=== PATIENT | female | born 1940 | race Caucasian/White ===

== ENCOUNTER 2016-05-29 10:30 | Outpatient (RCR) | payer MEDICARE ==
--- OUTSIDE RECORDS SUMMARY | 2016-04-11 10:12 | XMS REPORT | Continuity of Care Document ---
Author Author [facility] Organization [facility] Address Unknown Phone Unavailable Care Team Providers Care Technology Risk Intern Name Role Phone Frank Fang PCP [phone] Source Comments Some departments are not documenting in the electronic medical record. If you do not see the information that you expected, contact Release of Information in the Health Information Management department at [phone] for further assistance in locating additional records.[facility] Active Allergies and Adverse Reactions Allergen Noted Date Severity Reactions Comments Grass Pollen 07/14/2014 UNKNOWN Milk 07/14/2014 UNKNOWN Soy 07/14/2014 UNKNOWN Sulfa (Sulfonamide 07/27/2014 HIVES Antibiotics) Wheat 07/14/2014 UNKNOWN Current Medications Prescription Sig. Disp. Refills Start End Date Status Date fluticasone-salmeterol Inhale 1 Puff by mouth Active (ADVAIR DISKUS) 250-50 every 12 hours as needed. mcg inhalation disk albuterol (VENTOLIN HFA, Inhale 2 Puffs by mouth Active PROAIR HFA) 90 every 6 hours as needed. mcg/actuation inhaler METHYL-B12/L-MEFOLATE/B6 Take 1 Tab by mouth Active PHOS (METANX PO) daily. atenolol (TENORMIN) 25 mg Take 25 mg by mouth Active tablet daily. metformin-ER(+) Take 1,000 mg by mouth Active (FORTAMET) 1,000 mg twice daily. tablet escitalopram oxalate Take 10 mg by mouth Active (LEXAPRO) 10 mg tablet daily. CALCIUM PHOSPHATE Take 2 Tabs by mouth Active TRIB/VIT D3 (CITRACAL + D daily. PO) potassium Over the counter 99mg Active daily MULTIVITAMIN PO Take by mouth. Active FLAXSEED-OMEGA3,6,9-FATTY Take by mouth. Active ACID PO cholecalciferol (Vitamin Take 1,000 Units by mouth Active D3) (VITAMIN D-3) 1,000 daily. units tablet aspirin EC 81 mg tablet Take 81 mg by mouth Active daily. acetaminophen SR(+) Take 650 mg by mouth Active (TYLENOL ARTHRITIS) 650 every 6 hours as needed. mg tablet DIPHENHYDRAMINE HCL Take by mouth. Active (BENADRYL ALLERGY PO) PSEUDOEPHEDRINE HCL Take by mouth. Active (SUDAFED 24 HOUR PO) LORazepam (ATIVAN) 0.5 mg Take 1 Tab by mouth every 2 Tab -0 07/20/19 Active tablet 4 hours as needed for 15 Nausea, Vomiting or Other.... Patient to take 1 tablet 30 minutes prior to MRI. May repeat x 1, if needed. Patient instructed she will need a auto transport driver to take her to exam. cyanocobalamin(+) Take 100 mcg by mouth Active (VITAMIN B-12) 100 mcg daily. tablet Active Problems Problem Noted Date Diabetes (HCC) COPD (chronic obstructive pulmonary disease) (HCC) Coronary artery disease Adenocarcinoma of lung (HCC) Social History Tobacco Use Types Packs/Day Years Used Date Former Smoker Cigarettes 1 12 Quit: 07/08/1968 Smokeless Tobacco: Never Used Alcohol Use Drinks/Week oz/Week Comments No Last Filed Vital Signs Vital Sign Reading Time Taken Blood Pressure 137/50 07/27/2014 2:15 PM OPTICAL INSTRUMENT REPAIRER Pulse 73 07/27/2014 2:15 PM OPTICAL INSTRUMENT REPAIRER Temperature 36.8 C (98.2 F) 07/27/2014 12:11 PM OPTICAL INSTRUMENT REPAIRER Respiratory Rate - - Height 1.626 m (5' 4") 08/13/2014 1:34 PM OPTICAL INSTRUMENT REPAIRER Weight 84.369 kg (186 lb) 08/13/2014 1:34 PM OPTICAL INSTRUMENT REPAIRER Body Mass Index 31.91 08/13/2014 1:34 PM OPTICAL INSTRUMENT REPAIRER Oxygen Saturation 93% 07/27/2014 2:15 PM OPTICAL INSTRUMENT REPAIRER Plan of Care Health Maintenance Due Date Last Done Comments Physical (Comprehensive) 1947 Exam Pertussis Vaccine 1953 Tetanus Vaccine 12/05/1959 Breast Cancer Screening 1982 Colorectal Cancer 1992 Screening Shingles Vaccine 2002 Osteoporosis Screening 12/05/2007 Prevnar/Pneumovax (#1) 12/05/2007 Influenza Vaccine 03/08/2016 Results from Last 3 Months Not on file
[2016-04-11 10:28] LABS: BASOPHILS # (AUTO) 0.1 10^3/uL (0.0-0.1); BASOPHILS % (AUTO) 1 % (0-10); EOSINOPHILS # (AUTO) 0.2 10^3/uL (0.0-0.3); EOSINOPHILS % (AUTO) 3 % (0-10); LYMPHOCYTES # (AUTO) 1.3 X 10^3 (1.0-4.0); LYMPHOCYTES % (AUTO) 23 % (12-44); MEAN CORPUSCULAR HEMOGLOBIN 31 PG (25-34); MEAN CORPUSCULAR HGB CONC 32 G/DL (32-36); MEAN CORPUSCULAR VOLUME 95 FL (80-99); MEAN PLATELET VOLUME 9.5 FL (7.4-10.4); MONOCYTES # (AUTO) 0.8 X 10^3 (0.0-1.0); MONOCYTES % (AUTO) 14 % (0-12); NEUTROPHILS # (AUTO) 3.5 X 10^3 (1.8-7.8); NEUTROPHILS % (AUTO) 60 % (42-75); PLATELET COUNT 375 10^3/uL (130-400); RED BLOOD COUNT 3.77 10^6/uL (4.35-5.85); RED CELL DISTRIBUTION WIDTH 19.5 % (10.0-14.5); WHITE BLOOD COUNT 5.9 10^3/uL (4.3-11.0)
[2016-04-11 10:56] LABS: ALANINE AMINOTRANSFERASE 32 U/L (0-55); ALBUMIN 3.8 G/DL (3.2-4.5); ANION GAP 14 MMOL/L (5-14); ASPARTATE AMINO TRANSFERASE 39 U/L (5-34); BILIRUBIN,TOTAL 0.2 MG/DL (0.1-1.0); BLOOD UREA NITROGEN 11 MG/DL (7-18); BUN/CREATININE RATIO 16; CALCIUM 8.5 MG/DL (8.5-10.1); CARBON DIOXIDE 19 MMOL/L (21-32); CHLORIDE 109 MMOL/L (98-107); CREATININE SERUM 0.69 MG/DL (0.60-1.30); GFR ESTIMATED > 60; GLUCOSE 144 MG/DL (70-105); MAGNESIUM 1.6 MG/DL (1.8-2.4); POTASSIUM 3.8 MMOL/L (3.6-5.0); SODIUM 142 MMOL/L (135-145); TOTAL PROTEIN 5.8 G/DL (6.4-8.2)
[2016-05-02 11:24] LABS: BASOPHILS % (AUTO) 1 % (0-10); EOSINOPHILS # (AUTO) 0.1 10^3/uL (0.0-0.3); EOSINOPHILS % (AUTO) 3 % (0-10); LYMPHOCYTES # (AUTO) 0.7 X 10^3 (1.0-4.0); LYMPHOCYTES % (AUTO) 18 % (12-44); MEAN CORPUSCULAR HEMOGLOBIN 31 PG (25-34); MEAN CORPUSCULAR HGB CONC 32 G/DL (32-36); MEAN CORPUSCULAR VOLUME 96 FL (80-99); MEAN PLATELET VOLUME 9.8 FL (7.4-10.4); MONOCYTES # (AUTO) 0.6 X 10^3 (0.0-1.0); MONOCYTES % (AUTO) 14 % (0-12); NEUTROPHILS # (AUTO) 2.7 X 10^3 (1.8-7.8); NEUTROPHILS % (AUTO) 65 % (42-75); PLATELET COUNT 299 10^3/uL (130-400); RED CELL DISTRIBUTION WIDTH 17.3 % (10.0-14.5); WHITE BLOOD COUNT 4.1 10^3/uL (4.3-11.0)
[2016-05-02 11:48] LABS: ALANINE AMINOTRANSFERASE 31 U/L (0-55); ANION GAP 9 MMOL/L (5-14); ASPARTATE AMINO TRANSFERASE 36 U/L (5-34); BILIRUBIN,TOTAL 0.4 MG/DL (0.1-1.0); BLOOD UREA NITROGEN 11 MG/DL (7-18); BUN/CREATININE RATIO 16; CALCIUM 9.2 MG/DL (8.5-10.1); CARBON DIOXIDE 25 MMOL/L (21-32); CHLORIDE 107 MMOL/L (98-107); CREATININE SERUM 0.69 MG/DL (0.60-1.30); GFR ESTIMATED > 60; GLUCOSE 152 MG/DL (70-105); POTASSIUM 3.9 MMOL/L (3.6-5.0); SODIUM 141 MMOL/L (135-145); TOTAL PROTEIN 6.2 G/DL (6.4-8.2)
[2016-05-09 09:12] LABS: BASOPHILS % (AUTO) 1 % (0-10); EOSINOPHILS # (AUTO) 0.1 10^3/uL (0.0-0.3); EOSINOPHILS % (AUTO) 3 % (0-10); LYMPHOCYTES # (AUTO) 1.6 X 10^3 (1.0-4.0); LYMPHOCYTES % (AUTO) 45 % (12-44); MEAN CORPUSCULAR HEMOGLOBIN 31 PG (25-34); MEAN CORPUSCULAR HGB CONC 32 G/DL (32-36); MEAN CORPUSCULAR VOLUME 96 FL (80-99); MEAN PLATELET VOLUME 9.1 FL (7.4-10.4); MONOCYTES # (AUTO) 0.3 X 10^3 (0.0-1.0); MONOCYTES % (AUTO) 8 % (0-12); NEUTROPHILS # (AUTO) 1.5 X 10^3 (1.8-7.8); NEUTROPHILS % (AUTO) 44 % (42-75); PLATELET COUNT 363 10^3/uL (130-400); RED BLOOD COUNT 3.76 10^6/uL (4.35-5.85); RED CELL DISTRIBUTION WIDTH 16.4 % (10.0-14.5); WHITE BLOOD COUNT 3.5 10^3/uL (4.3-11.0)
[2016-05-09 09:38] LABS: ANION GAP 9 MMOL/L (5-14); BLOOD UREA NITROGEN 15 MG/DL (7-18); BUN/CREATININE RATIO 21; CARBON DIOXIDE 25 MMOL/L (21-32); CHLORIDE 104 MMOL/L (98-107); CREATININE SERUM 0.71 MG/DL (0.60-1.30); GFR ESTIMATED > 60; GLUCOSE 219 MG/DL (70-105); POTASSIUM 4.5 MMOL/L (3.6-5.0); SODIUM 138 MMOL/L (135-145)
[2016-05-16 10:58] LABS: BASOPHILS % (AUTO) 1 % (0-10); EOSINOPHILS # (AUTO) 0.1 10^3/uL (0.0-0.3); EOSINOPHILS % (AUTO) 1 % (0-10); LYMPHOCYTES # (AUTO) 1.5 X 10^3 (1.0-4.0); LYMPHOCYTES % (AUTO) 41 % (12-44); MEAN CORPUSCULAR HEMOGLOBIN 31 PG (25-34); MEAN CORPUSCULAR HGB CONC 32 G/DL (32-36); MEAN CORPUSCULAR VOLUME 97 FL (80-99); MEAN PLATELET VOLUME 9.4 FL (7.4-10.4); MONOCYTES # (AUTO) 0.4 X 10^3 (0.0-1.0); MONOCYTES % (AUTO) 12 % (0-12); NEUTROPHILS # (AUTO) 1.6 X 10^3 (1.8-7.8); NEUTROPHILS % (AUTO) 45 % (42-75); PLATELET COUNT 130 10^3/uL (130-400); RED BLOOD COUNT 3.83 10^6/uL (4.35-5.85); RED CELL DISTRIBUTION WIDTH 16.3 % (10.0-14.5); WHITE BLOOD COUNT 3.5 10^3/uL (4.3-11.0)
[2016-05-16 11:46] LABS: ANION GAP 9 MMOL/L (5-14); BLOOD UREA NITROGEN 13 MG/DL (7-18); BUN/CREATININE RATIO 18; CALCIUM 9.4 MG/DL (8.5-10.1); CARBON DIOXIDE 27 MMOL/L (21-32); CHLORIDE 104 MMOL/L (98-107); CREATININE SERUM 0.73 MG/DL (0.60-1.30); GFR ESTIMATED > 60; GLUCOSE 175 MG/DL (70-105); POTASSIUM 4.2 MMOL/L (3.6-5.0); SODIUM 140 MMOL/L (135-145)
[2016-05-23 14:30] LABS: BASOPHILS # (AUTO) 0.1 10^3/uL (0.0-0.1); BASOPHILS % (AUTO) 1 % (0-10); EOSINOPHILS # (AUTO) 0.2 10^3/uL (0.0-0.3); EOSINOPHILS % (AUTO) 2 % (0-10); LYMPHOCYTES # (AUTO) 1.5 X 10^3 (1.0-4.0); LYMPHOCYTES % (AUTO) 21 % (12-44); MEAN CORPUSCULAR HEMOGLOBIN 31 PG (25-34); MEAN CORPUSCULAR HGB CONC 32 G/DL (32-36); MEAN CORPUSCULAR VOLUME 98 FL (80-99); MONOCYTES % (AUTO) 14 % (0-12); NEUTROPHILS # (AUTO) 4.3 X 10^3 (1.8-7.8); NEUTROPHILS % (AUTO) 62 % (42-75); PLATELET COUNT 429 10^3/uL (130-400); RED BLOOD COUNT 3.73 10^6/uL (4.35-5.85); RED CELL DISTRIBUTION WIDTH 16.4 % (10.0-14.5)
--- NOTE | 2016-05-23 14:34 | Diagnostic Imaging Report ---
INDICATION: Lung cancer. PA and lateral views of the chest are obtained with comparison made to study of 05/18/2016. Heart size and pulmonary vascularity remain within normal limits. Approximately 2.4 cm nodule is again seen projecting over the lower right hemithorax. 1 cm nodule lateral to the hilum just below the sathya is also stable. Left anterior chest wall port remains in place. There is unchanged right convexity thoracic spinal curvature. No new mass or infiltrate is seen. IMPRESSION: Right lower lobe pulmonary nodule similar to 05/18/2016 with no significant change in nodule lateral to the right hilum. Otherwise, there is no acute abnormality or adverse change identified. Dictated by: Dictated on workstation # [id number]
[2016-05-23 15:03] LABS: ALANINE AMINOTRANSFERASE 23 U/L (0-55); ALBUMIN 3.9 G/DL (3.2-4.5); ANION GAP 10 MMOL/L (5-14); ASPARTATE AMINO TRANSFERASE 22 U/L (5-34); BILIRUBIN,TOTAL 0.2 MG/DL (0.1-1.0); BLOOD UREA NITROGEN 12 MG/DL (7-18); BUN/CREATININE RATIO 17; CALCIUM 9.4 MG/DL (8.5-10.1); CARBON DIOXIDE 26 MMOL/L (21-32); CHLORIDE 105 MMOL/L (98-107); CREATININE SERUM 0.71 MG/DL (0.60-1.30); GFR ESTIMATED > 60; GLUCOSE 133 MG/DL (70-105); POTASSIUM 4.1 MMOL/L (3.6-5.0); SODIUM 141 MMOL/L (135-145); TOTAL PROTEIN 6.1 G/DL (6.4-8.2)
[~2016-05-29] VITALS: Ht 160 cm; Wt 93.0 kg
[~2016-05-29 10:30] MED LIST: ALB0.5V INH; ALBU17AE23; ALBU8.5H2 INH; APIX5TAB PO; ASP325T; ASPI-266 PO; ASPI-892 PO; ATEN25TA PO; AZIT250T5 PO; AZIT250T81 PO; BENZ100C8 PO; CALC-657 PO; CALC-696 PO; CALC300T4 PO; CETI-176 PO; CETI10TA17 PO; CHOL100011 PO; CITRICAL; CLPD75T; CNC1KV IJ; CYAN10007 PO; DCS100C PO; DIPH25CA79 PO; DIPH25TA82 PO; DOXY100C2 PO; ESCI10TA48 PO; ESCI20TA45 PO; EUCA50OI5 TP; FERR325T24 PO; FISH OIL; FISH1CAP5 PO; FISH400C PO; FLT05NA16 NSEACH; FLUT1DIS26 INH; FLUT9.9S NS; FOLI1TAB24 PO; GABA-488 PO; GARLIC OTC; GEMCITABINE HCL (GENERIC) 1,000 MG, GEMCITABINE HCL (GENERIC) 600 MG in NS (IVPB) CANCE... IV SCH; GMFB600T; GUAI10SY4 PO; GUAI5SYR PO; HYDR-34 PO; LEVO750T9 PO; MELA1TAB15 PO; MELA1TAB16 PO; MELO-195 PO; METF-380 PO; METF1000 PO; METH500T44; MONT10TA21 PO; MTF500T; MULT1TAB63 PO; NF-TYLARTH PO; NS IV 500 ML (CANCER CENTER) IV SCH; OMEP20CA12 PO; PALONOSETRON 0.25 MG, DEXAMETHASONE 10 MG/NS 50 ML IVPB IV PRN; PHEN10TA56 PO; POLY17PO23 GT; POTA99TA15 PO; POTA99TA17 PO; POTASSIUM OTC; PRED10TA PO; PRO AIR; PROP15DR28 OU; SODI30SP2 NS; VIT D; VIT.C; WHEA1TAB PO; [UNRECOGNIZED DRUG - OTHER]; nasal saline
[2016-05-29 10:54] LABS: BASOPHILS % (AUTO) 1 % (0-10); EOSINOPHILS # (AUTO) 0.1 10^3/uL (0.0-0.3); EOSINOPHILS % (AUTO) 4 % (0-10); LYMPHOCYTES # (AUTO) 1.4 X 10^3 (1.0-4.0); LYMPHOCYTES % (AUTO) 35 % (12-44); MEAN CORPUSCULAR HEMOGLOBIN 31 PG (25-34); MEAN CORPUSCULAR HGB CONC 32 G/DL (32-36); MEAN CORPUSCULAR VOLUME 98 FL (80-99); MEAN PLATELET VOLUME 9.2 FL (7.4-10.4); MONOCYTES # (AUTO) 0.2 X 10^3 (0.0-1.0); MONOCYTES % (AUTO) 5 % (0-12); NEUTROPHILS # (AUTO) 2.1 X 10^3 (1.8-7.8); NEUTROPHILS % (AUTO) 55 % (42-75); PLATELET COUNT 414 10^3/uL (130-400); RED BLOOD COUNT 3.44 10^6/uL (4.35-5.85); RED CELL DISTRIBUTION WIDTH 15.4 % (10.0-14.5); WHITE BLOOD COUNT 3.9 10^3/uL (4.3-11.0)
[2016-05-29 11:15] LABS: ANION GAP 6 MMOL/L (5-14); BLOOD UREA NITROGEN 12 MG/DL (7-18); BUN/CREATININE RATIO 19; CALCIUM 9.1 MG/DL (8.5-10.1); CARBON DIOXIDE 27 MMOL/L (21-32); CHLORIDE 107 MMOL/L (98-107); CREATININE SERUM 0.64 MG/DL (0.60-1.30); GFR ESTIMATED > 60; GLUCOSE 128 MG/DL (70-105); POTASSIUM 4.1 MMOL/L (3.6-5.0); SODIUM 140 MMOL/L (135-145)
== END 2016-07-10 | disposition home or self-care (01) ==
LOC: ONC 10:30
PROVIDERS: ATTEND Internal Medicine Hematology & Oncology
DX: Z51.11 Encounter for antineoplastic chemotherapy (principal); C34.31 Malignant neoplasm of lower lobe, right bronchus or lung; J44.9 Chronic obstructive pulmonary disease, unspecified; I10 Essential (primary) hypertension; E78.5 Hyperlipidemia, unspecified; E11.9 Type 2 diabetes mellitus without complications; I25.10 Atherosclerotic heart disease of native coronary artery without angina pectoris; R19.5 Other fecal abnormalities; Z79.82 Long term (current) use of aspirin; Z79.899 Other long term (current) drug therapy
CPT/HCPCS: 36415; 36591; 71020; 80048; 80053; 83735; 85025; 96375; 96413; 99213

== ENCOUNTER → 2016-09-03 | Outpatient (CLI) | payer MEDICARE ==
[~2016-09-03] MED LIST changes: +BARIUM SUSPENSION 2.1% (VANILLA SILQ) 450 ML PO ONE; +CATHETER FLUSH 10 ML SYR IV PRN; -GEMCITABINE HCL (GENERIC) 1,000 MG, GEMCITABINE HCL (GENERIC) 600 MG in NS (IVPB) CANCE... IV SCH; +IOHEXOL 350 MG/ML 100 ML (OMNIPAQUE 350) VIAL IV ONE; +NS 100 ML (IVPB) BAG IV ONE; -NS IV 500 ML (CANCER CENTER) IV SCH; -PALONOSETRON 0.25 MG, DEXAMETHASONE 10 MG/NS 50 ML IVPB IV PRN
--- OUTSIDE RECORDS SUMMARY | 2016-09-03 10:55 | XMS REPORT | Continuity of Care Document ---
Author Author [facility] Organization [facility] Address Unknown Phone Unavailable Care Team Providers Care Audience Development Manager Name Role Phone Frank Fang PCP [phone] Source Comments Some departments are not documenting in the electronic medical record. If you do not see the information that you expected, contact Release of Information in the Health Information Management department at [phone] for further assistance in locating additional records.[facility] Active Allergies and Adverse Reactions Allergen [...] needed. Patient instructed she will need a stake driver to take her to exam. cyanocobalamin(+) [...] Taken Blood Pressure 137/50 07/27/2014 2:15 PM PIZZA HUT ASSISTANT Pulse 73 07/27/2014 2:15 PM PIZZA HUT ASSISTANT Temperature 36.8 C (98.2 F) 07/27/2014 12:11 PM PIZZA HUT ASSISTANT Respiratory Rate - - Height 1.626 m (5' 4") 08/13/2014 1:34 PM PIZZA HUT ASSISTANT Weight 84.369 kg (186 lb) 08/13/2014 1:34 PM PIZZA HUT ASSISTANT Body Mass Index 31.91 08/13/2014 1:34 PM PIZZA HUT ASSISTANT Oxygen Saturation 93% 07/27/2014 2:15 PM PIZZA HUT ASSISTANT Plan of Care Health Maintenance Due Date Last Done Comments Physical (Comprehensive) 1947 Exam Pertussis Vaccine 1953 Tetanus Vaccine 12/05/1959 Breast Cancer Screening 1982 Colorectal Cancer 1992 Screening Shingles Vaccine 2002 Osteoporosis Screening 12/05/2007 Prevnar/Pneumovax (#1) 12/05/2007 Influenza Vaccine 03/08/2016 Results from Last 3 Months Not on file
[2016-09-03] MEDS: CATHETER FLUSH 10 ML SYR IV PRN ×2 (11:01→11:10)
--- NOTE | 2016-09-03 11:42 | Diagnostic Imaging Report ---
PROCEDURE: CT chest and abdomen with contrast. TECHNIQUE: Multiple contiguous axial images were obtained through the chest and abdomen after the administration of intravenous contrast. INDICATION: Lung cancer, cough. COMPARISON: 04/30/2016. FINDINGS: CHEST: The brittney-fissural nodule in the right lower lobe measures 1.9 x 1.6 cm today, previously 1.8 x 1.6 cm. Brittney-fissural nodules above that level in the upper and lower lobes show a slight interval increase with the largest measuring 1.3 x 1.0 cm today, previously 0.9 x 0.7 cm. No suspicious appearing hilar or mediastinal lymph nodes. A low-density mass in the left thyroid lobe is unchanged at 1.6 cm. No destructive or suspicious osseous disease. No effusion, pneumonia, or pneumothorax. ABDOMEN: Hepatic steatosis is redemonstrated without discrete liver mass. The adrenals are stable and negative. There is no abdominal lymphadenopathy and there is no hydronephrosis. There is no ascites or mass. The osseous structures are nonacute. IMPRESSION: CHEST: The right lung nodules measure slightly larger than on the prior exam but no thoracic adenopathy or new lesion is evident. ABDOMEN: Fatty liver with no abdominal metastasis demonstrated. Dictated by: Dictated on workstation # [id number]
--- NOTE | 2016-09-03 14:47 | Diagnostic Imaging Report ---
Whole body bone scan. Technique: After the intravenous administration of 27 mCi of Technetium 99m MDP, whole body delayed phase bone scan images were obtained with lateral views of the head and neck and the chest regions. Indication: Lung cancer. Findings: There is moderately increased radiotracer activity seen in the posterior aspect of the right sacroiliac joint region. This is increased from the prior exam. There is also minimal foci of increased activity in the lower thoracic spine and lower lumbar spine, indeterminate and could be degenerative. No intense foci of suspicious pattern is seen other than the lesion around the left SI joint area. Degenerative activity in the knees and feet and less prominent in others locations are also noted. IMPRESSION: Development of moderate focus of increased activity of uptake seen in the left sacroiliac region in an asymmetric fashion concerning for neoplastic etiology. Correlation with CT scan or MRI of the pelvis is recommended. Dictated by: Dictated on workstation # [id number]
== END ==
LOC: CARD 10:51
PROVIDERS: ATTEND Internal Medicine Hematology & Oncology
DX: Z01.89 Encounter for other specified special examinations (principal); C34.31 Malignant neoplasm of lower lobe, right bronchus or lung
CPT/HCPCS: 71260; 74160; 78306

== ENCOUNTER 2016-09-26 11:10 | Outpatient (RCR) | payer MEDICARE ==
--- OUTSIDE RECORDS SUMMARY | 2016-08-15 09:43 | XMS REPORT | Continuity of Care Document ---
Author Author [facility] Organization [facility] Address Unknown Phone Unavailable Care Team Providers Care Public Health Staff Nurse Name Role Phone Frank Fang PCP [phone] Source Comments Some departments are not documenting in the electronic medical record. If you do not see the information that you expected, contact Release of Information in the Health Information Management department at [phone] for further assistance in locating additional records.[facility] Active Allergies and Adverse Reactions Allergen Noted [...] Patient instructed she will need a auto parts delivery driver to take her to exam. cyanocobalamin(+) [...] Taken Blood Pressure 137/50 07/27/2014 2:15 PM PLATE STACKER HAND Pulse 73 07/27/2014 2:15 PM PLATE STACKER HAND Temperature 36.8 C (98.2 F) 07/27/2014 12:11 PM PLATE STACKER HAND Respiratory Rate - - Height 1.626 m (5' 4") 08/13/2014 1:34 PM PLATE STACKER HAND Weight 84.369 kg (186 lb) 08/13/2014 1:34 PM PLATE STACKER HAND Body Mass Index 31.91 08/13/2014 1:34 PM PLATE STACKER HAND Oxygen Saturation 93% 07/27/2014 2:15 PM PLATE STACKER HAND Plan of Care Health Maintenance Due Date Last Done Comments Physical (Comprehensive) 1947 Exam Pertussis Vaccine 1953 Tetanus Vaccine 12/05/1959 Breast Cancer Screening 1982 Colorectal Cancer 1992 Screening Shingles Vaccine 2002 Osteoporosis Screening 12/05/2007 Prevnar/Pneumovax (#1) 12/05/2007 Influenza Vaccine 03/08/2016 Results from Last 3 Months Not on file
[2016-08-15 10:21] LABS: BASOPHILS % (AUTO) 1 % (0-10); EOSINOPHILS # (AUTO) 0.4 10^3/uL (0.0-0.3); EOSINOPHILS % (AUTO) 5 % (0-10); LYMPHOCYTES # (AUTO) 1.1 X 10^3 (1.0-4.0); LYMPHOCYTES % (AUTO) 15 % (12-44); MEAN CORPUSCULAR HEMOGLOBIN 30 PG (25-34); MEAN CORPUSCULAR HGB CONC 32 G/DL (32-36); MEAN CORPUSCULAR VOLUME 96 FL (80-99); MEAN PLATELET VOLUME 9.5 FL (7.4-10.4); MONOCYTES # (AUTO) 0.9 X 10^3 (0.0-1.0); MONOCYTES % (AUTO) 12 % (0-12); NEUTROPHILS # (AUTO) 4.8 X 10^3 (1.8-7.8); NEUTROPHILS % (AUTO) 67 % (42-75); PLATELET COUNT 383 10^3/uL (130-400); RED CELL DISTRIBUTION WIDTH 16.9 % (10.0-14.5); WHITE BLOOD COUNT 7.1 10^3/uL (4.3-11.0)
[2016-08-15 10:49] LABS: ALANINE AMINOTRANSFERASE 22 U/L (0-55); ALBUMIN 3.9 G/DL (3.2-4.5); ANION GAP 11 MMOL/L (5-14); ASPARTATE AMINO TRANSFERASE 23 U/L (5-34); BILIRUBIN,TOTAL 0.3 MG/DL (0.1-1.0); BLOOD UREA NITROGEN 14 MG/DL (7-18); BUN/CREATININE RATIO 20; CALCIUM 8.9 MG/DL (8.5-10.1); CARBON DIOXIDE 25 MMOL/L (21-32); CHLORIDE 107 MMOL/L (98-107); GFR ESTIMATED > 60; GLUCOSE 125 MG/DL (70-105); MAGNESIUM 1.8 MG/DL (1.8-2.4); POTASSIUM 4.1 MMOL/L (3.6-5.0); SODIUM 143 MMOL/L (135-145); TOTAL PROTEIN 6.1 G/DL (6.4-8.2)
--- NOTE | 2016-08-15 14:08 | Diagnostic Imaging Report ---
PA and lateral views of the chest. INDICATION: Lung cancer. COMPARISON: 05/23/2016. FINDINGS: There is a stable 2.2 cm nodule in the right lung base. The lungs demonstrate no focal infiltrate. No significant effusion or pneumothorax. The heart size is normal. Infusion port is again seen without change. Scoliosis with right convexity in the lower thoracic spine level seen. IMPRESSION: Stable 2.2 cm right lung base nodule. No acute process. Dictated by: Dictated on workstation # [id number]
[2016-08-22 10:10] LABS: BASOPHILS % (AUTO) 1 % (0-10); EOSINOPHILS # (AUTO) 0.2 10^3/uL (0.0-0.3); EOSINOPHILS % (AUTO) 7 % (0-10); LYMPHOCYTES # (AUTO) 1.1 X 10^3 (1.0-4.0); LYMPHOCYTES % (AUTO) 33 % (12-44); MEAN CORPUSCULAR HEMOGLOBIN 30 PG (25-34); MEAN CORPUSCULAR HGB CONC 32 G/DL (32-36); MEAN CORPUSCULAR VOLUME 96 FL (80-99); MONOCYTES # (AUTO) 0.5 X 10^3 (0.0-1.0); MONOCYTES % (AUTO) 15 % (0-12); NEUTROPHILS # (AUTO) 1.4 X 10^3 (1.8-7.8); NEUTROPHILS % (AUTO) 44 % (42-75); PLATELET COUNT 332 10^3/uL (130-400); RED BLOOD COUNT 3.72 10^6/uL (4.35-5.85); WHITE BLOOD COUNT 3.3 10^3/uL (4.3-11.0)
[2016-08-22 10:27] LABS: ANION GAP 8 MMOL/L (5-14); BLOOD UREA NITROGEN 12 MG/DL (7-18); BUN/CREATININE RATIO 18; CALCIUM 8.7 MG/DL (8.5-10.1); CARBON DIOXIDE 25 MMOL/L (21-32); CHLORIDE 107 MMOL/L (98-107); CREATININE SERUM 0.65 MG/DL (0.60-1.30); GFR ESTIMATED > 60; GLUCOSE 194 MG/DL (70-105); POTASSIUM 4.3 MMOL/L (3.6-5.0); SODIUM 140 MMOL/L (135-145)
[2016-08-29 11:26] LABS: BASOPHILS % (AUTO) 1 % (0-10); EOSINOPHILS # (AUTO) 0.3 10^3/uL (0.0-0.3); EOSINOPHILS % (AUTO) 7 % (0-10); LYMPHOCYTES # (AUTO) 1.3 X 10^3 (1.0-4.0); LYMPHOCYTES % (AUTO) 33 % (12-44); MEAN CORPUSCULAR HEMOGLOBIN 30 PG (25-34); MEAN CORPUSCULAR HGB CONC 32 G/DL (32-36); MEAN CORPUSCULAR VOLUME 95 FL (80-99); MEAN PLATELET VOLUME 9.2 FL (7.4-10.4); MONOCYTES # (AUTO) 0.5 X 10^3 (0.0-1.0); MONOCYTES % (AUTO) 13 % (0-12); NEUTROPHILS # (AUTO) 1.8 X 10^3 (1.8-7.8); NEUTROPHILS % (AUTO) 47 % (42-75); PLATELET COUNT 113 10^3/uL (130-400); RED BLOOD COUNT 4.08 10^6/uL (4.35-5.85); RED CELL DISTRIBUTION WIDTH 16.4 % (10.0-14.5); WHITE BLOOD COUNT 3.9 10^3/uL (4.3-11.0)
[2016-08-29 12:36] LABS: ANION GAP 11 MMOL/L (5-14); BLOOD UREA NITROGEN 10 MG/DL (7-18); BUN/CREATININE RATIO 15; CALCIUM 9.2 MG/DL (8.5-10.1); CARBON DIOXIDE 26 MMOL/L (21-32); CHLORIDE 105 MMOL/L (98-107); CREATININE SERUM 0.68 MG/DL (0.60-1.30); GFR ESTIMATED > 60; GLUCOSE 157 MG/DL (70-105); POTASSIUM 4.5 MMOL/L (3.6-5.0); SODIUM 142 MMOL/L (135-145)
[2016-09-05 09:31] LABS: BASOPHILS % (AUTO) 1 % (0-10); EOSINOPHILS # (AUTO) 0.5 10^3/uL (0.0-0.3); EOSINOPHILS % (AUTO) 6 % (0-10); LYMPHOCYTES # (AUTO) 1.2 X 10^3 (1.0-4.0); LYMPHOCYTES % (AUTO) 14 % (12-44); MEAN CORPUSCULAR HEMOGLOBIN 30 PG (25-34); MEAN CORPUSCULAR HGB CONC 32 G/DL (32-36); MEAN CORPUSCULAR VOLUME 96 FL (80-99); MEAN PLATELET VOLUME 9.7 FL (7.4-10.4); MONOCYTES % (AUTO) 12 % (0-12); NEUTROPHILS # (AUTO) 5.6 X 10^3 (1.8-7.8); NEUTROPHILS % (AUTO) 68 % (42-75); PLATELET COUNT 411 10^3/uL (130-400); RED BLOOD COUNT 3.87 10^6/uL (4.35-5.85); RED CELL DISTRIBUTION WIDTH 16.6 % (10.0-14.5); WHITE BLOOD COUNT 8.3 10^3/uL (4.3-11.0)
[2016-09-05 09:50] LABS: ALANINE AMINOTRANSFERASE 14 U/L (0-55); ALBUMIN 3.7 G/DL (3.2-4.5); ANION GAP 12 MMOL/L (5-14); ASPARTATE AMINO TRANSFERASE 15 U/L (5-34); BILIRUBIN,TOTAL 0.3 MG/DL (0.1-1.0); BLOOD UREA NITROGEN 12 MG/DL (7-18); BUN/CREATININE RATIO 17; CALCIUM 8.7 MG/DL (8.5-10.1); CARBON DIOXIDE 23 MMOL/L (21-32); CHLORIDE 107 MMOL/L (98-107); GFR ESTIMATED > 60; GLUCOSE 206 MG/DL (70-105); POTASSIUM 4.1 MMOL/L (3.6-5.0); SODIUM 142 MMOL/L (135-145); TOTAL PROTEIN 5.9 G/DL (6.4-8.2)
[~2016-09-26] VITALS: Ht 160 cm; Wt 94.3 kg
[~2016-09-26 11:10] MED LIST changes: -BARIUM SUSPENSION 2.1% (VANILLA SILQ) 450 ML PO ONE; -CATHETER FLUSH 10 ML SYR IV PRN; +GEMCITABINE HCL (GENERIC) 1,000 MG, GEMCITABINE HCL (GENERIC) 600 MG in NS (IVPB) CANCE... IV SCH; -IOHEXOL 350 MG/ML 100 ML (OMNIPAQUE 350) VIAL IV ONE; -NS 100 ML (IVPB) BAG IV ONE; +NS IV 500 ML (CANCER CENTER) IV SCH; +PALONOSETRON 0.25 MG, DEXAMETHASONE 10 MG/NS 50 ML IVPB IV PRN
== END 2016-11-13 | disposition home or self-care (01) ==
LOC: ONC 11:10
PROVIDERS: ATTEND Internal Medicine Hematology & Oncology
DX: Z51.0 Encounter for antineoplastic radiation therapy (principal); Z51.11 Encounter for antineoplastic chemotherapy; C34.31 Malignant neoplasm of lower lobe, right bronchus or lung; J44.9 Chronic obstructive pulmonary disease, unspecified; I10 Essential (primary) hypertension; E78.5 Hyperlipidemia, unspecified; E11.9 Type 2 diabetes mellitus without complications; I25.10 Atherosclerotic heart disease of native coronary artery without angina pectoris; R19.5 Other fecal abnormalities; Z79.82 Long term (current) use of aspirin; Z79.899 Other long term (current) drug therapy
CPT/HCPCS: 36415; 36591; 71020; 77290; 77295; 77332; 77334; 77336; 77402; 77417; 77470; 80048; 80053; 83735; 85025; 96375; 96413; 99213; 99214

== ENCOUNTER → 2017-08-06 | Outpatient (CLI) | payer MEDICARE ==
[~2017-08-06] MED LIST changes: +AZIT250T12 PO; -AZIT250T5 PO; -GEMCITABINE HCL (GENERIC) 1,000 MG, GEMCITABINE HCL (GENERIC) 600 MG in NS (IVPB) CANCE... IV SCH; +GEMF600T3 PO; +LORA0.5T PO; +MELA5CAP PO; -NS IV 500 ML (CANCER CENTER) IV SCH; +OMEP20TA7 PO; +OXYC-465 PO; -PALONOSETRON 0.25 MG, DEXAMETHASONE 10 MG/NS 50 ML IVPB IV PRN; +PHEN10TA4 PO; -PHEN10TA56 PO; +SERT100T8 PO; +SITA100T12 PO; +TRAZ-28 PO; +VNL37.5T PO
== END ==
LOC: PREOP 15:11
PROVIDERS: ATTEND Surgery
DX: Z01.818 Encounter for other preprocedural examination (principal); C34.90 Malignant neoplasm of unspecified part of unspecified bronchus or lung

== ENCOUNTER → 2017-08-06 | Outpatient (CLI) | payer MEDICARE ==
--- NOTE | 2017-08-06 12:42 | Diagnostic Imaging Report ---
INDICATION: Shortness of breath. History of lung cancer. Comparison made with prior examination from 08/15/16. FINDINGS: There is an extensive right basilar consolidation and large right pleural effusion. Heart size is stable. Left lung is clear. There is no pneumothorax. [id number] catheter overlies left hemithorax. IMPRESSION: Extensive right basilar consolidation and moderately large right pleural effusion. Dictated by: Dictated on workstation # [id number]
== END ==
LOC: RAD 12:05
PROVIDERS: ATTEND Nurse Practitioner Family
DX: J90 Pleural effusion, not elsewhere classified (principal); J18.1 Lobar pneumonia, unspecified organism; Z85.118 Personal history of other malignant neoplasm of bronchus and lung
CPT/HCPCS: 71046

== ENCOUNTER 2017-08-07 06:28 | Day surgery (SDC) | payer MEDICARE ==
[~2017-08-07] VITALS: Ht 157.5 cm; Wt 92.2 kg
[~2017-08-07 06:28] MED LIST changes: -GEMF600T3 PO; -LORA0.5T PO; -MELA5CAP PO; -OMEP20TA7 PO; -OXYC-465 PO; -SERT100T8 PO; -SITA100T12 PO; -TRAZ-28 PO; -VNL37.5T PO
--- OUTSIDE RECORDS SUMMARY | 2017-08-07 06:30 | XMS REPORT | Clinical Summary ---
Author Author [facility] Organization [facility] Address Unknown Phone Unavailable Care Team Providers Care Sheet Rock Finisher Name Role Phone Jerry Fang MD PCP Mg Mcguire MD Unavailable Edin Lacey MD Unavailable Source Comments Some departments are not documenting in the electronic medical record. If you do not see the information that you expected, contact Release of Information in the Health Information Management department at [phone] for further assistance in locating additional records.[facility] Allergies Active Allergy Reactions Severity Noted Date Comments Grass Pollen UNKNOWN 07/14/2014 Milk UNKNOWN 07/14/2014 Soy UNKNOWN 07/14/2014 Sulfa (Sulfonamide HIVES 07/27/2014 Antibiotics) Wheat UNKNOWN 07/14/2014 Current Medications Prescription Sig. Disp. Refills Start [...] needed. Patient instructed she will need a otr flatbed company truck driver to take her to exam. cyanocobalamin(+) [...] Used Alcohol Use Drinks/Week oz/Week Comments No Sex Assigned at Date Recorded Not on file Last Filed Vital Signs Vital Sign Reading Time Taken Blood Pressure 137/50 07/27/2014 2:15 PM PAINTER AND BODY WORK Pulse 73 07/27/2014 2:15 PM PAINTER AND BODY WORK Temperature 36.8 C (98.2 F) 07/27/2014 12:11 PM PAINTER AND BODY WORK Respiratory Rate - - Oxygen Saturation 93% 07/27/2014 2:15 PM PAINTER AND BODY WORK Inhaled Oxygen - - Concentration Weight 84.4 kg (186 lb) 08/13/2014 1:34 PM PAINTER AND BODY WORK Height 162.6 cm (5' 4") 08/13/2014 1:34 PM PAINTER AND BODY WORK Body Mass Index 31.93 08/13/2014 1:34 PM PAINTER AND BODY WORK Plan of Treatment Health Maintenance Due Date Last Done Comments PHYSICAL (COMPREHENSIVE) 1947 EXAM PERTUSSIS VACCINE 1953 TETANUS VACCINE 12/05/1959 BREAST CANCER SCREENING 1982 COLORECTAL CANCER 1992 SCREENING SHINGLES VACCINE 2002 OSTEOPOROSIS SCREENING 12/05/2007 PREVNAR/PNEUMOVAX (#1) 12/05/2007 INFLUENZA VACCINE 02/05/2017 Results Not on filefrom Last 3 Months
--- OUTSIDE RECORDS SUMMARY | 2017-08-07 06:39 | XMS REPORT | Continuity of Care Document ---
Author Author [facility] Organization [facility] Address Unknown Phone Unavailable Allergies Active Description Code Type Severity Reaction Onset Reported/Identified Relationship to Patient Clinical Status Yes cefaclor [id number] Drug Allergy Unknown N/A 07/14/2008 Yes Sulfa (Sulfonamide Antibiotics) [id number] Drug Allergy Unknown N/A 2008 Yes clobetasol [id number] Drug Allergy Mild RASH ITHCING 06/17/2009 Yes FLIDACORT FLIDACORT Mild RASH,ITCHING 06/17/2009 Yes egg [id number] Drug Allergy Unknown N/A 05/28/2014 Yes Caroline And Derivatives [id number] Drug Allergy Unknown N/A 05/29/2014 Yes milk [id number] Drug Allergy Unknown N/A 05/29/2014 Yes soy [id number] Drug Allergy Unknown N/A 05/29/2014 Yes wheat [id number] Drug Allergy Unknown N/A 05/29/2014 Yes latex [id number] Drug Allergy Unknown N/A 09/29/2014 Medications There is no data. Problems Date Dx Coded Attending Type Code Diagnosis Diagnosed By 06/06/1010 NANCY KEARNEY Ot 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 LOWER LOBE, RIGHT 06/06/1010 NANCY KEARNEY Ot E11.9 TYPE 2 DIABETES MELLITUS WITHOUT COMPLIC 06/06/1010 NANCY EKARNEY Ot E78.5 HYPERLIPIDEMIA, UNSPECIFIED 06/06/1010 NANCY KEARNEY Ot I10 ESSENTIAL (PRIMARY) HYPERTENSION 06/06/1010 NANCY KEARNEY Ot I25.10 ATHSCL HEART DISEASE OF [place] CORONARY 06/06/1010 NANCY KEARNEY Ot J44.9 CHRONIC OBSTRUCTIVE PULMONARY DISEASE, U 06/06/1010 NANCY KEARNEY Ot R19.5 OTHER FECAL ABNORMALITIES 06/06/1010 NANCY KEARNEY Ot Z51.11 ENCOUNTER FOR ANTINEOPLASTIC CHEMOTHERAP 06/06/1010 NANCY KEARNEY Ot Z79.82 DIRECTOR FUNERAL (CURRENT) USE OF ASPIRIN 06/06/1010 NANCY KEARNEY Ot Z79.899 OTHER SKILLED NURSING (CURRENT) DRUG THERAPY 05/15/2011 Ot V54.11 AFTERCARE HEALING TRAUMATIC FX UPPER ARM 05/15/2011 Ot V57.1 PHYSICAL THERAPY NEC 05/15/2011 Ot V58.43 AFTERCARE POST SURGERY INJURY/TRAUMA 11/11/2011 Ot 787.91 DIARRHEA 05/28/2014 Ot 397.0 05/28/2014 Ot 401.9 05/28/2014 Ot 414.00 05/28/2014 Ot 416.8 05/28/2014 Ot 424.0 05/28/2014 Ot 429.3 05/28/2014 Ot V76.12 05/28/2014 Ot 285.9 05/28/2014 Ot 618.4 05/28/2014 Ot 625.6 05/28/2014 Ot V72.63 05/28/2014 Ot V74.8 05/28/2014 Ot 414.00 05/28/2014 Ot 786.50 05/28/2014 Ot 414.01 05/28/2014 Ot 719.06 05/28/2014 Ot 719.46 05/28/2014 Ot V76.12 05/28/2014 Ot 611.72 05/28/2014 Ot 401.9 05/28/2014 Ot 414.00 05/28/2014 Ot 397.0 05/28/2014 Ot 401.9 05/28/2014 Ot 414.00 05/28/2014 Ot 424.0 05/28/2014 Ot V76.12 05/28/2014 KASSANDRA COSTA MD Ot V76.12 06/01/2014 KASSANDRA COSTA MD Ot 250.00 DIAB DARCI WO COMPL, TYPE II OR UNSPEC TY 06/01/2014 KASSANDRA COSTA MD Ot 272.4 HYPERLIPIDEMIA NEC/NOS 06/01/2014 KASSANDRA COSTA MD Ot 305.1 TOBACCO USE DISORDER 06/01/2014 KASSANDRA COSTA MD Ot 379.46 TONIC PUPILLARY REACTION 06/01/2014 KASSANDRA COSTA MD Ot 389.9 HEARING LOSS NOS 06/01/2014 KASSANDRA COSTA MD Ot 401.9 HYPERTENSION NOS 06/01/2014 KASSANDRA COSTA MD Ot 414.01 CORONARY ATHEROSCLEROSIS OF [place] CORON 06/01/2014 KASSANDRA COSTA MD Ot 447.2 RUPTURE OF ARTERY 06/01/2014 KASSANDRA COSTA MD Ot 493.92 ASTHMA, UNSPECIFIED, W (ACUTE) EXACERBAT 06/01/2014 KASSANDRA COSTA MD Ot 729.92 NONTRAUMATIC HEMATOMA OF SOFT TISSUE 06/01/2014 KASSANDRA COSTA MD Ot 793.11 SOLITARY PULMONARY NODULE 06/01/2014 KASSANDRA COSTA MD Ot V45.82 PERCUTANEOUS TRANSLUM CORON ANGIOPLASTY 06/02/2014 ZAYNAB FRENCH, KRISS Mayes Ot 998.32 DISRUPTION OF EXTERNAL OPERATION (SURGIC 06/07/2014 KASSANDRA COSTA MD Ot 786.6 CHEST SWELLING/MASS/LUMP 06/21/2014 KASSANDRA COSTA MD Ot 250.00 06/21/2014 KASSANDRA COSTA MD Ot 272.4 06/21/2014 KASSANDRA COSTA MD Ot 305.1 06/21/2014 KASSANDRA COSTA MD Ot 379.46 06/21/2014 KASSANDRA COSTA MD Ot 389.9 06/21/2014 KASSANDRA COSTA MD Ot 401.9 06/21/2014 KASSANDRA COSTA MD Ot 414.01 06/21/2014 KASSANDRA COSTA MD Ot 447.2 06/21/2014 KASSANDRA COSTA MD Ot 493.92 06/21/2014 KASSANDRA COSTA MD Ot 729.92 06/21/2014 KASSANDRA COSTA MD Ot 793.11 06/21/2014 KASSANDRA COSTA MD Ot V45.82 06/23/2014 Ot 397.0 06/23/2014 Ot 401.9 06/23/2014 Ot 414.00 06/23/2014 Ot 416.8 06/23/2014 Ot 424.0 06/23/2014 Ot 429.3 06/23/2014 Ot V76.12 06/23/2014 Ot 285.9 06/23/2014 Ot 618.4 06/23/2014 Ot 625.6 06/23/2014 Ot V72.63 06/23/2014 Ot V74.8 06/23/2014 Ot 414.00 06/23/2014 Ot 786.50 06/23/2014 Ot 414.01 06/23/2014 Ot 719.06 06/23/2014 Ot 719.46 06/23/2014 Ot V76.12 06/23/2014 Ot 611.72 06/23/2014 Ot 401.9 06/23/2014 Ot 414.00 06/23/2014 Ot 397.0 06/23/2014 Ot 401.9 06/23/2014 Ot 414.00 06/23/2014 Ot 424.0 06/23/2014 Ot V76.12 06/23/2014 KASSANDRA COSTA MD Ot V76.12 06/23/2014 KASSANDRA COSTA MD Ot 562.10 06/23/2014 KASSANDRA COSTA MD Ot 729.92 06/23/2014 KASSANDRA COSTA MD Ot 786.6 06/23/2014 KASSANDRA COSTA MD Ot 162.9 06/23/2014 NANCY KEARNEY Ot 162.9 06/23/2014 KASSANDRA COSTA MD Ot 998.12 06/24/2014 KASSANDRA COSTA MD Ot 562.10 06/24/2014 KASSANDRA COSTA MD Ot 729.92 06/24/2014 KASSANDRA COSTA MD Ot 786.6 07/07/2014 KASSANDRA COSTA MD Ot 162.9 07/12/2014 KASSANDRA COSTA MD Ot 998.12 07/14/2014 LEWIS POST DO Ot 162.9 07/14/2014 LEWIS POST DO Ot 493.20 07/14/2014 LEWIS POST DO Ot 786.09 07/16/2014 Ot 611.72 07/16/2014 Ot 401.9 07/16/2014 Ot 414.00 07/16/2014 Ot 397.0 07/16/2014 Ot 401.9 07/16/2014 Ot 414.00 07/16/2014 Ot 424.0 07/16/2014 Ot V76.12 07/16/2014 KASSANDRA COSTA MD Ot V76.12 07/16/2014 KASSANDRA COSTA MD Ot 562.10 07/16/2014 KASSANDRA COSTA MD Ot 729.92 07/16/2014 KASSANDRA COSTA MD Ot 786.6 07/16/2014 KASSANDRA COSTA MD Ot 162.9 07/16/2014 NANCY KEARNEY Ot 162.9 07/16/2014 LEWIS POST DO Ot 162.9 07/16/2014 LEWIS POST DO Ot 493.20 07/16/2014 LEWIS POST DO Ot 786.09 07/16/2014 KASSANDRA COSTA MD Ot 998.12 08/05/2014 CHRISTEL BERTOCASSY N Ot 162.9 08/16/2014 CONNIE FRENCH, JOSHUA Velarde Ot 162.9 08/20/2014 NANCY KEARNEY N Ot 162.9 08/26/2014 NIKO EUCEDA, JAMILA K Ot 250.00 08/26/2014 NIKO PA, JAMILA K Ot 272.4 08/26/2014 NIKO EUCEDA, JAMILA K Ot 401.9 08/26/2014 NIKO EUCEDA, JAMILA K Ot 414.00 08/26/2014 HANNAH FRENCH, DAMION Alvarenga Ot 250.00 08/26/2014 HANNAH FRENCH, DAMION Alvarenga Ot 272.4 08/26/2014 HANNAH FRENCH, DAMION Alvarenga Ot 401.9 08/26/2014 HANNAH FRENCH, DAMION Alvarenga Ot 414.00 08/30/2014 NANCY KEARNEY N Ot 162.9 09/19/2014 NANCY KEARNEY Ot 162.9 MAL DULCE MARIA BRONCH/LUNG NOS 09/29/2014 NANCY KEARNEY N Ot 162.9 09/29/2014 SULAIMAN FRENCH, ISACC Corona Ot 162.9 MAL DULCE MARIA BRONCH/LUNG NOS 09/29/2014 SULAIMAN FRENCH, ISACC S Ot 250.00 DIAB DARCI WO COMPL, TYPE II OR UNSPEC TY 09/29/2014 SULAIMAN FRENCH, ISACC S Ot V74.8 SCREEN-BACTERIAL DIS NEC 10/07/2014 JOSETTE ALEXIS TIRE ADJUSTER Ot 162.5 10/07/2014 JOSETTE ALEXIS TIRE ADJUSTER Ot 196.1 10/07/2014 JOSETTE ALEXIS TIRE ADJUSTER Ot 250.00 10/07/2014 JOSETTE ALEXIS TIRE ADJUSTER Ot 272.4 10/07/2014 JOSETTE ALEXIS TIRE ADJUSTER Ot 401.9 10/07/2014 JOSETTE ALEXIS TIRE ADJUSTER Ot 414.00 10/07/2014 JOSETTE ALEXIS TIRE ADJUSTER Ot 493.20 10/07/2014 JOSETTE ALEXIS TIRE ADJUSTER Ot V58.66 10/07/2014 JOSETTE ALEXIS TIRE ADJUSTER Ot V58.69 10/14/2014 NANCY KEARNEY N Ot 162.9 10/15/2014 CHRISTEL, BOBAN N Ot 162.9 10/20/2014 CHRISTEL, BOBAN N Ot 162.9 10/20/2014 CHRISTEL, BOBAN N Ot V58.81 11/09/2014 CHRISTEL, BOBAN N Ot 162.9 11/09/2014 CHRISTEL, BOBAN N Ot 562.10 11/09/2014 CHRISTEL, BOBAN N Ot 573.8 11/30/2014 CHRISTEL, BOBAN N Ot 162.9 11/30/2014 CHRISTEL, BOBAN N Ot V58.81 2014 CHRISTEL, BOBAN N Ot 162.9 2014 CHRISTEL, BOBAN N Ot V58.81 12/14/2014 CHRISTEL, BOBAN N Ot 162.9 12/14/2014 CHRISTEL, BOBAN N Ot 562.10 12/14/2014 CHRISTEL, BOBAN N Ot 573.8 12/16/2014 JOSETTE ALEXIS TIRE ADJUSTER Ot 162.9 12/31/2014 CHRISTEL, BOBAN N Ot 162.9 12/31/2014 CHRISTEL, BOBAN N Ot V58.81 01/03/2015 JOSETTE ALEXIS TIRE ADJUSTER Ot 162.9 01/10/2015 CONNIE FRENCH, JOSHUA K Ot 162.9 01/12/2015 CHRISTEL, BOBAN N Ot 162.9 MAL DULCE MARIA BRONCH/LUNG NOS 01/12/2015 CHRISTEL, BOBAN N Ot V58.11 ENCOUNTER FOR ANTINEOPLASTIC CHEMOTHERAP 01/12/2015 CHRISTEL, BOBAN N Ot V58.81 FIT/ADJ VASCULAR CATHETER 01/12/2015 JULISSA FRENCH, KASSANDRA Marie Ot 162.9 01/25/2015 CHRISTEL, BOBAN N Ot 162.9 01/25/2015 CHRISTEL, BOBAN N Ot V58.81 01/25/2015 CHRISTEL, BOBAN N Ot 162.9 01/25/2015 CHRISTEL, BOBAN N Ot V58.81 01/26/2015 CHRISTEL, BOBAN N Ot 162.9 01/26/2015 CHRISTEL, BOBAN N Ot V58.81 02/01/2015 CHRISTEL, BOBAN N Ot 162.5 02/01/2015 CHRISTEL, BOBAN N Ot 196.1 02/01/2015 CHRISTEL, BOBAN N Ot 250.00 02/01/2015 CHRISTEL, BOBAN N Ot 272.4 02/01/2015 NANCY KEARNEY N Ot 401.9 02/01/2015 CHRISTEL, NANCY N Ot 414.00 02/01/2015 NANCY KEARNEY N Ot 493.20 02/01/2015 NANCY KEARNEY N Ot V58.11 02/01/2015 NANCY KEARNEY N Ot V58.66 02/01/2015 NANCY KEARNEY N Ot V58.69 02/02/2015 ALEXISJOSETTE S TIRE ADJUSTER Ot 162.5 02/02/2015 ALEXISJOSETTE S TIRE ADJUSTER Ot 196.1 02/02/2015 ALEXISCHINAAH S TIRE ADJUSTER Ot 250.00 02/02/2015 VANESA CHINAAH S TIRE ADJUSTER Ot 272.4 02/02/2015 ALEXIS CHINAAH S TIRE ADJUSTER Ot 356.9 02/02/2015 ALEXIS CHINAAH S TIRE ADJUSTER Ot 401.9 02/02/2015 ALEXIS, CHINAAH S TIRE ADJUSTER Ot 414.00 02/02/2015 VANESA CHINAAH S TIRE ADJUSTER Ot 493.20 02/02/2015 ALEXIS JOSETTE S TIRE ADJUSTER Ot 528.9 02/02/2015 ALEXIS JOSETTE S TIRE ADJUSTER Ot V58.66 02/02/2015 ALEXIS CHINAAH S TIRE ADJUSTER Ot V58.69 02/02/2015 ALEXIS CHINAAH S TIRE ADJUSTER Ot 162.5 02/02/2015 ALEXIS CHINAAH S TIRE ADJUSTER Ot 196.1 02/02/2015 ALEXIS CHINAAH S TIRE ADJUSTER Ot 250.00 02/02/2015 ALEXIS CHINAAH S TIRE ADJUSTER Ot 272.4 02/02/2015 ALEXIS CHINAAH S TIRE ADJUSTER Ot 356.9 02/02/2015 ALEXIS CHINAAH S TIRE ADJUSTER Ot 401.9 02/02/2015 ALEXIS, HILAH S TIRE ADJUSTER Ot 414.00 02/02/2015 ALEXIS, HILAH S TIRE ADJUSTER Ot 493.20 02/02/2015 ALEXIS HILAH S TIRE ADJUSTER Ot 528.9 02/02/2015 ALEXIS CHINAAH S TIRE ADJUSTER Ot V58.66 02/02/2015 ALEXIS CHINAAH S TIRE ADJUSTER Ot V58.69 02/03/2015 NANCY KEARNEY N Ot 162.5 02/03/2015 CHRISTEL, BOBAN N Ot 196.1 02/03/2015 CHRISTEL, BOBAN N Ot 250.00 02/03/2015 CHRISTEL, BOBAN N Ot 272.4 02/03/2015 CHRISTEL, BOBAN N Ot 401.9 02/03/2015 CHRISTEL, BOBAN N Ot 414.00 02/03/2015 CHRISTEL, BOBAN N Ot 493.20 02/03/2015 CHRISTEL, BOBAN N Ot V58.11 02/03/2015 CHRISTEL, BOBAN N Ot V58.66 02/03/2015 CHRISTEL, BOBAN N Ot V58.69 02/03/2015 CHRISTEL, BOBAN N Ot 162.5 02/03/2015 CHRISTEL, BOBAN N Ot 196.1 02/03/2015 CHRISTEL, BOBAN N Ot 250.00 02/03/2015 CHRISTEL, BOBAN N Ot 272.4 02/03/2015 CHRISTEL, BOBAN N Ot 401.9 02/03/2015 CHRISTEL, BOBAN N Ot 414.00 02/03/2015 CHRISTEL, BOBAN N Ot 493.20 02/03/2015 CHRISTEL, BOBAN N Ot V58.11 02/03/2015 CHRISTEL, BOBAN N Ot V58.66 02/03/2015 CHRISTEL, BOBAN N Ot V58.69 02/17/2015 JOSETTE ALEXIS S TIRE ADJUSTER Ot 162.5 02/17/2015 JOSETTE ALEXIS S TIRE ADJUSTER Ot 196.1 02/17/2015 JOSETTE ALEXIS S TIRE ADJUSTER Ot 250.00 02/17/2015 JOSETTE ALEXIS S TIRE ADJUSTER Ot 272.4 02/17/2015 JOSETTE ALEXIS S TIRE ADJUSTER Ot 356.9 02/17/2015 JOSETTE ALEXIS S TIRE ADJUSTER Ot 401.9 02/17/2015 ALEXIS, HILAH S TIRE ADJUSTER Ot 414.00 02/17/2015 CHINA ALEXISAH S TIRE ADJUSTER Ot 493.20 02/17/2015 JOSETTE ALEXIS S TIRE ADJUSTER Ot 528.9 02/17/2015 JOSETTE ALEXIS S TIRE ADJUSTER Ot V58.66 02/17/2015 JOSETTE ALEXIS S TIRE ADJUSTER Ot V58.69 03/04/2015 JOSETTE ALEXIS S TIRE ADJUSTER Ot 162.5 03/04/2015 JOSETTE ALEXIS S TIRE ADJUSTER Ot 196.1 03/04/2015 ALEXISJOSETTE Corona S TIRE ADJUSTER Ot 250.00 03/04/2015 JOSETTE ALEXIS S TIRE ADJUSTER Ot 272.4 03/04/2015 JOSETTE ALEXIS S TIRE ADJUSTER Ot 356.9 03/04/2015 ALEXISJOSETTE Corona S TIRE ADJUSTER Ot 401.9 03/04/2015 ALEXISJOSETTE Corona S TIRE ADJUSTER Ot 414.00 03/04/2015 ALEXISJOSETTE Corona S TIRE ADJUSTER Ot 493.20 03/04/2015 ALEXISJOSETTE Corona S TIRE ADJUSTER Ot 528.9 03/04/2015 ALEXISJOSETTE Corona S TIRE ADJUSTER Ot V58.66 03/04/2015 JOSETTE ALEXIS S TIRE ADJUSTER Ot V58.69 03/08/2015 JOSETTE ALEXIS S TIRE ADJUSTER Ot 162.9 03/24/2015 ALEXISJOSETTE Corona S TIRE ADJUSTER Ot 162.5 03/24/2015 JOSETTE ALEXIS S TIRE ADJUSTER Ot 196.1 03/24/2015 JOSETTE ALEXIS S TIRE ADJUSTER Ot 250.00 03/24/2015 JOSETTE ALEXIS S TIRE ADJUSTER Ot 272.4 03/24/2015 JOSETTE ALEXIS S TIRE ADJUSTER Ot 401.9 03/24/2015 JOSETTE ALEXIS S TIRE ADJUSTER Ot 414.00 03/24/2015 JOSETTE ALEXIS S TIRE ADJUSTER Ot 493.20 03/24/2015 JOSETTE ALEXIS S TIRE ADJUSTER Ot 782.1 03/24/2015 JOSETTE ALEXIS S TIRE ADJUSTER Ot V58.66 03/24/2015 ALEXISJOSETTE Corona S TIRE ADJUSTER Ot V58.69 03/29/2015 CHRISTEL, BOBAN N Ot 162.5 03/29/2015 CHRISTEL, BOBAN N Ot 196.1 03/29/2015 CHRISTEL, BOBAN N Ot 250.00 03/29/2015 CHRISTEL, BOBAN N Ot 272.4 03/29/2015 CHRISTEL, BOBAN N Ot 401.9 03/29/2015 CHRISTEL, BOBAN N Ot 414.00 03/29/2015 CHRISTEL, BOBAN N Ot 493.20 03/29/2015 CHRISTEL, BOBAN N Ot V58.11 03/29/2015 CHRISTEL, BOBAN N Ot V58.66 03/29/2015 CHRISTEL, BOBAN N Ot V58.69 03/31/2015 JOSETTE ALEXIS TIRE ADJUSTER Ot 162.9 04/06/2015 CHRISTEL, BOBAN N Ot 162.5 MAL DULCE MARIA LOWER LOBE LUNG 04/06/2015 CHRISTEL, BOBAN N Ot 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 04/06/2015 CHRISTEL, BOBAN N Ot 250.00 DIAB DARCI WO COMPL, TYPE II OR UNSPEC TY 04/06/2015 CHRISTEL, BOBAN N Ot 272.4 HYPERLIPIDEMIA NEC/NOS 04/06/2015 CHRISTEL, BOBAN N Ot 401.9 HYPERTENSION NOS 04/06/2015 CHRISTEL, BOBAN N Ot 414.00 CORON ATHEROSCLER NOS TYPE VESSEL, NATIV 04/06/2015 CHRISTEL, BOBAN N Ot 493.20 CHRONIC OBSTRUCTIVE ASTHMA, NOS 04/06/2015 CHRISTEL, BOBAN N Ot V58.11 ENCOUNTER FOR ANTINEOPLASTIC CHEMOTHERAP 04/06/2015 CHRISTEL, BOBAN N Ot V58.66 LONG-TERM (CURRENT) USE OF ASPIRIN 04/06/2015 CHRISTEL, BOBAN N Ot V58.69 OTH MED,LT,CURRENT USE 04/11/2015 CHRISTEL, BOBAN N Ot 162.5 04/11/2015 CHRISTEL, BOBAN N Ot 196.1 04/11/2015 CHRISTEL, BOBAN N Ot 250.00 04/11/2015 CHRISTEL, BOBAN N Ot 272.4 04/11/2015 CHRISTEL, BOBAN N Ot 401.9 04/11/2015 CHRISTEL, BOBAN N Ot 414.00 04/11/2015 CHRISTEL, BOBAN N Ot 493.20 04/11/2015 CHRISTEL, BOBAN N Ot V58.11 04/11/2015 CHRISTEL, BOBAN N Ot V58.66 04/11/2015 CHRISTEL, BOBAN N Ot V58.69 04/11/2015 CHRISTEL, BOBAN N Ot 162.5 04/11/2015 CHRISTEL, BOBAN N Ot 196.1 04/11/2015 CHRISTEL, BOBAN N Ot 250.00 04/11/2015 CHRISTEL, BOBAN N Ot 272.4 04/11/2015 CHRISTEL, BOBAN N Ot 401.9 04/11/2015 CHRISTEL, BOBAN N Ot 414.00 04/11/2015 CHRISTEL, BOBAN N Ot 493.20 04/11/2015 NANCY KEARNEY N Ot V58.11 04/11/2015 CHRISTEL, BOBAN N Ot V58.66 04/11/2015 CHRISTELNANCY LINARES N Ot V58.69 04/13/2015 ALEXISJOSETTE Corona S TIRE ADJUSTER Ot 162.5 04/13/2015 ALEXISJOSETTE Corona S TIRE ADJUSTER Ot 196.1 04/13/2015 ALEXISJOSETTE S TIRE ADJUSTER Ot 250.00 04/13/2015 ALEXISCHINAAH S TIRE ADJUSTER Ot 272.1 04/13/2015 ALEXIS, HILAH S TIRE ADJUSTER Ot 272.4 04/13/2015 ALEXIS, CHINAAH S TIRE ADJUSTER Ot 278.00 04/13/2015 ALEXISCHINAAH S TIRE ADJUSTER Ot 401.9 04/13/2015 ALEXISJOSETTE S TIRE ADJUSTER Ot 414.00 04/13/2015 ALEXISJOSETTE S TIRE ADJUSTER Ot 493.20 04/13/2015 ALEXISJOSETTE S TIRE ADJUSTER Ot 793.19 04/13/2015 ALEXISJOSETTE S TIRE ADJUSTER Ot V58.69 04/13/2015 ALEXISJOSETTE S TIRE ADJUSTER Ot V85.35 04/14/2015 ALEXISJOSETTE S TIRE ADJUSTER Ot 162.5 04/14/2015 ALEXISJOSETTE S TIRE ADJUSTER Ot 196.1 04/14/2015 ALEXISJOSETTE S TIRE ADJUSTER Ot 250.00 04/14/2015 ALEXISJOSETTE S TIRE ADJUSTER Ot 272.4 04/14/2015 ALEXISJOSETTE S TIRE ADJUSTER Ot 401.9 04/14/2015 ALEXISJOSETTE S TIRE ADJUSTER Ot 414.00 04/14/2015 ALEXISJOSETTE S TIRE ADJUSTER Ot 493.20 04/14/2015 ALEXISJOSETTE S TIRE ADJUSTER Ot 782.1 04/14/2015 ALEXISJOSETTE S TIRE ADJUSTER Ot V58.66 04/14/2015 ALEXIS, CHINAAH S TIRE ADJUSTER Ot V58.69 04/18/2015 NANCY KEARNEY N Ot 162.5 04/18/2015 CHRISTELNANCY LINARES N Ot 196.1 04/18/2015 CHRISTELBERTO LINARESAN N Ot 250.00 04/18/2015 CHRISTELBERTO LINARESAN N Ot 272.4 04/18/2015 CHRISTEL, BOBAN N Ot 401.9 04/18/2015 NANCY KEARNEY N Ot 414.00 04/18/2015 NANCY KEARNEY N Ot 493.20 04/18/2015 NANCY KEARNEY N Ot V58.11 04/18/2015 NANCY KEARNEY N Ot V58.66 04/18/2015 NANCY KEARNEY N Ot V58.69 05/03/2015 ALEXISJOSETTE S TIRE ADJUSTER Ot C34.90 05/03/2015 ALEXISJOSETTE S TIRE ADJUSTER Ot R51 05/04/2015 ALEXISJOSETTE S TIRE ADJUSTER Ot 162.5 05/04/2015 ALEXIS CHINAAH S TIRE ADJUSTER Ot 196.1 05/04/2015 VANESA CHINAAH S TIRE ADJUSTER Ot 250.00 05/04/2015 ALEXISJOSETTE S TIRE ADJUSTER Ot 272.1 05/04/2015 ALEXIS JOSETTE S TIRE ADJUSTER Ot 272.4 05/04/2015 VANESA JOSETTE S TIRE ADJUSTER Ot 278.00 05/04/2015 ALEXIS JOSETTE S TIRE ADJUSTER Ot 401.9 05/04/2015 ALEXISJOSETTE Corona S TIRE ADJUSTER Ot 414.00 05/04/2015 ALEXISJOSETTE Corona S TIRE ADJUSTER Ot 493.20 05/04/2015 ALEXIS JOSETTE S TIRE ADJUSTER Ot 793.19 05/04/2015 ALEXISJOSETTE Corona S TIRE ADJUSTER Ot V58.69 05/04/2015 ALEXISJOSETTE Corona S TIRE ADJUSTER Ot V85.35 05/11/2015 ALEXIS JOSETTE S TIRE ADJUSTER Ot C34.31 05/11/2015 VANESA JOSETTE S TIRE ADJUSTER Ot R05 05/11/2015 ALEXIS JOSETTE S TIRE ADJUSTER Ot R06.00 05/20/2015 VANESA JOSETTE S TIRE ADJUSTER Ot C34.90 05/20/2015 VANESA JOSETTE S TIRE ADJUSTER Ot R51 06/14/2015 LEWIS POST DO Ot 162.9 06/14/2015 LEWIS POST DO Ot 493.20 06/14/2015 LEWIS POST DO Ot 786.09 06/22/2015 VANESA JOSETTE S TIRE ADJUSTER Ot C34.90 06/25/2015 NANCY KEARNEY N Ot 162.5 06/25/2015 NANCY KEARNEY N Ot 196.1 06/25/2015 CHRISTELBERTOAN N Ot 250.00 06/25/2015 CHRISTELBERTO LINARESAN N Ot 272.4 06/25/2015 CHRISTEL, BOBAN N Ot 401.9 06/25/2015 CHRISTELBERTO LINARESAN N Ot 414.00 06/25/2015 CHRISTELBERTO LINARESAN N Ot 493.20 06/25/2015 CHRISTELBERTOAN N Ot V58.11 06/25/2015 CHRISTEL BOBAN N Ot V58.66 06/25/2015 CHRISTELBERTOAN N Ot V58.69 06/27/2015 CHRISTEL, BOBAN N Ot C34.31 06/27/2015 CHRISTEL, BERTOAN N Ot E11.9 06/27/2015 CHRISTEL, BOBCASSY N Ot E78.5 06/27/2015 CHRISTEL, NANCY N Ot I10 06/27/2015 CHRISTELNANCY LINARES N Ot I25.10 06/27/2015 CHRISTEL, NANCY N Ot J44.9 06/27/2015 CHRISTEL, NANCY N Ot Z51.11 06/27/2015 CHRISTEL, BERTOCASSY N Ot Z79.82 06/27/2015 CHRISTELBERTO LINARESAN N Ot Z79.899 07/07/2015 JOSETTE ALEXISP Ot C34.90 07/11/2015 CHRISTEL NANCY N Ot 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 LOWER LOBE, RIGHT 07/11/2015 CHRISTEL NANCY N Ot E11.9 TYPE 2 DIABETES MELLITUS WITHOUT COMPLIC 07/11/2015 CHRISTEL NANCY N Ot E78.5 HYPERLIPIDEMIA, UNSPECIFIED 07/11/2015 CHRISTELNANCY N Ot I10 ESSENTIAL (PRIMARY) HYPERTENSION 07/11/2015 CHRISTELBERTOCASSY N Ot I25.10 ATHSCL HEART DISEASE OF [place] CORONARY 07/11/2015 NANCY KEARNEY N Ot J44.9 CHRONIC OBSTRUCTIVE PULMONARY DISEASE, U 07/11/2015 CHRISTELNANCY N Ot Z51.11 ENCOUNTER FOR ANTINEOPLASTIC CHEMOTHERAP 07/11/2015 NANCY KEARNEY N Ot Z79.82 DIRECTOR FUNERAL (CURRENT) USE OF ASPIRIN 07/11/2015 NANCY KEARNEY N Ot Z79.899 OTHER DIRECTOR FUNERAL (CURRENT) DRUG THERAPY 07/19/2015 JOSETTE ALEXIS TIRE ADJUSTER Ot C34.31 07/19/2015 ALEXISJOSETTE Corona TIRE ADJUSTER Ot E11.9 07/19/2015 ALEXISJOSETTE Corona TIRE ADJUSTER Ot E78.5 07/19/2015 JOSETTE ALEXIS TIRE ADJUSTER Ot I10 07/19/2015 JOSETTE ALEXIS TIRE ADJUSTER Ot I25.10 07/19/2015 ALEXISJOSETTE [place] TIRE ADJUSTER Ot J44.9 07/19/2015 ALEXISJOSETTE [place] TIRE ADJUSTER Ot Z79.82 07/19/2015 ALEXISJOSETTE [place] TIRE ADJUSTER Ot Z79.899 07/20/2015 ALEXISJOSETTE [place] TIRE ADJUSTER Ot J44.9 07/20/2015 ALEXISJOSETTE [place] TIRE ADJUSTER Ot R05 07/20/2015 ALEXISJOSETTE [place] TIRE ADJUSTER Ot J44.9 07/20/2015 ALEXISJOSETTE [place] TIRE ADJUSTER Ot R05 07/29/2015 REYES MD, TRINA T Ot C34.31 07/29/2015 REYES MD, TRINA T Ot E04.1 08/04/2015 ALEXISJOSETTE [place] TIRE ADJUSTER Ot C34.31 08/04/2015 ALEXISJOSETTE [place] TIRE ADJUSTER Ot E11.9 08/04/2015 ALEXISJOSETTE [place] TIRE ADJUSTER Ot E78.5 08/04/2015 ALEXISJOSETTE [place] TIRE ADJUSTER Ot I10 08/04/2015 ALEXISJOSETTE [place] TIRE ADJUSTER Ot I25.10 08/04/2015 ALEXISJOSETTE [place] TIRE ADJUSTER Ot J44.9 08/04/2015 ALEXISJOSETTE [place] TIRE ADJUSTER Ot Z79.82 08/04/2015 ALEXISJOSETTE [place] TIRE ADJUSTER Ot Z79.899 08/09/2015 NANCY KEARNEY N Ot 162.5 08/09/2015 NANCY KEARNEY N Ot 196.1 08/09/2015 NANCY KEARNEY N Ot V58.69 08/11/2015 ALEXISJOSETTE [place] TIRE ADJUSTER Ot C34.31 08/11/2015 VANESA JOSETTE [place] TIRE ADJUSTER Ot E11.9 08/11/2015 VANESA JOSETTE [place] TIRE ADJUSTER Ot E78.5 08/11/2015 ALEXISJOSETTE [place] S TIRE ADJUSTER Ot I10 08/11/2015 JOSETTE ALEXIS TIRE ADJUSTER Ot I25.10 08/11/2015 JOSETTE ALEXIS TIRE ADJUSTER Ot J44.9 08/11/2015 JOSETTE ALEXIS S TIRE ADJUSTER Ot Z79.82 08/11/2015 JOSETTE ALEXIS S TIRE ADJUSTER Ot Z79.899 08/11/2015 JOSETTE ALEXIS S TIRE ADJUSTER Ot J44.9 08/11/2015 JOSETTE ALEXIS S TIRE ADJUSTER Ot R05 08/30/2015 JOSETTE ALEXIS S TIRE ADJUSTER Ot C34.31 08/30/2015 JOSETTE ALEXIS S TIRE ADJUSTER Ot E11.9 08/30/2015 JOSETTE ALEXIS S TIRE ADJUSTER Ot E78.5 08/30/2015 JOSETTE ALEXIS S TIRE ADJUSTER Ot I10 08/30/2015 JOSETTE ALEXIS S TIRE ADJUSTER Ot I25.10 08/30/2015 JOSETTE ALEXIS S TIRE ADJUSTER Ot J44.9 08/30/2015 ALEXISJOSETTE [place] S TIRE ADJUSTER Ot Z79.82 08/30/2015 ALEXISJOSETTE [place] S TIRE ADJUSTER Ot Z79.899 09/01/2015 JOSETTE ALEXIS TIRE ADJUSTER Ot J44.9 09/01/2015 JOSETTE ALEXIS TIRE ADJUSTER Ot R05 09/01/2015 CHRISTEL, BOBAN N Ot C34.31 09/01/2015 CHRISTEL, BOBAN N Ot E11.9 09/01/2015 CHRISTEL, BOBAN N Ot E78.5 09/01/2015 CHRISTEL, BOBAN N Ot I10 09/01/2015 CHRISTEL, BOBAN N Ot I25.10 09/01/2015 CHRISTEL, BOBAN N Ot J44.9 09/01/2015 CHRISTEL, BOBAN N Ot Z51.11 09/01/2015 CHRISTEL, BOBAN N Ot Z79.82 09/01/2015 CHRISTEL, BOBAN N Ot Z79.899 09/23/2015 ALEXISJOSETTE [place] S TIRE ADJUSTER Ot C34.31 09/23/2015 REYES MD, TRINA Mayes Ot C34.31 09/23/2015 REYES MD, TRINA T Ot E04.1 09/27/2015 VANESA JOSETTE S TIRE ADJUSTER Ot C34.31 09/27/2015 JOSETTE ALEXIS TIRE ADJUSTER Ot E11.9 09/27/2015 JOSETTE ALEXIS TIRE ADJUSTER Ot E78.5 09/27/2015 JOSETTE ALEXIS TIRE ADJUSTER Ot I10 09/27/2015 JOSETTE ALEXIS TIRE ADJUSTER Ot I25.10 09/27/2015 JOSETTE ALEXIS TIRE ADJUSTER Ot J44.9 09/27/2015 JOSETTE ALEXIS TIRE ADJUSTER Ot Z79.82 09/27/2015 JOSETTE ALEXIS TIRE ADJUSTER Ot Z79.899 09/28/2015 CHRISTEL, BOBAN N Ot C34.31 09/28/2015 CHRISTEL, BOBAN N Ot E11.9 09/28/2015 CHRISTEL, BOBAN N Ot E78.5 09/28/2015 CHRISTEL, BOBAN N Ot I10 09/28/2015 CHRISTEL, BOBAN N Ot I25.10 09/28/2015 CHRISTEL, BOBAN N Ot J44.9 09/28/2015 CHRISTEL, BOBAN N Ot Z51.11 09/28/2015 CHRISTEL, BOBAN N Ot Z79.82 09/28/2015 CHRISTEL, BOBAN N Ot Z79.899 09/29/2015 CHRISTEL, BOBAN N Ot C34.31 09/29/2015 CHRISTEL, BOBAN N Ot E11.9 09/29/2015 CHRISTEL, BOBAN N Ot E78.5 09/29/2015 CHRISTEL, BOBAN N Ot I10 09/29/2015 CHRISTEL, BOBAN N Ot I25.10 09/29/2015 CHRISTEL, BOBAN N Ot J44.9 09/29/2015 CHRISTEL, BOBAN N Ot Z51.11 09/29/2015 CHRISTEL, BOBAN N Ot Z79.82 09/29/2015 CHRISTEL, BOBAN N Ot Z79.899 10/06/2015 JULISSA FRENCH, KASSANDRA Marie Ot 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 LOWER LOBE, RIGHT 10/06/2015 JULISSA FRENCH, KASSANDRA Marie Ot E11.9 TYPE 2 DIABETES MELLITUS WITHOUT COMPLIC 10/06/2015 KASSANDRA COSTA MD Ot E78.5 HYPERLIPIDEMIA, UNSPECIFIED 10/06/2015 KASSANDRA COSTA MD Ot E86.0 DEHYDRATION 10/06/2015 KASSANDRA COSTA MD Ot F32.9 MAJOR DEPRESSIVE DISORDER, SINGLE EPISOD 10/06/2015 KASSANDRA COSTA MD Ot I10 ESSENTIAL (PRIMARY) HYPERTENSION 10/06/2015 KASSANDRA COSTA MD Ot I25.10 ATHSCL HEART DISEASE OF [place] CORONARY 10/06/2015 KASSANDRA COSTA MD Ot J11.1 FLU DUE TO UNIDENTIFIED INFLUENZA VIRUS 10/06/2015 KASSANDRA COSTA MD Ot J44.9 CHRONIC OBSTRUCTIVE PULMONARY DISEASE, U 10/06/2015 KASSANDRA COSTA MD Ot N39.0 URINARY TRACT INFECTION, SITE NOT SPECIF 10/11/2015 JOSETTE ALEXIS TIRE ADJUSTER Ot C34.31 10/11/2015 JOSETTE ALEXIS TIRE ADJUSTER Ot E11.9 10/11/2015 JOSETTE ALEXIS TIRE ADJUSTER Ot E78.5 10/11/2015 JOSETTE ALEXIS TIRE ADJUSTER Ot I10 10/11/2015 JOSETTE ALEXIS S TIRE ADJUSTER Ot I25.10 10/11/2015 JOSETTE ALEXIS S TIRE ADJUSTER Ot J44.9 10/11/2015 JOSETTE ALEXIS TIRE ADJUSTER Ot Z79.82 10/11/2015 JOSETTE ALEXIS S TIRE ADJUSTER Ot Z79.899 10/12/2015 JOSETTE ALEXIS TIRE ADJUSTER Ot C34.31 10/16/2015 NANCY KEARNEY Ot 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 LOWER LOBE, RIGHT 10/16/2015 NANCY KEARNEY Ot E11.9 TYPE 2 DIABETES MELLITUS WITHOUT COMPLIC 10/16/2015 NANCY KEARNEY Ot E78.5 HYPERLIPIDEMIA, UNSPECIFIED 10/16/2015 NANCY KEARNEY Ot I10 ESSENTIAL (PRIMARY) HYPERTENSION 10/16/2015 NANCY KEARNEY Ot I25.10 ATHSCL HEART DISEASE OF [place] CORONARY 10/16/2015 NANCY KEARNEY Ot J44.9 CHRONIC OBSTRUCTIVE PULMONARY DISEASE, U 10/16/2015 NANCY KEARNEY Ot Z51.11 ENCOUNTER FOR ANTINEOPLASTIC CHEMOTHERAP 10/16/2015 NANCY KEARNEY Ot Z79.82 DIRECTOR FUNERAL (CURRENT) USE OF ASPIRIN 10/16/2015 NANCY KEARNEY N Ot Z79.899 OTHER DIRECTOR FUNERAL (CURRENT) DRUG THERAPY 10/18/2015 JOSETTE ALEXIS TIRE ADJUSTER Ot C34.31 10/18/2015 JOSETTE ALEXIS TIRE ADJUSTER Ot E11.9 10/18/2015 JOSETTE ALEXIS TIRE ADJUSTER Ot E78.5 10/18/2015 JOSETTE ALEXIS TIRE ADJUSTER Ot I10 10/18/2015 JOSETTE ALEXIS TIRE ADJUSTER Ot I25.10 10/18/2015 JOSETTE ALEXIS TIRE ADJUSTER Ot J44.9 10/18/2015 ALEXISJOSETTE Corona TIRE ADJUSTER Ot Z79.82 10/18/2015 ALEXISJOSETTE Corona TIRE ADJUSTER Ot Z79.899 10/19/2015 CHRISTELNANCY N Ot C34.31 10/19/2015 CHRISTELNANCY N Ot E11.9 10/19/2015 CHRISTELNANCY N Ot E78.5 10/19/2015 CHRISTELNANCY N Ot I10 10/19/2015 CHRISTELNANCY N Ot I25.10 10/19/2015 CHRISTELNANCY N Ot J44.9 10/19/2015 CHRISTELNANCY LINARES N Ot Z51.11 10/19/2015 CHRISTELNANCY N Ot Z79.82 10/19/2015 CHRISTELBERTOAN N Ot Z79.899 10/24/2015 ALEXISJOSETTE Corona TIRE ADJUSTER Ot 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 LOWER LOBE, RIGHT 10/27/2015 JULISSA FRENCH, KASSANDRA Marie Ot E11.9 TYPE 2 DIABETES MELLITUS WITHOUT COMPLIC 10/27/2015 KASSANDRA COSTA MD Ot E11.9 TYPE 2 DIABETES MELLITUS WITHOUT COMPLIC 11/01/2015 KASSANDRA COSTA MD Ot E11.9 TYPE 2 DIABETES MELLITUS WITHOUT COMPLIC 11/02/2015 NANCY KEARNEY N Ot 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 LOWER LOBE, RIGHT 11/02/2015 CHRISTELNANCY N Ot E11.9 TYPE 2 DIABETES MELLITUS WITHOUT COMPLIC 11/02/2015 NANCY KEARNEY N Ot E78.5 HYPERLIPIDEMIA, UNSPECIFIED 11/02/2015 NANCY EKARNEY N Ot I10 ESSENTIAL (PRIMARY) HYPERTENSION 11/02/2015 NANCY KEARNEY N Ot I25.10 ATHSCL HEART DISEASE OF [place] CORONARY 11/02/2015 NANCY KEARNEY N Ot J44.9 CHRONIC OBSTRUCTIVE PULMONARY DISEASE, U 11/02/2015 NANCY KEARNEY N Ot Z51.11 ENCOUNTER FOR ANTINEOPLASTIC CHEMOTHERAP 11/02/2015 NANCY KEARNEY N Ot Z79.82 SKILLED NURSING (CURRENT) USE OF ASPIRIN 11/02/2015 CHRISTELNANCY LINARES N Ot Z79.899 OTHER DIRECTOR FUNERAL (CURRENT) DRUG THERAPY 11/09/2015 ALEXISJOSETTE Corona TIRE ADJUSTER Ot 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 LOWER LOBE, RIGHT 11/09/2015 ALEXISJOSETTE Corona S TIRE ADJUSTER Ot E11.9 TYPE 2 DIABETES MELLITUS WITHOUT COMPLIC 11/09/2015 JOSETTE ALEXIS TIRE ADJUSTER Ot E78.5 HYPERLIPIDEMIA, UNSPECIFIED 11/09/2015 ALEXISJOSETTE Corona S TIRE ADJUSTER Ot I10 ESSENTIAL (PRIMARY) HYPERTENSION 11/09/2015 ALEXISJOSETTE Corona S TIRE ADJUSTER Ot I25.10 ATHSCL HEART DISEASE OF [place] CORONARY 11/09/2015 ALEXISJOSETTE Corona TIRE ADJUSTER Ot J44.9 CHRONIC OBSTRUCTIVE PULMONARY DISEASE, U 11/09/2015 ALEXISJOSETTE Corona TIRE ADJUSTER Ot Z79.82 SKILLED NURSING (CURRENT) USE OF ASPIRIN 11/09/2015 ALEXISJOSETTE Corona TIRE ADJUSTER Ot Z79.899 OTHER SKILLED NURSING (CURRENT) DRUG THERAPY 11/15/2015 KASSANDRA COSTA MD Ot E11.9 TYPE 2 DIABETES MELLITUS WITHOUT COMPLIC 11/16/2015 CHRISTEL BERTOCASSY N Ot 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 LOWER LOBE, RIGHT 11/16/2015 CHRISTELNANCY N Ot E11.9 TYPE 2 DIABETES MELLITUS WITHOUT COMPLIC 11/16/2015 CHRISTEL NANCY N Ot E78.5 HYPERLIPIDEMIA, UNSPECIFIED 11/16/2015 CHRISTELBERTOCASSY N Ot I10 ESSENTIAL (PRIMARY) HYPERTENSION 11/16/2015 CHRISTELNANCY N Ot I25.10 ATHSCL HEART DISEASE OF [place] CORONARY 11/16/2015 CHRISTELNANCY N Ot J44.9 CHRONIC OBSTRUCTIVE PULMONARY DISEASE, U 11/16/2015 CHRISTELBERTOCASSY N Ot Z51.11 ENCOUNTER FOR ANTINEOPLASTIC CHEMOTHERAP 11/16/2015 NANCY KEARNEY N Ot Z79.82 DIRECTOR FUNERAL (CURRENT) USE OF ASPIRIN 11/16/2015 CHRISTELNANCY N Ot Z79.899 OTHER SKILLED NURSING (CURRENT) DRUG THERAPY 12/01/2015 JOSETTE ALEXIS S TIRE ADJUSTER Ot 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 LOWER LOBE, RIGHT 12/01/2015 ALEXIS, HILAH S TIRE ADJUSTER Ot E11.9 TYPE 2 DIABETES MELLITUS WITHOUT COMPLIC 12/01/2015 [place] ALEXISBRENDAN Corona TIRE ADJUSTER Ot E78.5 HYPERLIPIDEMIA, UNSPECIFIED 12/01/2015 [place] ALEXISBRENDAN Cj TIRE ADJUSTER Ot I10 ESSENTIAL (PRIMARY) HYPERTENSION 12/01/2015 VANESA JOSETTE Corona TIRE ADJUSTER Ot I25.10 ATHSCL HEART DISEASE OF [place] CORONARY 12/01/2015 JOSETTE ALEXIS TIRE ADJUSTER Ot J44.9 CHRONIC OBSTRUCTIVE PULMONARY DISEASE, U 12/01/2015 JOSETTE ALEXIS TIRE ADJUSTER Ot Z79.82 DIRECTOR FUNERAL (CURRENT) USE OF ASPIRIN 12/01/2015 JOSETTE ALEXIS TIRE ADJUSTER Ot Z79.899 OTHER SKILLED NURSING (CURRENT) DRUG THERAPY 12/13/2015 JOSETTE ALEXIS TIRE ADJUSTER Ot C34.90 MALIGNANT NEOPLASM OF UNSP PART OF [facility] [place] 12/13/2015 JOSETTE ALEXIS TIRE ADJUSTER Ot R53.83 OTHER FATIGUE 12/26/2015 JOSETTE ALEXIS TIRE ADJUSTER Ot 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 LOWER LOBE, RIGHT 12/26/2015 JOSETTE ALEXISP Ot E11.9 TYPE 2 DIABETES MELLITUS WITHOUT COMPLIC 12/26/2015 JOSETTE ALEXIS TIRE ADJUSTER Ot E78.5 HYPERLIPIDEMIA, UNSPECIFIED 12/26/2015 JOSETTE ALEXIS TIRE ADJUSTER Ot I10 ESSENTIAL (PRIMARY) HYPERTENSION 12/26/2015 JOSETTE ALEXIS TIRE ADJUSTER Ot I25.10 ATHSCL HEART DISEASE OF [place] CORONARY 12/26/2015 JOSETTE ALEXIS TIRE ADJUSTER Ot J44.9 CHRONIC OBSTRUCTIVE PULMONARY DISEASE, U 12/26/2015 JOSETTE ALEXIS TIRE ADJUSTER Ot Z79.82 DIRECTOR FUNERAL (CURRENT) USE OF ASPIRIN 12/26/2015 JOSETTE ALEXIS TIRE ADJUSTER Ot Z79.899 OTHER SKILLED NURSING (CURRENT) DRUG THERAPY 12/28/2015 JOSETTE ALEXIS TIRE ADJUSTER Ot C34.90 MALIGNANT NEOPLASM OF [place]SP PART OF [place] 12/28/2015 JOSETTE ALEXIS TIRE ADJUSTER Ot R53.83 OTHER FATIGUE 01/05/2016 JOSETTE ALEXIS TIRE ADJUSTER Ot 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 LOWER LOBE, RIGHT 01/05/2016 JOSETTE ALEXIS TIRE ADJUSTER Ot E11.9 TYPE 2 DIABETES MELLITUS WITHOUT COMPLIC 01/05/2016 ALEXIS, HILAH S TIRE ADJUSTER Ot E78.5 HYPERLIPIDEMIA, UNSPECIFIED 01/05/2016 JOSETTE ALEXIS TIRE ADJUSTER Ot I10 ESSENTIAL (PRIMARY) HYPERTENSION 01/05/2016 JOSETTE ALEXIS TIRE ADJUSTER Ot I25.10 ATHSCL HEART DISEASE OF [place] CORONARY 01/05/2016 JOSETTE ALEXIS TIRE ADJUSTER Ot J44.9 CHRONIC OBSTRUCTIVE PULMONARY DISEASE, U 01/05/2016 JOSETTE ALEXIS TIRE ADJUSTER Ot Z79.82 SKILLED NURSING (CURRENT) USE OF ASPIRIN 01/05/2016 JOSETTE ALEXIS TIRE ADJUSTER Ot Z79.899 OTHER SKILLED NURSING (CURRENT) DRUG THERAPY 01/11/2016 JOSETTE ALEXIS TIRE ADJUSTER Ot 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 LOWER LOBE, RIGHT 01/17/2016 CHRISTELNANCY N Ot 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 LOWER LOBE, RIGHT 01/17/2016 CHRISTELNANCY N Ot E11.9 TYPE 2 DIABETES MELLITUS WITHOUT COMPLIC 01/17/2016 NANCY KEARNEY N Ot E78.5 HYPERLIPIDEMIA, UNSPECIFIED 01/17/2016 NANCY KEARNEY N Ot I10 ESSENTIAL (PRIMARY) HYPERTENSION 01/17/2016 NANCY KEARNEY N Ot I25.10 ATHSCL HEART DISEASE OF [place] CORONARY 01/17/2016 NANCY KEARNEY N Ot J44.9 CHRONIC OBSTRUCTIVE PULMONARY DISEASE, U 01/17/2016 CHRISTELNANCY N Ot Z51.11 ENCOUNTER FOR ANTINEOPLASTIC CHEMOTHERAP 01/17/2016 NANCY KEARNEY N Ot Z79.82 SKILLED NURSING (CURRENT) USE OF ASPIRIN 01/17/2016 NANCY KEARNEY N Ot Z79.899 OTHER DIRECTOR FUNERAL (CURRENT) DRUG THERAPY 01/17/2016 JOSETTE ALEXIS TIRE ADJUSTER Ot R42 DIZZINESS AND GIDDINESS 01/17/2016 JOSETTE ALEXIS TIRE ADJUSTER Ot R42 DIZZINESS AND GIDDINESS 01/17/2016 JOSETTE ALEXIS TIRE ADJUSTER Ot R42 DIZZINESS AND GIDDINESS 01/17/2016 JOSETTE ALEXIS TIRE ADJUSTER Ot R42 DIZZINESS AND GIDDINESS 01/17/2016 JOSETTE ALEXIS TIRE ADJUSTER Ot R42 DIZZINESS AND GIDDINESS 01/17/2016 JOSETTE ALEXIS TIRE ADJUSTER Ot R42 DIZZINESS AND GIDDINESS 01/17/2016 JOSETTE ALEXIS TIRE ADJUSTER Ot R42 DIZZINESS AND GIDDINESS 01/18/2016 JOSETTE ALEXIS TIRE ADJUSTER Ot 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 LOWER LOBE, RIGHT 01/18/2016 JOSETTE ALEXIS TIRE ADJUSTER Ot R26.81 UNSTEADINESS ON FEET 01/18/2016 JOSETTE ALEXIS TIRE ADJUSTER Ot R42 DIZZINESS AND GIDDINESS 01/19/2016 JOSETTE ALEXIS TIRE ADJUSTER Ot 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 LOWER LOBE, RIGHT 01/19/2016 JOSETTE ALEXIS TIRE ADJUSTER Ot E11.9 TYPE 2 DIABETES MELLITUS WITHOUT COMPLIC 01/19/2016 JOSETTE ALEXIS TIRE ADJUSTER Ot E78.5 HYPERLIPIDEMIA, UNSPECIFIED 01/19/2016 ALEXISJOSETTE Corona TIRE ADJUSTER Ot I10 ESSENTIAL (PRIMARY) HYPERTENSION 01/19/2016 ALEXISJOSETTE Corona TIRE ADJUSTER Ot I25.10 ATHSCL HEART DISEASE OF [place] CORONARY 01/19/2016 ALEXIS JOSETTE Corona TIRE ADJUSTER Ot J44.9 CHRONIC OBSTRUCTIVE PULMONARY DISEASE, U 01/19/2016 ALEXISJOSETTE Corona TIRE ADJUSTER Ot Z79.82 SKILLED NURSING (CURRENT) USE OF ASPIRIN 01/19/2016 ALEXISJOSETTE Corona TIRE ADJUSTER Ot Z79.899 OTHER DIRECTOR FUNERAL (CURRENT) DRUG THERAPY 01/19/2016 NANCY KEARNEY Leonel Ot 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 LOWER LOBE, RIGHT 01/19/2016 NANCY KEARNEY N Ot E11.9 TYPE 2 DIABETES MELLITUS WITHOUT COMPLIC 01/19/2016 CHRISTELNANCY N Ot E78.5 HYPERLIPIDEMIA, UNSPECIFIED 01/19/2016 CHRISTELNANCY N Ot I10 ESSENTIAL (PRIMARY) HYPERTENSION 01/19/2016 CHRISTELNANCY N Ot I25.10 ATHSCL HEART DISEASE OF [place] CORONARY 01/19/2016 NANCY KEARNEY N Ot J44.9 CHRONIC OBSTRUCTIVE PULMONARY DISEASE, U 01/19/2016 NANCY KEARNEY Ot Z51.11 ENCOUNTER FOR ANTINEOPLASTIC CHEMOTHERAP 01/19/2016 NANCY KEARNEY N Ot Z79.82 DIRECTOR FUNERAL (CURRENT) USE OF ASPIRIN 01/19/2016 NANCY KEARNEY N Ot Z79.899 OTHER DIRECTOR FUNERAL (CURRENT) DRUG THERAPY 01/20/2016 ALEXISJOSETTE Corona TIRE ADJUSTER Ot 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 LOWER LOBE, RIGHT 02/03/2016 JOSETTE ALEXIS Cj TIRE ADJUSTER Ot C34.90 MALIGNANT NEOPLASM OF [place] PART OF [place] 02/03/2016 [place] ALEXISBRENDAN Cj TIRE ADJUSTER Ot R53.83 OTHER FATIGUE 02/09/2016 ALEXIS, JOSETTE Corona TIRE ADJUSTER Ot 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 LOWER LOBE, RIGHT 02/09/2016 ALEXISJOSETTE TIRE ADJUSTER Ot E11.9 TYPE 2 DIABETES MELLITUS WITHOUT COMPLIC 02/09/2016 JOSETTE ALEXIS TIRE ADJUSTER Ot E78.5 HYPERLIPIDEMIA, UNSPECIFIED 02/09/2016 [place] ALEXISBRENDAN Corona TIRE ADJUSTER Ot I10 ESSENTIAL (PRIMARY) HYPERTENSION 02/09/2016 JOSETTE ALEXIS TIRE ADJUSTER Ot I25.10 ATHSCL HEART DISEASE OF [place] CORONARY 02/09/2016 JOSETTE ALEXIS TIRE ADJUSTER Ot J44.9 CHRONIC OBSTRUCTIVE PULMONARY DISEASE, U 02/09/2016 JOSETTE ALEXIS TIRE ADJUSTER Ot Z79.82 SKILLED NURSING (CURRENT) USE OF ASPIRIN 02/09/2016 JOSETTE ALEXIS TIRE ADJUSTER Ot Z79.899 OTHER DIRECTOR FUNERAL (CURRENT) DRUG THERAPY 02/17/2016 CHRISTELNANCY N Ot 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 LOWER LOBE, RIGHT 02/17/2016 NANCY KEARNEY Ot E11.9 TYPE 2 DIABETES MELLITUS WITHOUT COMPLIC 02/17/2016 NANCY KEARNEY N Ot E78.5 HYPERLIPIDEMIA, UNSPECIFIED 02/17/2016 CHRISTELNANCY LINARES N Ot I10 ESSENTIAL (PRIMARY) HYPERTENSION 02/17/2016 NANCY KEARNEY Ot I25.10 ATHSCL HEART DISEASE OF [place] CORONARY 02/17/2016 NANCY KEARNEY N Ot J44.9 CHRONIC OBSTRUCTIVE PULMONARY DISEASE, U 02/17/2016 NANCY KEARNEY N Ot Z51.11 ENCOUNTER FOR ANTINEOPLASTIC CHEMOTHERAP 02/17/2016 NANCY KEARNEY N Ot Z79.82 DIRECTOR FUNERAL (CURRENT) USE OF ASPIRIN 02/17/2016 NANCY KEARNEY N Ot Z79.899 OTHER SKILLED NURSING (CURRENT) DRUG THERAPY 02/24/2016 JOSETTE ALEXIS TIRE ADJUSTER Ot 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 LOWER LOBE, RIGHT 02/24/2016 JOSETTE ALEXIS TIRE ADJUSTER Ot R26.81 UNSTEADINESS ON FEET 02/24/2016 JOSETTE ALEXIS Ot R42 DIZZINESS AND GIDDINESS 02/28/2016 KASSANDRA COSTA MD Ot Z12.31 ENCNTR SCREEN MAMMOGRAM FOR MALIGNANT NE 02/29/2016 KASSANDRA COSTA MD Ot Z12.31 ENCNTR SCREEN MAMMOGRAM FOR MALIGNANT NE 02/29/2016 CHRISTEL, NANCY Castaneda Ot 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 LOWER LOBE, RIGHT 02/29/2016 CHRISTEL NANCY Castaneda Ot E11.9 TYPE 2 DIABETES MELLITUS WITHOUT COMPLIC 02/29/2016 CHRISTEL NANCY N Ot E78.5 HYPERLIPIDEMIA, UNSPECIFIED 02/29/2016 CHRISTEL NANCY N Ot I10 ESSENTIAL (PRIMARY) HYPERTENSION 02/29/2016 CHRISTEL NANCY N Ot I25.10 ATHSCL HEART DISEASE OF [place] CORONARY 02/29/2016 NANCY KEARNEY N Ot J44.9 CHRONIC OBSTRUCTIVE PULMONARY DISEASE, U 02/29/2016 CHRISTEL NANCY N Ot R19.5 OTHER FECAL ABNORMALITIES 02/29/2016 CHRISTELNANCY Ot Z51.11 ENCOUNTER FOR ANTINEOPLASTIC CHEMOTHERAP 02/29/2016 CHRISTEL NANCY Castaneda Ot Z79.82 DIRECTOR FUNERAL (CURRENT) USE OF ASPIRIN 02/29/2016 CHRISTELNANCY Ot Z79.899 OTHER DIRECTOR FUNERAL (CURRENT) DRUG THERAPY 03/02/2016 KASSANDRA COSTA MD Ot E11.9 TYPE 2 DIABETES MELLITUS WITHOUT COMPLIC 03/02/2016 KASSANDRA COSTA MD Ot E78.4 OTHER HYPERLIPIDEMIA 03/02/2016 KASSANDRA COSTA MD Ot I10 ESSENTIAL (PRIMARY) HYPERTENSION 03/02/2016 KASSANDRA COSTA MD Ot I25.10 ATHSCL HEART DISEASE OF [place] CORONARY 03/02/2016 JOSETTE ALEXISP Ot 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 LOWER LOBE, RIGHT 03/02/2016 JOSETTE ALEXISP Ot E11.9 TYPE 2 DIABETES MELLITUS WITHOUT COMPLIC 03/02/2016 JOSETTE ALEXISP Ot E78.5 HYPERLIPIDEMIA, UNSPECIFIED 03/02/2016 JOSETTE ALEXIS TIRE ADJUSTER Ot I10 ESSENTIAL (PRIMARY) HYPERTENSION 03/02/2016 JOSETTE ALEXIS TIRE ADJUSTER Ot I25.10 ATHSCL HEART DISEASE OF [place] CORONARY 03/02/2016 JOSETTE ALEXIS TIRE ADJUSTER Ot J44.9 CHRONIC OBSTRUCTIVE PULMONARY DISEASE, U 03/02/2016 ALEXISJOSETTE Corona Cj TIRE ADJUSTER Ot Z79.82 DIRECTOR FUNERAL (CURRENT) USE OF ASPIRIN 03/02/2016 JOSETTE ALEXIS TIRE ADJUSTER Ot Z79.899 OTHER DIRECTOR FUNERAL (CURRENT) DRUG THERAPY 03/05/2016 KASSANDRA COSTA MD Ot Z12.31 ENCNTR SCREEN MAMMOGRAM FOR MALIGNANT NE 03/05/2016 KASSANDRA COSTA MD, Ot E11.9 TYPE 2 DIABETES MELLITUS WITHOUT COMPLIC 03/05/2016 KASSANDRA COSTA MD Ot E78.4 OTHER HYPERLIPIDEMIA 03/05/2016 KASSANDRA COSTA MD, Ot I10 ESSENTIAL (PRIMARY) HYPERTENSION 03/05/2016 KASSANDRA COSTA MD, Ot I25.10 ATHSCL HEART DISEASE OF [place] CORONARY 03/06/2016 KASSANDRA COSTA MD, Ot E11.9 TYPE 2 DIABETES MELLITUS WITHOUT COMPLIC 03/06/2016 KASSANDRA COSTA MD, Ot E78.4 OTHER HYPERLIPIDEMIA 03/06/2016 KASSANDRA COSTA MD, Ot I10 ESSENTIAL (PRIMARY) HYPERTENSION 03/06/2016 KASSANDRA COSTA MD Ot I25.10 ATHSCL HEART DISEASE OF [place] CORONARY 03/06/2016 JOSETTE ALEXIS TIRE ADJUSTER Ot 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 LOWER LOBE, RIGHT 03/06/2016 JOSETTE ALEXIS TIRE ADJUSTER Ot R26.81 UNSTEADINESS ON FEET 03/06/2016 JOSETTE ALEXIS TIRE ADJUSTER Ot R42 DIZZINESS AND GIDDINESS 03/06/2016 KASSANDRA COSTA MD Ot E11.9 TYPE 2 DIABETES MELLITUS WITHOUT COMPLIC 03/06/2016 KASSANDRA COSTA MD Ot E78.4 OTHER HYPERLIPIDEMIA 03/06/2016 KASSANDRA COSTA MD, Ot I10 ESSENTIAL (PRIMARY) HYPERTENSION 03/06/2016 KASSANDRA COSTA MD Ot I25.10 ATHSCL HEART DISEASE OF [place] CORONARY 03/06/2016 KASSANDRA COSTA MD, Ot E11.9 TYPE 2 DIABETES MELLITUS WITHOUT COMPLIC 03/06/2016 KASSANDRA COSTA MD Ot E78.4 OTHER HYPERLIPIDEMIA 03/06/2016 KASSANDRA COSTA MD Ot I10 ESSENTIAL (PRIMARY) HYPERTENSION 03/06/2016 KASSANDRA COSTA MD Ot I25.10 ATHSCL HEART DISEASE OF [place] CORONARY 03/06/2016 KASSANDRA COSTA MD Ot E11.9 TYPE 2 DIABETES MELLITUS WITHOUT COMPLIC 03/06/2016 JULISSA MD, KASSANDRA D Ot E78.4 OTHER HYPERLIPIDEMIA 03/06/2016 KASSANDRA COSTA MD Ot I10 ESSENTIAL (PRIMARY) HYPERTENSION 03/06/2016 KASSANDRA COSTA MD Ot I25.10 ATHSCL HEART DISEASE OF [place] CORONARY 03/06/2016 KASSANDRA COSTA MD Ot E11.9 TYPE 2 DIABETES MELLITUS WITHOUT COMPLIC 03/06/2016 KASSANDRA COSTA MD Ot E78.4 OTHER HYPERLIPIDEMIA 03/06/2016 KASSANDRA COSTA MD Ot I10 ESSENTIAL (PRIMARY) HYPERTENSION 03/06/2016 KASSANDRA COSTA MD Ot I25.10 ATHSCL HEART DISEASE OF [place] CORONARY 03/07/2016 Ot 611.72 LUMP OR MASS IN BREAST 03/07/2016 Ot 401.9 HYPERTENSION NOS 03/07/2016 Ot 414.00 CORON ATHEROSCLER NOS TYPE VESSEL, NATIV 03/07/2016 Ot 397.0 TRICUSPID VALVE DISEASE 03/07/2016 Ot 401.9 HYPERTENSION NOS 03/07/2016 Ot 414.00 CORON ATHEROSCLER NOS TYPE VESSEL, NATIV 03/07/2016 Ot 424.0 MITRAL VALVE DISORDER 03/07/2016 Ot V76.12 OTH SCREEN MAMMO-MALIGN NEOPLASM OF [place] 03/07/2016 KASSANDRA COSTA MD Ot V76.12 OTH SCREEN MAMMO-MALIGN NEOPLASM OF [place] 03/07/2016 KASSANDRA COSTA MD Ot 562.10 DIVERTICULOSIS COLON (W/O MENT OF HEMORR 03/07/2016 KASSANDRA COSTA MD Ot 729.92 NONTRAUMATIC HEMATOMA OF SOFT TISSUE 03/07/2016 KASSANDRA COSTA MD Ot 786.6 CHEST SWELLING/MASS/LUMP 03/07/2016 KASSANDRA COSTA MD Ot 162.9 MAL DULCE MARIA BRONCH/LUNG NOS 03/07/2016 LEWIS POST DO Ot 162.9 MAL DULCE MAIRA BRONCH/LUNG NOS 03/07/2016 LEWIS POST DO Ot 493.20 CHRONIC OBSTRUCTIVE ASTHMA, NOS 03/07/2016 LEWIS POST DO Ot 786.09 RESPIRATORY ABNORM NEC 03/07/2016 KASSANDRA COSTA MD Ot 998.12 HEMATOMA COMPLIC A PROC 03/07/2016 OTHER, UNLISTED Ot 162.8 MAL DULCE MARIA BRONCH/LUNG NEC 03/07/2016 JAMILA DE LA CRUZ Ot 250.00 DIAB DARCI WO COMPL, TYPE II OR UNSPEC TY 03/07/2016 JAMILA DE LA CRUZ Ot 272.4 HYPERLIPIDEMIA NEC/NOS 03/07/2016 JAMILA DE LA CRUZ Ot 401.9 HYPERTENSION NOS 03/07/2016 JAMILA DE LA CRUZ Ot 414.00 CORON ATHEROSCLER NOS TYPE VESSEL, NATIV 03/07/2016 HANNAH FRENCH, DAMION Alvarenga Ot 250.00 DIAB DARCI WO COMPL, TYPE II OR UNSPEC TY 03/07/2016 DAMION YOUNG MD Ot 272.4 HYPERLIPIDEMIA NEC/NOS 03/07/2016 DAMION YOUNG MD Ot 401.9 HYPERTENSION NOS 03/07/2016 HANNAH FRENCH, DAMION Alvarenga Ot 414.00 CORON ATHEROSCLER NOS TYPE VESSEL, NATIV 03/07/2016 CONNIE FRENCH, JOSHUA Velarde Ot 162.9 MAL DULCE MARIA BRONCH/LUNG NOS 03/07/2016 JOSETTE ALEXIS TIRE ADJUSTER Ot 162.5 MAL DULCE MARIA LOWER LOBE LUNG 03/07/2016 JOSETTE ALEXIS TIRE ADJUSTER Ot 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 03/07/2016 JOSETTE ALEXIS TIRE ADJUSTER Ot 250.00 DIAB DARCI WO COMPL, TYPE II OR UNSPEC TY 03/07/2016 JOSETTE ALEXIS TIRE ADJUSTER Ot 272.4 HYPERLIPIDEMIA NEC/NOS 03/07/2016 JOSETTE ALEXISP Ot 401.9 HYPERTENSION NOS 03/07/2016 JOSETTE ALEXIS TIRE ADJUSTER Ot 414.00 CORON ATHEROSCLER NOS TYPE VESSEL, NATIV 03/07/2016 JOSETTE ALEXIS TIRE ADJUSTER Ot 493.20 CHRONIC OBSTRUCTIVE ASTHMA, NOS 03/07/2016 JOSETTE ALEXIS TIRE ADJUSTER Ot V58.66 LONG-TERM (CURRENT) USE OF ASPIRIN 03/07/2016 JOSETTE ALEXIS TIRE ADJUSTER Ot V58.69 OTH MED,LT,CURRENT USE 03/07/2016 ISACC HILARIO MD Ot 162.9 MAL DULCE MARIA BRONCH/LUNG NOS 03/07/2016 ISACC HILARIO MD Ot V72.84 EXAM PRE-OPERATIVE NOS 03/07/2016 NANCY KEARNEY Ot 162.9 MAL DULCE MARIA BRONCH/LUNG NOS 03/07/2016 NANCY KEARNEY Ot 562.10 DIVERTICULOSIS COLON (W/O MENT OF HEMORR 03/07/2016 NANCY KEARNEY Ot 573.8 LIVER DISORDERS NEC 03/07/2016 JOSETTE ALEXIS TIRE ADJUSTER Ot 162.9 MAL DULCE MARIA BRONCH/LUNG NOS 03/07/2016 JOSETTE ALEXIS TIRE ADJUSTER Ot 162.5 MAL DULCE MARIA LOWER LOBE LUNG 03/07/2016 JOSETTE ALEXIS TIRE ADJUSTER Ot 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 03/07/2016 JOSETTE ALEXIS TIRE ADJUSTER Ot 250.00 DIAB DARCI WO COMPL, TYPE II OR UNSPEC TY 03/07/2016 JOSETTE ALEXIS TIRE ADJUSTER Ot 272.4 HYPERLIPIDEMIA NEC/NOS 03/07/2016 JOSETTE ALEXIS TIRE ADJUSTER Ot 356.9 IDIO PERIPH NEURPTHY NOS 03/07/2016 JOSETTE ALEXIS TIRE ADJUSTER Ot 401.9 HYPERTENSION NOS 03/07/2016 JOSETTE ALEXIS TIRE ADJUSTER Ot 414.00 CORON ATHEROSCLER NOS TYPE VESSEL, NATIV 03/07/2016 JOSETTE ALEXIS TIRE ADJUSTER Ot 493.20 CHRONIC OBSTRUCTIVE ASTHMA, NOS 03/07/2016 JOSETTE ALEXIS TIRE ADJUSTER Ot 528.9 ORAL SOFT TISSUE DIS NEC 03/07/2016 JOSETTE ALEXIS TIRE ADJUSTER Ot V58.66 LONG-TERM (CURRENT) USE OF ASPIRIN 03/07/2016 JOSETTE ALEXIS TIRE ADJUSTER Ot V58.69 OTH MED,LT,CURRENT USE 03/07/2016 JOSETTE ALEXIS TIRE ADJUSTER Ot 162.9 MAL DULCE MARIA BRONCH/LUNG NOS 03/07/2016 JOSETTE ALEXIS TIRE ADJUSTER Ot 162.5 MAL DULCE MARIA LOWER LOBE LUNG 03/07/2016 JOSETTE ALEXIS TIRE ADJUSTER Ot 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 03/07/2016 JOSETTE ALEXIS TIRE ADJUSTER Ot 250.00 DIAB DARCI WO COMPL, TYPE II OR UNSPEC TY 03/07/2016 JOSETTE ALEXIS TIRE ADJUSTER Ot 272.4 HYPERLIPIDEMIA NEC/NOS 03/07/2016 JOSETTE ALEXIS TIRE ADJUSTER Ot 401.9 HYPERTENSION NOS 03/07/2016 JOSETTE ALEXIS TIRE ADJUSTER Ot 414.00 CORON ATHEROSCLER NOS TYPE VESSEL, NATIV 03/07/2016 JOSETTE ALEXIS TIRE ADJUSTER Ot 493.20 CHRONIC OBSTRUCTIVE ASTHMA, NOS 03/07/2016 JOSETTE ALEXIS TIRE ADJUSTER Ot 782.1 NONSPECIF SKIN ERUPT NEC 03/07/2016 JOSETTE ALEXIS TIRE ADJUSTER Ot V58.66 LONG-TERM (CURRENT) USE OF ASPIRIN 03/07/2016 JOSETTE ALEXIS TIRE ADJUSTER Ot V58.69 OTH MED,LT,CURRENT USE 03/07/2016 JOSETTE ALEXIS TIRE ADJUSTER Ot 162.5 MAL DULCE MARIA LOWER LOBE LUNG 03/07/2016 JOSETTE ALEXIS TIRE ADJUSTER Ot 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 03/07/2016 JOSETTE ALEXIS TIRE ADJUSTER Ot 250.00 DIAB DARCI WO COMPL, TYPE II OR UNSPEC TY 03/07/2016 JOSETTE ALEXIS S TIRE ADJUSTER Ot 272.1 PURE HYPERGLYCERIDEMIA 03/07/2016 JOSETTE ALEXIS TIRE ADJUSTER Ot 272.4 HYPERLIPIDEMIA NEC/NOS 03/07/2016 JOSETTE ALEXIS TIRE ADJUSTER Ot 278.00 OBESITY, NOS 03/07/2016 JOSETTE ALEXIS TIRE ADJUSTER Ot 401.9 HYPERTENSION NOS 03/07/2016 JOSETTE ALEXIS TIRE ADJUSTER Ot 414.00 CORON ATHEROSCLER NOS TYPE VESSEL, NATIV 03/07/2016 JOSETTE ALEXIS TIRE ADJUSTER Ot 493.20 CHRONIC OBSTRUCTIVE ASTHMA, NOS 03/07/2016 JOSETTE ALEXIS TIRE ADJUSTER Ot 793.19 OTHER NONSPECIFIC ABNORMAL FINDING OF [place] 03/07/2016 JOSETTE ALEXIS TIRE ADJUSTER Ot V58.69 OTH MED,LT,CURRENT USE 03/07/2016 JOSETTE ALEXIS TIRE ADJUSTER Ot V85.35 BODY MASS INDEX 35.0-35.9, ADULT 03/07/2016 JOSETTE ALEXIS TIRE ADJUSTER Ot C34.90 MALIGNANT NEOPLASM OF UNSP PART OF UNSP 03/07/2016 JOSETTE ALEXIS TIRE ADJUSTER Ot R51 HEADACHE 03/07/2016 JOSETTE ALEXIS TIRE ADJUSTER Ot C34.90 MALIGNANT NEOPLASM OF UNSP PART OF UNSP 03/07/2016 JOSETTE AELXIS TIRE ADJUSTER Ot 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 LOWER LOBE, RIGHT 03/07/2016 JOSETTE ALEXIS TIRE ADJUSTER Ot R05 COUGH 03/07/2016 JOSETTE ALEXIS TIRE ADJUSTER Ot R06.00 DYSPNEA, UNSPECIFIED 03/07/2016 JOSETTE ALEXIS TIRE ADJUSTER Ot 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 LOWER LOBE, RIGHT 03/07/2016 JOSETTE ALEXIS TIRE ADJUSTER Ot E11.9 TYPE 2 DIABETES MELLITUS WITHOUT COMPLIC 03/07/2016 JOSETTE ALEXIS TIRE ADJUSTER Ot E78.5 HYPERLIPIDEMIA, UNSPECIFIED 03/07/2016 JOSETTE ALEXIS TIRE ADJUSTER Ot I10 ESSENTIAL (PRIMARY) HYPERTENSION 03/07/2016 JOSETTE ALEXIS TIRE ADJUSTER Ot I25.10 ATHSCL HEART DISEASE OF [place] CORONARY 03/07/2016 JOSETTE ALEXIS TIRE ADJUSTER Ot J44.9 CHRONIC OBSTRUCTIVE PULMONARY DISEASE, U 03/07/2016 JOSETTE ALEXISP Ot Z79.82 DIRECTOR FUNERAL (CURRENT) USE OF ASPIRIN 03/07/2016 JOSETTE ALEXISP Ot Z79.899 OTHER DIRECTOR FUNERAL (CURRENT) DRUG THERAPY 03/07/2016 REYES MD, TRINA T Ot 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 LOWER LOBE, RIGHT 03/07/2016 REYES MD, TRINA T Ot E04.1 NONTOXIC SINGLE THYROID NODULE 03/07/2016 JOSETTE ALEXISP Ot 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 LOWER LOBE, RIGHT 03/07/2016 JOSETTE ALEXISP Ot E11.9 TYPE 2 DIABETES MELLITUS WITHOUT COMPLIC 03/07/2016 JOSETTE ALEXISP Ot E78.5 HYPERLIPIDEMIA, UNSPECIFIED 03/07/2016 JOSETTE ALEXISP Ot I10 ESSENTIAL (PRIMARY) HYPERTENSION 03/07/2016 JOSETTE ALEXISP Ot I25.10 ATHSCL HEART DISEASE OF [place] CORONARY 03/07/2016 JOSETTE ALEXISP Ot J44.9 CHRONIC OBSTRUCTIVE PULMONARY DISEASE, U 03/07/2016 JOSETTE ALEXISP Ot Z79.82 DIRECTOR FUNERAL (CURRENT) USE OF ASPIRIN 03/07/2016 JOSETTE ALEXIS TIRE ADJUSTER Ot Z79.899 OTHER DIRECTOR FUNERAL (CURRENT) DRUG THERAPY 03/07/2016 NANCY KEARNEY Ot 162.5 MAL DULCE MARIA LOWER LOBE LUNG 03/07/2016 NANCY KEARNEY Ot 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 03/07/2016 NANCY KEARNEY Ot V58.69 OTH MED,LT,CURRENT USE 03/07/2016 JOSETTE ALEXISP Ot J44.9 CHRONIC OBSTRUCTIVE PULMONARY DISEASE, U 03/07/2016 JOSETTE ALEXISP Ot R05 COUGH 03/07/2016 JOSETTE ALEXIS TIRE ADJUSTER Ot 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 LOWER LOBE, RIGHT 03/07/2016 JOSETTE ALEXISP Ot E11.9 TYPE 2 DIABETES MELLITUS WITHOUT COMPLIC 03/07/2016 JOSETTE ALEXIS Cj TIRE ADJUSTER Ot E78.5 HYPERLIPIDEMIA, UNSPECIFIED 03/07/2016 JOSETTE ALEXIS S TIRE ADJUSTER Ot I10 ESSENTIAL (PRIMARY) HYPERTENSION 03/07/2016 JOSETTE ALEXIS TIRE ADJUSTER Ot I25.10 ATHSCL HEART DISEASE OF [place] CORONARY 03/07/2016 JOSETTE ALEXIS TIRE ADJUSTER Ot J44.9 CHRONIC OBSTRUCTIVE PULMONARY DISEASE, U 03/07/2016 JOSETTE ALEXIS TIRE ADJUSTER Ot Z79.82 SKILLED NURSING (CURRENT) USE OF ASPIRIN 03/07/2016 JOSETTE ALEXIS TIRE ADJUSTER Ot Z79.899 OTHER SKILLED NURSING (CURRENT) DRUG THERAPY 03/07/2016 JOSETTE ALEXIS TIRE ADJUSTER Ot 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 LOWER LOBE, RIGHT 03/07/2016 JOSETTE ALEXIS TIRE ADJUSTER Ot 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 LOWER LOBE, RIGHT 03/07/2016 JOSETTE ALEXISP Ot E11.9 TYPE 2 DIABETES MELLITUS WITHOUT COMPLIC 03/07/2016 JOSETTE ALEXISP Ot E78.5 HYPERLIPIDEMIA, UNSPECIFIED 03/07/2016 JOSETTE ALEXIS TIRE ADJUSTER Ot I10 ESSENTIAL (PRIMARY) HYPERTENSION 03/07/2016 JOSETTE ALEXIS TIRE ADJUSTER Ot I25.10 ATHSCL HEART DISEASE OF [place] CORONARY 03/07/2016 JOSETTE ALEXIS TIRE ADJUSTER Ot J44.9 CHRONIC OBSTRUCTIVE PULMONARY DISEASE, U 03/07/2016 JOSETTE ALEXIS S TIRE ADJUSTER Ot Z79.82 DIRECTOR FUNERAL (CURRENT) USE OF ASPIRIN 03/07/2016 JOSETTE ALEXIS TIRE ADJUSTER Ot Z79.899 OTHER DIRECTOR FUNERAL (CURRENT) DRUG THERAPY 03/07/2016 JULISSA FRENCH, KASSANDRA Marie Ot E11.9 TYPE 2 DIABETES MELLITUS WITHOUT COMPLIC 03/07/2016 JOSETTE ALEXIS TIRE ADJUSTER Ot C34.90 MALIGNANT NEOPLASM OF UNSP PART OF UNSP 03/07/2016 JOSETTE ALEXIS TIRE ADJUSTER Ot R53.83 OTHER FATIGUE 03/07/2016 ALEXIS, HILAH S TIRE ADJUSTER Ot 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 LOWER LOBE, RIGHT 03/07/2016 ALEXISJOSETTE S TIRE ADJUSTER Ot E11.9 TYPE 2 DIABETES MELLITUS WITHOUT COMPLIC 03/07/2016 JOSETTE ALEXIS S TIRE ADJUSTER Ot E78.5 HYPERLIPIDEMIA, UNSPECIFIED 03/07/2016 ALEXIS JOSETTE S TIRE ADJUSTER Ot I10 ESSENTIAL (PRIMARY) HYPERTENSION 03/07/2016 JOSETTE ALEXIS S TIRE ADJUSTER Ot I25.10 ATHSCL HEART DISEASE OF [place] CORONARY 03/07/2016 JOSETTE ALEXIS S TIRE ADJUSTER Ot J44.9 CHRONIC OBSTRUCTIVE PULMONARY DISEASE, U 03/07/2016 JOSETTE ALEXIS S TIRE ADJUSTER Ot Z79.82 DIRECTOR FUNERAL (CURRENT) USE OF ASPIRIN 03/07/2016 JOSETTE ALEXIS S TIRE ADJUSTER Ot Z79.899 OTHER SKILLED NURSING (CURRENT) DRUG THERAPY 03/07/2016 JOSETTE ALEXIS S TIRE ADJUSTER Ot 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 LOWER LOBE, RIGHT 03/07/2016 JOSETTE ALEXIS S TIRE ADJUSTER Ot 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 LOWER LOBE, RIGHT 03/07/2016 JOSETTE ALEXIS S TIRE ADJUSTER Ot E11.9 TYPE 2 DIABETES MELLITUS WITHOUT COMPLIC 03/07/2016 JOSETTE ALEXIS S TIRE ADJUSTER Ot E78.5 HYPERLIPIDEMIA, UNSPECIFIED 03/07/2016 JOSETTE ALEXIS S TIRE ADJUSTER Ot I10 ESSENTIAL (PRIMARY) HYPERTENSION 03/07/2016 CH[place] ALEXISBRENDAN S TIRE ADJUSTER Ot I25.10 ATHSCL HEART DISEASE OF [place] CORONARY 03/07/2016 JOSETTE ALEXIS S TIRE ADJUSTER Ot J44.9 CHRONIC OBSTRUCTIVE PULMONARY DISEASE, U 03/07/2016 JOSETTE ALEXIS S TIRE ADJUSTER Ot Z79.82 SKILLED NURSING (CURRENT) USE OF ASPIRIN 03/07/2016 JOSETTE ALEXIS S TIRE ADJUSTER Ot Z79.899 OTHER SKILLED NURSING (CURRENT) DRUG THERAPY 03/07/2016 JOSETTE ALEXIS S TIRE ADJUSTER Ot 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 LOWER LOBE, RIGHT 03/07/2016 JOSETTE ALEXIS S TIRE ADJUSTER Ot R26.81 UNSTEADINESS ON FEET 03/07/2016 JOSETTE ALEXIS S TIRE ADJUSTER Ot R42 DIZZINESS AND GIDDINESS 03/07/2016 NANCY KEARNEY Ot 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 LOWER LOBE, RIGHT 03/07/2016 NANCY KEARNEY Leonel Ot E11.9 TYPE 2 DIABETES MELLITUS WITHOUT COMPLIC 03/07/2016 NANCY KEARNEY Leonel Ot E78.5 HYPERLIPIDEMIA, UNSPECIFIED 03/07/2016 NANCY KEARNEY N Ot I10 ESSENTIAL (PRIMARY) HYPERTENSION 03/07/2016 NANCY KEARNEY N Ot I25.10 ATHSCL HEART DISEASE OF [place] CORONARY 03/07/2016 NANCY KEARNEY Leonel Ot J44.9 CHRONIC OBSTRUCTIVE PULMONARY DISEASE, U 03/07/2016 NANCY KEARNEY N Ot R19.5 OTHER FECAL ABNORMALITIES 03/07/2016 NANCY KEARNEY Leonel Ot Z51.11 ENCOUNTER FOR ANTINEOPLASTIC CHEMOTHERAP 03/07/2016 NANCY KEARNEY N Ot Z79.82 DIRECTOR FUNERAL (CURRENT) USE OF ASPIRIN 03/07/2016 NANCY KEARNEY N Ot Z79.899 OTHER DIRECTOR FUNERAL (CURRENT) DRUG THERAPY 03/07/2016 JOSETTE ALEXIS TIRE ADJUSTER Ot 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 LOWER LOBE, RIGHT 03/07/2016 JOSETTE ALEXIS TIRE ADJUSTER Ot E11.9 TYPE 2 DIABETES MELLITUS WITHOUT COMPLIC 03/07/2016 JOSETTE ALEXIS TIRE ADJUSTER Ot E78.5 HYPERLIPIDEMIA, UNSPECIFIED 03/07/2016 JOSETTE ALEXIS TIRE ADJUSTER Ot I10 ESSENTIAL (PRIMARY) HYPERTENSION 03/07/2016 JOSETTE ALEXIS TIRE ADJUSTER Ot I25.10 ATHSCL HEART DISEASE OF [place] CORONARY 03/07/2016 JOSETTE ALEXIS TIRE ADJUSTER Ot J44.9 CHRONIC OBSTRUCTIVE PULMONARY DISEASE, U 03/07/2016 JOSETTE ALEXIS TIRE ADJUSTER Ot Z79.82 DIRECTOR FUNERAL (CURRENT) USE OF ASPIRIN 03/07/2016 JOSETTE ALEXIS TIRE ADJUSTER Ot Z79.899 OTHER DIRECTOR FUNERAL (CURRENT) DRUG THERAPY 03/07/2016 KASSANDRA COSTA MD Ot Z12.31 ENCNTR SCREEN MAMMOGRAM FOR MALIGNANT NE 03/07/2016 KASSANDRA COSTA MD Ot E11.9 TYPE 2 DIABETES MELLITUS WITHOUT COMPLIC 03/07/2016 KASSANDRA COSTA MD Ot E78.4 OTHER HYPERLIPIDEMIA 03/07/2016 KASSANDRA COSTA MD Ot I10 ESSENTIAL (PRIMARY) HYPERTENSION 03/07/2016 KASSANDRA COSTA MD Ot I25.10 ATHSCL HEART DISEASE OF [place] CORONARY 03/07/2016 CHRISTEL, BOBAN N Ot 162.9 MAL DULCE MARIA BRONCH/LUNG NOS 03/07/2016 BERTO KEARNEYCASSY N Ot 562.10 DIVERTICULOSIS COLON (W/O MENT OF HEMORR 03/07/2016 CHRISTELNANCY Ot 573.8 LIVER DISORDERS NEC 03/07/2016 JOSETTE ALEXIS S TIRE ADJUSTER Ot 162.9 MAL DULCE MARIA BRONCH/LUNG NOS 03/07/2016 ALEXISJOSETTE Corona S TIRE ADJUSTER Ot 162.5 MAL DULCE MARIA LOWER LOBE LUNG 03/07/2016 JOSETTE ALEXIS S TIRE ADJUSTER Ot 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 03/07/2016 JOSETTE ALEXIS S TIRE ADJUSTER Ot 250.00 DIAB DARCI WO COMPL, TYPE II OR UNSPEC TY 03/07/2016 ALEXIS, HILAH S TIRE ADJUSTER Ot 272.4 HYPERLIPIDEMIA NEC/NOS 03/07/2016 JOSETTE ALEXIS S TIRE ADJUSTER Ot 356.9 IDIO PERIPH NEURPTHY NOS 03/07/2016 JOSETTE ALEXIS S TIRE ADJUSTER Ot 401.9 HYPERTENSION NOS 03/07/2016 JOSETTE ALEXIS S TIRE ADJUSTER Ot 414.00 CORON ATHEROSCLER NOS TYPE VESSEL, NATIV 03/07/2016 JOSETTE ALEXIS S TIRE ADJUSTER Ot 493.20 CHRONIC OBSTRUCTIVE ASTHMA, NOS 03/07/2016 JOSETTE ALEXIS S TIRE ADJUSTER Ot 528.9 ORAL SOFT TISSUE DIS NEC 03/07/2016 JOSETTE ALEXIS S TIRE ADJUSTER Ot V58.66 LONG-TERM (CURRENT) USE OF ASPIRIN 03/07/2016 JOSETTE ALEXIS S TIRE ADJUSTER Ot V58.69 OTH MED,LT,CURRENT USE 03/07/2016 JOSETTE ALEXIS S TIRE ADJUSTER Ot 162.9 MAL DULCE MARIA BRONCH/LUNG NOS 03/07/2016 JOSETTE ALEXIS S TIRE ADJUSTER Ot 162.5 MAL DULCE MARIA LOWER LOBE LUNG 03/07/2016 JOSETTE ALEXIS S TIRE ADJUSTER Ot 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 03/07/2016 JOSETTE ALEXIS S TIRE ADJUSTER Ot 250.00 DIAB DARCI WO COMPL, TYPE II OR UNSPEC TY 03/07/2016 CHINA ALEXISAH S TIRE ADJUSTER Ot 272.4 HYPERLIPIDEMIA NEC/NOS 03/07/2016 ALEXIS, HILAH S TIRE ADJUSTER Ot 401.9 HYPERTENSION NOS 03/07/2016 JOSETTE ALEXIS S TIRE ADJUSTER Ot 414.00 CORON ATHEROSCLER NOS TYPE VESSEL, NATIV 03/07/2016 JOSETTE ALEXIS TIRE ADJUSTER Ot 493.20 CHRONIC OBSTRUCTIVE ASTHMA, NOS 03/07/2016 JOSETTE ALEXIS TIRE ADJUSTER Ot 782.1 NONSPECIF SKIN ERUPT NEC 03/07/2016 JOSETTE ALEXIS TIRE ADJUSTER Ot V58.66 LONG-TERM (CURRENT) USE OF ASPIRIN 03/07/2016 JOSETTE ALEXIS TIRE ADJUSTER Ot V58.69 OTH MED,LT,CURRENT USE 03/07/2016 JOSETTE ALEXIS TIRE ADJUSTER Ot 162.5 MAL DULCE MARIA LOWER LOBE LUNG 03/07/2016 JOSETTE ALEXIS TIRE ADJUSTER Ot 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 03/07/2016 JOSETTE ALEXIS TIRE ADJUSTER Ot 250.00 DIAB DARCI WO COMPL, TYPE II OR UNSPEC TY 03/07/2016 JOSETTE ALEXIS TIRE ADJUSTER Ot 272.1 PURE HYPERGLYCERIDEMIA 03/07/2016 JOSETTE ALEXIS TIRE ADJUSTER Ot 272.4 HYPERLIPIDEMIA NEC/NOS 03/07/2016 JOSETTE ALEXIS TIRE ADJUSTER Ot 278.00 OBESITY, NOS 03/07/2016 JOSETTE ALEXIS TIRE ADJUSTER Ot 401.9 HYPERTENSION NOS 03/07/2016 JOSETTE ALEXIS TIRE ADJUSTER Ot 414.00 CORON ATHEROSCLER NOS TYPE VESSEL, NATIV 03/07/2016 JOSETTE ALEXIS TIRE ADJUSTER Ot 493.20 CHRONIC OBSTRUCTIVE ASTHMA, NOS 03/07/2016 JOSETTE ALEXIS TIRE ADJUSTER Ot 793.19 OTHER NONSPECIFIC ABNORMAL FINDING OF [place] 03/07/2016 JOSETTE ALEXISP Ot V58.69 OTH MED,LT,CURRENT USE 03/07/2016 JOSETTE ALEXIS TIRE ADJUSTER Ot V85.35 BODY MASS INDEX 35.0-35.9, ADULT 03/07/2016 JOSETTE ALEXIS TIRE ADJUSTER Ot C34.90 MALIGNANT NEOPLASM OF [place] PART OF UNSP 03/07/2016 JOSETTE ALEXIS TIRE ADJUSTER Ot R51 HEADACHE 03/07/2016 JOSETTE ALEXIS TIRE ADJUSTER Ot C34.90 MALIGNANT NEOPLASM OF [place] PART OF [place] 03/07/2016 JOSETTE ALEXIS TIRE ADJUSTER Ot 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 LOWER LOBE, RIGHT 03/07/2016 JOSETTE ALEXIS TIRE ADJUSTER Ot R05 COUGH 03/07/2016 JOSETTE ALEXIS TIRE ADJUSTER Ot R06.00 DYSPNEA, UNSPECIFIED 03/07/2016 JOSETTE ALEXIS TIRE ADJUSTER Ot 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 LOWER LOBE, RIGHT 03/07/2016 JOSETTE ALEXIS TIRE ADJUSTER Ot E11.9 TYPE 2 DIABETES MELLITUS WITHOUT COMPLIC 03/07/2016 ALEXISJOSETTE Corona TIRE ADJUSTER Ot E78.5 HYPERLIPIDEMIA, UNSPECIFIED 03/07/2016 [place] ALEXISBRENDAN Corona TIRE ADJUSTER Ot I10 ESSENTIAL (PRIMARY) HYPERTENSION 03/07/2016 VANESA JOSETTE Corona TIRE ADJUSTER Ot I25.10 ATHSCL HEART DISEASE OF [place] CORONARY 03/07/2016 VANESA JOSETTE Corona TIRE ADJUSTER Ot J44.9 CHRONIC OBSTRUCTIVE PULMONARY DISEASE, U 03/07/2016 VANESA JOSETTE Corona TIRE ADJUSTER Ot Z79.82 DIRECTOR FUNERAL (CURRENT) USE OF ASPIRIN 03/07/2016 VANESA JOSETTE Corona TIRE ADJUSTER Ot Z79.899 OTHER DIRECTOR FUNERAL (CURRENT) DRUG THERAPY 03/07/2016 REYES MD, TRINA T Ot 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 LOWER LOBE, RIGHT 03/07/2016 REYES MD, TRINA T Ot E04.1 NONTOXIC SINGLE THYROID NODULE 03/07/2016 ALEXISJOSETTE Corona TIRE ADJUSTER Ot 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 LOWER LOBE, RIGHT 03/07/2016 ALEXIS JOSETTE Corona TIRE ADJUSTER Ot E11.9 TYPE 2 DIABETES MELLITUS WITHOUT COMPLIC 03/07/2016 VANESA JOSETTE Corona TIRE ADJUSTER Ot E78.5 HYPERLIPIDEMIA, UNSPECIFIED 03/07/2016 [place] ALEXISBRENDAN Corona TIRE ADJUSTER Ot I10 ESSENTIAL (PRIMARY) HYPERTENSION 03/07/2016 VANESA JOSETTE Corona TIRE ADJUSTER Ot I25.10 ATHSCL HEART DISEASE OF [place] CORONARY 03/07/2016 VANESA JOSETTE Corona TIRE ADJUSTER Ot J44.9 CHRONIC OBSTRUCTIVE PULMONARY DISEASE, U 03/07/2016 VANESA JOSETTE oCrona TIRE ADJUSTER Ot Z79.82 DIRECTOR FUNERAL (CURRENT) USE OF ASPIRIN 03/07/2016 VANESA JOSETTE Corona TIRE ADJUSTER Ot Z79.899 OTHER SKILLED NURSING (CURRENT) DRUG THERAPY 03/07/2016 NANCY KEARNEY Ot 162.5 MAL DULCE MARIA LOWER LOBE LUNG 03/07/2016 NANCY KEARNEY Ot 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 03/07/2016 NANCY KEARNEY Ot V58.69 OT MED,LT,CURRENT USE 03/07/2016 JOSETTE ALEXIS TIRE ADJUSTER Ot J44.9 CHRONIC OBSTRUCTIVE PULMONARY DISEASE, U 03/07/2016 JOSETTE ALEXIS TIRE ADJUSTER Ot R05 COUGH 03/07/2016 JOSETTE ALEXIS TIRE ADJUSTER Ot 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 LOWER LOBE, RIGHT 03/07/2016 JOSETTE ALEXIS TIRE ADJUSTER Ot E11.9 TYPE 2 DIABETES MELLITUS WITHOUT COMPLIC 03/07/2016 JOSETTE ALEXIS TIRE ADJUSTER Ot E78.5 HYPERLIPIDEMIA, UNSPECIFIED 03/07/2016 JOSETTE ALEXIS TIRE ADJUSTER Ot I10 ESSENTIAL (PRIMARY) HYPERTENSION 03/07/2016 JOSETTE ALEXIS TIRE ADJUSTER Ot I25.10 ATHSCL HEART DISEASE OF [place] CORONARY 03/07/2016 JOSETTE ALEXIS TIRE ADJUSTER Ot J44.9 CHRONIC OBSTRUCTIVE PULMONARY DISEASE, U 03/07/2016 JOSETTE ALEXIS TIRE ADJUSTER Ot Z79.82 SKILLED NURSING (CURRENT) USE OF ASPIRIN 03/07/2016 JOSETTE ALEXIS TIRE ADJUSTER Ot Z79.899 OTHER SKILLED NURSING (CURRENT) DRUG THERAPY 03/07/2016 JOSETTE ALEXIS TIRE ADJUSTER Ot 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 LOWER LOBE, RIGHT 03/07/2016 JOSETTE ALEXIS TIRE ADJUSTER Ot 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 LOWER LOBE, RIGHT 03/07/2016 JOSETTE ALEXISP Ot E11.9 TYPE 2 DIABETES MELLITUS WITHOUT COMPLIC 03/07/2016 JOSETTE ALEXISP Ot E78.5 HYPERLIPIDEMIA, UNSPECIFIED 03/07/2016 JOSETTE ALEXIS TIRE ADJUSTER Ot I10 ESSENTIAL (PRIMARY) HYPERTENSION 03/07/2016 JOSETTE ALEXIS TIRE ADJUSTER Ot I25.10 ATHSCL HEART DISEASE OF [place] CORONARY 03/07/2016 JOSETTE ALEXIS TIRE ADJUSTER Ot J44.9 CHRONIC OBSTRUCTIVE PULMONARY DISEASE, U 03/07/2016 JOSETTE ALEXIS TIRE ADJUSTER Ot Z79.82 DIRECTOR FUNERAL (CURRENT) USE OF ASPIRIN 03/07/2016 JOSETTE ALEXIS TIRE ADJUSTER Ot Z79.899 OTHER DIRECTOR FUNERAL (CURRENT) DRUG THERAPY 03/07/2016 JULISSA FRENCH, KASSANDRA Marie Ot E11.9 TYPE 2 DIABETES MELLITUS WITHOUT COMPLIC 03/07/2016 JOSETTE ALEXIS Cj TIRE ADJUSTER Ot C34.90 MALIGNANT NEOPLASM OF [place] PART OF UNSP 03/07/2016 [place] ALEXISBRENDAN Corona TIRE ADJUSTER Ot R53.83 OTHER FATIGUE 03/07/2016 JOSETTE ALEXIS Cj TIRE ADJUSTER Ot 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 LOWER LOBE, RIGHT 03/07/2016 JOSETTE ALEXIS Cj TIRE ADJUSTER Ot E11.9 TYPE 2 DIABETES MELLITUS WITHOUT COMPLIC 03/07/2016 JOSETTE ALEXIS TIRE ADJUSTER Ot E78.5 HYPERLIPIDEMIA, UNSPECIFIED 03/07/2016 CH[place] ALEXISBRENDAN S TIRE ADJUSTER Ot I10 ESSENTIAL (PRIMARY) HYPERTENSION 03/07/2016 JOSETTE ALEXIS TIRE ADJUSTER Ot I25.10 ATHSCL HEART DISEASE OF [place] CORONARY 03/07/2016 JOSETTE ALEXIS TIRE ADJUSTER Ot J44.9 CHRONIC OBSTRUCTIVE PULMONARY DISEASE, U 03/07/2016 JOSETTE ALEXIS TIRE ADJUSTER Ot Z79.82 SKILLED NURSING (CURRENT) USE OF ASPIRIN 03/07/2016 JOSETTE ALEXIS TIRE ADJUSTER Ot Z79.899 OTHER SKILLED NURSING (CURRENT) DRUG THERAPY 03/07/2016 JOSETTE ALEXIS Cj TIRE ADJUSTER Ot 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 LOWER LOBE, RIGHT 03/07/2016 JOSETTE ALEXIS Cj TIRE ADJUSTER Ot 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 LOWER LOBE, RIGHT 03/07/2016 JOSETTE ALEXIS TIRE ADJUSTER Ot E11.9 TYPE 2 DIABETES MELLITUS WITHOUT COMPLIC 03/07/2016 JOSETTE ALEXIS TIRE ADJUSTER Ot E78.5 HYPERLIPIDEMIA, UNSPECIFIED 03/07/2016 JOSETTE ALEXIS TIRE ADJUSTER Ot I10 ESSENTIAL (PRIMARY) HYPERTENSION 03/07/2016 JOSETTE ALEXIS TIRE ADJUSTER Ot I25.10 ATHSCL HEART DISEASE OF [place] CORONARY 03/07/2016 JOSETTE ALEXIS TIRE ADJUSTER Ot J44.9 CHRONIC OBSTRUCTIVE PULMONARY DISEASE, U 03/07/2016 JOSETTE ALEXIS S TIRE ADJUSTER Ot Z79.82 DIRECTOR FUNERAL (CURRENT) USE OF ASPIRIN 03/07/2016 JOSETTE ALEXIS S TIRE ADJUSTER Ot Z79.899 OTHER SKILLED NURSING (CURRENT) DRUG THERAPY 03/07/2016 JOSETTE ALEXIS S TIRE ADJUSTER Ot 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 LOWER LOBE, RIGHT 03/07/2016 JOSETTE ALEXIS TIRE ADJUSTER Ot R26.81 UNSTEADINESS ON FEET 03/07/2016 [place] ALEXISBRENDAN Cj TIRE ADJUSTER Ot R42 DIZZINESS AND GIDDINESS 03/07/2016 NANCY KEARNEY N Ot 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 LOWER LOBE, RIGHT 03/07/2016 NANCY KEARNEY N Ot E11.9 TYPE 2 DIABETES MELLITUS WITHOUT COMPLIC 03/07/2016 NANCY KEARNEY N Ot E78.5 HYPERLIPIDEMIA, UNSPECIFIED 03/07/2016 NANCY KEARNEY N Ot I10 ESSENTIAL (PRIMARY) HYPERTENSION 03/07/2016 NANCY KEARNEY N Ot I25.10 ATHSCL HEART DISEASE OF [place] CORONARY 03/07/2016 NANCY KEARNEY N Ot J44.9 CHRONIC OBSTRUCTIVE PULMONARY DISEASE, U 03/07/2016 NANCY KEARNEY N Ot R19.5 OTHER FECAL ABNORMALITIES 03/07/2016 NANCY KEARNEY N Ot Z51.11 ENCOUNTER FOR ANTINEOPLASTIC CHEMOTHERAP 03/07/2016 NANCY KEARNEY N Ot Z79.82 DIRECTOR FUNERAL (CURRENT) USE OF ASPIRIN 03/07/2016 NANCY KEARNEY N Ot Z79.899 OTHER DIRECTOR FUNERAL (CURRENT) DRUG THERAPY 03/07/2016 JOSETTE ALEXIS TIRE ADJUSTER Ot 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 LOWER LOBE, RIGHT 03/07/2016 JOSETTE ALEXIS TIRE ADJUSTER Ot E11.9 TYPE 2 DIABETES MELLITUS WITHOUT COMPLIC 03/07/2016 JOSETTE ALEXIS TIRE ADJUSTER Ot E78.5 HYPERLIPIDEMIA, UNSPECIFIED 03/07/2016 JOSETTE ALEXIS TIRE ADJUSTER Ot I10 ESSENTIAL (PRIMARY) HYPERTENSION 03/07/2016 JOSETTE ALEXIS TIRE ADJUSTER Ot I25.10 ATHSCL HEART DISEASE OF [place] CORONARY 03/07/2016 JOSETTE ALEXIS TIRE ADJUSTER Ot J44.9 CHRONIC OBSTRUCTIVE PULMONARY DISEASE, U 03/07/2016 JOSETTE ALEXIS TIRE ADJUSTER Ot Z79.82 DIRECTOR FUNERAL (CURRENT) USE OF ASPIRIN 03/07/2016 JOSETTE ALEXIS S TIRE ADJUSTER Ot Z79.899 OTHER SKILLED NURSING (CURRENT) DRUG THERAPY 03/07/2016 KASSANDRA COSTA MD Ot Z12.31 ENCNTR SCREEN MAMMOGRAM FOR MALIGNANT NE 03/07/2016 KASSANDRA COSTA MD Ot E11.9 TYPE 2 DIABETES MELLITUS WITHOUT COMPLIC 03/07/2016 KASSANDRA COSTA MD Ot E78.4 OTHER HYPERLIPIDEMIA 03/07/2016 KASSANDRA COSTA MD Ot I10 ESSENTIAL (PRIMARY) HYPERTENSION 03/07/2016 KASSANDRA COSTA MD Ot I25.10 ATHSCL HEART DISEASE OF [place] CORONARY 03/08/2016 NANCY KEARNEY N Ot 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 LOWER LOBE, RIGHT 03/08/2016 NANCY KEARNEY N Ot E11.9 TYPE 2 DIABETES MELLITUS WITHOUT COMPLIC 03/08/2016 NANCY KEARNEY N Ot E78.5 HYPERLIPIDEMIA, UNSPECIFIED 03/08/2016 NANCY KEARNEY N Ot I10 ESSENTIAL (PRIMARY) HYPERTENSION 03/08/2016 NANCY KEARNEY N Ot I25.10 ATHSCL HEART DISEASE OF [place] CORONARY 03/08/2016 NANCY KEARNEY N Ot J44.9 CHRONIC OBSTRUCTIVE PULMONARY DISEASE, U 03/08/2016 NANCY KEARNEY N Ot R19.5 OTHER FECAL ABNORMALITIES 03/08/2016 NANCY KEARNEY N Ot Z51.11 ENCOUNTER FOR ANTINEOPLASTIC CHEMOTHERAP 03/08/2016 NANCY KEARNEY N Ot Z79.82 DIRECTOR FUNERAL (CURRENT) USE OF ASPIRIN 03/08/2016 NANCY KEARNEY N Ot Z79.899 OTHER DIRECTOR FUNERAL (CURRENT) DRUG THERAPY 03/19/2016 JOSETTE ALEXIS TIRE ADJUSTER Ot 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 LOWER LOBE, RIGHT 03/19/2016 JOSETTE ALEXIS TIRE ADJUSTER Ot E11.9 TYPE 2 DIABETES MELLITUS WITHOUT COMPLIC 03/19/2016 JOSETTE ALEXIS TIRE ADJUSTER Ot E78.5 HYPERLIPIDEMIA, UNSPECIFIED 03/19/2016 JOSETTE ALEXIS TIRE ADJUSTER Ot I10 ESSENTIAL (PRIMARY) HYPERTENSION 03/19/2016 JOSETTE ALEXIS TIRE ADJUSTER Ot I25.10 ATHSCL HEART DISEASE OF [place] CORONARY 03/19/2016 JOSETTE ALEXIS TIRE ADJUSTER Ot J44.9 CHRONIC OBSTRUCTIVE PULMONARY DISEASE, U 03/19/2016 JOSETTE ALEXIS S TIRE ADJUSTER Ot Z79.82 SKILLED NURSING (CURRENT) USE OF ASPIRIN 03/19/2016 JOSETTE ALEXIS S TIRE ADJUSTER Ot Z79.899 OTHER DIRECTOR FUNERAL (CURRENT) DRUG THERAPY 03/21/2016 KASSANDRA COSTA MD Ot E11.9 TYPE 2 DIABETES MELLITUS WITHOUT COMPLIC 03/21/2016 KASSANDRA COSTA MD Ot E78.4 OTHER HYPERLIPIDEMIA 03/21/2016 KASSANDRA COSTA MD Ot I10 ESSENTIAL (PRIMARY) HYPERTENSION 03/21/2016 KASSANDRA COSTA MD, Ot I25.10 ATHSCL HEART DISEASE OF [place] CORONARY 03/22/2016 ALEXISJOSETTE Corona S TIRE ADJUSTER Ot M79.604 PAIN IN RIGHT LEG 03/22/2016 ALEXISJOSETTE S TIRE ADJUSTER Ot R60.0 LOCALIZED EDEMA 03/22/2016 ALEXISJOSETTE S TIRE ADJUSTER Ot M79.604 PAIN IN RIGHT LEG 03/22/2016 ALEXIS, CHINAAH S TIRE ADJUSTER Ot R60.0 LOCALIZED EDEMA 03/22/2016 ALEXIS, CHINAAH S TIRE ADJUSTER Ot M79.604 PAIN IN RIGHT LEG 03/22/2016 ALEXIS, CHINAAH S TIRE ADJUSTER Ot R60.0 LOCALIZED EDEMA 03/22/2016 ALEXIS, CHINAAH S TIRE ADJUSTER Ot M79.604 PAIN IN RIGHT LEG 03/22/2016 ALEXISJOSETTE S TIRE ADJUSTER Ot R60.0 LOCALIZED EDEMA 03/22/2016 ALEXISJOSETTE S TIRE ADJUSTER Ot M79.604 PAIN IN RIGHT LEG 03/22/2016 ALEXISJOSETTE S TIRE ADJUSTER Ot R60.0 LOCALIZED EDEMA 03/23/2016 KASSANDRA COSTA MD Ot Z12.31 ENCNTR SCREEN MAMMOGRAM FOR MALIGNANT NE 03/29/2016 KASSANDRA COSTA MD Ot C34.90 MALIGNANT NEOPLASM OF UNSP PART OF UNSP 03/29/2016 KASSANDRA COSTA MD Ot E11.9 TYPE 2 DIABETES MELLITUS WITHOUT COMPLIC 03/29/2016 KASSANDRA COSTA MD, Ot E78.4 OTHER HYPERLIPIDEMIA 03/29/2016 KASSANDRA COSTA MD Ot I10 ESSENTIAL (PRIMARY) HYPERTENSION 03/29/2016 KASSANDRA COSTA MD Ot I25.10 ATHSCL HEART DISEASE OF [place] CORONARY 04/04/2016 KASSANDRA COSTA MD, Ot C34.90 MALIGNANT NEOPLASM OF UNSP PART OF UNSP 04/04/2016 KASSANDRA COSTA MD Ot E11.9 TYPE 2 DIABETES MELLITUS WITHOUT COMPLIC 04/04/2016 KASSANDRA COSTA MD Ot E78.4 OTHER HYPERLIPIDEMIA 04/04/2016 KASSANDRA COSTA MD Ot I10 ESSENTIAL (PRIMARY) HYPERTENSION 04/04/2016 KASSANDRA COSTA MD Ot I25.10 ATHSCL HEART DISEASE OF [place] CORONARY 04/04/2016 KASSANDRA COSTA MD, Ot C34.90 MALIGNANT NEOPLASM OF UNSP PART OF [facility] [place] 04/04/2016 KASSANDRA COSTA MD Ot E11.9 TYPE 2 DIABETES MELLITUS WITHOUT COMPLIC 04/04/2016 KASSANDRA COSTA MD, Ot E78.4 OTHER HYPERLIPIDEMIA 04/04/2016 KASSANDRA COSTA MD Ot I10 ESSENTIAL (PRIMARY) HYPERTENSION 04/04/2016 KASSANDRA COSTA MD Ot I25.10 ATHSCL HEART DISEASE OF [place] CORONARY 04/04/2016 KASSANDRA COSTA MD, Ot C34.90 MALIGNANT NEOPLASM OF UNSP PART OF UNSP 04/04/2016 KASSANDRA COSTA MD, Ot E11.9 TYPE 2 DIABETES MELLITUS WITHOUT COMPLIC 04/04/2016 KASSANDRA COSTA MD, Ot E78.4 OTHER HYPERLIPIDEMIA 04/04/2016 KASSANDRA COSTA MD, Ot I10 ESSENTIAL (PRIMARY) HYPERTENSION 04/04/2016 KASSANDRA COSTA MD, Ot I25.10 ATHSCL HEART DISEASE OF [place] CORONARY 04/04/2016 KASSANDRA COSTA MD, Ot C34.90 MALIGNANT NEOPLASM OF UNSP PART OF [facility] [place] 04/04/2016 KASSANDRA COSTA MD, Ot E11.9 TYPE 2 DIABETES MELLITUS WITHOUT COMPLIC 04/04/2016 KASSANDRA COSTA MD, Ot E78.4 OTHER HYPERLIPIDEMIA 04/04/2016 KASSANDRA COSTA MD Ot I10 ESSENTIAL (PRIMARY) HYPERTENSION 04/04/2016 KASSANDRA COSTA MD Ot I25.10 ATHSCL HEART DISEASE OF [place] CORONARY 04/04/2016 KASSANDRA COSTA MD, Ot C34.90 MALIGNANT NEOPLASM OF UNSP PART OF [facility] [place] 04/04/2016 KASSANDRA COSTA MD, Ot E11.9 TYPE 2 DIABETES MELLITUS WITHOUT COMPLIC 04/04/2016 KASSANDRA COSTA MD, Ot E78.4 OTHER HYPERLIPIDEMIA 04/04/2016 KASSANDRA COSTA MD Ot I10 ESSENTIAL (PRIMARY) HYPERTENSION 04/04/2016 KASSANDRA COSTA MD Ot I25.10 ATHSCL HEART DISEASE OF [place] CORONARY 04/04/2016 KASSANDRA COSTA MD, Ot C34.90 MALIGNANT NEOPLASM OF [place] PART OF [place] 04/04/2016 KASSANDRA COSTA MD, Ot E11.9 TYPE 2 DIABETES MELLITUS WITHOUT COMPLIC 04/04/2016 KASSANDRA COSTA MD Ot E78.4 OTHER HYPERLIPIDEMIA 04/04/2016 KASSANDRA COSTA MD Ot I10 ESSENTIAL (PRIMARY) HYPERTENSION 04/04/2016 KASSANDRA COSTA MD Ot I25.10 ATHSCL HEART DISEASE OF [place] CORONARY 04/09/2016 CHRISTELNANCY LINARES N Ot 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 LOWER LOBE, RIGHT 04/09/2016 CHRISTELBERTO LINARESAN N Ot E11.9 TYPE 2 DIABETES MELLITUS WITHOUT COMPLIC 04/09/2016 CHRISTELBERTOAN N Ot E78.5 HYPERLIPIDEMIA, UNSPECIFIED 04/09/2016 CHRISTEL BOBAN N Ot I10 ESSENTIAL (PRIMARY) HYPERTENSION 04/09/2016 CHRISTEL BOBAN N Ot I25.10 ATHSCL HEART DISEASE OF [place] CORONARY 04/09/2016 CHRISTEL BOBAN N Ot J44.9 CHRONIC OBSTRUCTIVE PULMONARY DISEASE, U 04/09/2016 CHRISTEL BOBAN N Ot R19.5 OTHER FECAL ABNORMALITIES 04/09/2016 CHRISTEL BOBAN N Ot Z51.11 ENCOUNTER FOR ANTINEOPLASTIC CHEMOTHERAP 04/09/2016 CHRISTELBERTO LINARESAN N Ot Z79.82 SKILLED NURSING (CURRENT) USE OF ASPIRIN 04/09/2016 CHRISTEL, BOBAN N Ot Z79.899 OTHER SKILLED NURSING (CURRENT) DRUG THERAPY 04/11/2016 CHRISTEL BOBCASSY N Ot 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 LOWER LOBE, RIGHT 04/11/2016 CHRISTEL BOBAN N Ot E11.9 TYPE 2 DIABETES MELLITUS WITHOUT COMPLIC 04/11/2016 CHRISTEL BOBAN N Ot E78.5 HYPERLIPIDEMIA, UNSPECIFIED 04/11/2016 CHRISTEL BOBAN N Ot I10 ESSENTIAL (PRIMARY) HYPERTENSION 04/11/2016 CHRISTEL BOBAN N Ot I25.10 ATHSCL HEART DISEASE OF [place] CORONARY 04/11/2016 CHRISTEL BOBCASSY N Ot J44.9 CHRONIC OBSTRUCTIVE PULMONARY DISEASE, U 04/11/2016 CHRISTEL BOBAN N Ot R19.5 OTHER FECAL ABNORMALITIES 04/11/2016 CHRISTEL BOBAN N Ot Z51.11 ENCOUNTER FOR ANTINEOPLASTIC CHEMOTHERAP 04/11/2016 CHRISTEL BOBAN N Ot Z79.82 SKILLED NURSING (CURRENT) USE OF ASPIRIN 04/11/2016 CHRISTEL BOBAN N Ot Z79.899 OTHER SKILLED NURSING (CURRENT) DRUG THERAPY 04/13/2016 JOSETTE ALEXIS TIRE ADJUSTER Ot M79.604 PAIN IN RIGHT LEG 04/13/2016 JOSETTE ALEXIS TIRE ADJUSTER Ot R60.0 LOCALIZED EDEMA 04/18/2016 JULISSA KASSANDRA FRENCH Ot C34.90 MALIGNANT NEOPLASM OF [place] PART OF [facility] 04/18/2016 KASSANDRA COSTA MD Ot E11.9 TYPE 2 DIABETES MELLITUS WITHOUT COMPLIC 04/18/2016 KASSANDRA COSTA MD Ot E78.4 OTHER HYPERLIPIDEMIA 04/18/2016 KASSANDRA COSTA MD Ot I10 ESSENTIAL (PRIMARY) HYPERTENSION 04/18/2016 KASSANDRA COSTA MD Ot I25.10 ATHSCL HEART DISEASE OF [place] CORONARY 04/23/2016 JOSETTE ALEXIS TIRE ADJUSTER Ot M79.604 PAIN IN RIGHT LEG 04/23/2016 JOSETTE ALEXIS TIRE ADJUSTER Ot R60.0 LOCALIZED EDEMA 04/29/2016 KRISS WORTHY MD Ot C34.90 MALIGNANT NEOPLASM OF [place] PART OF [facility] 04/29/2016 KRISS WORTHY MD Ot I82.442 ACUTE EMBOLISM AND THROMBOSIS OF LEFT TI 04/29/2016 KRISS WORTHY MD Ot M17.12 UNILATERAL PRIMARY OSTEOARTHRITIS, LEFT 04/29/2016 KRISS WORTHY MD Ot M25.562 PAIN IN LEFT KNEE 04/29/2016 KRISS WORTHY MD Ot M71.22 SYNOVIAL CYST OF POPLITEAL SPACE [ENCINAS] 04/29/2016 KRISS WORTHY MD Ot Z79.82 SKILLED NURSING (CURRENT) USE OF ASPIRIN 04/29/2016 KRISS WORTHY MD Ot Z79.899 OTHER DIRECTOR FUNERAL (CURRENT) DRUG THERAPY 04/29/2016 KRISS WORTHY MD Ot Z87.891 PERSONAL HISTORY OF NICOTINE DEPENDENCE 04/30/2016 Ot 611.72 LUMP OR MASS IN BREAST 04/30/2016 Ot 401.9 HYPERTENSION NOS 04/30/2016 Ot 414.00 CORON ATHEROSCLER NOS TYPE VESSEL, NATIV 04/30/2016 Ot 397.0 TRICUSPID VALVE DISEASE 04/30/2016 Ot 401.9 HYPERTENSION NOS 04/30/2016 Ot 414.00 CORON ATHEROSCLER NOS TYPE VESSEL, NATIV 04/30/2016 Ot 424.0 MITRAL VALVE DISORDER 04/30/2016 Ot V76.12 OTH SCREEN MAMMO-MALIGN NEOPLASM OF [place] 04/30/2016 KASSANDRA COSTA MD Ot V76.12 OTH SCREEN MAMMO-MALIGN NEOPLASM OF [place] 04/30/2016 JULISSA FRENCH, KASSANDRA Marie Ot 562.10 DIVERTICULOSIS COLON (W/O MENT OF HEMORR 04/30/2016 JULISSA FRENCH, KASSANDRA Maire Ot 729.92 NONTRAUMATIC HEMATOMA OF SOFT TISSUE 04/30/2016 JULISSA FRENCH, KASSANDRA Marie Ot 786.6 CHEST SWELLING/MASS/LUMP 04/30/2016 KASSANDRA COSAT MD Ot 162.9 MAL DULCE MARIA BRONCH/LUNG NOS 04/30/2016 LEWIS POST DO Ot 162.9 MAL DULCE MARIA BRONCH/LUNG NOS 04/30/2016 LEWIS POST DO Ot 493.20 CHRONIC OBSTRUCTIVE ASTHMA, NOS 04/30/2016 LEWIS POST DO Ot 786.09 RESPIRATORY ABNORM NEC 04/30/2016 JULISSA FRENCH, KASSANDRA Marie Ot 998.12 HEMATOMA COMPLIC A PROC 04/30/2016 OTHER, UNLISTED Ot 162.8 MAL DULCE MARIA BRONCH/LUNG NEC 04/30/2016 JAMILA DE LA CRUZ Ot 250.00 DIAB DARCI WO COMPL, TYPE II OR UNSPEC TY 04/30/2016 JAMILA DE LA CRUZ Ot 272.4 HYPERLIPIDEMIA NEC/NOS 04/30/2016 JAMILA DE LA CRUZ Ot 401.9 HYPERTENSION NOS 04/30/2016 JAMILA DE LA CRUZ Ot 414.00 CORON ATHEROSCLER NOS TYPE VESSEL, NATIV 04/30/2016 HANNAH FRENCH, DAMION Alvarenga Ot 250.00 DIAB DARCI WO COMPL, TYPE II OR UNSPEC TY 04/30/2016 DAMION YOUNG MD Ot 272.4 HYPERLIPIDEMIA NEC/NOS 04/30/2016 DAMION YOUNG MD Ot 401.9 HYPERTENSION NOS 04/30/2016 DAMION YOUNG MD Ot 414.00 CORON ATHEROSCLER NOS TYPE VESSEL, NATIV 04/30/2016 CONNIE FRENCH, JOSHUA K Ot 162.9 MAL DULCE MARIA BRONCH/LUNG NOS 04/30/2016 JOSETTE ALEXIS TIRE ADJUSTER Ot 162.5 MAL DULCE MARIA LOWER LOBE LUNG 04/30/2016 JOSETTE ALEXIS TIRE ADJUSTER Ot 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 04/30/2016 JOSETTE ALEXIS TIRE ADJUSTER Ot 250.00 DIAB DARCI WO COMPL, TYPE II OR UNSPEC TY 04/30/2016 JOSETTE ALEXIS TIRE ADJUSTER Ot 272.4 HYPERLIPIDEMIA NEC/NOS 04/30/2016 JOSETTE ALEXIS TIRE ADJUSTER Ot 401.9 HYPERTENSION NOS 04/30/2016 JOSETTE ALEXIS TIRE ADJUSTER Ot 414.00 CORON ATHEROSCLER NOS TYPE VESSEL, NATIV 04/30/2016 JOSETTE ALEXIS TIRE ADJUSTER Ot 493.20 CHRONIC OBSTRUCTIVE ASTHMA, NOS 04/30/2016 JOSETTE ALEXIS TIRE ADJUSTER Ot V58.66 LONG-TERM (CURRENT) USE OF ASPIRIN 04/30/2016 JOSETTE ALEXIS TIRE ADJUSTER Ot V58.69 OTH MED,LT,CURRENT USE 04/30/2016 SULAIMAN FRENCH, ISACC S Ot 162.9 MAL DULCE MARIA BRONCH/LUNG NOS 04/30/2016 ISACC HILARIO MD S Ot V72.84 EXAM PRE-OPERATIVE NOS 04/30/2016 NANCY KEARNEY Ot 162.9 MAL DULCE MARIA BRONCH/LUNG NOS 04/30/2016 NANCY KEARNEY Ot 562.10 DIVERTICULOSIS COLON (W/O MENT OF HEMORR 04/30/2016 NANCY KEARNEY Ot 573.8 LIVER DISORDERS NEC 04/30/2016 JOSETTE ALEXIS TIRE ADJUSTER Ot 162.9 MAL DULCE MARIA BRONCH/LUNG NOS 04/30/2016 JOSETTE ALEXIS TIRE ADJUSTER Ot 162.5 MAL DULCE MARIA LOWER LOBE LUNG 04/30/2016 JOSETTE ALEXIS TIRE ADJUSTER Ot 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 04/30/2016 JOSETTE ALEXIS TIRE ADJUSTER Ot 250.00 DIAB DARCI WO COMPL, TYPE II OR UNSPEC TY 04/30/2016 JOSETTE ALEXIS TIRE ADJUSTER Ot 272.4 HYPERLIPIDEMIA NEC/NOS 04/30/2016 JOSETTE ALEXIS TIRE ADJUSTER Ot 356.9 IDIO PERIPH NEURPTHY NOS 04/30/2016 JOSETTE ALEXIS TIRE ADJUSTER Ot 401.9 HYPERTENSION NOS 04/30/2016 JOSETTE ALEXIS TIRE ADJUSTER Ot 414.00 CORON ATHEROSCLER NOS TYPE VESSEL, NATIV 04/30/2016 JOSETTE ALEXIS TIRE ADJUSTER Ot 493.20 CHRONIC OBSTRUCTIVE ASTHMA, NOS 04/30/2016 JOSETTE ALEXIS TIRE ADJUSTER Ot 528.9 ORAL SOFT TISSUE DIS NEC 04/30/2016 JOSETTE ALEXIS TIRE ADJUSTER Ot V58.66 LONG-TERM (CURRENT) USE OF ASPIRIN 04/30/2016 JOSETTE ALEXIS TIRE ADJUSTER Ot V58.69 OTH MED,LT,CURRENT USE 04/30/2016 JOSETTE ALEXIS S TIRE ADJUSTER Ot 162.9 MAL DULCE MARIA BRONCH/LUNG NOS 04/30/2016 JOSETTE ALEXIS S TIRE ADJUSTER Ot 162.5 MAL DULCE MARIA LOWER LOBE LUNG 04/30/2016 JOSETTE ALEXIS S TIRE ADJUSTER Ot 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 04/30/2016 JOSETTE ALEXIS S TIRE ADJUSTER Ot 250.00 DIAB DARCI WO COMPL, TYPE II OR UNSPEC TY 04/30/2016 JOSETTE ALEXIS S TIRE ADJUSTER Ot 272.4 HYPERLIPIDEMIA NEC/NOS 04/30/2016 JOSETTE ALEXIS S TIRE ADJUSTER Ot 401.9 HYPERTENSION NOS 04/30/2016 JOSETTE ALEXIS S TIRE ADJUSTER Ot 414.00 CORON ATHEROSCLER NOS TYPE VESSEL, NATIV 04/30/2016 JOSETTE ALEXIS S TIRE ADJUSTER Ot 493.20 CHRONIC OBSTRUCTIVE ASTHMA, NOS 04/30/2016 JOSETTE ALEXIS TIRE ADJUSTER Ot 782.1 NONSPECIF SKIN ERUPT NEC 04/30/2016 JOSETTE ALEXIS S TIRE ADJUSTER Ot V58.66 LONG-TERM (CURRENT) USE OF ASPIRIN 04/30/2016 CHINA ALEXISAH S TIRE ADJUSTER Ot V58.69 OTH MED,LT,CURRENT USE 04/30/2016 JOSETTE ALEXIS TIRE ADJUSTER Ot 162.5 MAL DULCE MARIA LOWER LOBE LUNG 04/30/2016 JOSETTE ALEXIS S TIRE ADJUSTER Ot 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 04/30/2016 JOSETTE ALEXIS S TIRE ADJUSTER Ot 250.00 DIAB DARCI WO COMPL, TYPE II OR UNSPEC TY 04/30/2016 JOSETTE ALEXIS S TIRE ADJUSTER Ot 272.1 PURE HYPERGLYCERIDEMIA 04/30/2016 JOSETTE ALEXIS S TIRE ADJUSTER Ot 272.4 HYPERLIPIDEMIA NEC/NOS 04/30/2016 JOSETTE ALEXIS S TIRE ADJUSTER Ot 278.00 OBESITY, NOS 04/30/2016 JOSETTE ALEXIS S TIRE ADJUSTER Ot 401.9 HYPERTENSION NOS 04/30/2016 JOSETTE ALEXIS S TIRE ADJUSTER Ot 414.00 CORON ATHEROSCLER NOS TYPE VESSEL, NATIV 04/30/2016 JOSETTE ALEXIS S TIRE ADJUSTER Ot 493.20 CHRONIC OBSTRUCTIVE ASTHMA, NOS 04/30/2016 JOSETTE ALEXIS S TIRE ADJUSTER Ot 793.19 OTHER NONSPECIFIC ABNORMAL FINDING OF [place] 04/30/2016 JOSETTE ALEXIS S TIRE ADJUSTER Ot V58.69 OTH MED,LT,CURRENT USE 04/30/2016 ALEXISJOSETTE Corona TIRE ADJUSTER Ot V85.35 BODY MASS INDEX 35.0-35.9, ADULT 04/30/2016 ALEXISJOSETTE Corona TIRE ADJUSTER Ot C34.90 MALIGNANT NEOPLASM OF UNSP PART OF UNSP 04/30/2016 VANESA JOSETTE Corona TIRE ADJUSTER Ot R51 HEADACHE 04/30/2016 VANESA JOSETTE Corona TIRE ADJUSTER Ot C34.90 MALIGNANT NEOPLASM OF [place] PART OF [place]SP 04/30/2016 ALEXISJOSETTE Corona TIRE ADJUSTER Ot 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 LOWER LOBE, RIGHT 04/30/2016 VANESA JOSETTE Corona TIRE ADJUSTER Ot R05 COUGH 04/30/2016 VANESA JOSETTE Corona TIRE ADJUSTER Ot R06.00 DYSPNEA, UNSPECIFIED 04/30/2016 VANESA JOSETTE Corona TIRE ADJUSTER Ot 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 LOWER LOBE, RIGHT 04/30/2016 [place] ALEXISBRENDAN Corona TIRE ADJUSTER Ot E11.9 TYPE 2 DIABETES MELLITUS WITHOUT COMPLIC 04/30/2016 VANESA JOSETTE Corona TIRE ADJUSTER Ot E78.5 HYPERLIPIDEMIA, UNSPECIFIED 04/30/2016 VANESA JOSETTE Corona TIRE ADJUSTER Ot I10 ESSENTIAL (PRIMARY) HYPERTENSION 04/30/2016 VANESA JOSETTE Corona TIRE ADJUSTER Ot I25.10 ATHSCL HEART DISEASE OF [place] CORONARY 04/30/2016 VANESA JOSETTE Corona TIRE ADJUSTER Ot J44.9 CHRONIC OBSTRUCTIVE PULMONARY DISEASE, U 04/30/2016 VANESA JOSETTE Corona TIRE ADJUSTER Ot Z79.82 DIRECTOR FUNERAL (CURRENT) USE OF ASPIRIN 04/30/2016 [place] ALEXISBRENDAN Corona TIRE ADJUSTER Ot Z79.899 OTHER SKILLED NURSING (CURRENT) DRUG THERAPY 04/30/2016 REYES MD, TRINA T Ot 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 LOWER LOBE, RIGHT 04/30/2016 REYES MD, TRINA T Ot E04.1 NONTOXIC SINGLE THYROID NODULE 04/30/2016 [place] ALEXISBRENDAN Corona TIRE ADJUSTER Ot 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 LOWER LOBE, RIGHT 04/30/2016 [place] ALEXISBRENDAN Corona TIRE ADJUSTER Ot E11.9 TYPE 2 DIABETES MELLITUS WITHOUT COMPLIC 04/30/2016 [place] ALEXISBRENDAN Corona TIRE ADJUSTER Ot E78.5 HYPERLIPIDEMIA, UNSPECIFIED 04/30/2016 JOSETTE ALEXIS TIRE ADJUSTER Ot I10 ESSENTIAL (PRIMARY) HYPERTENSION 04/30/2016 JOSETTE ALEXIS TIRE ADJUSTER Ot I25.10 ATHSCL HEART DISEASE OF [place] CORONARY 04/30/2016 JOSETTE ALEXIS TIRE ADJUSTER Ot J44.9 CHRONIC OBSTRUCTIVE PULMONARY DISEASE, U 04/30/2016 JOSETTE ALEXIS TIRE ADJUSTER Ot Z79.82 DIRECTOR FUNERAL (CURRENT) USE OF ASPIRIN 04/30/2016 JOSETTE ALEXIS TIRE ADJUSTER Ot Z79.899 OTHER DIRECTOR FUNERAL (CURRENT) DRUG THERAPY 04/30/2016 NANCY KEARNEY N Ot 162.5 MAL DULCE MARIA LOWER LOBE LUNG 04/30/2016 CHRISTELNANCY LINARES N Ot 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 04/30/2016 NANCY KEARNEY N Ot V58.69 OT MED,LT,CURRENT USE 04/30/2016 JOSETTE ALEXIS TIRE ADJUSTER Ot J44.9 CHRONIC OBSTRUCTIVE PULMONARY DISEASE, U 04/30/2016 JOSETTE ALEXISP Ot R05 COUGH 04/30/2016 JOSETTE ALEXIS TIRE ADJUSTER Ot 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 LOWER LOBE, RIGHT 04/30/2016 JOSETTE ALEXISP Ot E11.9 TYPE 2 DIABETES MELLITUS WITHOUT COMPLIC 04/30/2016 JOSETTE ALEXISP Ot E78.5 HYPERLIPIDEMIA, UNSPECIFIED 04/30/2016 JOSETTE ALEXIS TIRE ADJUSTER Ot I10 ESSENTIAL (PRIMARY) HYPERTENSION 04/30/2016 JOSETTE ALEXISP Ot I25.10 ATHSCL HEART DISEASE OF [place] CORONARY 04/30/2016 JOSETTE ALEXISP Ot J44.9 CHRONIC OBSTRUCTIVE PULMONARY DISEASE, U 04/30/2016 JOSETTE ALEXIS TIRE ADJUSTER Ot Z79.82 SKILLED NURSING (CURRENT) USE OF ASPIRIN 04/30/2016 JOSETTE ALEXISP Ot Z79.899 OTHER DIRECTOR FUNERAL (CURRENT) DRUG THERAPY 04/30/2016 JOSETTE ALEXISP Ot 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 LOWER LOBE, RIGHT 04/30/2016 JOSETTE ALEIXS TIRE ADJUSTER Ot 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 LOWER LOBE, RIGHT 04/30/2016 JOSETTE ALEXIS TIRE ADJUSTER Ot E11.9 TYPE 2 DIABETES MELLITUS WITHOUT COMPLIC 04/30/2016 JOSETTE ALEXIS TIRE ADJUSTER Ot E78.5 HYPERLIPIDEMIA, UNSPECIFIED 04/30/2016 JOSETTE ALEXIS TIRE ADJUSTER Ot I10 ESSENTIAL (PRIMARY) HYPERTENSION 04/30/2016 JOSETTE ALEXIS TIRE ADJUSTER Ot I25.10 ATHSCL HEART DISEASE OF [place] CORONARY 04/30/2016 JOSETTE ALEXIS TIRE ADJUSTER Ot J44.9 CHRONIC OBSTRUCTIVE PULMONARY DISEASE, U 04/30/2016 JOSETTE ALEXIS TIRE ADJUSTER Ot Z79.82 DIRECTOR FUNERAL (CURRENT) USE OF ASPIRIN 04/30/2016 JOSETTE ALEXIS TIRE ADJUSTER Ot Z79.899 OTHER SKILLED NURSING (CURRENT) DRUG THERAPY 04/30/2016 KASSANDRA COSTA MD Ot E11.9 TYPE 2 DIABETES MELLITUS WITHOUT COMPLIC 04/30/2016 JOSETTE ALEXISP Ot C34.90 MALIGNANT NEOPLASM OF UNSP PART OF UNSP 04/30/2016 JOSETTE ALEXIS TIRE ADJUSTER Ot R53.83 OTHER FATIGUE 04/30/2016 JOSETTE ALEXIS TIRE ADJUSTER Ot 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 LOWER LOBE, RIGHT 04/30/2016 JOSETTE ALEXIS TIRE ADJUSTER Ot E11.9 TYPE 2 DIABETES MELLITUS WITHOUT COMPLIC 04/30/2016 JOSETTE ALEXISP Ot E78.5 HYPERLIPIDEMIA, UNSPECIFIED 04/30/2016 JOSETTE ALEXIS TIRE ADJUSTER Ot I10 ESSENTIAL (PRIMARY) HYPERTENSION 04/30/2016 JOSETTE ALEXIS TIRE ADJUSTER Ot I25.10 ATHSCL HEART DISEASE OF [place] CORONARY 04/30/2016 JOSETTE ALEXIS TIRE ADJUSTER Ot J44.9 CHRONIC OBSTRUCTIVE PULMONARY DISEASE, U 04/30/2016 JOSETTE ALEXIS TIRE ADJUSTER Ot Z79.82 DIRECTOR FUNERAL (CURRENT) USE OF ASPIRIN 04/30/2016 JOSETTE ALEXIS TIRE ADJUSTER Ot Z79.899 OTHER SKILLED NURSING (CURRENT) DRUG THERAPY 04/30/2016 JOSETTE ALEXIS TIRE ADJUSTER Ot 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 LOWER LOBE, RIGHT 04/30/2016 JOSETTE ALEXIS TIRE ADJUSTER Ot 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 LOWER LOBE, RIGHT 04/30/2016 JOSETTE ALEXIS TIRE ADJUSTER Ot E11.9 TYPE 2 DIABETES MELLITUS WITHOUT COMPLIC 04/30/2016 JOSETTE ALEXIS TIRE ADJUSTER Ot E78.5 HYPERLIPIDEMIA, UNSPECIFIED 04/30/2016 JOSETTE ALEXIS Cj TIRE ADJUSTER Ot I10 ESSENTIAL (PRIMARY) HYPERTENSION 04/30/2016 [place] ALEXISBRENDAN Corona TIRE ADJUSTER Ot I25.10 ATHSCL HEART DISEASE OF [place] CORONARY 04/30/2016 JOSETTE ALEXIS Cj TIRE ADJUSTER Ot J44.9 CHRONIC OBSTRUCTIVE PULMONARY DISEASE, U 04/30/2016 JOSETTE ALEXIS Cj TIRE ADJUSTER Ot Z79.82 SKILLED NURSING (CURRENT) USE OF ASPIRIN 04/30/2016 JOSETTE ALEXIS Cj TIRE ADJUSTER Ot Z79.899 OTHER SKILLED NURSING (CURRENT) DRUG THERAPY 04/30/2016 [place] ALEXISBRENDAN Corona TIRE ADJUSTER Ot 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 LOWER LOBE, RIGHT 04/30/2016 JOSETTE ALEXISP Ot R26.81 UNSTEADINESS ON FEET 04/30/2016 JOSETTE ALEXIS TIRE ADJUSTER Ot R42 DIZZINESS AND GIDDINESS 04/30/2016 [place] ALEXISBRENDAN Corona TIRE ADJUSTER Ot 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 LOWER LOBE, RIGHT 04/30/2016 JOSETTE ALEXISP Ot E11.9 TYPE 2 DIABETES MELLITUS WITHOUT COMPLIC 04/30/2016 JOSETTE ALEXISP Ot E78.5 HYPERLIPIDEMIA, UNSPECIFIED 04/30/2016 JOSETTE ALEXISP Ot I10 ESSENTIAL (PRIMARY) HYPERTENSION 04/30/2016 JOSETTE ALEXISP Ot I25.10 ATHSCL HEART DISEASE OF [place] CORONARY 04/30/2016 JOSETTE ALEXIS TIRE ADJUSTER Ot J44.9 CHRONIC OBSTRUCTIVE PULMONARY DISEASE, U 04/30/2016 JOSETTE ALEXIS TIRE ADJUSTER Ot Z79.82 DIRECTOR FUNERAL (CURRENT) USE OF ASPIRIN 04/30/2016 JOSETTE ALEXIS Cj TIRE ADJUSTER Ot Z79.899 OTHER SKILLED NURSING (CURRENT) DRUG THERAPY 04/30/2016 KASSANDRA COSTA MD Ot Z12.31 ENCNTR SCREEN MAMMOGRAM FOR MALIGNANT NE 04/30/2016 KASSANDRA COSTA MD Ot E11.9 TYPE 2 DIABETES MELLITUS WITHOUT COMPLIC 04/30/2016 KASSANDRA COSTA MD Ot E78.4 OTHER HYPERLIPIDEMIA 04/30/2016 KASSANDRA COSTA MD Ot I10 ESSENTIAL (PRIMARY) HYPERTENSION 04/30/2016 KASSANDRA COSTA MD Ot I25.10 ATHSCL HEART DISEASE OF [place] CORONARY 04/30/2016 JOSETTE ALEXIS TIRE ADJUSTER Ot M79.604 PAIN IN RIGHT LEG 04/30/2016 [place] ALEXISBRENDAN Corona TIRE ADJUSTER Ot R60.0 LOCALIZED EDEMA 04/30/2016 KASSANDRA COSTA MD Ot C34.90 MALIGNANT NEOPLASM OF UNSP PART OF [facility] 04/30/2016 KASSANDRA COSTA MD Ot E11.9 TYPE 2 DIABETES MELLITUS WITHOUT COMPLIC 04/30/2016 KASSANDRA COSTA MD Ot E78.4 OTHER HYPERLIPIDEMIA 04/30/2016 KASSANDRA COSTA MD Ot I10 ESSENTIAL (PRIMARY) HYPERTENSION 04/30/2016 KASSANDRA COSTA MD Ot I25.10 ATHSCL HEART DISEASE OF [place] CORONARY 04/30/2016 CHRISTEL, NANCY N Ot 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 LOWER LOBE, RIGHT 04/30/2016 CHRISTEL, NANCY N Ot E11.9 TYPE 2 DIABETES MELLITUS WITHOUT COMPLIC 04/30/2016 CHRISTEL, NANCY N Ot E78.5 HYPERLIPIDEMIA, UNSPECIFIED 04/30/2016 CHRISTELNANCY N Ot I10 ESSENTIAL (PRIMARY) HYPERTENSION 04/30/2016 CHRISTELNANCY N Ot I25.10 ATHSCL HEART DISEASE OF [place] CORONARY 04/30/2016 CHRISTEL NANCY N Ot J44.9 CHRONIC OBSTRUCTIVE PULMONARY DISEASE, U 04/30/2016 CHRISTEL NANCY N Ot R19.5 OTHER FECAL ABNORMALITIES 04/30/2016 CHRISTEL NANCY N Ot Z51.11 ENCOUNTER FOR ANTINEOPLASTIC CHEMOTHERAP 04/30/2016 NANCY KEARNEY N Ot Z79.82 DIRECTOR FUNERAL (CURRENT) USE OF ASPIRIN 04/30/2016 NANCY KEARNEY N Ot Z79.899 OTHER SKILLED NURSING (CURRENT) DRUG THERAPY 05/01/2016 CHRISTEL NANCY N Ot 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 LOWER LOBE, RIGHT 05/01/2016 CHRISTEL, NANCY N Ot Z01.89 ENCOUNTER FOR OTHER SPECIFIED SPECIAL EX 05/01/2016 CHRISTEL NANCY N Ot 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 LOWER LOBE, RIGHT 05/01/2016 CHRISTELNANCY N Ot Z01.89 ENCOUNTER FOR OTHER SPECIFIED SPECIAL EX 05/02/2016 ZAYNAB FRENCH, KRISS Mayes Ot C34.90 MALIGNANT NEOPLASM OF UNSP PART OF [facility] 05/02/2016 ZAYNAB FRENCH, KRISS Mayes Ot I82.442 ACUTE EMBOLISM AND THROMBOSIS OF LEFT TI 05/02/2016 KRISS WORTHY MD, Ot M17.12 UNILATERAL PRIMARY OSTEOARTHRITIS, LEFT 05/02/2016 KRISS WORTHY MD, Ot M25.562 PAIN IN LEFT KNEE 05/02/2016 KRISS WORTHY MD, Ot M71.22 SYNOVIAL CYST OF POPLITEAL SPACE [ENCINAS] 05/02/2016 KRISS WORTHY MD Ot Z79.82 SKILLED NURSING (CURRENT) USE OF ASPIRIN 05/02/2016 KRISS WORTHY MD Ot Z79.899 OTHER SKILLED NURSING (CURRENT) DRUG THERAPY 05/02/2016 KRISS WORTHY MD, Ot Z87.891 PERSONAL HISTORY OF NICOTINE DEPENDENCE 05/02/2016 NANCY KEARNEY Ot 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 LOWER LOBE, RIGHT 05/02/2016 NANCY KEARNEY Ot E11.9 TYPE 2 DIABETES MELLITUS WITHOUT COMPLIC 05/02/2016 NANCY KEARNEY Ot E78.5 HYPERLIPIDEMIA, UNSPECIFIED 05/02/2016 NANCY KEARNEY Ot I10 ESSENTIAL (PRIMARY) HYPERTENSION 05/02/2016 NANCY KEARNEY Ot I25.10 ATHSCL HEART DISEASE OF [place] CORONARY 05/02/2016 NANCY KEARNEY Ot J44.9 CHRONIC OBSTRUCTIVE PULMONARY DISEASE, U 05/02/2016 NANCY KEARNEY Ot R19.5 OTHER FECAL ABNORMALITIES 05/02/2016 NANCY KEARNEY Ot Z51.11 ENCOUNTER FOR ANTINEOPLASTIC CHEMOTHERAP 05/02/2016 NANCY KEARNEY Ot Z79.82 DIRECTOR FUNERAL (CURRENT) USE OF ASPIRIN 05/02/2016 NANCY KEARNEY Ot Z79.899 OTHER SKILLED NURSING (CURRENT) DRUG THERAPY 05/03/2016 DAMION YOUNG MD Ot E78.2 MIXED HYPERLIPIDEMIA 05/03/2016 DAMION YOUNG MD Ot I10 ESSENTIAL (PRIMARY) HYPERTENSION 05/03/2016 DAMION YOUNG MD Ot I25.10 ATHSCL HEART DISEASE OF [place] CORONARY 05/03/2016 DAMION YOUNG MD Ot J44.9 CHRONIC OBSTRUCTIVE PULMONARY DISEASE, U 05/03/2016 DAMION YOUNG MD Ot R07.89 OTHER CHEST PAIN 05/05/2016 KRISS WORTHY MD Ot C34.90 MALIGNANT NEOPLASM OF UNSP PART OF UNSP 05/05/2016 KRISS WORTHY MD Ot I82.442 ACUTE EMBOLISM AND THROMBOSIS OF LEFT TI 05/05/2016 KRISS WORTHY MD, Ot M17.12 UNILATERAL PRIMARY OSTEOARTHRITIS, LEFT 05/05/2016 KRISS WORTHY MD, Ot M25.562 PAIN IN LEFT KNEE 05/05/2016 KRISS WORTHY MD Ot M71.22 SYNOVIAL CYST OF POPLITEAL SPACE [ENCINAS] 05/05/2016 KRISS WORTHY MD, Ot Z79.82 DIRECTOR FUNERAL (CURRENT) USE OF ASPIRIN 05/05/2016 KRISS WORTHY MD Ot Z79.899 OTHER DIRECTOR FUNERAL (CURRENT) DRUG THERAPY 05/05/2016 KRISS WORTHY MD, Ot Z87.891 PERSONAL HISTORY OF NICOTINE DEPENDENCE 05/07/2016 DAMION YOUNG MD Ot E78.2 MIXED HYPERLIPIDEMIA 05/07/2016 DAMION YOUNG MD Ot I10 ESSENTIAL (PRIMARY) HYPERTENSION 05/07/2016 DAMION YOUNG MD Ot I25.10 ATHSCL HEART DISEASE OF [place] CORONARY 05/07/2016 DAMION YOUNG MD Ot J44.9 CHRONIC OBSTRUCTIVE PULMONARY DISEASE, U 05/07/2016 DAMION YOUNG MD Ot R07.89 OTHER CHEST PAIN 05/07/2016 DAMION YOUNG MD Ot E78.2 MIXED HYPERLIPIDEMIA 05/07/2016 DAMION YOUNG MD Ot I10 ESSENTIAL (PRIMARY) HYPERTENSION 05/07/2016 DAMION YOUNG MD Ot I25.10 ATHSCL HEART DISEASE OF [place] CORONARY 05/07/2016 DAMION YOUNG MD Ot J44.9 CHRONIC OBSTRUCTIVE PULMONARY DISEASE, U 05/07/2016 DAMION YOUNG MD Ot R07.89 OTHER CHEST PAIN 05/08/2016 DAMION YOUNG MD Ot E78.2 MIXED HYPERLIPIDEMIA 05/08/2016 DAMION YOUNG MD Ot I10 ESSENTIAL (PRIMARY) HYPERTENSION 05/08/2016 DAMION YOUNG MD Ot I25.10 ATHSCL HEART DISEASE OF [place] CORONARY 05/08/2016 DAMION YOUNG MD Ot J44.9 CHRONIC OBSTRUCTIVE PULMONARY DISEASE, U 05/08/2016 DAMION YOUNG MD Ot R07.89 OTHER CHEST PAIN 05/08/2016 DAMION YOUNG MD Ot E78.2 MIXED HYPERLIPIDEMIA 05/08/2016 DAMION YOUNG MD Ot I10 ESSENTIAL (PRIMARY) HYPERTENSION 05/08/2016 DAMION YOUNG MD Ot I25.10 ATHSCL HEART DISEASE OF [place] CORONARY 05/08/2016 DAMION YOUNG MD Ot J44.9 CHRONIC OBSTRUCTIVE PULMONARY DISEASE, U 05/08/2016 DAMION YOUNG MD Ot R07.89 OTHER CHEST PAIN 05/08/2016 DAMION YOUNG MD Ot E78.2 MIXED HYPERLIPIDEMIA 05/08/2016 DAMION YOUNG MD Ot I10 ESSENTIAL (PRIMARY) HYPERTENSION 05/08/2016 DAMION YOUNG MD Ot I25.10 ATHSCL HEART DISEASE OF [place] CORONARY 05/08/2016 DAMION YOUNG MD Ot J44.9 CHRONIC OBSTRUCTIVE PULMONARY DISEASE, U 05/08/2016 DAMION YOUNG MD Ot R07.89 OTHER CHEST PAIN 05/14/2016 NANCY KEARNEY Ot 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 LOWER LOBE, RIGHT 05/14/2016 NANCY KEARNEY Ot E11.9 TYPE 2 DIABETES MELLITUS WITHOUT COMPLIC 05/14/2016 NANCY KEARNEY Ot E78.5 HYPERLIPIDEMIA, UNSPECIFIED 05/14/2016 NANCY KEARNEY Ot I10 ESSENTIAL (PRIMARY) HYPERTENSION 05/14/2016 NANCY KEARNEY Ot I25.10 ATHSCL HEART DISEASE OF [place] CORONARY 05/14/2016 NANCY KEARNEY Ot J44.9 CHRONIC OBSTRUCTIVE PULMONARY DISEASE, U 05/14/2016 NANCY KEARNEY Ot R19.5 OTHER FECAL ABNORMALITIES 05/14/2016 NANCY KEARNEY Ot Z51.11 ENCOUNTER FOR ANTINEOPLASTIC CHEMOTHERAP 05/14/2016 NANCY KEARNEY Ot Z79.82 SKILLED NURSING (CURRENT) USE OF ASPIRIN 05/14/2016 NANCY KEARNEY Ot Z79.899 OTHER DIRECTOR FUNERAL (CURRENT) DRUG THERAPY 05/18/2016 ZAYNAB FRENCH, KRISS Mayes Ot C34.90 MALIGNANT NEOPLASM OF UNSP PART OF [place] 05/18/2016 KRISS WORTHY MD Ot J01.90 ACUTE SINUSITIS, UNSPECIFIED 05/18/2016 KRISS WORTHY MD Ot M79.1 MYALGIA 05/18/2016 KRISS WORTHY MD Ot R50.9 FEVER, UNSPECIFIED 05/18/2016 KRISS WORTHY MD Ot Z79.84 SKILLED NURSING (CURRENT) USE OF ORAL HYPOGLYC 05/18/2016 RKISS WORTHY MD Ot Z79.899 OTHER SKILLED NURSING (CURRENT) DRUG THERAPY 05/18/2016 KRISS WORTHY MD Ot Z95.5 PRESENCE OF CORONARY ANGIOPLASTY IMPLANT 05/18/2016 KRISS WORTHY MD Ot C34.90 MALIGNANT NEOPLASM OF [facility] PART OF [facility] 05/18/2016 KRISS WORTHY MD Ot J01.90 ACUTE SINUSITIS, UNSPECIFIED 05/18/2016 KRISS WORTHY MD Ot M79.1 MYALGIA 05/18/2016 KRISS WORTHY MD Ot R50.9 FEVER, UNSPECIFIED 05/18/2016 KRISS WORTHY MD Ot Z79.84 SKILLED NURSING (CURRENT) USE OF ORAL HYPOGLYC 05/18/2016 KRISS WORTHY MD Ot Z79.899 OTHER SKILLED NURSING (CURRENT) DRUG THERAPY 05/18/2016 KRISS WORTHY MD Ot Z95.5 PRESENCE OF CORONARY ANGIOPLASTY IMPLANT 05/22/2016 NANCY KEARNEY Ot 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 LOWER LOBE, RIGHT 05/22/2016 NANCY KEARNEY Ot Z01.89 ENCOUNTER FOR OTHER SPECIFIED SPECIAL EX 05/22/2016 DAMION YOUNG MD Ot E78.2 MIXED HYPERLIPIDEMIA 05/22/2016 DAMION YOUNG MD Ot I10 ESSENTIAL (PRIMARY) HYPERTENSION 05/22/2016 DAMION YOUNG MD Ot I25.10 ATHSCL HEART DISEASE OF [place] CORONARY 05/22/2016 DAMION YOUNG MD Ot J44.9 CHRONIC OBSTRUCTIVE PULMONARY DISEASE, U 05/22/2016 DAMION YOUNG MD Ot R07.89 OTHER CHEST PAIN 05/30/2016 Ot 611.72 LUMP OR MASS IN BREAST 05/30/2016 Ot 401.9 HYPERTENSION NOS 05/30/2016 Ot 414.00 CORON ATHEROSCLER NOS TYPE VESSEL, NATIV 05/30/2016 Ot 397.0 TRICUSPID VALVE DISEASE 05/30/2016 Ot 401.9 HYPERTENSION NOS 05/30/2016 Ot 414.00 CORON ATHEROSCLER NOS TYPE VESSEL, NATIV 05/30/2016 Ot 424.0 MITRAL VALVE DISORDER 05/30/2016 Ot V76.12 OTH SCREEN MAMMO-MALIGN NEOPLASM OF [place] 05/30/2016 KASSANDRA COSTA MD Ot V76.12 OTH SCREEN MAMMO-MALIGN NEOPLASM OF [place] 05/30/2016 JULISSA FRENCH, KASSANDRA Marie Ot 562.10 DIVERTICULOSIS COLON (W/O MENT OF HEMORR 05/30/2016 KASSANDRA COSTA MD Ot 729.92 NONTRAUMATIC HEMATOMA OF SOFT TISSUE 05/30/2016 KASSANDRA COSTA MD Ot 786.6 CHEST SWELLING/MASS/LUMP 05/30/2016 KASSANDRA COSTA MD Ot 162.9 MAL DULCE MARIA BRONCH/LUNG NOS 05/30/2016 LEWIS POST DO Ot 162.9 MAL DULCE MARIA BRONCH/LUNG NOS 05/30/2016 LEWIS POST DO Ot 493.20 CHRONIC OBSTRUCTIVE ASTHMA, NOS 05/30/2016 LEWIS POST DO Ot 786.09 RESPIRATORY ABNORM NEC 05/30/2016 KASSANDRA COSTA MD Ot 998.12 HEMATOMA COMPLIC A PROC 05/30/2016 OTHER, UNLISTED Ot 162.8 MAL DULCE MARIA BRONCH/LUNG NEC 05/30/2016 JAMILA DE LA CRUZ Ot 250.00 DIAB DARCI WO COMPL, TYPE II OR UNSPEC TY 05/30/2016 JAMILA DE LA CRUZ Ot 272.4 HYPERLIPIDEMIA NEC/NOS 05/30/2016 JAMILA DE LA CRUZ Ot 401.9 HYPERTENSION NOS 05/30/2016 JAMILA DE LA CRUZ Ot 414.00 CORON ATHEROSCLER NOS TYPE VESSEL, NATIV 05/30/2016 DAMION YOUNG MD Ot 250.00 DIAB DARCI WO COMPL, TYPE II OR UNSPEC TY 05/30/2016 DAMION YOUNG MD Ot 272.4 HYPERLIPIDEMIA NEC/NOS 05/30/2016 DAMION YOUNG MD Ot 401.9 HYPERTENSION NOS 05/30/2016 LESTER YOUNG MDHAR J Ot 414.00 CORON ATHEROSCLER NOS TYPE VESSEL, NATIV 05/30/2016 CONNIE FRENCH, JOSHUA K Ot 162.9 MAL DULCE MARIA BRONCH/LUNG NOS 05/30/2016 JOSETTE ALEXIS S TIRE ADJUSTER Ot 162.5 MAL DULCE MARIA LOWER LOBE LUNG 05/30/2016 JOSETTE ALEXIS S TIRE ADJUSTER Ot 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 05/30/2016 ALEXISJOSETTE Corona S TIRE ADJUSTER Ot 250.00 DIAB DARCI WO COMPL, TYPE II OR UNSPEC TY 05/30/2016 ALEXIS, HILAH S TIRE ADJUSTER Ot 272.4 HYPERLIPIDEMIA NEC/NOS 05/30/2016 VANESA HILAH S TIRE ADJUSTER Ot 401.9 HYPERTENSION NOS 05/30/2016 JOSETTE ALEXIS S TIRE ADJUSTER Ot 414.00 CORON ATHEROSCLER NOS TYPE VESSEL, NATIV 05/30/2016 JOSETTE ALEXIS S TIRE ADJUSTER Ot 493.20 CHRONIC OBSTRUCTIVE ASTHMA, NOS 05/30/2016 JOSETTE ALEXIS S TIRE ADJUSTER Ot V58.66 LONG-TERM (CURRENT) USE OF ASPIRIN 05/30/2016 JOSETTE ALEXIS S TIRE ADJUSTER Ot V58.69 OT MED,LT,CURRENT USE 05/30/2016 SULAIMAN FRENCH, ISACC Corona Ot 162.9 MAL DULCE MARIA BRONCH/LUNG NOS 05/30/2016 SULAIMAN FRENCH, ISACC S Ot V72.84 EXAM PRE-OPERATIVE NOS 05/30/2016 NANCY KEARNEY Ot 162.9 MAL DULCE MARIA BRONCH/LUNG NOS 05/30/2016 NANCY KEARNEY Ot 562.10 DIVERTICULOSIS COLON (W/O MENT OF HEMORR 05/30/2016 NANCY KEARNEY Ot 573.8 LIVER DISORDERS NEC 05/30/2016 JOSETTE ALEXIS S TIRE ADJUSTER Ot 162.9 MAL DULCE MARIA BRONCH/LUNG NOS 05/30/2016 JOSETTE ALEXIS S TIRE ADJUSTER Ot 162.5 MAL DULCE MARIA LOWER LOBE LUNG 05/30/2016 JOSETTE ALEXIS S TIRE ADJUSTER Ot 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 05/30/2016 JOSETTE ALEXIS S TIRE ADJUSTER Ot 250.00 DIAB DARCI WO COMPL, TYPE II OR UNSPEC TY 05/30/2016 JOSETTE ALEXIS S TIRE ADJUSTER Ot 272.4 HYPERLIPIDEMIA NEC/NOS 05/30/2016 CHINA ALEXISAH S TIRE ADJUSTER Ot 356.9 IDIO PERIPH NEURPTHY NOS 05/30/2016 JOSETTE ALEXIS TIRE ADJUSTER Ot 401.9 HYPERTENSION NOS 05/30/2016 JOSETTE ALEXIS TIRE ADJUSTER Ot 414.00 CORON ATHEROSCLER NOS TYPE VESSEL, NATIV 05/30/2016 JOSETTE ALEXIS S TIRE ADJUSTER Ot 493.20 CHRONIC OBSTRUCTIVE ASTHMA, NOS 05/30/2016 JOSETTE ALEXIS TIRE ADJUSTER Ot 528.9 ORAL SOFT TISSUE DIS NEC 05/30/2016 JOSETTE ALEXIS S TIRE ADJUSTER Ot V58.66 LONG-TERM (CURRENT) USE OF ASPIRIN 05/30/2016 JOSETTE ALEXIS S TIRE ADJUSTER Ot V58.69 OTH MED,LT,CURRENT USE 05/30/2016 JOSETTE ALEXIS TIRE ADJUSTER Ot 162.9 MAL DULCE MARIA BRONCH/LUNG NOS 05/30/2016 JOSETTE ALEXIS S TIRE ADJUSTER Ot 162.5 MAL DULCE MARIA LOWER LOBE LUNG 05/30/2016 JOSETTE ALEXIS S TIRE ADJUSTER Ot 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 05/30/2016 JOSETTE ALEXIS S TIRE ADJUSTER Ot 250.00 DIAB DARCI WO COMPL, TYPE II OR UNSPEC TY 05/30/2016 JOSETTE ALEXIS TIRE ADJUSTER Ot 272.4 HYPERLIPIDEMIA NEC/NOS 05/30/2016 JOSETTE ALEXIS TIRE ADJUSTER Ot 401.9 HYPERTENSION NOS 05/30/2016 JOSETTE ALEXIS TIRE ADJUSTER Ot 414.00 CORON ATHEROSCLER NOS TYPE VESSEL, NATIV 05/30/2016 JOSETTE ALEXIS TIRE ADJUSTER Ot 493.20 CHRONIC OBSTRUCTIVE ASTHMA, NOS 05/30/2016 JOSETTE ALEXIS TIRE ADJUSTER Ot 782.1 NONSPECIF SKIN ERUPT NEC 05/30/2016 JOSETTE ALEXIS S TIRE ADJUSTER Ot V58.66 LONG-TERM (CURRENT) USE OF ASPIRIN 05/30/2016 JOSETTE ALEXIS S TIRE ADJUSTER Ot V58.69 OTH MED,LT,CURRENT USE 05/30/2016 JOSETTE ALEXIS S TIRE ADJUSTER Ot 162.5 MAL DULCE MARIA LOWER LOBE LUNG 05/30/2016 JOSETTE ALEXIS S TIRE ADJUSTER Ot 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 05/30/2016 JOSETTE ALEXIS S TIRE ADJUSTER Ot 250.00 DIAB DARCI WO COMPL, TYPE II OR UNSPEC TY 05/30/2016 JOSETTE ALEXIS S TIRE ADJUSTER Ot 272.1 PURE HYPERGLYCERIDEMIA 05/30/2016 JOSETTE ALEXIS TIRE ADJUSTER Ot 272.4 HYPERLIPIDEMIA NEC/NOS 05/30/2016 JOSETTE ALEXIS TIRE ADJUSTER Ot 278.00 OBESITY, NOS 05/30/2016 JOSETTE ALEXIS TIRE ADJUSTER Ot 401.9 HYPERTENSION NOS 05/30/2016 JOSETTE ALEXIS TIRE ADJUSTER Ot 414.00 CORON ATHEROSCLER NOS TYPE VESSEL, NATIV 05/30/2016 JOSETTE ALEXISP Ot 493.20 CHRONIC OBSTRUCTIVE ASTHMA, NOS 05/30/2016 JOSETTE ALEXIS TIRE ADJUSTER Ot 793.19 OTHER NONSPECIFIC ABNORMAL FINDING OF [place] 05/30/2016 JOSETTE ALEXISP Ot V58.69 OTH MED,LT,CURRENT USE 05/30/2016 JOSETET ALEXISP Ot V85.35 BODY MASS INDEX 35.0-35.9, ADULT 05/30/2016 JOSETTE ALEXIS TIRE ADJUSTER Ot C34.90 MALIGNANT NEOPLASM OF UNSP PART OF [facility] [place] 05/30/2016 JOSETTE ALEXIS TIRE ADJUSTER Ot R51 HEADACHE 05/30/2016 JOSETTE ALEXIS TIRE ADJUSTER Ot C34.90 MALIGNANT NEOPLASM OF UNSP PART OF UNSP 05/30/2016 JOSETTE ALEXIS TIRE ADJUSTER Ot 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 LOWER LOBE, RIGHT 05/30/2016 JOSETTE ALEXISP Ot R05 COUGH 05/30/2016 JOSETTE ALEXISP Ot R06.00 DYSPNEA, UNSPECIFIED 05/30/2016 JOSETTE ALEXIS TIRE ADJUSTER Ot 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 LOWER LOBE, RIGHT 05/30/2016 JOSETTE ALEXISP Ot E11.9 TYPE 2 DIABETES MELLITUS WITHOUT COMPLIC 05/30/2016 JOSETTE ALEXIS TIRE ADJUSTER Ot E78.5 HYPERLIPIDEMIA, UNSPECIFIED 05/30/2016 JOSETTE ALEXISP Ot I10 ESSENTIAL (PRIMARY) HYPERTENSION 05/30/2016 JOSETTE ALEXISP Ot I25.10 ATHSCL HEART DISEASE OF [place] CORONARY 05/30/2016 JOSETTE ALEXISP Ot J44.9 CHRONIC OBSTRUCTIVE PULMONARY DISEASE, U 05/30/2016 JOSETTE ALEXIS TIRE ADJUSTER Ot Z79.82 SKILLED NURSING (CURRENT) USE OF ASPIRIN 05/30/2016 JOSETTE ALEXISP Ot Z79.899 OTHER DIRECTOR FUNERAL (CURRENT) DRUG THERAPY 05/30/2016 TRINA REYES MD Ot 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 LOWER LOBE, RIGHT 05/30/2016 REYES MD, TRINA Mayes Ot E04.1 NONTOXIC SINGLE THYROID NODULE 05/30/2016 JOSETTE ALEXISP Ot 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 LOWER LOBE, RIGHT 05/30/2016 JSOETTE ALEXISP Ot E11.9 TYPE 2 DIABETES MELLITUS WITHOUT COMPLIC 05/30/2016 JOSETTE ALEXISP Ot E78.5 HYPERLIPIDEMIA, UNSPECIFIED 05/30/2016 JOSETTE ALEXISP Ot I10 ESSENTIAL (PRIMARY) HYPERTENSION 05/30/2016 JOSETTE ALEXISP Ot I25.10 ATHSCL HEART DISEASE OF [place] CORONARY 05/30/2016 JOSETTE ALEXISP Ot J44.9 CHRONIC OBSTRUCTIVE PULMONARY DISEASE, U 05/30/2016 JOSETTE ALEXISP Ot Z79.82 SKILLED NURSING (CURRENT) USE OF ASPIRIN 05/30/2016 JOSETTE ALEXIS TIRE ADJUSTER Ot Z79.899 OTHER SKILLED NURSING (CURRENT) DRUG THERAPY 05/30/2016 NANCY KEARNEY Ot 162.5 MAL DULCE MARIA LOWER LOBE LUNG 05/30/2016 NANCY KEARNEY Ot 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 05/30/2016 NANCY KEARNEY Ot V58.69 OTH MED,LT,CURRENT USE 05/30/2016 JOSETTE ALEXISP Ot J44.9 CHRONIC OBSTRUCTIVE PULMONARY DISEASE, U 05/30/2016 JOSETTE ALEXISP Ot R05 COUGH 05/30/2016 JOSETTE ALEXISP Ot 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 LOWER LOBE, RIGHT 05/30/2016 JOSETTE ALEXISP Ot E11.9 TYPE 2 DIABETES MELLITUS WITHOUT COMPLIC 05/30/2016 JOSETTE ALEXISP Ot E78.5 HYPERLIPIDEMIA, UNSPECIFIED 05/30/2016 JOSETTE ALEXIS TIRE ADJUSTER Ot I10 ESSENTIAL (PRIMARY) HYPERTENSION 05/30/2016 JOSETTE ALEXISP Ot I25.10 ATHSCL HEART DISEASE OF [place] CORONARY 05/30/2016 ALEXIS, HILAH S TIRE ADJUSTER Ot J44.9 CHRONIC OBSTRUCTIVE PULMONARY DISEASE, U 05/30/2016 JOSETTE ALEXIS TIRE ADJUSTER Ot Z79.82 DIRECTOR FUNERAL (CURRENT) USE OF ASPIRIN 05/30/2016 JOSETTE ALEXIS TIRE ADJUSTER Ot Z79.899 OTHER SKILLED NURSING (CURRENT) DRUG THERAPY 05/30/2016 JOSETTE ALEXIS TIRE ADJUSTER Ot 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 LOWER LOBE, RIGHT 05/30/2016 JOSETTE ALEXIS TIRE ADJUSTER Ot 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 LOWER LOBE, RIGHT 05/30/2016 JOSETTE ALEXIS S TIRE ADJUSTER Ot E11.9 TYPE 2 DIABETES MELLITUS WITHOUT COMPLIC 05/30/2016 JOSETTE ALEXIS S TIRE ADJUSTER Ot E78.5 HYPERLIPIDEMIA, UNSPECIFIED 05/30/2016 JOSETTE ALEXIS S TIRE ADJUSTER Ot I10 ESSENTIAL (PRIMARY) HYPERTENSION 05/30/2016 JOSETTE ALEXIS TIRE ADJUSTER Ot I25.10 ATHSCL HEART DISEASE OF [place] CORONARY 05/30/2016 JOSETTE ALEXIS TIRE ADJUSTER Ot J44.9 CHRONIC OBSTRUCTIVE PULMONARY DISEASE, U 05/30/2016 JOSETTE ALEXIS TIRE ADJUSTER Ot Z79.82 DIRECTOR FUNERAL (CURRENT) USE OF ASPIRIN 05/30/2016 JOSETTE ALEXIS TIRE ADJUSTER Ot Z79.899 OTHER SKILLED NURSING (CURRENT) DRUG THERAPY 05/30/2016 JULISSA FRENCH, KASSANDRA Marie Ot E11.9 TYPE 2 DIABETES MELLITUS WITHOUT COMPLIC 05/30/2016 JOSETTE ALEXIS TIRE ADJUSTER Ot C34.90 MALIGNANT NEOPLASM OF UNSP PART OF UNSP 05/30/2016 JOSETTE ALEXIS TIRE ADJUSTER Ot R53.83 OTHER FATIGUE 05/30/2016 JOSETTE ALEXIS TIRE ADJUSTER Ot 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 LOWER LOBE, RIGHT 05/30/2016 JOSETTE ALEXIS TIRE ADJUSTER Ot E11.9 TYPE 2 DIABETES MELLITUS WITHOUT COMPLIC 05/30/2016 JOSETTE ALEXIS TIRE ADJUSTER Ot E78.5 HYPERLIPIDEMIA, UNSPECIFIED 05/30/2016 JOSETTE ALEXIS TIRE ADJUSTER Ot I10 ESSENTIAL (PRIMARY) HYPERTENSION 05/30/2016 JOSETTE ALEXIS TIRE ADJUSTER Ot I25.10 ATHSCL HEART DISEASE OF [place] CORONARY 05/30/2016 JOSETTE ALEXIS TIRE ADJUSTER Ot J44.9 CHRONIC OBSTRUCTIVE PULMONARY DISEASE, U 05/30/2016 JOSETTE ALEXIS TIRE ADJUSTER Ot Z79.82 DIRECTOR FUNERAL (CURRENT) USE OF ASPIRIN 05/30/2016 JOSETTE ALEXIS TIRE ADJUSTER Ot Z79.899 OTHER SKILLED NURSING (CURRENT) DRUG THERAPY 05/30/2016 JOSETTE ALEXIS TIRE ADJUSTER Ot 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 LOWER LOBE, RIGHT 05/30/2016 JOSETTE ALEXIS TIRE ADJUSTER Ot 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 LOWER LOBE, RIGHT 05/30/2016 JOSETTE ALEXIS TIRE ADJUSTER Ot E11.9 TYPE 2 DIABETES MELLITUS WITHOUT COMPLIC 05/30/2016 JOSETTE ALEXIS TIRE ADJUSTER Ot E78.5 HYPERLIPIDEMIA, UNSPECIFIED 05/30/2016 JOSETTE ALEXIS TIRE ADJUSTER Ot I10 ESSENTIAL (PRIMARY) HYPERTENSION 05/30/2016 JOSETTE ALEXIS TIRE ADJUSTER Ot I25.10 ATHSCL HEART DISEASE OF [place] CORONARY 05/30/2016 JOSETTE ALEXIS TIRE ADJUSTER Ot J44.9 CHRONIC OBSTRUCTIVE PULMONARY DISEASE, U 05/30/2016 JOSETTE ALEXIS TIRE ADJUSTER Ot Z79.82 DIRECTOR FUNERAL (CURRENT) USE OF ASPIRIN 05/30/2016 JOSETTE ALEXIS TIRE ADJUSTER Ot Z79.899 OTHER DIRECTOR FUNERAL (CURRENT) DRUG THERAPY 05/30/2016 JOSETTE ALEXIS TIRE ADJUSTER Ot 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 LOWER LOBE, RIGHT 05/30/2016 JOSETTE ALEXIS TIRE ADJUSTER Ot R26.81 UNSTEADINESS ON FEET 05/30/2016 JOSETTE ALEXIS TIRE ADJUSTER Ot R42 DIZZINESS AND GIDDINESS 05/30/2016 JOSETTE ALEXIS TIRE ADJUSTER Ot 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 LOWER LOBE, RIGHT 05/30/2016 JOSETTE ALEXIS TIRE ADJUSTER Ot E11.9 TYPE 2 DIABETES MELLITUS WITHOUT COMPLIC 05/30/2016 JOSETTE ALEXIS TIRE ADJUSTER Ot E78.5 HYPERLIPIDEMIA, UNSPECIFIED 05/30/2016 JOSETTE ALEXIS S TIRE ADJUSTER Ot I10 ESSENTIAL (PRIMARY) HYPERTENSION 05/30/2016 JOSETTE ALEXIS TIRE ADJUSTER Ot I25.10 ATHSCL HEART DISEASE OF [place] CORONARY 05/30/2016 JOSETTE ALEXIS TIRE ADJUSTER Ot J44.9 CHRONIC OBSTRUCTIVE PULMONARY DISEASE, U 05/30/2016 JOSETTE ALEXIS TIRE ADJUSTER Ot Z79.82 SKILLED NURSING (CURRENT) USE OF ASPIRIN 05/30/2016 JOSETTE ALEXIS TIRE ADJUSTER Ot Z79.899 OTHER SKILLED NURSING (CURRENT) DRUG THERAPY 05/30/2016 KASSANDRA COSTA MD, Ot Z12.31 ENCNTR SCREEN MAMMOGRAM FOR MALIGNANT NE 05/30/2016 KASSANDRA COSTA MD, Ot E11.9 TYPE 2 DIABETES MELLITUS WITHOUT COMPLIC 05/30/2016 KASSANDRA COSTA MD, Ot E78.4 OTHER HYPERLIPIDEMIA 05/30/2016 KASSANDRA COSTA MD Ot I10 ESSENTIAL (PRIMARY) HYPERTENSION 05/30/2016 KASSANDRA COSTA MD, Ot I25.10 ATHSCL HEART DISEASE OF [place] CORONARY 05/30/2016 JOSETTE ALEXIS TIRE ADJUSTER Ot M79.604 PAIN IN RIGHT LEG 05/30/2016 JOSETTE ALEXIS TIRE ADJUSTER Ot R60.0 LOCALIZED EDEMA 05/30/2016 KASSANDRA COSTA MD, Ot C34.90 MALIGNANT NEOPLASM OF UNSP PART OF [place] 05/30/2016 KASSANDRA COSTA MD, Ot E11.9 TYPE 2 DIABETES MELLITUS WITHOUT COMPLIC 05/30/2016 KASSANDRA COSTA MD, Ot E78.4 OTHER HYPERLIPIDEMIA 05/30/2016 KASSANDRA COSTA MD, Ot I10 ESSENTIAL (PRIMARY) HYPERTENSION 05/30/2016 KASSANDRA COSTA MD, Ot I25.10 ATHSCL HEART DISEASE OF [place] CORONARY 05/30/2016 NANCY KEARNEY Ot 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 LOWER LOBE, RIGHT 05/30/2016 NANCY KEARNEY Ot E11.9 TYPE 2 DIABETES MELLITUS WITHOUT COMPLIC 05/30/2016 NANCY KEARNEY Ot E78.5 HYPERLIPIDEMIA, UNSPECIFIED 05/30/2016 NANCY KEARNEY Ot I10 ESSENTIAL (PRIMARY) HYPERTENSION 05/30/2016 NANCY KEARNEY Ot I25.10 ATHSCL HEART DISEASE OF [place] CORONARY 05/30/2016 NANCY KEARNEY Ot J44.9 CHRONIC OBSTRUCTIVE PULMONARY DISEASE, U 05/30/2016 NANCY KEARNEY Ot R19.5 OTHER FECAL ABNORMALITIES 05/30/2016 NANCY KEARNEY Ot Z51.11 ENCOUNTER FOR ANTINEOPLASTIC CHEMOTHERAP 05/30/2016 NANCY KEARNEY Ot Z79.82 SKILLED NURSING (CURRENT) USE OF ASPIRIN 05/30/2016 NANCY KEARNEY Ot Z79.899 OTHER SKILLED NURSING (CURRENT) DRUG THERAPY 05/30/2016 NANCY KEARNEY Leonel Ot 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 LOWER LOBE, RIGHT 05/30/2016 CHRISTELNANCY LINARES Leonel Ot Z01.89 ENCOUNTER FOR OTHER SPECIFIED SPECIAL EX 05/30/2016 DAMION YOUNG MD Ot E78.2 MIXED HYPERLIPIDEMIA 05/30/2016 DAMION YOUNG MD Ot I10 ESSENTIAL (PRIMARY) HYPERTENSION 05/30/2016 DAMION YOUNG MD Ot I25.10 ATHSCL HEART DISEASE OF [place] CORONARY 05/30/2016 DAMION YOUNG MD Ot J44.9 CHRONIC OBSTRUCTIVE PULMONARY DISEASE, U 05/30/2016 DAMION YOUNG MD Ot R07.89 OTHER CHEST PAIN 06/01/2016 JOSETTE ALEXIS Ot M71.22 SYNOVIAL CYST OF POPLITEAL SPACE [ENCINAS] 06/01/2016 JOSETTE ALEXIS Ot M79.662 PAIN IN LEFT LOWER LEG 06/01/2016 JOSETTE ALEXIS Ot R26.81 UNSTEADINESS ON FEET 06/05/2016 NANCY KEARNEY Leonel Ot 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 LOWER LOBE, RIGHT 06/05/2016 NANCY KEARNEY Leonel Ot E11.9 TYPE 2 DIABETES MELLITUS WITHOUT COMPLIC 06/05/2016 NANCY KEARNEY Leonel Ot E78.5 HYPERLIPIDEMIA, UNSPECIFIED 06/05/2016 NANCY KEARNEY Leonel Ot I10 ESSENTIAL (PRIMARY) HYPERTENSION 06/05/2016 NANCY KEARNEY Leonel Ot I25.10 ATHSCL HEART DISEASE OF [place] CORONARY 06/05/2016 CHRISTEL BERTOCASSY Leonel Ot J44.9 CHRONIC OBSTRUCTIVE PULMONARY DISEASE, U 06/05/2016 CHRISTEL BERTOCASSY Leonel Ot R19.5 OTHER FECAL ABNORMALITIES 06/05/2016 NANCY KEARNEY Leonel Ot Z51.11 ENCOUNTER FOR ANTINEOPLASTIC CHEMOTHERAP 06/05/2016 CHRISTEL, NANCY Castaneda Ot Z79.82 SKILLED NURSING (CURRENT) USE OF ASPIRIN 06/05/2016 CHRISTEL, NANCY Castanead Ot Z79.899 OTHER SKILLED NURSING (CURRENT) DRUG THERAPY 06/20/2016 JOSETTE ALEXISP Ot M71.22 SYNOVIAL CYST OF POPLITEAL SPACE [ENCINAS] 06/20/2016 JOSETTE ALEXISP Ot M79.662 PAIN IN LEFT LOWER LEG 06/20/2016 JOSETTE ALEXIS TIRE ADJUSTER Ot R26.81 UNSTEADINESS ON FEET 06/28/2016 ALEXISJOSETTE Corona TIRE ADJUSTER Ot M71.22 SYNOVIAL CYST OF POPLITEAL SPACE [ENCINAS] 06/28/2016 JOSETTE ALEXIS TIRE ADJUSTER Ot M79.662 PAIN IN LEFT LOWER LEG 06/28/2016 ALEXISJOSETTE Corona TIRE ADJUSTER Ot R26.81 UNSTEADINESS ON FEET 07/10/2016 NANCY KEARNEY N Ot 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 LOWER LOBE, RIGHT 07/10/2016 CHRISTEL BERTOCASSY N Ot E11.9 TYPE 2 DIABETES MELLITUS WITHOUT COMPLIC 07/10/2016 CHRISTEL, NANCY N Ot E78.5 HYPERLIPIDEMIA, UNSPECIFIED 07/10/2016 CHRISTEL NANCY N Ot I10 ESSENTIAL (PRIMARY) HYPERTENSION 07/10/2016 CHRISTEL NANCY N Ot I25.10 ATHSCL HEART DISEASE OF [place] CORONARY 07/10/2016 CHRISTELNANCY N Ot J44.9 CHRONIC OBSTRUCTIVE PULMONARY DISEASE, U 07/10/2016 CHRISTEL NANCY N Ot R19.5 OTHER FECAL ABNORMALITIES 07/10/2016 CHRISTEL NANCY N Ot Z51.11 ENCOUNTER FOR ANTINEOPLASTIC CHEMOTHERAP 07/10/2016 CHRISTEL NANCY N Ot Z79.82 SKILLED NURSING (CURRENT) USE OF ASPIRIN 07/10/2016 CHRISTEL NANCY N Ot Z79.899 OTHER DIRECTOR FUNERAL (CURRENT) DRUG THERAPY 07/16/2016 CHRISTEL NANCY N Ot 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 LOWER LOBE, RIGHT 07/16/2016 CHRISTEL NANCY N Ot E11.9 TYPE 2 DIABETES MELLITUS WITHOUT COMPLIC 07/16/2016 CHRISTEL NANCY N Ot E78.5 HYPERLIPIDEMIA, UNSPECIFIED 07/16/2016 CHRISTEL BOBAN N Ot I10 ESSENTIAL (PRIMARY) HYPERTENSION 07/16/2016 CHRISTELNANCY N Ot I25.10 ATHSCL HEART DISEASE OF [place] CORONARY 07/16/2016 CHRISTEL NANCY N Ot J44.9 CHRONIC OBSTRUCTIVE PULMONARY DISEASE, U 07/16/2016 CHRISTEL NANCY N Ot R19.5 OTHER FECAL ABNORMALITIES 07/16/2016 CHRISTELNANCY N Ot Z51.11 ENCOUNTER FOR ANTINEOPLASTIC CHEMOTHERAP 07/16/2016 CHRISTEL, BOBAN N Ot Z79.82 DIRECTOR FUNERAL (CURRENT) USE OF ASPIRIN 07/16/2016 CHRISTEL, BOBAN N Ot Z79.899 OTHER SKILLED NURSING (CURRENT) DRUG THERAPY 08/15/2016 CHRISTEL BOBAN N Ot 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 LOWER LOBE, RIGHT 08/15/2016 CHRISTEL BOBAN N Ot E11.9 TYPE 2 DIABETES MELLITUS WITHOUT COMPLIC 08/15/2016 CHRISTEL BOBAN N Ot E78.5 HYPERLIPIDEMIA, UNSPECIFIED 08/15/2016 CHRISTEL, BOBAN N Ot I10 ESSENTIAL (PRIMARY) HYPERTENSION 08/15/2016 CHRISTEL, BOBAN N Ot I25.10 ATHSCL HEART DISEASE OF [place] CORONARY 08/15/2016 CHRISTEL BOBAN N Ot J44.9 CHRONIC OBSTRUCTIVE PULMONARY DISEASE, U 08/15/2016 CHRISTEL, BOBAN N Ot R19.5 OTHER FECAL ABNORMALITIES 08/15/2016 CHRISTEL, BOBAN N Ot Z51.11 ENCOUNTER FOR ANTINEOPLASTIC CHEMOTHERAP 08/15/2016 CHRISTEL BOBAN N Ot Z79.82 SKILLED NURSING (CURRENT) USE OF ASPIRIN 08/15/2016 CHRISTEL, BOBAN N Ot Z79.899 OTHER SKILLED NURSING (CURRENT) DRUG THERAPY 08/15/2016 CHRISTEL BOBAN N Ot 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 LOWER LOBE, RIGHT 08/15/2016 CHRISTEL BOBAN N Ot E11.9 TYPE 2 DIABETES MELLITUS WITHOUT COMPLIC 08/15/2016 CHRISTEL BOBAN N Ot E78.5 HYPERLIPIDEMIA, UNSPECIFIED 08/15/2016 CHRISTEL, BOBAN N Ot I10 ESSENTIAL (PRIMARY) HYPERTENSION 08/15/2016 CHRISTEL BOBAN N Ot I25.10 ATHSCL HEART DISEASE OF [place] CORONARY 08/15/2016 CHRISTEL BOBAN N Ot J44.9 CHRONIC OBSTRUCTIVE PULMONARY DISEASE, U 08/15/2016 CHRISTEL, BOBAN N Ot R19.5 OTHER FECAL ABNORMALITIES 08/15/2016 CHRISTEL, BOBAN N Ot Z51.11 ENCOUNTER FOR ANTINEOPLASTIC CHEMOTHERAP 08/15/2016 CHRISTEL BOBAN N Ot Z79.82 DIRECTOR FUNERAL (CURRENT) USE OF ASPIRIN 08/15/2016 CHRISTEL, BOBAN N Ot Z79.899 OTHER SKILLED NURSING (CURRENT) DRUG THERAPY 09/04/2016 CHRISTEL BOBAN N Ot 162.9 MAL DULCE MARIA BRONCH/LUNG NOS 09/04/2016 NANCY KEARNEY N Ot 562.10 DIVERTICULOSIS COLON (W/O MENT OF HEMORR 09/04/2016 NANCY KEARNEY N Ot 573.8 LIVER DISORDERS NEC 09/04/2016 JOSETTE ALEXIS S TIRE ADJUSTER Ot 162.9 MAL DULCE MARIA BRONCH/LUNG NOS 09/04/2016 JOSETTE ALEXIS S TIRE ADJUSTER Ot 162.5 MAL DULCE MARIA LOWER LOBE LUNG 09/04/2016 JOSETTE ALEXIS S TIRE ADJUSTER Ot 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 09/04/2016 JOSETTE ALEXIS S TIRE ADJUSTER Ot 250.00 DIAB DARCI WO COMPL, TYPE II OR UNSPEC TY 09/04/2016 JOSETTE ALEXIS S TIRE ADJUSTER Ot 272.4 HYPERLIPIDEMIA NEC/NOS 09/04/2016 JOSETTE ALEXIS S TIRE ADJUSTER Ot 356.9 IDIO PERIPH NEURPTHY NOS 09/04/2016 JOSETTE ALEXIS S TIRE ADJUSTER Ot 401.9 HYPERTENSION NOS 09/04/2016 JOSETTE ALEXIS S TIRE ADJUSTER Ot 414.00 CORON ATHEROSCLER NOS TYPE VESSEL, NATIV 09/04/2016 JOSETTE ALEXIS S TIRE ADJUSTER Ot 493.20 CHRONIC OBSTRUCTIVE ASTHMA, NOS 09/04/2016 JOSETTE ALEXIS S TIRE ADJUSTER Ot 528.9 ORAL SOFT TISSUE DIS NEC 09/04/2016 JOSETTE ALEXIS TIRE ADJUSTER Ot V58.66 LONG-TERM (CURRENT) USE OF ASPIRIN 09/04/2016 JOSETTE ALEXIS TIRE ADJUSTER Ot V58.69 OTH MED,LT,CURRENT USE 09/04/2016 JOSETTE ALEXIS S TIRE ADJUSTER Ot 162.9 MAL DULCE MARIA BRONCH/LUNG NOS 09/04/2016 JOSETTE ALEXIS S TIRE ADJUSTER Ot 162.5 MAL DULCE MARIA LOWER LOBE LUNG 09/04/2016 JOSETTE ALEXIS S TIRE ADJUSTER Ot 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 09/04/2016 JOSETTE ALEXIS S TIRE ADJUSTER Ot 250.00 DIAB DARCI WO COMPL, TYPE II OR UNSPEC TY 09/04/2016 JOSETTE ALEXIS S TIRE ADJUSTER Ot 272.4 HYPERLIPIDEMIA NEC/NOS 09/04/2016 JOSETTE ALEXIS S TIRE ADJUSTER Ot 401.9 HYPERTENSION NOS 09/04/2016 JOSETTE ALEXIS S TIRE ADJUSTER Ot 414.00 CORON ATHEROSCLER NOS TYPE VESSEL, NATIV 09/04/2016 JOSETTE ALEXIS TIRE ADJUSTER Ot 493.20 CHRONIC OBSTRUCTIVE ASTHMA, NOS 09/04/2016 JOSETTE ALEXIS TIRE ADJUSTER Ot 782.1 NONSPECIF SKIN ERUPT NEC 09/04/2016 JOSETTE ALEXIS TIRE ADJUSTER Ot V58.66 LONG-TERM (CURRENT) USE OF ASPIRIN 09/04/2016 JOSETTE ALEXIS TIRE ADJUSTER Ot V58.69 OTH MED,LT,CURRENT USE 09/04/2016 JOSETTE ALEXIS TIRE ADJUSTER Ot 162.5 MAL DULCE MARIA LOWER LOBE LUNG 09/04/2016 JOSETTE ALEXIS TIRE ADJUSTER Ot 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 09/04/2016 JOSETTE ALEXIS TIRE ADJUSTER Ot 250.00 DIAB DARCI WO COMPL, TYPE II OR UNSPEC TY 09/04/2016 JOSETTE ALEXIS TIRE ADJUSTER Ot 272.1 PURE HYPERGLYCERIDEMIA 09/04/2016 JOSETTE ALEXIS TIRE ADJUSTER Ot 272.4 HYPERLIPIDEMIA NEC/NOS 09/04/2016 JOSETTE ALEXIS TIRE ADJUSTER Ot 278.00 OBESITY, NOS 09/04/2016 JOSETTE ALEXIS TIRE ADJUSTER Ot 401.9 HYPERTENSION NOS 09/04/2016 JOSETTE ALEXIS TIRE ADJUSTER Ot 414.00 CORON ATHEROSCLER NOS TYPE VESSEL, NATIV 09/04/2016 JOSETTE ALEXIS TIRE ADJUSTER Ot 493.20 CHRONIC OBSTRUCTIVE ASTHMA, NOS 09/04/2016 JOSETTE ALEXIS TIRE ADJUSTER Ot 793.19 OTHER NONSPECIFIC ABNORMAL FINDING OF [place] 09/04/2016 JOSETTE ALEXIS TIRE ADJUSTER Ot V58.69 OTH MED,LT,CURRENT USE 09/04/2016 JOSETTE ALEXIS TIRE ADJUSTER Ot V85.35 BODY MASS INDEX 35.0-35.9, ADULT 09/04/2016 JOSETTE ALEXIS TIRE ADJUSTER Ot C34.90 MALIGNANT NEOPLASM OF UNSP PART OF UNSP 09/04/2016 JOSETTE ALEXISP Ot R51 HEADACHE 09/04/2016 JOSETTE ALEXIS TIRE ADJUSTER Ot C34.90 MALIGNANT NEOPLASM OF UNSP PART OF [place] 09/04/2016 JOSETTE ALEXIS TIRE ADJUSTER Ot 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 LOWER LOBE, RIGHT 09/04/2016 JOSETTE ALEXIS TIRE ADJUSTER Ot R05 COUGH 09/04/2016 JOSETTE ALEXIS TIRE ADJUSTER Ot R06.00 DYSPNEA, UNSPECIFIED 09/04/2016 JOSETTE ALEXIS TIRE ADJUSTER Ot 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 LOWER LOBE, RIGHT 09/04/2016 JOSETTE ALEXIS TIRE ADJUSTER Ot E11.9 TYPE 2 DIABETES MELLITUS WITHOUT COMPLIC 09/04/2016 JOSETTE ALEXIS TIRE ADJUSTER Ot E78.5 HYPERLIPIDEMIA, UNSPECIFIED 09/04/2016 ALEXIS JOSETTE Corona TIRE ADJUSTER Ot I10 ESSENTIAL (PRIMARY) HYPERTENSION 09/04/2016 ALEXIS JOSETTE Corona TIRE ADJUSTER Ot I25.10 ATHSCL HEART DISEASE OF [place] CORONARY 09/04/2016 VANESA JOSETTE Corona TIRE ADJUSTER Ot J44.9 CHRONIC OBSTRUCTIVE PULMONARY DISEASE, U 09/04/2016 VANESA JOSETTE Corona TIRE ADJUSTER Ot Z79.82 SKILLED NURSING (CURRENT) USE OF ASPIRIN 09/04/2016 VANESA JOSETTE Corona TIRE ADJUSTER Ot Z79.899 OTHER DIRECTOR FUNERAL (CURRENT) DRUG THERAPY 09/04/2016 REYES MD, TRINA T Ot 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 LOWER LOBE, RIGHT 09/04/2016 REYES MD, TRINA T Ot E04.1 NONTOXIC SINGLE THYROID NODULE 09/04/2016 JOSETTE ALEXIS TIRE ADJUSTER Ot 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 LOWER LOBE, RIGHT 09/04/2016 JOSETTE ALEXIS TIRE ADJUSTER Ot E11.9 TYPE 2 DIABETES MELLITUS WITHOUT COMPLIC 09/04/2016 ALEXIS JOSETTE Corona TIRE ADJUSTER Ot E78.5 HYPERLIPIDEMIA, UNSPECIFIED 09/04/2016 VANESA JOSETTE Corona TIRE ADJUSTER Ot I10 ESSENTIAL (PRIMARY) HYPERTENSION 09/04/2016 CHINA ALEXISBRENDAN Corona TIRE ADJUSTER Ot I25.10 ATHSCL HEART DISEASE OF [place] CORONARY 09/04/2016 VANESA JOSETTE Corona TIRE ADJUSTER Ot J44.9 CHRONIC OBSTRUCTIVE PULMONARY DISEASE, U 09/04/2016 VANESA JOSETTE Corona TIRE ADJUSTER Ot Z79.82 DIRECTOR FUNERAL (CURRENT) USE OF ASPIRIN 09/04/2016 VANESA JOSETTE Corona TIRE ADJUSTER Ot Z79.899 OTHER SKILLED NURSING (CURRENT) DRUG THERAPY 09/04/2016 NANCY KEARNEY Ot 162.5 MAL DULCE MARIA LOWER LOBE LUNG 09/04/2016 NANCY KEARNEY Ot 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 09/04/2016 NANCY KEARNEY Ot V58.69 OT MED,LT,CURRENT USE 09/04/2016 JOSETTE ALEXIS TIRE ADJUSTER Ot J44.9 CHRONIC OBSTRUCTIVE PULMONARY DISEASE, U 09/04/2016 JOSETTE ALEXIS TIRE ADJUSTER Ot R05 COUGH 09/04/2016 JOSETTE ALEXIS TIRE ADJUSTER Ot 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 LOWER LOBE, RIGHT 09/04/2016 JOSETTE ALEXIS TIRE ADJUSTER Ot E11.9 TYPE 2 DIABETES MELLITUS WITHOUT COMPLIC 09/04/2016 JOSETTE ALEXIS TIRE ADJUSTER Ot E78.5 HYPERLIPIDEMIA, UNSPECIFIED 09/04/2016 JOSETTE ALEXIS TIRE ADJUSTER Ot I10 ESSENTIAL (PRIMARY) HYPERTENSION 09/04/2016 JOSETTE ALEXIS TIRE ADJUSTER Ot I25.10 ATHSCL HEART DISEASE OF [place] CORONARY 09/04/2016 JOSETTE ALEXIS TIRE ADJUSTER Ot J44.9 CHRONIC OBSTRUCTIVE PULMONARY DISEASE, U 09/04/2016 JOSETTE ALEXIS TIRE ADJUSTER Ot Z79.82 SKILLED NURSING (CURRENT) USE OF ASPIRIN 09/04/2016 JOSETTE ALEXIS TIRE ADJUSTER Ot Z79.899 OTHER DIRECTOR FUNERAL (CURRENT) DRUG THERAPY 09/04/2016 JOSETTE ALEXIS TIRE ADJUSTER Ot 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 LOWER LOBE, RIGHT 09/04/2016 JOSETTE AELXIS TIRE ADJUSTER Ot 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 LOWER LOBE, RIGHT 09/04/2016 JOSETTE ALEXISP Ot E11.9 TYPE 2 DIABETES MELLITUS WITHOUT COMPLIC 09/04/2016 JOSETTE ALEXISP Ot E78.5 HYPERLIPIDEMIA, UNSPECIFIED 09/04/2016 JOSETTE ALEXIS TIRE ADJUSTER Ot I10 ESSENTIAL (PRIMARY) HYPERTENSION 09/04/2016 JOSETTE ALEXIS TIRE ADJUSTER Ot I25.10 ATHSCL HEART DISEASE OF [place] CORONARY 09/04/2016 JOSETTE ALEXIS TIRE ADJUSTER Ot J44.9 CHRONIC OBSTRUCTIVE PULMONARY DISEASE, U 09/04/2016 JOSETTE ALEXIS TIRE ADJUSTER Ot Z79.82 SKILLED NURSING (CURRENT) USE OF ASPIRIN 09/04/2016 JOSETTE ALEXIS TIRE ADJUSTER Ot Z79.899 OTHER DIRECTOR FUNERAL (CURRENT) DRUG THERAPY 09/04/2016 JULISSA FRENCH, KASSANDRA Marie Ot E11.9 TYPE 2 DIABETES MELLITUS WITHOUT COMPLIC 09/04/2016 ALEXIS, HILAH S TIRE ADJUSTER Ot C34.90 MALIGNANT NEOPLASM OF UNSP PART OF UNSP 09/04/2016 [place] ALEXISBRENDAN Cj TIRE ADJUSTER Ot R53.83 OTHER FATIGUE 09/04/2016 JOSETTE ALEXIS Cj TIRE ADJUSTER Ot 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 LOWER LOBE, RIGHT 09/04/2016 JOSETTE ALEXIS TIRE ADJUSTER Ot E11.9 TYPE 2 DIABETES MELLITUS WITHOUT COMPLIC 09/04/2016 JOSETTE ALEXIS TIRE ADJUSTER Ot E78.5 HYPERLIPIDEMIA, UNSPECIFIED 09/04/2016 JOSETTE ALEXIS TIRE ADJUSTER Ot I10 ESSENTIAL (PRIMARY) HYPERTENSION 09/04/2016 JOSETTE ALEXIS TIRE ADJUSTER Ot I25.10 ATHSCL HEART DISEASE OF [place] CORONARY 09/04/2016 JOSETTE ALEXIS TIRE ADJUSTER Ot J44.9 CHRONIC OBSTRUCTIVE PULMONARY DISEASE, U 09/04/2016 JOSETTE ALEXIS TIRE ADJUSTER Ot Z79.82 SKILLED NURSING (CURRENT) USE OF ASPIRIN 09/04/2016 JOSETTE ALEXIS TIRE ADJUSTER Ot Z79.899 OTHER DIRECTOR FUNERAL (CURRENT) DRUG THERAPY 09/04/2016 JOSETTE ALEXIS TIRE ADJUSTER Ot 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 LOWER LOBE, RIGHT 09/04/2016 JOSETTE ALEXIS TIRE ADJUSTER Ot 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 LOWER LOBE, RIGHT 09/04/2016 JOSETTE ALEXISP Ot E11.9 TYPE 2 DIABETES MELLITUS WITHOUT COMPLIC 09/04/2016 JOSETTE ALEXIS TIRE ADJUSTER Ot E78.5 HYPERLIPIDEMIA, UNSPECIFIED 09/04/2016 JOSETTE ALEXIS TIRE ADJUSTER Ot I10 ESSENTIAL (PRIMARY) HYPERTENSION 09/04/2016 JOSETTE ALEXIS TIRE ADJUSTER Ot I25.10 ATHSCL HEART DISEASE OF [place] CORONARY 09/04/2016 JOSETTE ALEXIS TIRE ADJUSTER Ot J44.9 CHRONIC OBSTRUCTIVE PULMONARY DISEASE, U 09/04/2016 JOSETTE ALEXIS TIRE ADJUSTER Ot Z79.82 SKILLED NURSING (CURRENT) USE OF ASPIRIN 09/04/2016 JOSETTE ALEXIS TIRE ADJUSTER Ot Z79.899 OTHER SKILLED NURSING (CURRENT) DRUG THERAPY 09/04/2016 JOSETTE ALEXIS TIRE ADJUSTER Ot 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 LOWER LOBE, RIGHT 09/04/2016 JOSETTE ALEXIS TIRE ADJUSTER Ot R26.81 UNSTEADINESS ON FEET 09/04/2016 VANESA JOSETTE Corona TIRE ADJUSTER Ot R42 DIZZINESS AND GIDDINESS 09/04/2016 VANESAJOSETTE TIRE ADJUSTER Ot 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 LOWER LOBE, RIGHT 09/04/2016 JOSETTE ALEXIS TIRE ADJUSTER Ot E11.9 TYPE 2 DIABETES MELLITUS WITHOUT COMPLIC 09/04/2016 ALEXISJOSETTE [place]ona TIRE ADJUSTER Ot E78.5 HYPERLIPIDEMIA, UNSPECIFIED 09/04/2016 [place] ALEXISBRENDAN [place] TIRE ADJUSTER Ot I10 ESSENTIAL (PRIMARY) HYPERTENSION 09/04/2016 ALEXISJOSETTE TIRE ADJUSTER Ot I25.10 ATHSCL HEART DISEASE OF [place] CORONARY 09/04/2016 [place] ALEXISBRENDAN [place] TIRE ADJUSTER Ot J44.9 CHRONIC OBSTRUCTIVE PULMONARY DISEASE, U 09/04/2016 [place] ALEXISBRENDAN [place] TIRE ADJUSTER Ot Z79.82 SKILLED NURSING (CURRENT) USE OF ASPIRIN 09/04/2016 [place] ALEXISBRENDAN [place] TIRE ADJUSTER Ot Z79.899 OTHER DIRECTOR FUNERAL (CURRENT) DRUG THERAPY 09/04/2016 KASSANDRA COSTA MD, Ot Z12.31 ENCNTR SCREEN MAMMOGRAM FOR MALIGNANT NE 09/04/2016 KASSANDRA COSTA MD, Ot E11.9 TYPE 2 DIABETES MELLITUS WITHOUT COMPLIC 09/04/2016 KASSANDRA COSTA MD, Ot E78.4 OTHER HYPERLIPIDEMIA 09/04/2016 KASSANDRA COSTA MD, Ot I10 ESSENTIAL (PRIMARY) HYPERTENSION 09/04/2016 KASSANDRA COSTA MD Ot I25.10 ATHSCL HEART DISEASE OF [place] CORONARY 09/04/2016 [place] ALEXISBRENDAN [place] TIRE ADJUSTER Ot M79.604 PAIN IN RIGHT LEG 09/04/2016 JOSETTE ALEXIS TIRE ADJUSTER Ot R60.0 LOCALIZED EDEMA 09/04/2016 KASSANDRA COSTA MD Ot C34.90 MALIGNANT NEOPLASM OF [place] PART OF UNSP 09/04/2016 KASSANDRA COSTA MD Ot E11.9 TYPE 2 DIABETES MELLITUS WITHOUT COMPLIC 09/04/2016 KASSANDRA COSTA MD, Ot E78.4 OTHER HYPERLIPIDEMIA 09/04/2016 KASSANDRA COSTA MD Ot I10 ESSENTIAL (PRIMARY) HYPERTENSION 09/04/2016 KASSANDRA COSTA MD Ot I25.10 ATHSCL HEART DISEASE OF [place] CORONARY 09/04/2016 NANCY KEARNEY Ot 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 LOWER LOBE, RIGHT 09/04/2016 NANCY KEARNEY Ot Z01.89 ENCOUNTER FOR OTHER SPECIFIED SPECIAL EX 09/04/2016 DAMION YOUNG MD Ot E78.2 MIXED HYPERLIPIDEMIA 09/04/2016 DAMION YOUNG MD Ot I10 ESSENTIAL (PRIMARY) HYPERTENSION 09/04/2016 DAMION YOUNG MD Ot I25.10 ATHSCL HEART DISEASE OF [place] CORONARY 09/04/2016 DAMION YOUNG MD Ot J44.9 CHRONIC OBSTRUCTIVE PULMONARY DISEASE, U 09/04/2016 DAMION YOUNG MD Ot R07.89 OTHER CHEST PAIN 09/04/2016 JOSETTE ALEXISP Ot M71.22 SYNOVIAL CYST OF POPLITEAL SPACE [ENCINAS] 09/04/2016 JOSETTE ALEXIS TIRE ADJUSTER Ot M79.662 PAIN IN LEFT LOWER LEG 09/04/2016 JOSETTE ALEXIS TIRE ADJUSTER Ot R26.81 UNSTEADINESS ON FEET 09/04/2016 NANCY KEARNEY Ot 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 LOWER LOBE, RIGHT 09/04/2016 NANCY KEARNEY Ot E11.9 TYPE 2 DIABETES MELLITUS WITHOUT COMPLIC 09/04/2016 NANCY KEARNEY Ot E78.5 HYPERLIPIDEMIA, UNSPECIFIED 09/04/2016 NANCY KEARNEY Ot I10 ESSENTIAL (PRIMARY) HYPERTENSION 09/04/2016 NANCY KEARNEY Ot I25.10 ATHSCL HEART DISEASE OF [place] CORONARY 09/04/2016 NANCY KEARNEY Ot J44.9 CHRONIC OBSTRUCTIVE PULMONARY DISEASE, U 09/04/2016 NANCY KEARNEY Ot R19.5 OTHER FECAL ABNORMALITIES 09/04/2016 NANCY KEARNEY Ot Z51.11 ENCOUNTER FOR ANTINEOPLASTIC CHEMOTHERAP 09/04/2016 NANCY KEARNEY Ot Z79.82 DIRECTOR FUNERAL (CURRENT) USE OF ASPIRIN 09/04/2016 NANCY KEARNEY Ot Z79.899 OTHER DIRECTOR FUNERAL (CURRENT) DRUG THERAPY 09/04/2016 NANCY KEARNEY Ot 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 LOWER LOBE, RIGHT 09/04/2016 NANCY KEARNEY Ot Z01.89 ENCOUNTER FOR OTHER SPECIFIED SPECIAL EX 09/10/2016 NNACY KEARNEY Ot 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 LOWER LOBE, RIGHT 09/10/2016 CHRISTEL, BOBAN N Ot E11.9 TYPE 2 DIABETES MELLITUS WITHOUT COMPLIC 09/10/2016 NANCY KEARNEY N Ot E78.5 HYPERLIPIDEMIA, UNSPECIFIED 09/10/2016 NANCY KEARNEY N Ot I10 ESSENTIAL (PRIMARY) HYPERTENSION 09/10/2016 NANCY KEARNEY N Ot I25.10 ATHSCL HEART DISEASE OF [place] CORONARY 09/10/2016 NANCY KEARNEY N Ot J44.9 CHRONIC OBSTRUCTIVE PULMONARY DISEASE, U 09/10/2016 NANCY KEARNEY N Ot R19.5 OTHER FECAL ABNORMALITIES 09/10/2016 NANCY KEARNEY N Ot Z51.11 ENCOUNTER FOR ANTINEOPLASTIC CHEMOTHERAP 09/10/2016 NANCY KEARNEY N Ot Z79.82 DIRECTOR FUNERAL (CURRENT) USE OF ASPIRIN 09/10/2016 CHRISTEL NANCY N Ot Z79.899 OTHER DIRECTOR FUNERAL (CURRENT) DRUG THERAPY 09/25/2016 NANCY KEARNEY N Ot 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 LOWER LOBE, RIGHT 09/25/2016 CHRISTEL BERTOCASSY N Ot Z01.89 ENCOUNTER FOR OTHER SPECIFIED SPECIAL EX 10/03/2016 NANCY KEARNEY N Ot 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 LOWER LOBE, RIGHT 10/03/2016 NANCY KEARNEY N Ot E11.9 TYPE 2 DIABETES MELLITUS WITHOUT COMPLIC 10/03/2016 NANCY KEARNEY N Ot E78.5 HYPERLIPIDEMIA, UNSPECIFIED 10/03/2016 NANCY KEARNEY N Ot I10 ESSENTIAL (PRIMARY) HYPERTENSION 10/03/2016 NANCY KEARNEY N Ot I25.10 ATHSCL HEART DISEASE OF [place] CORONARY 10/03/2016 NANCY KEARNEY N Ot J44.9 CHRONIC OBSTRUCTIVE PULMONARY DISEASE, U 10/03/2016 NANCY KEARNEY N Ot R19.5 OTHER FECAL ABNORMALITIES 10/03/2016 NANCY KEARNEY N Ot Z51.11 ENCOUNTER FOR ANTINEOPLASTIC CHEMOTHERAP 10/03/2016 CHRISTEL BERTOCASSY N Ot Z79.82 DIRECTOR FUNERAL (CURRENT) USE OF ASPIRIN 10/03/2016 CHRISTEL NANCY N Ot Z79.899 OTHER SKILLED NURSING (CURRENT) DRUG THERAPY 10/04/2016 NANCY KEARNEY N Ot 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 LOWER LOBE, RIGHT 10/04/2016 CHRISTEL BERTOCASSY N Ot Z01.89 ENCOUNTER FOR OTHER SPECIFIED SPECIAL EX 11/13/2016 NANCY KEARNEY N Ot 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 LOWER LOBE, RIGHT 11/13/2016 NANCY KEARNEY N Ot E11.9 TYPE 2 DIABETES MELLITUS WITHOUT COMPLIC 11/13/2016 NANCY KEARNEY N Ot E78.5 HYPERLIPIDEMIA, UNSPECIFIED 11/13/2016 NANCY KEARNEY N Ot I10 ESSENTIAL (PRIMARY) HYPERTENSION 11/13/2016 NANCY KEARNEY N Ot I25.10 ATHSCL HEART DISEASE OF [place] CORONARY 11/13/2016 CHRISTEL BERTOCASSY N Ot J44.9 CHRONIC OBSTRUCTIVE PULMONARY DISEASE, U 11/13/2016 NANCY KEARNEY N Ot R19.5 OTHER FECAL ABNORMALITIES 11/13/2016 NANCY KEARNEY N Ot Z51.0 ENCOUNTER FOR ANTINEOPLASTIC RADIATION T 11/13/2016 CHRISTEL NANCY N Ot Z51.11 ENCOUNTER FOR ANTINEOPLASTIC CHEMOTHERAP 11/13/2016 CHRISTELNANCY N Ot Z79.82 DIRECTOR FUNERAL (CURRENT) USE OF ASPIRIN 11/13/2016 CHRISTELNANCY N Ot Z79.899 OTHER SKILLED NURSING (CURRENT) DRUG THERAPY 11/14/2016 NANCY KEARNEY N Ot 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 LOWER LOBE, RIGHT 11/14/2016 NANCY KEARNEY N Ot E11.9 TYPE 2 DIABETES MELLITUS WITHOUT COMPLIC 11/14/2016 NANCY KEARNEY N Ot E78.5 HYPERLIPIDEMIA, UNSPECIFIED 11/14/2016 NANCY KEARNEY N Ot I10 ESSENTIAL (PRIMARY) HYPERTENSION 11/14/2016 NANCY KEARNEY N Ot I25.10 ATHSCL HEART DISEASE OF [place] CORONARY 11/14/2016 CHRISTEL NANCY N Ot J44.9 CHRONIC OBSTRUCTIVE PULMONARY DISEASE, U 11/14/2016 NANCY KEARNEY N Ot R19.5 OTHER FECAL ABNORMALITIES 11/14/2016 CHRISTELNANCY N Ot Z51.0 ENCOUNTER FOR ANTINEOPLASTIC RADIATION T 11/14/2016 NANCY KEARNEY N Ot Z51.11 ENCOUNTER FOR ANTINEOPLASTIC CHEMOTHERAP 11/14/2016 NANCY KEARNEY N Ot Z79.82 SKILLED NURSING (CURRENT) USE OF ASPIRIN 11/14/2016 CHRISTELNANCY LINARES N Ot Z79.899 OTHER SKILLED NURSING (CURRENT) DRUG THERAPY 12/11/2016 JOSETTE ALEXIS TIRE ADJUSTER Ot 162.9 MAL DULCE MARIA BRONCH/LUNG NOS Procedures Code Description Performed By Performed On 59.79 URIN INCONTIN REPAIR NEC 06/22/2009 65.61 OTH REMOVE BOTH OVARIES/ TUBES 06/22/2009 68.51 ASSIST VAG HYSTER(LAVH) 06/22/2009 70.50 CYSTOCEL/RECTOCEL REPAIR 06/22/2009 70.92 CUL-DE-SAC OPERATION [facility] 06/22/2009 39.79 OTHER ENDOVASCULAR PROCEDURES ON OTHER V 05/28/2014 88.42 CONTRAST AORTOGRAM 05/28/2014 88.47 CONTR ABD ARTERIOGRM [facility] 05/28/2014 Results Test Result Range Hemoglobin A1c - 02/29/16 10:00 Hemoglobin A1c 6.4 % 4.5-6.2 Comprehensive metabolic panel - 02/29/16 10:00 Serum or plasma sodium measurement (moles/volume) 141 mmol/L 135-145 Serum or plasma potassium measurement (moles/volume) 3.8 mmol/L 3.6-5.0 Serum or plasma chloride measurement (moles/volume) 105 mmol/L 98-107 Carbon dioxide 24 mmol/L 21-32 Serum or plasma anion gap determination (moles/volume) 12 mmol/L 5-14 Serum or plasma urea nitrogen measurement (mass/volume) 11 mg/dL 7-18 Serum or plasma creatinine measurement (mass/volume) 0.67 mg/dL 0.60-1.30 Serum or plasma urea nitrogen/creatinine mass ratio 16 NRG Serum or plasma creatinine measurement with calculation of estimated glomerular filtration rate > NRG Serum or plasma glucose measurement (mass/volume) 164 mg/dL 70-105 Serum or plasma calcium measurement (mass/volume) 8.9 mg/dL 8.5-10.1 Serum or plasma total bilirubin measurement (mass/volume) 0.2 mg/dL 0.1-1.0 Serum or plasma alkaline phosphatase measurement (enzymatic activity/volume) 61 U/L 40-136 Serum or plasma aspartate aminotransferase measurement (enzymatic activity/ volume) 20 U/L 5-34 Serum or plasma alanine aminotransferase measurement (enzymatic activity/volume ) 33 U/L 0-55 Serum or plasma protein measurement (mass/volume) 6.1 g/dL 6.4-8.2 Serum or plasma albumin measurement (mass/volume) 3.9 g/dL 3.2-4.5 THYROID STIMULATING HORMONE - 02/29/16 10:00 THYROID STIMULATING HORMONE 0.82 u[iU]/mL 0.35-4.94 Complete blood count (CBC) with automated white blood cell (WBC) differential - 02/29/16 10:05 Blood leukocytes automated count (number/volume) 4.9 10*3/uL 4.3-11.0 Blood erythrocytes automated count (number/volume) 4.02 10*6/uL 4.35-5.85 Venous blood hemoglobin measurement (mass/volume) 11.9 g/dL 11.5-16.0 Blood hematocrit (volume fraction) 37 % 35-52 Automated erythrocyte mean corpuscular volume 91 [foz_us] 80-99 Automated erythrocyte mean corpuscular hemoglobin (mass per erythrocyte) 30 pg 25-34 Automated erythrocyte mean corpuscular hemoglobin concentration measurement ( mass/volume) 33 g/dL 32-36 Automated erythrocyte distribution width ratio 17.3 % 10.0-14.5 Automated blood platelet count (count/volume) 197 10*3/uL 130-400 Automated blood platelet mean volume measurement 10.0 [foz_us] 7.4-10.4 Automated blood neutrophils/100 leukocytes 53 % 42-75 Automated blood lymphocytes/100 leukocytes 31 % 12-44 Blood monocytes/100 leukocytes 10 % 0-12 Automated blood eosinophils/100 leukocytes 5 % 0-10 Automated blood basophils/100 leukocytes 1 % 0-10 Blood neutrophils automated count (number/volume) 2.6 10*3 1.8-7.8 Blood lymphocytes automated count (number/volume) 1.5 10*3 1.0-4.0 Blood monocytes automated count (number/volume) 0.5 10*3 0.0-1.0 Automated eosinophil count 0.2 10*3/uL 0.0-0.3 Automated blood basophil count (count/volume) 0.0 10*3/uL 0.0-0.1 Comprehensive metabolic panel - 02/29/16 10:05 Serum or plasma sodium measurement (moles/volume) 141 mmol/L 135-145 Serum or plasma potassium measurement (moles/volume) 3.8 mmol/L 3.6-5.0 Serum or plasma chloride measurement (moles/volume) 105 mmol/L 98-107 Carbon dioxide 24 mmol/L 21-32 Serum or plasma anion gap determination (moles/volume) 12 mmol/L 5-14 Serum or plasma urea nitrogen measurement (mass/volume) 11 mg/dL 7-18 Serum or plasma creatinine measurement (mass/volume) 0.67 mg/dL 0.60-1.30 Serum or plasma urea nitrogen/creatinine mass ratio 16 NRG Serum or plasma creatinine measurement with calculation of estimated glomerular filtration rate > NRG Serum or plasma glucose measurement (mass/volume) 164 mg/dL 70-105 Serum or plasma calcium measurement (mass/volume) 8.9 mg/dL 8.5-10.1 Serum or plasma total bilirubin measurement (mass/volume) 0.2 mg/dL 0.1-1.0 Serum or plasma alkaline phosphatase measurement (enzymatic activity/volume) 61 U/L 40-136 Serum or plasma aspartate aminotransferase measurement (enzymatic activity/ volume) 20 U/L 5-34 Serum or plasma alanine aminotransferase measurement (enzymatic activity/volume ) 33 U/L 0-55 Serum or plasma protein measurement (mass/volume) 6.1 g/dL 6.4-8.2 Serum or plasma albumin measurement (mass/volume) 3.9 g/dL 3.2-4.5 Magnesium - 02/29/16 10:05 Magnesium 1.7 mg/dL 1.8-2.4 Automated blood complete blood count (hemogram) panel - 02/29/16 10:05 Blood leukocytes automated count (number/volume) 4.9 10*3/uL 4.3-11.0 Blood erythrocytes automated count (number/volume) 4.02 10*6/uL 4.35-5.85 Venous blood hemoglobin measurement (mass/volume) 11.9 g/dL 11.5-16.0 Blood hematocrit (volume fraction) 37 % 35-52 Automated erythrocyte mean corpuscular volume 91 [foz_us] 80-99 Automated erythrocyte mean corpuscular hemoglobin (mass per erythrocyte) 30 pg 25-34 Automated erythrocyte mean corpuscular hemoglobin concentration measurement ( mass/volume) 33 g/dL 32-36 Automated erythrocyte distribution width ratio 17.3 % 10.0-14.5 Automated blood platelet count (count/volume) 197 10*3/uL 130-400 Automated blood platelet mean volume measurement 10.0 [foz_us] 7.4-10.4 Hemoglobin A1c - 02/29/16 10:05 Hemoglobin A1c 6.4 % 4.5-6.2 Comprehensive metabolic panel - 02/29/16 10:05 Serum or plasma sodium measurement (moles/volume) 141 mmol/L 135-145 Serum or plasma potassium measurement (moles/volume) 3.8 mmol/L 3.6-5.0 Serum or plasma chloride measurement (moles/volume) 105 mmol/L 98-107 Carbon dioxide 24 mmol/L 21-32 Serum or plasma anion gap determination (moles/volume) 12 mmol/L 5-14 Serum or plasma urea nitrogen measurement (mass/volume) 11 mg/dL 7-18 Serum or plasma creatinine measurement (mass/volume) 0.67 mg/dL 0.60-1.30 Serum or plasma urea nitrogen/creatinine mass ratio 16 NRG Serum or plasma creatinine measurement with calculation of estimated glomerular filtration rate > NRG Serum or plasma glucose measurement (mass/volume) 164 mg/dL 70-105 Serum or plasma calcium measurement (mass/volume) 8.9 mg/dL 8.5-10.1 Serum or plasma total bilirubin measurement (mass/volume) 0.2 mg/dL 0.1-1.0 Serum or plasma alkaline phosphatase measurement (enzymatic activity/volume) 61 U/L 40-136 Serum or plasma aspartate aminotransferase measurement (enzymatic activity/ volume) 20 U/L 5-34 Serum or plasma alanine aminotransferase measurement (enzymatic activity/volume ) 33 U/L 0-55 Serum or plasma protein measurement (mass/volume) 6.1 g/dL 6.4-8.2 Serum or plasma albumin measurement (mass/volume) 3.9 g/dL 3.2-4.5 THYROID STIMULATING HORMONE - 02/29/16 10:05 THYROID STIMULATING HORMONE 0.82 u[iU]/mL 0.35-4.94 Lipid 1996 panel - 03/28/16 11:30 Serum or plasma triglyceride measurement (mass/volume) 151 mg/dL <150 Serum or plasma cholesterol measurement (mass/volume) 167 mg/dL < 200 Serum or plasma cholesterol in HDL measurement (mass/volume) 57 mg/ dL 40-60 Cholesterol in LDL [mass/volume] in serum or plasma by direct assay 89 mg/dL 1-129 Serum or plasma cholesterol in VLDL measurement (mass/volume) 30 mg/ dL 5-40 Complete blood count (CBC) with automated white blood cell (WBC) differential - 05/17/16 23:48 Blood leukocytes automated count (number/volume) 6.1 10*3/uL 4.3-11.0 Blood erythrocytes automated count (number/volume) 3.79 10*6/uL 4.35-5.85 Venous blood hemoglobin measurement (mass/volume) 11.9 g/dL 11.5-16.0 Blood hematocrit (volume fraction) 37 % 35-52 Automated erythrocyte mean corpuscular volume 97 [foz_us] 80-99 Automated erythrocyte mean corpuscular hemoglobin (mass per erythrocyte) 31 pg 25-34 Automated erythrocyte mean corpuscular hemoglobin concentration measurement ( mass/volume) 32 g/dL 32-36 Automated erythrocyte distribution width ratio 16.5 % 10.0-14.5 Automated blood platelet count (count/volume) 152 10*3/uL 130-400 Automated blood platelet mean volume measurement 9.7 [foz_us] 7.4-10.4 Automated blood neutrophils/100 leukocytes 54 % 42-75 Automated blood lymphocytes/100 leukocytes 31 % 12-44 Blood monocytes/100 leukocytes 12 % 0-12 Automated blood eosinophils/100 leukocytes 3 % 0-10 Automated blood basophils/100 leukocytes 0 % 0-10 Blood neutrophils automated count (number/volume) 3.3 10*3 1.8-7.8 Blood lymphocytes automated count (number/volume) 1.9 10*3 1.0-4.0 Blood monocytes automated count (number/volume) 0.8 10*3 0.0-1.0 Automated eosinophil count 0.2 10*3/uL 0.0-0.3 Automated blood basophil count (count/volume) 0.0 10*3/uL 0.0-0.1 Comprehensive metabolic panel - 05/17/16 23:48 Serum or plasma sodium measurement (moles/volume) 140 mmol/L 135-145 Serum or plasma potassium measurement (moles/volume) 4.1 mmol/L 3.6-5.0 Serum or plasma chloride measurement (moles/volume) 103 mmol/L 98-107 Carbon dioxide 25 mmol/L 21-32 Serum or plasma anion gap determination (moles/volume) 12 mmol/L 5-14 Serum or plasma urea nitrogen measurement (mass/volume) 18 mg/dL 7-18 Serum or plasma creatinine measurement (mass/volume) 0.75 mg/dL 0.60-1.30 Serum or plasma urea nitrogen/creatinine mass ratio 24 NRG Serum or plasma creatinine measurement with calculation of estimated glomerular filtration rate > NRG Serum or plasma glucose measurement (mass/volume) 236 mg/dL 70-105 Serum or plasma calcium measurement (mass/volume) 9.3 mg/dL 8.5-10.1 Serum or plasma total bilirubin measurement (mass/volume) 0.2 mg/dL 0.1-1.0 Serum or plasma alkaline phosphatase measurement (enzymatic activity/volume) 61 U/L 40-136 Serum or plasma aspartate aminotransferase measurement (enzymatic activity/ volume) 37 U/L 5-34 Serum or plasma alanine aminotransferase measurement (enzymatic activity/volume ) 37 U/L 0-55 Serum or plasma protein measurement (mass/volume) 6.3 g/dL 6.4-8.2 Serum or plasma albumin measurement (mass/volume) 4.0 g/dL 3.2-4.5 Serum or plasma creatine kinase measurement (enzymatic activity/volume) - 05/17 23:48 Serum or plasma creatine kinase measurement (enzymatic activity/volume) 26 U/L 29-168 Influenza virus A and B antigen detection - 05/17/16 23:54 FLU RESULT NEGATIVE FOR INFLUENZA A AND B ANTIGENS BY IA NRG Complete urinalysis with reflex to culture - 05/18/16 00:28 Urine color determination YELLOW NRG Urine clarity determination CLEAR NRG Urine pH measurement by test strip 5 5-9 Specific gravity of urine by test strip 1.030 1.016- 1.022 Urine protein assay by test strip, semi-quantitative NEGATIVE NEGATIVE Urine glucose detection by automated test strip NEGATIVE NEGATIVE Erythrocytes detection in urine sediment by light microscopy NEGATIVE NEGATIVE Urine ketones detection by automated test strip NEGATIVE NEGATIVE Urine nitrite detection by test strip NEGATIVE NEGATIVE Urine total bilirubin detection by test strip NEGATIVE NEGATIVE Urine urobilinogen measurement by automated test strip (mass/volume) NORMAL NORMAL Urine leukocyte esterase detection by dipstick 1+ NEGATIVE Automated urine sediment erythrocyte count by microscopy (number/high power field) NONE NRG Automated urine sediment leukocyte count by microscopy (number/high power field ) [HPF] NRG Bacteria detection in urine sediment by light microscopy NEGATIVE NRG Squamous epithelial cells detection in urine sediment by light microscopy 0-2 NRG Crystals detection in urine sediment by light microscopy PRESENT NRG Casts detection in urine sediment by light microscopy NONE NRG Mucus detection in urine sediment by light microscopy SMALL NRG Complete urinalysis with reflex to culture NO NRG Calcium oxalate crystals detection in urine sediment by light microscopy MODERATE NRG Encounters ACCT No. Visit Date/Time Discharge Status Pt. Type Provider Facility Loc./Unit Complaint [id number] 11/14/2016 00:14:00 11/14/2016 23:59:59 CLS Preadmit NANCY KEARNEY [facility] ONC [id number] 09/26/2016 11:10:00 11/13/2016 00:01:00 DIS Outpatient NANCY KEARNEY [facility] ONC [id number] 09/03/2016 10:51:00 09/03/2016 23:59:59 CLS Outpatient NANCY KEARNEY [facility] CARD LUNG CANCER,RESTAGE NEOPLASM [id number] 05/29/2016 10:30:00 07/10/2016 00:01:00 DIS Outpatient NANCY KEARNEY [facility] ONC [id number] 05/30/2016 13:55:00 05/30/2016 23:59:59 CLS Outpatient JOSETTE ALEXIS [facility] RAD PAIN,UNSTEADY GAIT [id number] 05/17/2016 23:19:00 05/18/2016 01:13:00 DIS Emergency KRISS WORTHY MD [facility] ER FEVER, STAGE 4 LUNG CANCER [id number] 05/02/2016 11:01:00 05/02/2016 23:59:59 CLS Outpatient HANNAH FRENCH, DAMION Alvarenga [facility] LAB [id number] 04/30/2016 10:38:00 04/30/2016 23:59:59 CLS Outpatient NANCY KEARNEY [facility] CARD LUNG CA [id number] 04/29/2016 00:35:00 04/29/2016 03:58:00 DIS Emergency KRISS WORTHY MD [facility] ER KNEE PAIN [id number] 03/28/2016 11:09:00 04/09/2016 10:11:00 DIS Outpatient NANCY KEARNEY [facility] ONC [id number] 03/28/2016 12:07:00 03/28/2016 23:59:59 CLS Outpatient KASSANDRA COSTA MD [facility] LAB [id number] 03/21/2016 15:31:00 03/21/2016 23:59:59 CLS Outpatient JOSETTE ALEXIS TIRE ADJUSTER [facility] RAD CHAO LEG EDEMA, CHAO LOWER EXTREMITY PAIN [id number] 02/29/2016 10:43:00 02/29/2016 23:59:59 CLS Outpatient KASSANDRA COSTA MD [facility] LAB [id number] 02/28/2016 11:07:00 02/28/2016 23:59:59 CLS Outpatient KASSANDRA COSTA MD [facility] RAD SCREENING [id number] 02/08/2016 14:25:00 02/08/2016 23:59:59 CLS Outpatient JOSETTE ALEXIS S TIRE ADJUSTER [facility] ONC [id number] 01/17/2016 12:03:00 01/17/2016 23:59:59 CLS Outpatient JOSETTE ALEXIS S TIRE ADJUSTER [facility] RAD DIZZINESS,UNSTEADY GAIT,LUNG CANCER [id number] 01/17/2016 09:44:00 01/17/2016 23:59:59 CLS Outpatient ALEXIS, HILAH S TIRE ADJUSTER [facility] ONC [id number] 01/17/2016 09:45:00 01/17/2016 00:01:00 DIS Outpatient NANCY KEARNEY Leonel [facility] ONC [id number] 12/20/2015 11:03:00 12/20/2015 23:59:59 CLS Outpatient ALEXIS HILAH S TIRE ADJUSTER [facility] CARD LUNG CANCER [id number] 11/30/2015 14:01:00 11/30/2015 23:59:59 CLS Outpatient ALEXIS, HILAH S TIRE ADJUSTER [facility] ONC [id number] 11/16/2015 12:53:00 11/16/2015 23:59:59 CLS Outpatient JOSETTE ALEXIS S TIRE ADJUSTER [facility] ONC [id number] 10/26/2015 10:38:00 10/26/2015 23:59:59 CLS Outpatient KASSANDRA COSTA MD [facility] LAB [id number] 10/12/2015 08:50:00 10/16/2015 00:01:00 DIS Outpatient NANCY KEARNEY [facility] ONC [id number] 09/27/2015 13:59:00 09/27/2015 23:59:59 CLS Outpatient ALEXIS, HILAH S TIRE ADJUSTER [facility] ONC [id number] 09/22/2015 11:47:00 09/22/2015 23:59:59 CLS Outpatient ALEXIS, HILAH S TIRE ADJUSTER [facility] CARD LUNG CANCER [id number] 09/05/2015 15:08:00 09/05/2015 23:59:59 CLS Outpatient ALEXIS, HILAH S TIRE ADJUSTER [facility] ONC [id number] 07/18/2015 15:42:00 07/18/2015 23:59:59 CLS Outpatient ALEXIS, HILAH S TIRE ADJUSTER [facility] RAD [id number] 07/18/2015 14:13:00 07/18/2015 23:59:59 CLS Outpatient ALEXIS HILAH S TIRE ADJUSTER [facility] ONC [id number] 07/14/2015 07:55:00 07/14/2015 23:59:59 CLS Outpatient REYES MD, TRINA Mayes [facility] RAD NSCLC, NONTOXIC SINGLE NODULE [id number] 07/11/2015 14:22:00 07/11/2015 00:01:00 DIS Outpatient NANCY KEARNEY [facility] ONC [id number] 06/27/2015 10:42:00 06/27/2015 23:59:59 CLS Outpatient ALEXIS, HILAH S TIRE ADJUSTER [facility] ONC [id number] 05/09/2015 14:19:00 05/09/2015 23:59:59 CLS Outpatient ALEXIS, HILAH S TIRE ADJUSTER [facility] RAD [id number] 05/09/2015 13:02:00 05/09/2015 23:59:59 CLS Outpatient ALEXIS HILAH S TIRE ADJUSTER [facility] ONC [id number] 04/12/2015 10:35:00 04/12/2015 23:59:59 CLS Outpatient ALEXIS, HILBRENDAN S TIRE ADJUSTER [facility] CARD LUNG CA [id number] 03/29/2015 13:14:00 04/06/2015 00:01:00 DIS Outpatient NANCY KEARNEY Leonel [facility] ONC [id number] 03/22/2015 09:50:00 03/22/2015 23:59:59 CLS Outpatient ALEXISCHINAAH S TIRE ADJUSTER [facility] ONC [id number] 03/03/2015 13:33:00 03/03/2015 23:59:59 CLS Outpatient ALEXIS, HILAH S TIRE ADJUSTER [facility] ONC [id number] 02/15/2015 08:19:00 02/15/2015 23:59:59 CLS Outpatient ALEXIS, HILAH S TIRE ADJUSTER [facility] RAD LUNG CANCER [id number] 01/25/2015 12:58:00 01/25/2015 23:59:59 CLS Outpatient ALEXISCHINAAH S TIRE ADJUSTER [facility] ONC [id number] 01/17/2015 15:00:00 01/17/2015 23:59:59 CLS Outpatient NANCY KEARNEY Leonel [facility] ONC [id number] 01/10/2015 10:01:00 01/12/2015 00:01:00 DIS Outpatient CHRISTELNANCY Leonel [facility] ONC [id number] 11/24/2014 13:00:00 11/24/2014 23:59:59 CLS Outpatient CHINA ALEXISAH S TIRE ADJUSTER [facility] ONC [id number] 10/12/2014 10:48:00 10/12/2014 23:59:59 CLS Outpatient CHRISTEL, BERTOCASSY Castaneda [facility] CARD LUNG CANCER [id number] 09/29/2014 06:06:00 09/29/2014 10:40:00 DIS Outpatient ISACC HILARIO MD [facility] LUNG CANCER [id number] 09/27/2014 07:36:00 09/27/2014 23:59:59 CLS Outpatient ISACC HILARIO MD [facility] PREOP LUNG CANCER [id number] 08/27/2014 11:21:00 08/27/2014 23:59:59 CLS Outpatient ALEXISCHINABRENDAN Cj JERRICA [facility] ONC [id number] 08/16/2014 09:55:00 08/16/2014 23:59:59 CLS Outpatient NANCY KEARNEY [facility] ONC [id number] 07/22/2014 16:13:00 07/22/2014 23:59:59 CLS Outpatient CONNIE FRENCH, JOSHUA Velarde Via [facility] RAD LUNG CANCER [id number] 07/19/2014 07:30:00 07/19/2014 23:59:59 CLS Outpatient OTHER, UNLISTED Via [facility] RAD LUNG CANCER [id number] 07/19/2014 07:27:00 07/19/2014 23:59:59 CLS Outpatient HANNAH FRENCH, DAMION Alvarenga [facility] CARD CAD HLE HTN DIABETES [id number] 07/16/2014 11:03:00 07/16/2014 23:59:59 CLS Outpatient JAMILA DE LA CRUZ Via [facility] CARD CAD HLE HTN DIABETES [id number] 06/23/2014 16:01:00 06/23/2014 23:59:59 CLS Outpatient LEWIS POST DO [facility] RT COPD ASTHMA [id number] 06/17/2014 14:04:00 06/17/2014 23:59:59 CLS Outpatient KASSANDRA COSTA MD Via [facility] RAD LEFT GROIN PAIN, POST PROCEDURE [id number] 06/15/2014 07:29:00 06/15/2014 23:59:59 CLS Outpatient KASSANDRA COSTA MD [facility] RAD LUNG CANCER [id number] 06/07/2014 08:20:00 06/07/2014 17:15:00 DIS Outpatient KASSANDRA COSTA MD [facility] RAD PULMONARY LESIONS [id number] 06/02/2014 01:32:00 06/02/2014 02:30:00 DIS Emergency ZAYNAB FRENCH, KRISS Mayes [facility] ER POST OP PAIN [id number] 05/28/2014 13:17:00 06/01/2014 14:05:00 DIS Inpatient KASSANDRA COSTA MD [facility] CSD GASTRIC BLEED [id number] 05/28/2014 08:59:00 05/28/2014 23:59:59 CLS Outpatient KASSANDRA COSTA MD [facility] RAD ABN CT ABD [id number] 11/16/2013 08:50:00 11/16/2013 23:59:59 CLS Outpatient KASSANDRA COSTA MD [facility] RAD SCREENING [id number] 10/05/2015 16:55:00 ACT Inpatient KASSANDRA COSTA MD [facility] 4TH INFLUENZA A, N/V/D, SOA, H/O LUNG CA, UTI, VOLUME [id number] 06/23/2014 16:01:00 Document Registration [id number] 06/23/2014 16:01:00 Document Registration [id number] 08/13/2012 10:13:00 Document Registration [id number] 01/15/2012 12:09:00 Document Registration [id number] 10/23/2011 09:03:00 Document Registration [id number] 08/14/2011 13:36:00 Document Registration [id number] 07/30/2011 08:35:00 Document Registration [id number] 05/15/2011 09:03:00 Document Registration [id number] 06/16/2010 07:41:00 Document Registration [id number] 01/19/2010 14:06:00 Document Registration [id number] 11/30/2009 08:41:00 Document Registration [id number] 11/23/2009 09:46:00 Document Registration [id number] 06/17/2009 13:36:00 Document Registration [id number] 04/28/2009 10:30:00 Document Registration [id number] 04/06/2009 08:05:00 Document Registration
[2017-08-07 06:50] VITALS: BP 135/62
[2017-08-07] MEDS ORDERED: fentaNYL INJECTION 100 MCG/2 ML AMP ONE (07:12)
[2017-08-07] MEDS ORDERED: MIDAZOLAM 2 MG/2 ML (VERSED) VIAL ONE (07:12)
[2017-08-07] MEDS ORDERED: ROCURONIUM 50 MG/5 ML (ZEMURON) VIAL IV ONE (07:13)
[2017-08-07] MEDS ORDERED: ONDANSETRON 4 MG/2 ML (SDV) Z0FRAN ONE (07:13)
[2017-08-07] MEDS ORDERED: LIDOCAINE PF 2% 5 ML (XYLOCAINE) VIAL ONE (07:13)
[2017-08-07] MEDS ORDERED: proPOfol 200 MG/20 ML (DIPRIVAN) VIAL IV ONE (07:13)
[2017-08-07] MEDS ORDERED: LACTATED RINGERS 1,000 ML IV PRN (07:33)
[2017-08-07] MEDS ORDERED: ceFAZolin 2 GM/50 ML NS 50 ML ONE (08:09)
--- NOTE | 2017-08-07 08:23 | Progress Note-Pre Operative ---
Pre-Operative Progress Note H&P Reviewed The H&P was reviewed, patient examined and no changes noted. Date Seen by Provider: Aug 07, 2017 Time Seen by Provider: 08:22 Date H&P Reviewed: Aug 07, 2017 Time H&P Reviewed: 08:22 Pre-Operative Diagnosis: right pleural effusion, lung cancer CAROLE MCKINNON DO Aug 07, 2017 08:23
[2017-08-07] MEDS ORDERED: GEMF600T3 PO (08:30)
[2017-08-07] MEDS ORDERED: ceFAZolin 2 GM/NS 50 ML IV ONE (08:30)
[2017-08-07] MEDS ORDERED: OMEP20TA7 PO (08:40)
[2017-08-07] MEDS ORDERED: VNL37.5T PO (08:40)
[2017-08-07] MEDS ORDERED: LORA0.5T PO (08:40)
[2017-08-07] MEDS ORDERED: MELA5CAP PO (08:40)
[2017-08-07] MEDS ORDERED: TRAZ-28 PO (08:40)
[2017-08-07] MEDS ORDERED: SERT100T8 PO (08:40)
[2017-08-07] MEDS ORDERED: OXYC-465 PO (08:40)
[2017-08-07] MEDS ORDERED: SITA100T12 PO (08:40)
[2017-08-07] MEDS ORDERED: ESMOLOL 100 MG/10 ML (BREVIBLOC) VIAL ONE (08:46)
--- NOTE | 2017-08-07 09:02 | Progress Note-Post Operative ---
Post-Operative Progess Note Surgeon (s)/Director Diabetes (s) Surgeon CAROLE MCKINNON DO Director Diabetes: na Pre-Operative Diagnosis right pleural effusion, lung cancer Post-Operative Diagnosis same Procedure & Operative Findings Date of Procedure 08/07/17 Procedure Performed/Findings right chest pleur-x catheter placement u/s guided Anesthesia Type mac c local Estimated Blood Loss Estimated blood loss (mL): min Specimens/Packing Specimens Removed pleural fluid CAROLE MCKINNON DO Aug 07, 2017 09:02
--- NOTE | 2017-08-07 09:06 | Discharge Inst-Simple/Standard ---
Discharge Inst-Standard Patient Instructions/Follow Up Plan of Care/Instructions/FU: 2 weeks Sharon Activity as Tolerated: No Discharge Diet: Regular Diet Other Inst to Patient Follow up Appt: Make appointment for 2 week. Instructions: No lifting greater than 10 pounds. No strenuous activity. May shower in 24 hours, no tub bath or soaking. Use incentive spirometer at home as directed. No Smoking Skin/Wound Care: May remove bandages and replace. Symptoms to Report: Appetite Changes, Extremity Discoloration, Numbness/Tingling, Swelling Increased , Bleeding Excessive, Eyesight Changes, Pain Increased, Urine Color Change, Constipation(Persistent), Fever over 101 degree F, Pain/Pressure in chest, Urinating Difficulty, Cough Up/Vomit Blood, Heart Beat Irreg/Pounding, Pain/ Pressure in jaw, Vaginal Bleeding Increase, Cramps in feet or legs, Lightheadedness, Pain/Pressure in shoulder, Diarrhea(Persistent), Memory Changes Suddenly, Questions/Concerns, Weight gain consecutive days, Dizziness/ Fainting, Nausea/Vomiting, Shortness of Breath, Weight gain over 2 pounds If questions or concerns contact your physician Or seek help at emergency department. CAROLE MCKINNON DO Aug 07, 2017 09:06
[2017-08-07] MEDS ORDERED: ONDANSETRON 4 MG/2 ML (SDV) Z0FRAN IVP PRN (09:15)
[2017-08-07] MEDS ORDERED: morphine INJ 10 MG/ML 1ML (SYR OR VIAL) IVP PRN (09:15)
[2017-08-07] MEDS ORDERED: MEPERIDINE (DEMEROL) INJ 50 MG/ML IVP PRN (09:15)
--- NOTE | 2017-08-07 09:28 | Diagnostic Imaging Report ---
INDICATION: Status post right PleurX catheter placement. TIME OF EXAMINATION: 09:12 a.m. COMPARISON: Correlation is made with prior study one day earlier. FINDINGS: Right sided PleurX catheter has tip overlying the apex. There is some infiltrate or atelectasis in the right mid and lower lung field. There has been reduction in right-sided pleural effusion. Left lung is clear. There is a left chest wall port in place. No pneumothorax is seen. IMPRESSION: PleurX catheter placement on the right, as described. There is no pneumothorax. There is infiltrate or atelectasis in the right mid and lower lung car[place]quillo. Dictated by: Dictated on workstation # [id number]
--- NOTE | 2017-08-07 09:29 | Diagnostic Imaging Report ---
INDICATION: Right pleural effusion. A marker was provided on the right chest for Dr. Hererra prior to Pleurx catheter placement. A moderate sized right pleural effusion is noted. IMPRESSION: Moderate right effusion. Dictated by: Dictated on workstation # [id number]
[2017-08-07 09:55] VITALS: BP 126/44
[2017-08-07 10:25] VITALS: BP 132/69
[2017-08-07 10:55] VITALS: BP 129/58
[2017-08-07 12:15] VITALS: BP 129/58
--- NOTE | 2017-08-07 19:45 | OPERATIVE REPORT ---
DATE OF SERVICE: 08/07/2017 PREOPERATIVE DIAGNOSES: 1. Right pleural effusion with metastatic colon cancer. 2. Shortness of breath. POSTOPERATIVE DIAGNOSES: 1. Right pleural effusion with metastatic colon cancer. 2. Shortness of breath. PROCEDURE: Right PleurX catheter placement. SURGEON: Carole Herrera DO ANESTHESIA: MAC with local. ESTIMATED BLOOD LOSS: Minimal. COMPLICATIONS: None. INDICATIONS: The patient is a 76-year-old female who was previously on hospice for metastatic lung cancer. She is not on hospice any further. She develops significant shortness of breath and a moderate to large pleural effusion. Dr. Ferreira PleurX catheter to be placed in the right chest for he feels she is going to have need for multiple drainages. The patient was explained the risks and benefits and alternatives of procedure and she wishes to proceed along with her family. Consent was on chart. DESCRIPTION OF PROCEDURE: The patient was taken to the operating suite. She was prepped and draped in sterile fashion. Ultrasound was used to find good location for insertion point. Right mid axillary line, a local anesthetic was infiltrated into the area and also for a tract for tunneling purposes. An 11 blade scalpel was used to make a small stab incision. An Angiocath needle was inserted through the chest wall into the chest until pleural fluid was removed. The catheter was advanced over the wire was inserted into the chest. The wire was then secured. Another stab incision was made inferiorly to the first one and the PleurX catheter was then tunneled from the inferior to the superior incision. Over the wire, a dilator was then advanced and removed. The dilator sheath was then advanced over the wire and the wire was removed along with the dilator. The PleurX catheter was then inserted through the sheath and the sheath was then removed. The subcutaneous tissues of this incision were then closed using 4-0 PolySyn. The 3-0 silk suture was then used to secure the inferior incision and also tied to the catheter. The right chest was then drained. A total of 1850 mL of strawberry blonde fluid was removed. The area was then washed and dried, and sterile bandage was applied. The patient tolerated procedure well without any complications. She was taken to the recovery room in stable condition. Job ID: [id number] DocumentID: [id number] Dictated Date: 08/07/2017 09:10:31 Process Specialist Date: 08/07/2017 19:44:56 Dictated By: CAROLE HERRERA DO
== END 2017-08-07 12:50 | disposition home or self-care (01) ==
LOC: SDC 06:28
PROVIDERS: ATTEND Surgery
DX: J90 Pleural effusion, not elsewhere classified (principal); C34.90 Malignant neoplasm of unspecified part of unspecified bronchus or lung; C79.51 Secondary malignant neoplasm of bone; Z86.718 Personal history of other venous thrombosis and embolism; J44.9 Chronic obstructive pulmonary disease, unspecified; I25.10 Atherosclerotic heart disease of native coronary artery without angina pectoris; I10 Essential (primary) hypertension; E78.2 Mixed hyperlipidemia; E11.9 Type 2 diabetes mellitus without complications; Z11.2 Encounter for screening for other bacterial diseases; Z79.899 Other long term (current) drug therapy; Z88.1 Allergy status to other antibiotic agents
CPT/HCPCS: 71045; 76604; 82962; 87081; 94664

== ENCOUNTER → 2017-08-09 | Outpatient (CLI) | payer MEDICARE ==
[~2017-08-09] VITALS: Ht 157.5 cm; Wt 92.2 kg
[~2017-08-09] MED LIST changes: +GEMF600T3 PO; +LORA0.5T PO; +MELA5CAP PO; +OMEP20TA7 PO; +OXYC-465 PO; +SERT100T8 PO; +SITA100T12 PO; +TRAZ-28 PO; +VNL37.5T PO
--- OUTSIDE RECORDS SUMMARY | 2017-08-09 10:42 | XMS REPORT | Clinical Summary ---
Author Author [facility] Organization [facility] Address Unknown Phone Unavailable Care Team Providers Care Statistical Modeler Name Role Phone Jerry Fang MD PCP Mg Mcguire MD Unavailable Edin Lacey MD Unavailable Source Comments Some departments are not documenting in the electronic medical record. If you do not see the information that you expected, contact Release of Information in the Health Information Management department at [phone] for further assistance in locating additional records.[facility] Allergies Active Allergy Reactions Severity Noted Date [...] needed. Patient instructed she will need a charter and tour bus driver to take her to exam. cyanocobalamin(+) [...] Taken Blood Pressure 137/50 07/27/2014 2:15 PM [facility] Pulse 73 07/27/2014 2:15 PM [facility] Temperature 36.8 C (98.2 F) 07/27/2014 12:11 PM [facility] Respiratory Rate - - Oxygen Saturation 93% 07/27/2014 2:15 PM [facility] Inhaled Oxygen - - Concentration Weight 84.4 kg (186 lb) 08/13/2014 1:34 PM [facility] Height 162.6 cm (5' 4") 08/13/2014 1:34 PM [facility] Body Mass Index 31.93 08/13/2014 1:34 PM [facility] Plan of Treatment Health Maintenance Due Date Last Done Comments PHYSICAL (COMPREHENSIVE) 1947 EXAM PERTUSSIS VACCINE 1953 TETANUS VACCINE 12/05/1959 BREAST CANCER SCREENING 1982 COLORECTAL CANCER 1992 SCREENING SHINGLES VACCINE 2002 OSTEOPOROSIS SCREENING 12/05/2007 PREVNAR/PNEUMOVAX (#1) 12/05/2007 INFLUENZA VACCINE 02/05/2017 Results Not on filefrom Last 3 Months
[2017-08-09 10:49] VITALS: BP 155/67
--- OUTSIDE RECORDS SUMMARY | 2017-08-09 10:50 | XMS REPORT | Continuity of Care Document ---
Author Author [facility] Organization [facility] Address Unknown Phone Unavailable Allergies Active Description Code Type Severity Reaction Onset Reported/Identified Relationship to Patient Clinical Status Yes cefaclor [id number] Drug Allergy Unknown N/A 07/14/2008 Yes Sulfa (Sulfonamide Antibiotics) [id number] Drug Allergy Unknown N/A 2008 Yes clobetasol [id number] Drug Allergy Mild RASH ITHCING 06/17/2009 Yes FLIDACORT FLIDACORT Mild RASH,ITCHING 06/17/2009 Yes egg [id number] Drug Allergy Unknown N/A 05/28/2014 Yes Geary And Derivatives [id number] Drug Allergy Unknown N/A 05/29/2014 Yes milk [id number] Drug Allergy Unknown N/A 05/29/2014 Yes soy [id number] Drug Allergy Unknown N/A 05/29/2014 Yes wheat [id number] Drug Allergy Unknown N/A 05/29/2014 Yes latex [id number] Drug Allergy Unknown N/A 09/29/2014 Medications There is no data. Problems Date Dx Coded Attending Type Code Diagnosis Diagnosed By 06/06/1010 NANCY KEARNEY Ot 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 LOWER LOBE, RIGHT 06/06/1010 NANCY KEARNEY Ot E11.9 TYPE 2 DIABETES MELLITUS WITHOUT COMPLIC 06/06/1010 NANCY KEARNEY Ot E78.5 HYPERLIPIDEMIA, UNSPECIFIED 06/06/1010 NANCY KEARNEY Ot I10 ESSENTIAL (PRIMARY) HYPERTENSION 06/06/1010 NANCY KEARNEY Ot I25.10 ATHSCL HEART DISEASE OF [place] CORONARY 06/06/1010 NANCY KEARNEY Ot J44.9 CHRONIC OBSTRUCTIVE PULMONARY DISEASE, U 06/06/1010 NANCY KEARNEY Ot R19.5 OTHER FECAL ABNORMALITIES 06/06/1010 NANCY KEARNEY Ot Z51.11 ENCOUNTER FOR ANTINEOPLASTIC CHEMOTHERAP 06/06/1010 NANCY KEARNEY Ot Z79.82 ART COORDINATOR (CURRENT) USE OF ASPIRIN 06/06/1010 NANCY KEARNEY Ot Z79.899 OTHER CUSTODIAL (CURRENT) DRUG THERAPY 05/15/2011 Ot V54.11 AFTERCARE [...] COSTA MD Ot 414.01 CORONARY ATHEROSCLEROSIS OF [place] CORON 06/01/2014 KASSANDRA COSTA MD Ot 447.2 [...] V74.8 SCREEN-BACTERIAL DIS NEC 10/07/2014 JOSETTE ALEXIS SELF PAY COLLECTOR Ot 162.5 10/07/2014 JOSETTE ALEXIS SELF PAY COLLECTOR Ot 196.1 10/07/2014 JOSETTE ALEXIS SELF PAY COLLECTOR Ot 250.00 10/07/2014 JOSETTE ALEXIS SELF PAY COLLECTOR Ot 272.4 10/07/2014 JOSETTE ALEXIS SELF PAY COLLECTOR Ot 401.9 10/07/2014 JOSETTE ALEXIS SELF PAY COLLECTOR Ot 414.00 10/07/2014 JOSETTE ALEXIS SELF PAY COLLECTOR Ot 493.20 10/07/2014 JOSETTE ALEXIS SELF PAY COLLECTOR Ot V58.66 10/07/2014 JOSETTE ALEXIS SELF PAY COLLECTOR Ot V58.69 10/14/2014 NANCY KEARNEY N Ot [...] BOBAN N Ot 573.8 12/16/2014 JOSETTE ALEXIS SELF PAY COLLECTOR Ot 162.9 12/31/2014 CHRISTEL, BOBAN N Ot 162.9 12/31/2014 CHRISTEL, BOBAN N Ot V58.81 01/03/2015 JOSETTE ALEXIS SELF PAY COLLECTOR Ot 162.9 01/10/2015 CONNIE FRENCH, JOSHUA K [...] KEARNEY N Ot V58.69 02/02/2015 ALEXISJOSETTE S SELF PAY COLLECTOR Ot 162.5 02/02/2015 ALEXISJOSETTE S SELF PAY COLLECTOR Ot 196.1 02/02/2015 ALEXISCHINAAH S SELF PAY COLLECTOR Ot 250.00 02/02/2015 VANESA CHINAAH S SELF PAY COLLECTOR Ot 272.4 02/02/2015 ALEXIS CHINAAH S SELF PAY COLLECTOR Ot 356.9 02/02/2015 ALEXIS CHINAAH S SELF PAY COLLECTOR Ot 401.9 02/02/2015 ALEXIS, CHINAAH S SELF PAY COLLECTOR Ot 414.00 02/02/2015 VANESA CHINAAH S SELF PAY COLLECTOR Ot 493.20 02/02/2015 ALEXIS JOSETTE S SELF PAY COLLECTOR Ot 528.9 02/02/2015 ALEXIS JOSETTE S SELF PAY COLLECTOR Ot V58.66 02/02/2015 ALEXIS CHINAAH S SELF PAY COLLECTOR Ot V58.69 02/02/2015 ALEXIS CHINAAH S SELF PAY COLLECTOR Ot 162.5 02/02/2015 ALEXIS CHINAAH S SELF PAY COLLECTOR Ot 196.1 02/02/2015 ALEXIS CHINAAH S SELF PAY COLLECTOR Ot 250.00 02/02/2015 ALEXIS CHINAAH S SELF PAY COLLECTOR Ot 272.4 02/02/2015 ALEXIS CHINAAH S SELF PAY COLLECTOR Ot 356.9 02/02/2015 ALEXIS CHINAAH S SELF PAY COLLECTOR Ot 401.9 02/02/2015 ALEXIS, HILAH S SELF PAY COLLECTOR Ot 414.00 02/02/2015 ALEXIS, HILAH S SELF PAY COLLECTOR Ot 493.20 02/02/2015 ALEXIS HILAH S SELF PAY COLLECTOR Ot 528.9 02/02/2015 ALEXIS CHINAAH S SELF PAY COLLECTOR Ot V58.66 02/02/2015 ALEXIS CHINAAH S SELF PAY COLLECTOR Ot V58.69 02/03/2015 NANCY KEARNEY N Ot [...] N Ot V58.69 02/17/2015 JOSETTE ALEXIS S SELF PAY COLLECTOR Ot 162.5 02/17/2015 JOSETTE ALEXIS S SELF PAY COLLECTOR Ot 196.1 02/17/2015 JOSETTE ALEXIS S SELF PAY COLLECTOR Ot 250.00 02/17/2015 JOSETTE ALEXIS S SELF PAY COLLECTOR Ot 272.4 02/17/2015 JOSETTE ALEXIS S SELF PAY COLLECTOR Ot 356.9 02/17/2015 JOSETTE ALEXIS S SELF PAY COLLECTOR Ot 401.9 02/17/2015 ALEXIS, HILAH S SELF PAY COLLECTOR Ot 414.00 02/17/2015 CHINA ALEXISAH S SELF PAY COLLECTOR Ot 493.20 02/17/2015 JOSETTE ALEXIS S SELF PAY COLLECTOR Ot 528.9 02/17/2015 JOSETTE ALEXIS S SELF PAY COLLECTOR Ot V58.66 02/17/2015 JOSETTE ALEXIS S SELF PAY COLLECTOR Ot V58.69 03/04/2015 JOSETTE ALEXIS S SELF PAY COLLECTOR Ot 162.5 03/04/2015 JOSETTE ALEXIS S SELF PAY COLLECTOR Ot 196.1 03/04/2015 ALEXISJOSETTE Corona S SELF PAY COLLECTOR Ot 250.00 03/04/2015 JOSETTE ALEXIS S SELF PAY COLLECTOR Ot 272.4 03/04/2015 JOSETTE ALEXIS S SELF PAY COLLECTOR Ot 356.9 03/04/2015 ALEXISJOSETTE Corona S SELF PAY COLLECTOR Ot 401.9 03/04/2015 ALEXISJOSETTE Corona S SELF PAY COLLECTOR Ot 414.00 03/04/2015 ALEXISJOSETTE Corona S SELF PAY COLLECTOR Ot 493.20 03/04/2015 ALEXISJOSETTE Corona S SELF PAY COLLECTOR Ot 528.9 03/04/2015 ALEXISJOSETTE Corona S SELF PAY COLLECTOR Ot V58.66 03/04/2015 JOSETTE ALEXIS S SELF PAY COLLECTOR Ot V58.69 03/08/2015 JOSETTE ALEXIS S SELF PAY COLLECTOR Ot 162.9 03/24/2015 ALEXISJOSETTE Corona S SELF PAY COLLECTOR Ot 162.5 03/24/2015 JOSETTE ALEXIS S SELF PAY COLLECTOR Ot 196.1 03/24/2015 JOSETTE ALEXIS S SELF PAY COLLECTOR Ot 250.00 03/24/2015 JOSETTE ALEXIS S SELF PAY COLLECTOR Ot 272.4 03/24/2015 JOSETTE ALEXIS S SELF PAY COLLECTOR Ot 401.9 03/24/2015 JOSETTE ALEXIS S SELF PAY COLLECTOR Ot 414.00 03/24/2015 JOSETTE ALEXIS S SELF PAY COLLECTOR Ot 493.20 03/24/2015 JOSETTE ALEXIS S SELF PAY COLLECTOR Ot 782.1 03/24/2015 JOSETTE ALEXIS S SELF PAY COLLECTOR Ot V58.66 03/24/2015 ALEXISJOSETTE Corona S SELF PAY COLLECTOR Ot V58.69 03/29/2015 CHRISTEL, BOBAN N Ot [...] BOBAN N Ot V58.69 03/31/2015 JOSETTE ALEXIS SELF PAY COLLECTOR Ot 162.9 04/06/2015 CHRISTEL, BOBAN N Ot [...] N Ot V58.69 04/13/2015 ALEXISJOSETTE Corona S SELF PAY COLLECTOR Ot 162.5 04/13/2015 ALEXISJOSETTE Corona S SELF PAY COLLECTOR Ot 196.1 04/13/2015 ALEXISJOSETTE S SELF PAY COLLECTOR Ot 250.00 04/13/2015 ALEXISCHINAAH S SELF PAY COLLECTOR Ot 272.1 04/13/2015 ALEXIS, HILAH S SELF PAY COLLECTOR Ot 272.4 04/13/2015 ALEXIS, CHINAAH S SELF PAY COLLECTOR Ot 278.00 04/13/2015 ALEXISCHINAAH S SELF PAY COLLECTOR Ot 401.9 04/13/2015 ALEXISJOSETTE S SELF PAY COLLECTOR Ot 414.00 04/13/2015 ALEXISJOSETTE S SELF PAY COLLECTOR Ot 493.20 04/13/2015 ALEXISJOSETTE S SELF PAY COLLECTOR Ot 793.19 04/13/2015 ALEXISJOSETTE S SELF PAY COLLECTOR Ot V58.69 04/13/2015 ALEXISJOSETTE S SELF PAY COLLECTOR Ot V85.35 04/14/2015 ALEXISJOSETTE S SELF PAY COLLECTOR Ot 162.5 04/14/2015 ALEXISJOSETTE S SELF PAY COLLECTOR Ot 196.1 04/14/2015 ALEXISJOSETTE S SELF PAY COLLECTOR Ot 250.00 04/14/2015 ALEXISJOSETTE S SELF PAY COLLECTOR Ot 272.4 04/14/2015 ALEXISJOSETTE S SELF PAY COLLECTOR Ot 401.9 04/14/2015 ALEXISJOSETTE S SELF PAY COLLECTOR Ot 414.00 04/14/2015 ALEXISJOSETTE S SELF PAY COLLECTOR Ot 493.20 04/14/2015 ALEXISJOSETTE S SELF PAY COLLECTOR Ot 782.1 04/14/2015 ALEXISJOSETTE S SELF PAY COLLECTOR Ot V58.66 04/14/2015 ALEXIS, CHINAAH S SELF PAY COLLECTOR Ot V58.69 04/18/2015 NANCY KEARNEY N Ot [...] KEARNEY N Ot V58.69 05/03/2015 ALEXISJOSETTE S SELF PAY COLLECTOR Ot C34.90 05/03/2015 ALEXISJOSETTE S SELF PAY COLLECTOR Ot R51 05/04/2015 ALEXISJOESTTE S SELF PAY COLLECTOR Ot 162.5 05/04/2015 ALEXIS CHINAAH S SELF PAY COLLECTOR Ot 196.1 05/04/2015 VANESA CHINAAH S SELF PAY COLLECTOR Ot 250.00 05/04/2015 ALEXISJOSETTE S SELF PAY COLLECTOR Ot 272.1 05/04/2015 ALEXIS JOSETTE S SELF PAY COLLECTOR Ot 272.4 05/04/2015 VANESA JOSETTE S SELF PAY COLLECTOR Ot 278.00 05/04/2015 ALEXIS JOSETTE S SELF PAY COLLECTOR Ot 401.9 05/04/2015 ALEXISJOSETTE Corona S SELF PAY COLLECTOR Ot 414.00 05/04/2015 ALEXISJOSETTE Corona S SELF PAY COLLECTOR Ot 493.20 05/04/2015 ALEXIS JOSETTE S SELF PAY COLLECTOR Ot 793.19 05/04/2015 ALEXISJOSETTE Corona S SELF PAY COLLECTOR Ot V58.69 05/04/2015 ALEXISJOSETTE Corona S SELF PAY COLLECTOR Ot V85.35 05/11/2015 ALXEIS JOSETTE S SELF PAY COLLECTOR Ot C34.31 05/11/2015 VANESA JOSETTE S SELF PAY COLLECTOR Ot R05 05/11/2015 ALEXIS JOSETTE S SELF PAY COLLECTOR Ot R06.00 05/20/2015 VANESA JOSETTE S SELF PAY COLLECTOR Ot C34.90 05/20/2015 VANESA JOSETTE S SELF PAY COLLECTOR Ot R51 06/14/2015 LEWIS [place] DO Ot 162.9 06/14/2015 LEWIS [place] DO Ot 493.20 06/14/2015 [place] DO Ot 786.09 06/22/2015 VANESA JOSETTE S SELF PAY COLLECTOR Ot C34.90 06/25/2015 NANCY KEARNEY N Ot [...] N Ot I25.10 ATHSCL HEART DISEASE OF [place] CORONARY 07/11/2015 NANCY KEARNEY N Ot J44.9 CHRONIC OBSTRUCTIVE PULMONARY DISEASE, U 07/11/2015 CHRISTELNANCY N Ot Z51.11 ENCOUNTER FOR ANTINEOPLASTIC CHEMOTHERAP 07/11/2015 NANCY KEARNEY N Ot Z79.82 ART COORDINATOR (CURRENT) USE OF ASPIRIN 07/11/2015 NANCY KEARNEY N Ot Z79.899 OTHER ART COORDINATOR (CURRENT) DRUG THERAPY 07/19/2015 JOSETTE ALEXIS SELF PAY COLLECTOR Ot C34.31 07/19/2015 ALEXISJOSETTE Corona SELF PAY COLLECTOR Ot E11.9 07/19/2015 ALEXISJOSETTE Corona SELF PAY COLLECTOR Ot E78.5 07/19/2015 JOSETTE ALEXIS SELF PAY COLLECTOR Ot I10 07/19/2015 JOSETTE ALEXIS SELF PAY COLLECTOR Ot I25.10 07/19/2015 ALEXISJOSETTE Corona SELF PAY COLLECTOR Ot J44.9 07/19/2015 ALEXISJOSETTE Corona SELF PAY COLLECTOR Ot Z79.82 07/19/2015 ALEXISJOSETTE Corona SELF PAY COLLECTOR Ot Z79.899 07/20/2015 ALEXISJOSETTE Corona SELF PAY COLLECTOR Ot J44.9 07/20/2015 ALEXISJOSETTE Corona SELF PAY COLLECTOR Ot R05 07/20/2015 ALEXISJOSETTE Corona SELF PAY COLLECTOR Ot J44.9 07/20/2015 ALEXISJOSETTE Corona SELF PAY COLLECTOR Ot R05 07/29/2015 REYES MD, TRINA T Ot C34.31 07/29/2015 REYES MD, TRINA T Ot E04.1 08/04/2015 ALEXISJOSETTE Corona SELF PAY COLLECTOR Ot C34.31 08/04/2015 ALEXISJOSETTE Corona SELF PAY COLLECTOR Ot E11.9 08/04/2015 ALEXISJOSETTE Corona SELF PAY COLLECTOR Ot E78.5 08/04/2015 ALEXISJOSETTE Corona SELF PAY COLLECTOR Ot I10 08/04/2015 ALEXISJOSETTE Corona SELF PAY COLLECTOR Ot I25.10 08/04/2015 ALEXISJOSETTE Corona SELF PAY COLLECTOR Ot J44.9 08/04/2015 ALEXISJOSETTE Corona SELF PAY COLLECTOR Ot Z79.82 08/04/2015 ALEXISJOSETTE Corona SELF PAY COLLECTOR Ot Z79.899 08/09/2015 NANCY KEARNEY N Ot 162.5 08/09/2015 NANCY KEARNEY N Ot 196.1 08/09/2015 NANCY KEARNEY N Ot V58.69 08/11/2015 ALEXISJOSETTE Corona SELF PAY COLLECTOR Ot C34.31 08/11/2015 VANESA JOSETTE Corona SELF PAY COLLECTOR Ot E11.9 08/11/2015 VANESA JOSETTE Corona SELF PAY COLLECTOR Ot E78.5 08/11/2015 ALEXISJOSETTE Corona S SELF PAY COLLECTOR Ot I10 08/11/2015 JOSETTE ALEXIS SELF PAY COLLECTOR Ot I25.10 08/11/2015 JOSETTE ALEXIS SELF PAY COLLECTOR Ot J44.9 08/11/2015 JOSETTE ALEXIS S SELF PAY COLLECTOR Ot Z79.82 08/11/2015 JOSETTE ALEXIS S SELF PAY COLLECTOR Ot Z79.899 08/11/2015 JOSETTE ALEXIS S SELF PAY COLLECTOR Ot J44.9 08/11/2015 JOSETTE ALEXIS S SELF PAY COLLECTOR Ot R05 08/30/2015 JOSETTE ALEXIS S SELF PAY COLLECTOR Ot C34.31 08/30/2015 JOSETTE ALEXIS S SELF PAY COLLECTOR Ot E11.9 08/30/2015 JOSETTE ALEXIS S SELF PAY COLLECTOR Ot E78.5 08/30/2015 JOSETTE ALEXIS S SELF PAY COLLECTOR Ot I10 08/30/2015 JOSETTE ALEXIS S SELF PAY COLLECTOR Ot I25.10 08/30/2015 JOSETTE ALEXIS S SELF PAY COLLECTOR Ot J44.9 08/30/2015 ALEXISJOSETTE Corona S SELF PAY COLLECTOR Ot Z79.82 08/30/2015 ALEXISJOSETTE Corona S SELF PAY COLLECTOR Ot Z79.899 09/01/2015 JOSETTE ALEXIS SELF PAY COLLECTOR Ot J44.9 09/01/2015 JOSETTE ALEXIS SELF PAY COLLECTOR Ot R05 09/01/2015 CHRISTEL, BOBAN N Ot C34.31 09/01/2015 CHRISTEL, BOBAN N Ot E11.9 09/01/2015 CHRISTEL, BOBAN N Ot E78.5 09/01/2015 CHRISTEL, BOBAN N Ot I10 09/01/2015 CHRISTEL, BOBAN N Ot I25.10 09/01/2015 CHRISTEL, BOBAN N Ot J44.9 09/01/2015 CHRISTEL, BOBAN N Ot Z51.11 09/01/2015 CHRISTEL, BOBAN N Ot Z79.82 09/01/2015 CHRISTEL, BOBAN N Ot Z79.899 09/23/2015 ALEXISJOSETTE Corona S SELF PAY COLLECTOR Ot C34.31 09/23/2015 REYES MD, TRINA Mayes Ot C34.31 09/23/2015 REYES MD, TRINA T Ot E04.1 09/27/2015 VANESA JOSETTE S SELF PAY COLLECTOR Ot C34.31 09/27/2015 JOSETTE ALEXIS SELF PAY COLLECTOR Ot E11.9 09/27/2015 JOSETTE ALEXIS SELF PAY COLLECTOR Ot E78.5 09/27/2015 JOSETTE ALEXIS SELF PAY COLLECTOR Ot I10 09/27/2015 JOSETTE ALEXIS SELF PAY COLLECTOR Ot I25.10 09/27/2015 JOSETTE ALEXIS SELF PAY COLLECTOR Ot J44.9 09/27/2015 JOSETTE ALEXIS SELF PAY COLLECTOR Ot Z79.82 09/27/2015 JOSETTE ALEXIS SELF PAY COLLECTOR Ot Z79.899 09/28/2015 CHRISTEL, BOBAN N Ot [...] MD Ot I25.10 ATHSCL HEART DISEASE OF [place] CORONARY 10/06/2015 KASSANDRA COSTA MD Ot J11.1 FLU DUE TO UNIDENTIFIED INFLUENZA VIRUS 10/06/2015 KASSANDRA COSTA MD Ot J44.9 CHRONIC OBSTRUCTIVE PULMONARY DISEASE, U 10/06/2015 KASSANDRA COSTA MD Ot N39.0 URINARY TRACT INFECTION, SITE NOT SPECIF 10/11/2015 JOSETTE ALEXIS SELF PAY COLLECTOR Ot C34.31 10/11/2015 JOSTETE ALEXIS SELF PAY COLLECTOR Ot E11.9 10/11/2015 JOSETTE ALEXIS SELF PAY COLLECTOR Ot E78.5 10/11/2015 JOSETTE ALEXIS SELF PAY COLLECTOR Ot I10 10/11/2015 JOSETTE ALEXIS S SELF PAY COLLECTOR Ot I25.10 10/11/2015 JOSETTE ALEXIS S SELF PAY COLLECTOR Ot J44.9 10/11/2015 JOSETTE ALEXIS SELF PAY COLLECTOR Ot Z79.82 10/11/2015 JOSETTE ALEXIS S SELF PAY COLLECTOR Ot Z79.899 10/12/2015 JOSETTE ALEXIS SELF PAY COLLECTOR Ot C34.31 10/16/2015 NANCY KEARNEY Ot 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 LOWER LOBE, RIGHT 10/16/2015 NANCY KEARNEY Ot E11.9 TYPE 2 DIABETES MELLITUS WITHOUT COMPLIC 10/16/2015 NANCY KEARNEY Ot E78.5 HYPERLIPIDEMIA, UNSPECIFIED 10/16/2015 NANCY KEARNEY Ot I10 ESSENTIAL (PRIMARY) HYPERTENSION 10/16/2015 NANCY KEARNEY Ot I25.10 ATHSCL HEART DISEASE OF [place] CORONARY 10/16/2015 NANCY KEARNEY Ot J44.9 CHRONIC OBSTRUCTIVE PULMONARY DISEASE, U 10/16/2015 NANCY KEARNEY Ot Z51.11 ENCOUNTER FOR ANTINEOPLASTIC CHEMOTHERAP 10/16/2015 NANCY KEARNEY Ot Z79.82 ART COORDINATOR (CURRENT) USE OF ASPIRIN 10/16/2015 NANCY KEARNEY N Ot Z79.899 OTHER ART COORDINATOR (CURRENT) DRUG THERAPY 10/18/2015 JOSETTE ALEXIS SELF PAY COLLECTOR Ot C34.31 10/18/2015 JOSETTE ALEXIS SELF PAY COLLECTOR Ot E11.9 10/18/2015 JOSETTE ALEXIS SELF PAY COLLECTOR Ot E78.5 10/18/2015 JOSETTE ALEXIS SELF PAY COLLECTOR Ot I10 10/18/2015 JOSETTE ALEXIS SELF PAY COLLECTOR Ot I25.10 10/18/2015 JOSETTE ALEXIS SELF PAY COLLECTOR Ot J44.9 10/18/2015 ALEXISJOSETTE Corona SELF PAY COLLECTOR Ot Z79.82 10/18/2015 ALEXISJOSETTE Corona SELF PAY COLLECTOR Ot Z79.899 10/19/2015 CHRISTELNANCY N Ot C34.31 10/19/2015 CHRISTELNANCY N Ot E11.9 10/19/2015 CHRISTELNANCY N Ot E78.5 10/19/2015 CHRISTELNANCY N Ot I10 10/19/2015 CHRISTELNANCY N Ot I25.10 10/19/2015 CHRISTELNANCY N Ot J44.9 10/19/2015 CHRISTELNANCY LINARES N Ot Z51.11 10/19/2015 CHRISTELNANCY N Ot Z79.82 10/19/2015 CHRISTELBERTOAN N Ot Z79.899 10/24/2015 ALEXISJOSETTE Corona SELF PAY COLLECTOR Ot 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 LOWER LOBE, [...] N Ot E78.5 HYPERLIPIDEMIA, UNSPECIFIED 11/02/2015 NANCY KEARNEY N Ot I10 ESSENTIAL (PRIMARY) HYPERTENSION 11/02/2015 NANCY KEARNEY N Ot I25.10 ATHSCL HEART DISEASE OF [place] CORONARY 11/02/2015 NANCY KEARNEY N Ot J44.9 CHRONIC OBSTRUCTIVE PULMONARY DISEASE, U 11/02/2015 NANCY KEARNEY N Ot Z51.11 ENCOUNTER FOR ANTINEOPLASTIC CHEMOTHERAP 11/02/2015 NANCY KEARNEY N Ot Z79.82 CUSTODIAL (CURRENT) USE OF ASPIRIN 11/02/2015 CHRISTELNANCY LINARES N Ot Z79.899 OTHER ART COORDINATOR (CURRENT) DRUG THERAPY 11/09/2015 ALEXISJOSETTE Corona SELF PAY COLLECTOR Ot 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 LOWER LOBE, RIGHT 11/09/2015 ALEXISJOSETTE Corona S SELF PAY COLLECTOR Ot E11.9 TYPE 2 DIABETES MELLITUS WITHOUT COMPLIC 11/09/2015 JOSETTE ALEXIS SELF PAY COLLECTOR Ot E78.5 HYPERLIPIDEMIA, UNSPECIFIED 11/09/2015 ALEXISJOSETTE Corona S SELF PAY COLLECTOR Ot I10 ESSENTIAL (PRIMARY) HYPERTENSION 11/09/2015 ALEXISJOSETTE Corona S SELF PAY COLLECTOR Ot I25.10 ATHSCL HEART DISEASE OF [place] CORONARY 11/09/2015 ALEXISJOSETTE Corona SELF PAY COLLECTOR Ot J44.9 CHRONIC OBSTRUCTIVE PULMONARY DISEASE, U 11/09/2015 ALEXISJOSETTE Corona SELF PAY COLLECTOR Ot Z79.82 CUSTODIAL (CURRENT) USE OF ASPIRIN 11/09/2015 ALEXISJOSETTE Corona SELF PAY COLLECTOR Ot Z79.899 OTHER CUSTODIAL (CURRENT) DRUG THERAPY 11/15/2015 KASSANDRA COSTA MD Ot E11.9 TYPE 2 DIABETES MELLITUS WITHOUT COMPLIC 11/16/2015 CHRISTEL BERTOCASSY N Ot 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 LOWER LOBE, RIGHT 11/16/2015 CHRISTELNANCY N Ot E11.9 TYPE 2 DIABETES MELLITUS WITHOUT COMPLIC 11/16/2015 CHRISTEL NANCY N Ot E78.5 HYPERLIPIDEMIA, UNSPECIFIED 11/16/2015 CHRISTELBERTOCASSY N Ot I10 ESSENTIAL (PRIMARY) HYPERTENSION 11/16/2015 CHRISTELNANCY N Ot I25.10 ATHSCL HEART DISEASE OF [place] CORONARY 11/16/2015 CHRISTELNANCY N Ot J44.9 CHRONIC OBSTRUCTIVE PULMONARY DISEASE, U 11/16/2015 CHRISTELBERTOCASSY N Ot Z51.11 ENCOUNTER FOR ANTINEOPLASTIC CHEMOTHERAP 11/16/2015 NANCY KEARNEY N Ot Z79.82 ART COORDINATOR (CURRENT) USE OF ASPIRIN 11/16/2015 CHRISTELNANCY N Ot Z79.899 OTHER CUSTODIAL (CURRENT) DRUG THERAPY 12/01/2015 JOSETTE ALEXIS S SELF PAY COLLECTOR Ot 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 LOWER LOBE, RIGHT 12/01/2015 ALEXIS, HILAH S SELF PAY COLLECTOR Ot E11.9 TYPE 2 DIABETES MELLITUS WITHOUT COMPLIC 12/01/2015 [place] ALEXISBRENDAN Corona SELF PAY COLLECTOR Ot E78.5 HYPERLIPIDEMIA, UNSPECIFIED 12/01/2015 [place] ALEXISBRENDAN Cj SELF PAY COLLECTOR Ot I10 ESSENTIAL (PRIMARY) HYPERTENSION 12/01/2015 VANESA JOSETTE Corona SELF PAY COLLECTOR Ot I25.10 ATHSCL HEART DISEASE OF [place] CORONARY 12/01/2015 JOSETTE ALEXIS SELF PAY COLLECTOR Ot J44.9 CHRONIC OBSTRUCTIVE PULMONARY DISEASE, U 12/01/2015 JOSETTE ALEXIS SELF PAY COLLECTOR Ot Z79.82 ART COORDINATOR (CURRENT) USE OF ASPIRIN 12/01/2015 JOSETTE ALEXIS SELF PAY COLLECTOR Ot Z79.899 OTHER CUSTODIAL (CURRENT) DRUG THERAPY 12/13/2015 JOSETTE ALEXIS SELF PAY COLLECTOR Ot C34.90 MALIGNANT [facility] 12/13/2015 JOSETTE ALEXIS SELF PAY COLLECTOR Ot R53.83 OTHER FATIGUE 12/26/2015 JOSETTE ALEXIS SELF PAY COLLECTOR Ot 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 LOWER LOBE, RIGHT 12/26/2015 JOSETTE ALEXISP Ot E11.9 TYPE 2 DIABETES MELLITUS WITHOUT COMPLIC 12/26/2015 JOSETTE ALEXIS SELF PAY COLLECTOR Ot E78.5 HYPERLIPIDEMIA, UNSPECIFIED 12/26/2015 JOSETTE ALEXIS SELF PAY COLLECTOR Ot I10 ESSENTIAL (PRIMARY) HYPERTENSION 12/26/2015 JOSETTE ALEXIS SELF PAY COLLECTOR Ot I25.10 ATHSCL HEART DISEASE OF [place] CORONARY 12/26/2015 JOSETTE ALEXIS SELF PAY COLLECTOR Ot J44.9 CHRONIC OBSTRUCTIVE PULMONARY DISEASE, U 12/26/2015 JOSETTE ALEXIS SELF PAY COLLECTOR Ot Z79.82 ART COORDINATOR (CURRENT) USE OF ASPIRIN 12/26/2015 JOSETTE ALEXIS SELF PAY COLLECTOR Ot Z79.899 OTHER CUSTODIAL (CURRENT) DRUG THERAPY 12/28/2015 JOSETTE ALEXIS SELF PAY COLLECTOR Ot C34.90 MALIGNANT NEOPLASM OF UNSP PART OF [place]SP 12/28/2015 JOSETTE ALEXIS SELF PAY COLLECTOR Ot R53.83 OTHER FATIGUE 01/05/2016 JOSETTE ALEXIS SELF PAY COLLECTOR Ot 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 LOWER LOBE, RIGHT 01/05/2016 JOSETTE ALEXIS SELF PAY COLLECTOR Ot E11.9 TYPE 2 DIABETES MELLITUS WITHOUT COMPLIC 01/05/2016 ALEXIS, HILAH S SELF PAY COLLECTOR Ot E78.5 HYPERLIPIDEMIA, UNSPECIFIED 01/05/2016 JOSETTE ALEXIS SELF PAY COLLECTOR Ot I10 ESSENTIAL (PRIMARY) HYPERTENSION 01/05/2016 JOSETTE ALEXIS SELF PAY COLLECTOR Ot I25.10 ATHSCL HEART DISEASE OF [place] CORONARY 01/05/2016 JOSETTE ALEXIS SELF PAY COLLECTOR Ot J44.9 CHRONIC OBSTRUCTIVE PULMONARY DISEASE, U 01/05/2016 JOSETTE ALEXIS SELF PAY COLLECTOR Ot Z79.82 CUSTODIAL (CURRENT) USE OF ASPIRIN 01/05/2016 JOSETTE ALEXIS SELF PAY COLLECTOR Ot Z79.899 OTHER CUSTODIAL (CURRENT) DRUG THERAPY 01/11/2016 JOSETTE ALEXIS SELF PAY COLLECTOR Ot 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 LOWER LOBE, RIGHT 01/17/2016 CHRISTELNANCY N Ot 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 LOWER LOBE, RIGHT 01/17/2016 CHRISTELNANCY N Ot E11.9 TYPE 2 DIABETES MELLITUS WITHOUT COMPLIC 01/17/2016 NANCY KEARNEY N Ot E78.5 HYPERLIPIDEMIA, UNSPECIFIED 01/17/2016 NANCY KEARNEY N Ot I10 ESSENTIAL (PRIMARY) HYPERTENSION 01/17/2016 NANCY KEARNEY N Ot I25.10 ATHSCL HEART DISEASE OF [place] CORONARY 01/17/2016 NANCY KEARNEY N Ot J44.9 CHRONIC OBSTRUCTIVE PULMONARY DISEASE, U 01/17/2016 CHRISTELNANCY N Ot Z51.11 ENCOUNTER FOR ANTINEOPLASTIC CHEMOTHERAP 01/17/2016 NANCY KEARNEY N Ot Z79.82 CUSTODIAL (CURRENT) USE OF ASPIRIN 01/17/2016 NANCY KEARNEY N Ot Z79.899 OTHER ART COORDINATOR (CURRENT) DRUG THERAPY 01/17/2016 JOSETTE ALEXIS SELF PAY COLLECTOR Ot R42 DIZZINESS AND GIDDINESS 01/17/2016 JOSETTE ALEXIS SELF PAY COLLECTOR Ot R42 DIZZINESS AND GIDDINESS 01/17/2016 JOSETTE ALEXIS SELF PAY COLLECTOR Ot R42 DIZZINESS AND GIDDINESS 01/17/2016 JOSETTE ALEXIS SELF PAY COLLECTOR Ot R42 DIZZINESS AND GIDDINESS 01/17/2016 JOSETTE ALEXIS SELF PAY COLLECTOR Ot R42 DIZZINESS AND GIDDINESS 01/17/2016 JOSETTE ALEXIS SELF PAY COLLECTOR Ot R42 DIZZINESS AND GIDDINESS 01/17/2016 JOSETTE ALEXIS SELF PAY COLLECTOR Ot R42 DIZZINESS AND GIDDINESS 01/18/2016 JOSETTE ALEXIS SELF PAY COLLECTOR Ot 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 LOWER LOBE, RIGHT 01/18/2016 JOSETTE ALEXIS SELF PAY COLLECTOR Ot R26.81 UNSTEADINESS ON FEET 01/18/2016 JOSETTE ALEXIS SELF PAY COLLECTOR Ot R42 DIZZINESS AND GIDDINESS 01/19/2016 JOSETTE ALEXIS SELF PAY COLLECTOR Ot 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 LOWER LOBE, RIGHT 01/19/2016 JOSETTE ALEXIS SELF PAY COLLECTOR Ot E11.9 TYPE 2 DIABETES MELLITUS WITHOUT COMPLIC 01/19/2016 JOSETTE ALEXIS SELF PAY COLLECTOR Ot E78.5 HYPERLIPIDEMIA, UNSPECIFIED 01/19/2016 ALEXISJOSETTE Corona SELF PAY COLLECTOR Ot I10 ESSENTIAL (PRIMARY) HYPERTENSION 01/19/2016 ALEXISJOSETTE Corona SELF PAY COLLECTOR Ot I25.10 ATHSCL HEART DISEASE OF [place] CORONARY 01/19/2016 ALEXIS JOSETTE Corona SELF PAY COLLECTOR Ot J44.9 CHRONIC OBSTRUCTIVE PULMONARY DISEASE, U 01/19/2016 ALEXISJOSETTE Corona SELF PAY COLLECTOR Ot Z79.82 CUSTODIAL (CURRENT) USE OF ASPIRIN 01/19/2016 ALEXISJOSETTE Corona SELF PAY COLLECTOR Ot Z79.899 OTHER ART COORDINATOR (CURRENT) DRUG THERAPY 01/19/2016 NANCY KEARNEY Leonel Ot 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 LOWER LOBE, RIGHT 01/19/2016 NANCY KEARNEY N Ot E11.9 TYPE 2 DIABETES MELLITUS WITHOUT COMPLIC 01/19/2016 CHRISTELNANCY N Ot E78.5 HYPERLIPIDEMIA, UNSPECIFIED 01/19/2016 CHRISTELNANCY N Ot I10 ESSENTIAL (PRIMARY) HYPERTENSION 01/19/2016 CHRISTELNANCY N Ot I25.10 ATHSCL HEART DISEASE OF [place] CORONARY 01/19/2016 NANCY KEARNEY N Ot J44.9 CHRONIC OBSTRUCTIVE PULMONARY DISEASE, U 01/19/2016 NANCY KEARNEY Ot Z51.11 ENCOUNTER FOR ANTINEOPLASTIC CHEMOTHERAP 01/19/2016 NANCY KEARNEY N Ot Z79.82 ART COORDINATOR (CURRENT) USE OF ASPIRIN 01/19/2016 NANCY KEARNEY N Ot Z79.899 OTHER ART COORDINATOR (CURRENT) DRUG THERAPY 01/20/2016 ALEXISJOSETTE Corona SELF PAY COLLECTOR Ot 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 LOWER LOBE, RIGHT 02/03/2016 JOSETTE ALEXIS Cj SELF PAY COLLECTOR Ot C34.90 MALIGNANT NEOPLASM OF [place] PART OF UNSP 02/03/2016 CHINA ALEXISBRENDAN Cj SELF PAY COLLECTOR Ot R53.83 OTHER FATIGUE 02/09/2016 ALEXIS, JOSETTE Corona SELF PAY COLLECTOR Ot 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 LOWER LOBE, RIGHT 02/09/2016 ALEXISJOSETTE SELF PAY COLLECTOR Ot E11.9 TYPE 2 DIABETES MELLITUS WITHOUT COMPLIC 02/09/2016 JOSETTE ALEXIS SELF PAY COLLECTOR Ot E78.5 HYPERLIPIDEMIA, UNSPECIFIED 02/09/2016 [place] ALEXISBRENDAN [place] SELF PAY COLLECTOR Ot I10 ESSENTIAL (PRIMARY) HYPERTENSION 02/09/2016 JOSETTE ALEXIS SELF PAY COLLECTOR Ot I25.10 ATHSCL HEART DISEASE OF [place] CORONARY 02/09/2016 JOSETTE ALEXIS SELF PAY COLLECTOR Ot J44.9 CHRONIC OBSTRUCTIVE PULMONARY DISEASE, U 02/09/2016 JOSETTE ALEXIS SELF PAY COLLECTOR Ot Z79.82 CUSTODIAL (CURRENT) USE OF ASPIRIN 02/09/2016 JOSETTE ALEXIS SELF PAY COLLECTOR Ot Z79.899 OTHER ART COORDINATOR (CURRENT) DRUG THERAPY 02/17/2016 CHRISTELNANCY N Ot 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 LOWER LOBE, RIGHT 02/17/2016 NANCY KEARNEY Ot E11.9 TYPE 2 DIABETES MELLITUS WITHOUT COMPLIC 02/17/2016 NANCY KEARNEY N Ot E78.5 HYPERLIPIDEMIA, UNSPECIFIED 02/17/2016 CHRISTELNANCY LINARES N Ot I10 ESSENTIAL (PRIMARY) HYPERTENSION 02/17/2016 NANCY KEARNEY Ot I25.10 ATHSCL HEART DISEASE OF [place] CORONARY 02/17/2016 NANCY KEARNEY N Ot J44.9 CHRONIC OBSTRUCTIVE PULMONARY DISEASE, U 02/17/2016 NANCY KEARNEY N Ot Z51.11 ENCOUNTER FOR ANTINEOPLASTIC CHEMOTHERAP 02/17/2016 NANCY KEARNEY N Ot Z79.82 ART COORDINATOR (CURRENT) USE OF ASPIRIN 02/17/2016 NANCY KEARNEY N Ot Z79.899 OTHER CUSTODIAL (CURRENT) DRUG THERAPY 02/24/2016 JOSETTE ALEXIS SELF PAY COLLECTOR Ot 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 LOWER LOBE, RIGHT 02/24/2016 JOSETTE ALEXIS SELF PAY COLLECTOR Ot R26.81 UNSTEADINESS ON FEET 02/24/2016 JOSETTE [...] N Ot E78.5 HYPERLIPIDEMIA, UNSPECIFIED 02/29/2016 CHRISTEL NACNY N Ot I10 ESSENTIAL (PRIMARY) HYPERTENSION 02/29/2016 CHRISTEL NANCY N Ot I25.10 ATHSCL HEART DISEASE OF [place] CORONARY 02/29/2016 NANCY KEARNEY N Ot J44.9 CHRONIC OBSTRUCTIVE PULMONARY DISEASE, U 02/29/2016 CHRISTEL NANCY N Ot R19.5 OTHER FECAL ABNORMALITIES 02/29/2016 CHRISTELNANCY Ot Z51.11 ENCOUNTER FOR ANTINEOPLASTIC CHEMOTHERAP 02/29/2016 CHRISTEL NANCY Castaneda Ot Z79.82 ART COORDINATOR (CURRENT) USE OF ASPIRIN 02/29/2016 CHRISTELNANCY Ot Z79.899 OTHER ART COORDINATOR (CURRENT) DRUG THERAPY 03/02/2016 KASSANDRA COSTA MD Ot E11.9 TYPE 2 DIABETES MELLITUS WITHOUT COMPLIC 03/02/2016 KASSANDRA COSTA MD Ot E78.4 OTHER HYPERLIPIDEMIA 03/02/2016 KASSANDRA COSTA MD Ot I10 ESSENTIAL (PRIMARY) HYPERTENSION 03/02/2016 KASSANDRA COSTA MD Ot I25.10 ATHSCL HEART DISEASE OF [place] CORONARY 03/02/2016 JOSETTE ALEXISP Ot 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 LOWER LOBE, RIGHT 03/02/2016 JOSETTE ALEXISP Ot E11.9 TYPE 2 DIABETES MELLITUS WITHOUT COMPLIC 03/02/2016 JOSETTE ALEXISP Ot E78.5 HYPERLIPIDEMIA, UNSPECIFIED 03/02/2016 JOSETTE ALEXIS SELF PAY COLLECTOR Ot I10 ESSENTIAL (PRIMARY) HYPERTENSION 03/02/2016 JOSETTE ALEXIS SELF PAY COLLECTOR Ot I25.10 ATHSCL HEART DISEASE OF [place] CORONARY 03/02/2016 JOSETTE ALEXIS SELF PAY COLLECTOR Ot J44.9 CHRONIC OBSTRUCTIVE PULMONARY DISEASE, U 03/02/2016 ALEXISJOSETTE Corona Cj SELF PAY COLLECTOR Ot Z79.82 ART COORDINATOR (CURRENT) USE OF ASPIRIN 03/02/2016 JOSETTE ALEXIS SELF PAY COLLECTOR Ot Z79.899 OTHER ART COORDINATOR (CURRENT) DRUG THERAPY 03/05/2016 KASSANDRA COSTA MD Ot Z12.31 ENCNTR SCREEN MAMMOGRAM FOR MALIGNANT NE 03/05/2016 KASSANDRA COSTA MD, Ot E11.9 TYPE 2 DIABETES MELLITUS WITHOUT COMPLIC 03/05/2016 KASSANDRA COSTA MD Ot E78.4 OTHER HYPERLIPIDEMIA 03/05/2016 KASSANDRA COSTA MD, Ot I10 ESSENTIAL (PRIMARY) HYPERTENSION 03/05/2016 KASSANDRA COSTA MD, Ot I25.10 ATHSCL HEART DISEASE OF [place] CORONARY 03/06/2016 KASSANDRA COSTA MD, Ot E11.9 TYPE 2 DIABETES MELLITUS WITHOUT COMPLIC 03/06/2016 KASSANDRA COSTA MD, Ot E78.4 OTHER HYPERLIPIDEMIA 03/06/2016 KASSANDRA COSTA MD, Ot I10 ESSENTIAL (PRIMARY) HYPERTENSION 03/06/2016 KASSANDRA COSTA MD Ot I25.10 ATHSCL HEART DISEASE OF [place] CORONARY 03/06/2016 JOSETTE ALEXIS SELF PAY COLLECTOR Ot 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 LOWER LOBE, RIGHT 03/06/2016 JOSETTE ALEXIS SELF PAY COLLECTOR Ot R26.81 UNSTEADINESS ON FEET 03/06/2016 JOSETTE ALEXIS SELF PAY COLLECTOR Ot R42 DIZZINESS AND GIDDINESS 03/06/2016 KASSANDRA COSTA MD Ot E11.9 TYPE 2 DIABETES MELLITUS WITHOUT COMPLIC 03/06/2016 KASSANDRA COSTA MD Ot E78.4 OTHER HYPERLIPIDEMIA 03/06/2016 KASSANDRA COSTA MD, Ot I10 ESSENTIAL (PRIMARY) HYPERTENSION 03/06/2016 KASSANDRA COSTA MD Ot I25.10 ATHSCL HEART DISEASE OF [place] CORONARY 03/06/2016 KASSANDRA COSTA MD, Ot E11.9 TYPE 2 DIABETES MELLITUS WITHOUT COMPLIC 03/06/2016 KASSANDRA COSTA MD Ot E78.4 OTHER HYPERLIPIDEMIA 03/06/2016 KASSANDRA COSTA MD Ot I10 ESSENTIAL (PRIMARY) HYPERTENSION 03/06/2016 KASSANDRA COSTA MD Ot I25.10 ATHSCL HEART DISEASE OF [place] CORONARY 03/06/2016 KASSANDRA COSTA MD Ot E11.9 TYPE 2 DIABETES MELLITUS WITHOUT COMPLIC 03/06/2016 JULISSA MD, KASSANDRA D Ot E78.4 OTHER HYPERLIPIDEMIA 03/06/2016 KASSANDRA COSTA MD Ot I10 ESSENTIAL (PRIMARY) HYPERTENSION 03/06/2016 KASSANDRA COSTA MD Ot I25.10 ATHSCL HEART DISEASE OF [place] CORONARY 03/06/2016 KASSANDRA COSTA MD Ot E11.9 TYPE 2 DIABETES MELLITUS WITHOUT COMPLIC 03/06/2016 KASSANDRA COSTA MD Ot E78.4 OTHER HYPERLIPIDEMIA 03/06/2016 KASSANDRA COSTA MD Ot I10 ESSENTIAL (PRIMARY) HYPERTENSION 03/06/2016 KASSANDRA COSTA MD Ot I25.10 ATHSCL HEART DISEASE OF [place] CORONARY 03/07/2016 Ot 611.72 LUMP OR MASS [...] DULCE MARIA BRONCH/LUNG NOS 03/07/2016 JOSETTE ALEXIS SELF PAY COLLECTOR Ot 162.5 MAL DULCE MARIA LOWER LOBE LUNG 03/07/2016 JOSETTE ALEXIS SELF PAY COLLECTOR Ot 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 03/07/2016 JOSETTE ALEXIS SELF PAY COLLECTOR Ot 250.00 DIAB DARCI WO COMPL, TYPE II OR UNSPEC TY 03/07/2016 JOSETTE ALEXIS SELF PAY COLLECTOR Ot 272.4 HYPERLIPIDEMIA NEC/NOS 03/07/2016 JOSETTE ALEXISP Ot 401.9 HYPERTENSION NOS 03/07/2016 JOSETTE ALEXIS SELF PAY COLLECTOR Ot 414.00 CORON ATHEROSCLER NOS TYPE VESSEL, NATIV 03/07/2016 JOSETTE ALEXIS SELF PAY COLLECTOR Ot 493.20 CHRONIC OBSTRUCTIVE ASTHMA, NOS 03/07/2016 JOSETTE ALEXIS SELF PAY COLLECTOR Ot V58.66 LONG-TERM (CURRENT) USE OF ASPIRIN 03/07/2016 JOSETTE ALEXIS SELF PAY COLLECTOR Ot V58.69 OTH MED,LT,CURRENT USE 03/07/2016 ISACC HILARIO MD Ot 162.9 MAL DULCE MARIA BRONCH/LUNG NOS 03/07/2016 ISACC HILARIO MD Ot V72.84 EXAM PRE-OPERATIVE NOS 03/07/2016 NANCY KEARNEY Ot 162.9 MAL DULCE MARIA BRONCH/LUNG NOS 03/07/2016 NANCY KEARNEY Ot 562.10 DIVERTICULOSIS COLON (W/O MENT OF HEMORR 03/07/2016 NANCY KEARNEY Ot 573.8 LIVER DISORDERS NEC 03/07/2016 JOSETTE ALEXIS SELF PAY COLLECTOR Ot 162.9 MAL DULC EMARIA BRONCH/LUNG NOS 03/07/2016 JOSETTE ALEXIS SELF PAY COLLECTOR Ot 162.5 MAL DULCE MARIA LOWER LOBE LUNG 03/07/2016 JOSETTE ALEXIS SELF PAY COLLECTOR Ot 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 03/07/2016 JOSETTE ALEXIS SELF PAY COLLECTOR Ot 250.00 DIAB DARCI WO COMPL, TYPE II OR UNSPEC TY 03/07/2016 JOSETTE ALEXIS SELF PAY COLLECTOR Ot 272.4 HYPERLIPIDEMIA NEC/NOS 03/07/2016 JOSETTE ALEXIS SELF PAY COLLECTOR Ot 356.9 IDIO PERIPH NEURPTHY NOS 03/07/2016 JOSETTE ALEXIS SELF PAY COLLECTOR Ot 401.9 HYPERTENSION NOS 03/07/2016 JOSETTE ALEXIS SELF PAY COLLECTOR Ot 414.00 CORON ATHEROSCLER NOS TYPE VESSEL, NATIV 03/07/2016 JOSETTE ALEXIS SELF PAY COLLECTOR Ot 493.20 CHRONIC OBSTRUCTIVE ASTHMA, NOS 03/07/2016 JOSETTE ALEXIS SELF PAY COLLECTOR Ot 528.9 ORAL SOFT TISSUE DIS NEC 03/07/2016 JOSETTE ALEXIS SELF PAY COLLECTOR Ot V58.66 LONG-TERM (CURRENT) USE OF ASPIRIN 03/07/2016 JOSETTE ALEXIS SELF PAY COLLECTOR Ot V58.69 OTH MED,LT,CURRENT USE 03/07/2016 JOSETTE ALEXIS SELF PAY COLLECTOR Ot 162.9 MAL DULCE MARIA BRONCH/LUNG NOS 03/07/2016 JOSETTE ALEXIS SELF PAY COLLECTOR Ot 162.5 MAL DULCE MARIA LOWER LOBE LUNG 03/07/2016 JOSETTE ALEXIS SELF PAY COLLECTOR Ot 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 03/07/2016 JOSETTE ALEXIS SELF PAY COLLECTOR Ot 250.00 DIAB DARCI WO COMPL, TYPE II OR UNSPEC TY 03/07/2016 JOSETTE ALEXIS SELF PAY COLLECTOR Ot 272.4 HYPERLIPIDEMIA NEC/NOS 03/07/2016 JOSETTE ALEXIS SELF PAY COLLECTOR Ot 401.9 HYPERTENSION NOS 03/07/2016 JOSETTE ALEXIS SELF PAY COLLECTOR Ot 414.00 CORON ATHEROSCLER NOS TYPE VESSEL, NATIV 03/07/2016 JOSETTE ALEXIS SELF PAY COLLECTOR Ot 493.20 CHRONIC OBSTRUCTIVE ASTHMA, NOS 03/07/2016 JOSETTE ALEXIS SELF PAY COLLECTOR Ot 782.1 NONSPECIF SKIN ERUPT NEC 03/07/2016 JOSETTE ALEXIS SELF PAY COLLECTOR Ot V58.66 LONG-TERM (CURRENT) USE OF ASPIRIN 03/07/2016 JOSETTE ALEXIS SELF PAY COLLECTOR Ot V58.69 OTH MED,LT,CURRENT USE 03/07/2016 JOSETTE ALEXIS SELF PAY COLLECTOR Ot 162.5 MAL DULCE MARIA LOWER LOBE LUNG 03/07/2016 JOSETTE ALEXIS SELF PAY COLLECTOR Ot 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 03/07/2016 JOSETTE ALEXIS SELF PAY COLLECTOR Ot 250.00 DIAB DARCI WO COMPL, TYPE II OR UNSPEC TY 03/07/2016 JOSETTE ALEXIS S SELF PAY COLLECTOR Ot 272.1 PURE HYPERGLYCERIDEMIA 03/07/2016 JOSETTE ALEXIS SELF PAY COLLECTOR Ot 272.4 HYPERLIPIDEMIA NEC/NOS 03/07/2016 JOSETTE ALEXIS SELF PAY COLLECTOR Ot 278.00 OBESITY, NOS 03/07/2016 JOSETTE ALEXIS SELF PAY COLLECTOR Ot 401.9 HYPERTENSION NOS 03/07/2016 JOSETTE ALEXIS SELF PAY COLLECTOR Ot 414.00 CORON ATHEROSCLER NOS TYPE VESSEL, NATIV 03/07/2016 JOSETTE ALEXIS SELF PAY COLLECTOR Ot 493.20 CHRONIC OBSTRUCTIVE ASTHMA, NOS 03/07/2016 JOSETTE ALEXIS SELF PAY COLLECTOR Ot 793.19 OTHER NONSPECIFIC ABNORMAL FINDING OF [place] 03/07/2016 JOSETTE ALEXIS SELF PAY COLLECTOR Ot V58.69 OTH MED,LT,CURRENT USE 03/07/2016 JOSTETE ALEXIS SELF PAY COLLECTOR Ot V85.35 BODY MASS INDEX 35.0-35.9, ADULT 03/07/2016 JOSETTE ALEXIS SELF PAY COLLECTOR Ot C34.90 MALIGNANT NEOPLASM OF UNSP PART OF UNSP 03/07/2016 JOSETTE ALEXIS SELF PAY COLLECTOR Ot R51 HEADACHE 03/07/2016 JOSETTE ALEXIS SELF PAY COLLECTOR Ot C34.90 MALIGNANT NEOPLASM OF UNSP PART OF UNSP 03/07/2016 JOSETTE ALEXIS SELF PAY COLLECTOR Ot 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 LOWER LOBE, RIGHT 03/07/2016 JOSETTE ALEXIS SELF PAY COLLECTOR Ot R05 COUGH 03/07/2016 JOSETTE ALEXIS SELF PAY COLLECTOR Ot R06.00 DYSPNEA, UNSPECIFIED 03/07/2016 JOSETTE ALEXIS SELF PAY COLLECTOR Ot 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 LOWER LOBE, RIGHT 03/07/2016 JOSETTE ALEXIS SELF PAY COLLECTOR Ot E11.9 TYPE 2 DIABETES MELLITUS WITHOUT COMPLIC 03/07/2016 JOSETTE ALEXIS SELF PAY COLLECTOR Ot E78.5 HYPERLIPIDEMIA, UNSPECIFIED 03/07/2016 JOSETTE ALEXIS SELF PAY COLLECTOR Ot I10 ESSENTIAL (PRIMARY) HYPERTENSION 03/07/2016 JOSETTE ALEXIS SELF PAY COLLECTOR Ot I25.10 ATHSCL HEART DISEASE OF [place] CORONARY 03/07/2016 JOSETTE ALEXIS SELF PAY COLLECTOR Ot J44.9 CHRONIC OBSTRUCTIVE PULMONARY DISEASE, U 03/07/2016 JOSETTE ALEXISP Ot Z79.82 ART COORDINATOR (CURRENT) USE OF ASPIRIN 03/07/2016 JOSETTE ALEXISP Ot Z79.899 OTHER ART COORDINATOR (CURRENT) DRUG THERAPY 03/07/2016 REYES MD, TRINA [...] ALEXISP Ot I25.10 ATHSCL HEART DISEASE OF [place] CORONARY 03/07/2016 JOSETTE ALEXISP Ot J44.9 CHRONIC OBSTRUCTIVE PULMONARY DISEASE, U 03/07/2016 JOSETTE ALEXISP Ot Z79.82 ART COORDINATOR (CURRENT) USE OF ASPIRIN 03/07/2016 JOSETTE ALEXIS SELF PAY COLLECTOR Ot Z79.899 OTHER ART COORDINATOR (CURRENT) DRUG THERAPY 03/07/2016 NANCY KEARNEY Ot 162.5 MAL DULCE MARIA LOWER LOBE LUNG 03/07/2016 NANCY KEARNEY Ot 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 03/07/2016 NANCY KEARNEY Ot V58.69 OTH MED,LT,CURRENT USE 03/07/2016 JOSETTE ALEXISP Ot J44.9 CHRONIC OBSTRUCTIVE PULMONARY DISEASE, U 03/07/2016 JOSETTE ALEXISP Ot R05 COUGH 03/07/2016 JOSETTE ALEXIS SELF PAY COLLECTOR Ot 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 LOWER LOBE, RIGHT 03/07/2016 JOSETTE ALEXISP Ot E11.9 TYPE 2 DIABETES MELLITUS WITHOUT COMPLIC 03/07/2016 JOSETTE ALEXIS Cj SELF PAY COLLECTOR Ot E78.5 HYPERLIPIDEMIA, UNSPECIFIED 03/07/2016 JOSETTE ALEXIS S SELF PAY COLLECTOR Ot I10 ESSENTIAL (PRIMARY) HYPERTENSION 03/07/2016 JOSETTE ALEXIS SELF PAY COLLECTOR Ot I25.10 ATHSCL HEART DISEASE OF [place] CORONARY 03/07/2016 JOSETTE ALEXIS SELF PAY COLLECTOR Ot J44.9 CHRONIC OBSTRUCTIVE PULMONARY DISEASE, U 03/07/2016 JOSETTE ALEXIS SELF PAY COLLECTOR Ot Z79.82 CUSTODIAL (CURRENT) USE OF ASPIRIN 03/07/2016 JOSETTE ALEXIS SELF PAY COLLECTOR Ot Z79.899 OTHER CUSTODIAL (CURRENT) DRUG THERAPY 03/07/2016 JOSETTE ALEXIS SELF PAY COLLECTOR Ot 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 LOWER LOBE, RIGHT 03/07/2016 JOSETTE ALEXIS SELF PAY COLLECTOR Ot 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 LOWER LOBE, RIGHT 03/07/2016 JOSETTE ALEXISP Ot E11.9 TYPE 2 DIABETES MELLITUS WITHOUT COMPLIC 03/07/2016 JOSETTE ALEXISP Ot E78.5 HYPERLIPIDEMIA, UNSPECIFIED 03/07/2016 JOSETTE ALEXIS SELF PAY COLLECTOR Ot I10 ESSENTIAL (PRIMARY) HYPERTENSION 03/07/2016 JOSETTE ALEXIS SELF PAY COLLECTOR Ot I25.10 ATHSCL HEART DISEASE OF [place] CORONARY 03/07/2016 JOSETTE ALEXIS SELF PAY COLLECTOR Ot J44.9 CHRONIC OBSTRUCTIVE PULMONARY DISEASE, U 03/07/2016 JOSETTE ALEXIS S SELF PAY COLLECTOR Ot Z79.82 ART COORDINATOR (CURRENT) USE OF ASPIRIN 03/07/2016 JOSETTE ALEXIS SELF PAY COLLECTOR Ot Z79.899 OTHER ART COORDINATOR (CURRENT) DRUG THERAPY 03/07/2016 JULISSA FRENCH, KASSANDRA Marie Ot E11.9 TYPE 2 DIABETES MELLITUS WITHOUT COMPLIC 03/07/2016 JOSETTE ALEXIS SELF PAY COLLECTOR Ot C34.90 MALIGNANT NEOPLASM OF UNSP PART OF UNSP 03/07/2016 JOSETTE ALEXIS SELF PAY COLLECTOR Ot R53.83 OTHER FATIGUE 03/07/2016 ALEXIS, HILAH S SELF PAY COLLECTOR Ot 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 LOWER LOBE, RIGHT 03/07/2016 ALEXISJOSETTE S SELF PAY COLLECTOR Ot E11.9 TYPE 2 DIABETES MELLITUS WITHOUT COMPLIC 03/07/2016 JOSETTE ALEXIS S SELF PAY COLLECTOR Ot E78.5 HYPERLIPIDEMIA, UNSPECIFIED 03/07/2016 ALEXIS JOSETTE S SELF PAY COLLECTOR Ot I10 ESSENTIAL (PRIMARY) HYPERTENSION 03/07/2016 JOSETTE ALEXIS S SELF PAY COLLECTOR Ot I25.10 ATHSCL HEART DISEASE OF [place] CORONARY 03/07/2016 JOSETTE ALEXIS S SELF PAY COLLECTOR Ot J44.9 CHRONIC OBSTRUCTIVE PULMONARY DISEASE, U 03/07/2016 JOSETTE ALEXIS S SELF PAY COLLECTOR Ot Z79.82 ART COORDINATOR (CURRENT) USE OF ASPIRIN 03/07/2016 JOSETTE ALEXIS S SELF PAY COLLECTOR Ot Z79.899 OTHER CUSTODIAL (CURRENT) DRUG THERAPY 03/07/2016 JOSETTE ALEXIS S SELF PAY COLLECTOR Ot 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 LOWER LOBE, RIGHT 03/07/2016 JOSETTE ALEXIS S SELF PAY COLLECTOR Ot 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 LOWER LOBE, RIGHT 03/07/2016 JOSETTE ALEXIS S SELF PAY COLLECTOR Ot E11.9 TYPE 2 DIABETES MELLITUS WITHOUT COMPLIC 03/07/2016 JOSETTE ALEXIS S SELF PAY COLLECTOR Ot E78.5 HYPERLIPIDEMIA, UNSPECIFIED 03/07/2016 JOSETTE ALEXIS S SELF PAY COLLECTOR Ot I10 ESSENTIAL (PRIMARY) HYPERTENSION 03/07/2016 CHINA ALEXISBRENDAN S SELF PAY COLLECTOR Ot I25.10 ATHSCL HEART DISEASE OF [place] CORONARY 03/07/2016 JOSETTE ALEXIS S SELF PAY COLLECTOR Ot J44.9 CHRONIC OBSTRUCTIVE PULMONARY DISEASE, U 03/07/2016 JOSETTE ALEXIS S SELF PAY COLLECTOR Ot Z79.82 CUSTODIAL (CURRENT) USE OF ASPIRIN 03/07/2016 JOSETTE ALEXIS S SELF PAY COLLECTOR Ot Z79.899 OTHER CUSTODIAL (CURRENT) DRUG THERAPY 03/07/2016 JOSETTE ALEXIS S SELF PAY COLLECTOR Ot 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 LOWER LOBE, RIGHT 03/07/2016 JOSETTE ALEXIS S SELF PAY COLLECTOR Ot R26.81 UNSTEADINESS ON FEET 03/07/2016 JOSETTE ALEXIS S SELF PAY COLLECTOR Ot R42 DIZZINESS AND GIDDINESS 03/07/2016 NANCY KEARNEY Ot 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 LOWER LOBE, RIGHT 03/07/2016 NANCY KEARNEY Leonel Ot E11.9 TYPE 2 DIABETES MELLITUS WITHOUT COMPLIC 03/07/2016 NANCY KEARNEY Leonel Ot E78.5 HYPERLIPIDEMIA, UNSPECIFIED 03/07/2016 NANCY KEARNEY N Ot I10 ESSENTIAL (PRIMARY) HYPERTENSION 03/07/2016 NANCY KEARNEY N Ot I25.10 ATHSCL HEART DISEASE OF [place] CORONARY 03/07/2016 NANCY KEARNEY Leonel Ot J44.9 CHRONIC OBSTRUCTIVE PULMONARY DISEASE, U 03/07/2016 NANCY KEARNEY N Ot R19.5 OTHER FECAL ABNORMALITIES 03/07/2016 NANCY KEARNEY Leonel Ot Z51.11 ENCOUNTER FOR ANTINEOPLASTIC CHEMOTHERAP 03/07/2016 NANCY KEARNEY N Ot Z79.82 ART COORDINATOR (CURRENT) USE OF ASPIRIN 03/07/2016 NANCY KEARNEY N Ot Z79.899 OTHER ART COORDINATOR (CURRENT) DRUG THERAPY 03/07/2016 JOSETTE ALEXIS SELF PAY COLLECTOR Ot 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 LOWER LOBE, RIGHT 03/07/2016 JOSETTE ALEXIS SELF PAY COLLECTOR Ot E11.9 TYPE 2 DIABETES MELLITUS WITHOUT COMPLIC 03/07/2016 JOSETTE ALEXIS SELF PAY COLLECTOR Ot E78.5 HYPERLIPIDEMIA, UNSPECIFIED 03/07/2016 JOSETTE ALEXIS SELF PAY COLLECTOR Ot I10 ESSENTIAL (PRIMARY) HYPERTENSION 03/07/2016 JOSETTE ALEXIS SELF PAY COLLECTOR Ot I25.10 ATHSCL HEART DISEASE OF [place] CORONARY 03/07/2016 JOSETTE ALEXIS SELF PAY COLLECTOR Ot J44.9 CHRONIC OBSTRUCTIVE PULMONARY DISEASE, U 03/07/2016 JOSETTE ALEXIS SELF PAY COLLECTOR Ot Z79.82 ART COORDINATOR (CURRENT) USE OF ASPIRIN 03/07/2016 JOSETTE ALEXIS SELF PAY COLLECTOR Ot Z79.899 OTHER ART COORDINATOR (CURRENT) DRUG THERAPY 03/07/2016 KASSANDRA COSTA MD Ot Z12.31 ENCNTR SCREEN MAMMOGRAM FOR MALIGNANT NE 03/07/2016 KASSANDRA OCSTA MD Ot E11.9 TYPE 2 DIABETES MELLITUS WITHOUT COMPLIC 03/07/2016 KASSANDRA COSTA MD Ot E78.4 OTHER HYPERLIPIDEMIA 03/07/2016 KASSANDRA COSTA MD Ot I10 ESSENTIAL (PRIMARY) HYPERTENSION 03/07/2016 KASSANDRA COSTA MD Ot I25.10 ATHSCL HEART DISEASE OF [place] CORONARY 03/07/2016 CHRISTEL, BOBAN N Ot 162.9 MAL DULCE MARIA BRONCH/LUNG NOS 03/07/2016 BERTO KEARNEYCASSY N Ot 562.10 DIVERTICULOSIS COLON (W/O MENT OF HEMORR 03/07/2016 CHRISTELNANCY Ot 573.8 LIVER DISORDERS NEC 03/07/2016 JOSETTE ALEXIS S SELF PAY COLLECTOR Ot 162.9 MAL DULCE MARIA BRONCH/LUNG NOS 03/07/2016 ALEXISJOSETTE Corona S SELF PAY COLLECTOR Ot 162.5 MAL DULCE MARIA LOWER LOBE LUNG 03/07/2016 JOSETTE ALEXIS S SELF PAY COLLECTOR Ot 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 03/07/2016 JOSETTE ALEXIS S SELF PAY COLLECTOR Ot 250.00 DIAB DARCI WO COMPL, TYPE II OR UNSPEC TY 03/07/2016 ALEXIS, HILAH S SELF PAY COLLECTOR Ot 272.4 HYPERLIPIDEMIA NEC/NOS 03/07/2016 JOSETTE ALEXIS S SELF PAY COLLECTOR Ot 356.9 IDIO PERIPH NEURPTHY NOS 03/07/2016 JOSETTE ALEXIS S SELF PAY COLLECTOR Ot 401.9 HYPERTENSION NOS 03/07/2016 JOSETTE ALEXIS S SELF PAY COLLECTOR Ot 414.00 CORON ATHEROSCLER NOS TYPE VESSEL, NATIV 03/07/2016 JOSETTE ALEXIS S SELF PAY COLLECTOR Ot 493.20 CHRONIC OBSTRUCTIVE ASTHMA, NOS 03/07/2016 JOSETTE ALEXIS S SELF PAY COLLECTOR Ot 528.9 ORAL SOFT TISSUE DIS NEC 03/07/2016 JOSETTE ALEXIS S SELF PAY COLLECTOR Ot V58.66 LONG-TERM (CURRENT) USE OF ASPIRIN 03/07/2016 JOSETTE ALEXIS S SELF PAY COLLECTOR Ot V58.69 OTH MED,LT,CURRENT USE 03/07/2016 JOSETTE ALEXIS S SELF PAY COLLECTOR Ot 162.9 MAL DULCE MARIA BRONCH/LUNG NOS 03/07/2016 JOSETTE ALEXIS S SELF PAY COLLECTOR Ot 162.5 MAL DULCE MARIA LOWER LOBE LUNG 03/07/2016 JOSETTE ALEXIS S SELF PAY COLLECTOR Ot 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 03/07/2016 JOSETTE ALEXIS S SELF PAY COLLECTOR Ot 250.00 DIAB DARCI WO COMPL, TYPE II OR UNSPEC TY 03/07/2016 CHINA ALEXISAH S SELF PAY COLLECTOR Ot 272.4 HYPERLIPIDEMIA NEC/NOS 03/07/2016 ALEXIS, HILAH S SELF PAY COLLECTOR Ot 401.9 HYPERTENSION NOS 03/07/2016 JOSETTE ALEXIS S SELF PAY COLLECTOR Ot 414.00 CORON ATHEROSCLER NOS TYPE VESSEL, NATIV 03/07/2016 JOSETTE ALEXIS SELF PAY COLLECTOR Ot 493.20 CHRONIC OBSTRUCTIVE ASTHMA, NOS 03/07/2016 JOSETTE ALEXIS SELF PAY COLLECTOR Ot 782.1 NONSPECIF SKIN ERUPT NEC 03/07/2016 JOSETTE ALEXIS SELF PAY COLLECTOR Ot V58.66 LONG-TERM (CURRENT) USE OF ASPIRIN 03/07/2016 JOSETTE ALEXIS SELF PAY COLLECTOR Ot V58.69 OTH MED,LT,CURRENT USE 03/07/2016 JOSETTE ALEXIS SELF PAY COLLECTOR Ot 162.5 MAL DULCE MARIA LOWER LOBE LUNG 03/07/2016 JOSETTE ALEXIS SELF PAY COLLECTOR Ot 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 03/07/2016 JOSETTE ALEXIS SELF PAY COLLECTOR Ot 250.00 DIAB DARCI WO COMPL, TYPE II OR UNSPEC TY 03/07/2016 JOSETTE ALEXIS SELF PAY COLLECTOR Ot 272.1 PURE HYPERGLYCERIDEMIA 03/07/2016 JOSETTE ALEXIS SELF PAY COLLECTOR Ot 272.4 HYPERLIPIDEMIA NEC/NOS 03/07/2016 JOSETTE ALEXIS SELF PAY COLLECTOR Ot 278.00 OBESITY, NOS 03/07/2016 JOSETTE ALEXIS SELF PAY COLLECTOR Ot 401.9 HYPERTENSION NOS 03/07/2016 JOSETTE ALEXIS SELF PAY COLLECTOR Ot 414.00 CORON ATHEROSCLER NOS TYPE VESSEL, NATIV 03/07/2016 JOSETTE ALEXIS SELF PAY COLLECTOR Ot 493.20 CHRONIC OBSTRUCTIVE ASTHMA, NOS 03/07/2016 JOSETTE ALEXIS SELF PAY COLLECTOR Ot 793.19 OTHER NONSPECIFIC ABNORMAL FINDING OF [place] 03/07/2016 JOSETTE ALEXISP Ot V58.69 OTH MED,LT,CURRENT USE 03/07/2016 JOSETTE ALEXSI SELF PAY COLLECTOR Ot V85.35 BODY MASS INDEX 35.0-35.9, ADULT 03/07/2016 JOSETTE ALEXIS SELF PAY COLLECTOR Ot C34.90 MALIGNANT NEOPLASM OF UNSP PART OF UNSP 03/07/2016 JOSETTE ALEXIS SELF PAY COLLECTOR Ot R51 HEADACHE 03/07/2016 JOSETTE ALEXIS SELF PAY COLLECTOR Ot C34.90 MALIGNANT NEOPLASM OF UNSP PART OF UNSP 03/07/2016 JOSETTE ALEXIS SELF PAY COLLECTOR Ot 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 LOWER LOBE, RIGHT 03/07/2016 JOSETTE ALEXIS SELF PAY COLLECTOR Ot R05 COUGH 03/07/2016 JOSETTE ALEXIS SELF PAY COLLECTOR Ot R06.00 DYSPNEA, UNSPECIFIED 03/07/2016 JOSETTE ALEXIS SELF PAY COLLECTOR Ot 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 LOWER LOBE, RIGHT 03/07/2016 JOSETTE ALEXIS SELF PAY COLLECTOR Ot E11.9 TYPE 2 DIABETES MELLITUS WITHOUT COMPLIC 03/07/2016 ALEXISJOSETTE Corona SELF PAY COLLECTOR Ot E78.5 HYPERLIPIDEMIA, UNSPECIFIED 03/07/2016 [place] ALEXISBRENDAN Corona SELF PAY COLLECTOR Ot I10 ESSENTIAL (PRIMARY) HYPERTENSION 03/07/2016 VANESA JOSETTE Corona SELF PAY COLLECTOR Ot I25.10 ATHSCL HEART DISEASE OF [place] CORONARY 03/07/2016 VANESA JOSETTE Corona SELF PAY COLLECTOR Ot J44.9 CHRONIC OBSTRUCTIVE PULMONARY DISEASE, U 03/07/2016 VANESA JOSETTE Corona SELF PAY COLLECTOR Ot Z79.82 ART COORDINATOR (CURRENT) USE OF ASPIRIN 03/07/2016 VANESA JOSETTE Corona SELF PAY COLLECTOR Ot Z79.899 OTHER ART COORDINATOR (CURRENT) DRUG THERAPY 03/07/2016 REYES MD, TRINA T Ot 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 LOWER LOBE, RIGHT 03/07/2016 REYES MD, TRINA T Ot E04.1 NONTOXIC SINGLE THYROID NODULE 03/07/2016 ALEXISJOSETTE Cornoa SELF PAY COLLECTOR Ot 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 LOWER LOBE, RIGHT 03/07/2016 ALEXIS JOSETTE Corona SELF PAY COLLECTOR Ot E11.9 TYPE 2 DIABETES MELLITUS WITHOUT COMPLIC 03/07/2016 VANESA JOSETTE Corona SELF PAY COLLECTOR Ot E78.5 HYPERLIPIDEMIA, UNSPECIFIED 03/07/2016 [place] ALEXISBRENDAN Corona SELF PAY COLLECTOR Ot I10 ESSENTIAL (PRIMARY) HYPERTENSION 03/07/2016 VANESA JOSETTE Corona SELF PAY COLLECTOR Ot I25.10 ATHSCL HEART DISEASE OF [place] CORONARY 03/07/2016 VANESA JOSETTE Corona SELF PAY COLLECTOR Ot J44.9 CHRONIC OBSTRUCTIVE PULMONARY DISEASE, U 03/07/2016 VANESA JOSETTE Corona SELF PAY COLLECTOR Ot Z79.82 ART COORDINATOR (CURRENT) USE OF ASPIRIN 03/07/2016 VANESA JOSETTE Corona SELF PAY COLLECTOR Ot Z79.899 OTHER CUSTODIAL (CURRENT) DRUG THERAPY 03/07/2016 NANCY KEARNEY Ot 162.5 MAL DULCE MARIA LOWER LOBE LUNG 03/07/2016 NANCY KEARNEY Ot 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 03/07/2016 NANCY KEARNEY Ot V58.69 OT MED,LT,CURRENT USE 03/07/2016 JOSETTE ALEXIS SELF PAY COLLECTOR Ot J44.9 CHRONIC OBSTRUCTIVE PULMONARY DISEASE, U 03/07/2016 JOSETTE ALEXIS SELF PAY COLLECTOR Ot R05 COUGH 03/07/2016 JOSETTE ALEXIS SELF PAY COLLECTOR Ot 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 LOWER LOBE, RIGHT 03/07/2016 JOSETTE ALEXIS SELF PAY COLLECTOR Ot E11.9 TYPE 2 DIABETES MELLITUS WITHOUT COMPLIC 03/07/2016 JOSETTE ALEXIS SELF PAY COLLECTOR Ot E78.5 HYPERLIPIDEMIA, UNSPECIFIED 03/07/2016 JOSETTE ALEXIS SELF PAY COLLECTOR Ot I10 ESSENTIAL (PRIMARY) HYPERTENSION 03/07/2016 JOSETTE ALEXIS SELF PAY COLLECTOR Ot I25.10 ATHSCL HEART DISEASE OF [place] CORONARY 03/07/2016 JOSETTE ALEXIS SELF PAY COLLECTOR Ot J44.9 CHRONIC OBSTRUCTIVE PULMONARY DISEASE, U 03/07/2016 JOSETTE ALEXIS SELF PAY COLLECTOR Ot Z79.82 CUSTODIAL (CURRENT) USE OF ASPIRIN 03/07/2016 JOSETTE ALEXIS SELF PAY COLLECTOR Ot Z79.899 OTHER CUSTODIAL (CURRENT) DRUG THERAPY 03/07/2016 JOSETTE ALEXIS SELF PAY COLLECTOR Ot 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 LOWER LOBE, RIGHT 03/07/2016 JOSETTE ALEXIS SELF PAY COLLECTOR Ot 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 LOWER LOBE, RIGHT 03/07/2016 JOSETTE ALEXISP Ot E11.9 TYPE 2 DIABETES MELLITUS WITHOUT COMPLIC 03/07/2016 JOSETTE ALEXISP Ot E78.5 HYPERLIPIDEMIA, UNSPECIFIED 03/07/2016 JOSETTE ALEXIS SELF PAY COLLECTOR Ot I10 ESSENTIAL (PRIMARY) HYPERTENSION 03/07/2016 JOSETTE ALEXIS SELF PAY COLLECTOR Ot I25.10 ATHSCL HEART DISEASE OF [place] CORONARY 03/07/2016 JOSETTE ALEXIS SELF PAY COLLECTOR Ot J44.9 CHRONIC OBSTRUCTIVE PULMONARY DISEASE, U 03/07/2016 JOSETTE ALEXIS SELF PAY COLLECTOR Ot Z79.82 ART COORDINATOR (CURRENT) USE OF ASPIRIN 03/07/2016 JOSETTE ALEXIS SELF PAY COLLECTOR Ot Z79.899 OTHER ART COORDINATOR (CURRENT) DRUG THERAPY 03/07/2016 JULISSA FRENCH, KASSANDRA Marie Ot E11.9 TYPE 2 DIABETES MELLITUS WITHOUT COMPLIC 03/07/2016 JOSETTE ALEXIS Cj SELF PAY COLLECTOR Ot C34.90 MALIGNANT NEOPLASM OF UNSP PART OF UNSP 03/07/2016 [place] ALEXISBRENDAN Corona SELF PAY COLLECTOR Ot R53.83 OTHER FATIGUE 03/07/2016 JOSETTE ALEXIS Cj SELF PAY COLLECTOR Ot 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 LOWER LOBE, RIGHT 03/07/2016 JOSETTE ALEXIS Cj SELF PAY COLLECTOR Ot E11.9 TYPE 2 DIABETES MELLITUS WITHOUT COMPLIC 03/07/2016 JOSETTE ALEXIS SELF PAY COLLECTOR Ot E78.5 HYPERLIPIDEMIA, UNSPECIFIED 03/07/2016 [place] ALEXISBRENDAN S SELF PAY COLLECTOR Ot I10 ESSENTIAL (PRIMARY) HYPERTENSION 03/07/2016 JOSETTE ALEXIS SELF PAY COLLECTOR Ot I25.10 ATHSCL HEART DISEASE OF [place] CORONARY 03/07/2016 JOSETTE ALEXIS SELF PAY COLLECTOR Ot J44.9 CHRONIC OBSTRUCTIVE PULMONARY DISEASE, U 03/07/2016 JOSETTE ALEXIS SELF PAY COLLECTOR Ot Z79.82 CUSTODIAL (CURRENT) USE OF ASPIRIN 03/07/2016 JOSETTE ALEXIS SELF PAY COLLECTOR Ot Z79.899 OTHER CUSTODIAL (CURRENT) DRUG THERAPY 03/07/2016 JOSETTE ALEXIS Cj SELF PAY COLLECTOR Ot 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 LOWER LOBE, RIGHT 03/07/2016 JOSETTE ALEXIS Cj SELF PAY COLLECTOR Ot 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 LOWER LOBE, RIGHT 03/07/2016 JOSETTE ALEXIS SELF PAY COLLECTOR Ot E11.9 TYPE 2 DIABETES MELLITUS WITHOUT COMPLIC 03/07/2016 JOSETTE ALEXIS SELF PAY COLLECTOR Ot E78.5 HYPERLIPIDEMIA, UNSPECIFIED 03/07/2016 JOSETTE ALEXIS SELF PAY COLLECTOR Ot I10 ESSENTIAL (PRIMARY) HYPERTENSION 03/07/2016 JOSETTE ALEXIS SELF PAY COLLECTOR Ot I25.10 ATHSCL HEART DISEASE OF [place] CORONARY 03/07/2016 JOSETTE ALEXIS SELF PAY COLLECTOR Ot J44.9 CHRONIC OBSTRUCTIVE PULMONARY DISEASE, U 03/07/2016 JOSETTE ALEXIS S SELF PAY COLLECTOR Ot Z79.82 ART COORDINATOR (CURRENT) USE OF ASPIRIN 03/07/2016 JOSETTE ALEXIS S SELF PAY COLLECTOR Ot Z79.899 OTHER CUSTODIAL (CURRENT) DRUG THERAPY 03/07/2016 JOSETTE ALEXIS S SELF PAY COLLECTOR Ot 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 LOWER LOBE, RIGHT 03/07/2016 JOSETTE ALEXIS SELF PAY COLLECTOR Ot R26.81 UNSTEADINESS ON FEET 03/07/2016 [place] ALEXISBRENDAN Cj SELF PAY COLLECTOR Ot R42 DIZZINESS AND GIDDINESS 03/07/2016 NANCY KEARNEY N Ot 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 LOWER LOBE, RIGHT 03/07/2016 NANCY KEARNEY N Ot E11.9 TYPE 2 DIABETES MELLITUS WITHOUT COMPLIC 03/07/2016 NANCY KEARNEY N Ot E78.5 HYPERLIPIDEMIA, UNSPECIFIED 03/07/2016 NANCY KEARNEY N Ot I10 ESSENTIAL (PRIMARY) HYPERTENSION 03/07/2016 NANCY KEARNEY N Ot I25.10 ATHSCL HEART DISEASE OF [place] CORONARY 03/07/2016 NANCY KEARNEY N Ot J44.9 CHRONIC OBSTRUCTIVE PULMONARY DISEASE, U 03/07/2016 NANCY KEARNEY N Ot R19.5 OTHER FECAL ABNORMALITIES 03/07/2016 NANCY KEARNEY N Ot Z51.11 ENCOUNTER FOR ANTINEOPLASTIC CHEMOTHERAP 03/07/2016 NANCY KEARNEY N Ot Z79.82 ART COORDINATOR (CURRENT) USE OF ASPIRIN 03/07/2016 NANCY KEARNEY N Ot Z79.899 OTHER ART COORDINATOR (CURRENT) DRUG THERAPY 03/07/2016 JOSETTE ALEXIS SELF PAY COLLECTOR Ot 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 LOWER LOBE, RIGHT 03/07/2016 JOSETTE ALEXIS SELF PAY COLLECTOR Ot E11.9 TYPE 2 DIABETES MELLITUS WITHOUT COMPLIC 03/07/2016 JOSETTE ALEXIS SELF PAY COLLECTOR Ot E78.5 HYPERLIPIDEMIA, UNSPECIFIED 03/07/2016 JOSETTE ALEXIS SELF PAY COLLECTOR Ot I10 ESSENTIAL (PRIMARY) HYPERTENSION 03/07/2016 JOSETTE ALEXIS SELF PAY COLLECTOR Ot I25.10 ATHSCL HEART DISEASE OF [place] CORONARY 03/07/2016 JOSETTE ALEXIS SELF PAY COLLECTOR Ot J44.9 CHRONIC OBSTRUCTIVE PULMONARY DISEASE, U 03/07/2016 JOSETTE ALEXIS SELF PAY COLLECTOR Ot Z79.82 ART COORDINATOR (CURRENT) USE OF ASPIRIN 03/07/2016 JOSETTE ALEXIS S SELF PAY COLLECTOR Ot Z79.899 OTHER CUSTODIAL (CURRENT) DRUG THERAPY 03/07/2016 KASSANDRA COSTA MD Ot Z12.31 ENCNTR SCREEN MAMMOGRAM FOR MALIGNANT NE 03/07/2016 KASSANDRA COSTA MD Ot E11.9 TYPE 2 DIABETES MELLITUS WITHOUT COMPLIC 03/07/2016 KASSANDRA COSTA MD Ot E78.4 OTHER HYPERLIPIDEMIA 03/07/2016 KASSANDRA COSTA MD Ot I10 ESSENTIAL (PRIMARY) HYPERTENSION 03/07/2016 KASSANDRA COSTA MD Ot I25.10 ATHSCL HEART DISEASE OF [place] CORONARY 03/08/2016 NANCY KEARNEY N Ot 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 LOWER LOBE, RIGHT 03/08/2016 NANCY KEARNEY N Ot E11.9 TYPE 2 DIABETES MELLITUS WITHOUT COMPLIC 03/08/2016 NANCY KEARNEY N Ot E78.5 HYPERLIPIDEMIA, UNSPECIFIED 03/08/2016 NANCY KEARNEY N Ot I10 ESSENTIAL (PRIMARY) HYPERTENSION 03/08/2016 NANCY KEARNEY N Ot I25.10 ATHSCL HEART DISEASE OF [place] CORONARY 03/08/2016 NANCY KEARNEY N Ot J44.9 CHRONIC OBSTRUCTIVE PULMONARY DISEASE, U 03/08/2016 NANCY KEARNEY N Ot R19.5 OTHER FECAL ABNORMALITIES 03/08/2016 NANCY KEARNEY N Ot Z51.11 ENCOUNTER FOR ANTINEOPLASTIC CHEMOTHERAP 03/08/2016 NANCY KEARNEY N Ot Z79.82 ART COORDINATOR (CURRENT) USE OF ASPIRIN 03/08/2016 NANCY KEARNEY N Ot Z79.899 OTHER ART COORDINATOR (CURRENT) DRUG THERAPY 03/19/2016 JOSETTE ALEXIS SELF PAY COLLECTOR Ot 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 LOWER LOBE, RIGHT 03/19/2016 JOSETTE ALEXIS SELF PAY COLLECTOR Ot E11.9 TYPE 2 DIABETES MELLITUS WITHOUT COMPLIC 03/19/2016 JOSETTE ALEXIS SELF PAY COLLECTOR Ot E78.5 HYPERLIPIDEMIA, UNSPECIFIED 03/19/2016 JOSETTE ALEXIS SELF PAY COLLECTOR Ot I10 ESSENTIAL (PRIMARY) HYPERTENSION 03/19/2016 JOSETTE ALEXIS SELF PAY COLLECTOR Ot I25.10 ATHSCL HEART DISEASE OF [place] CORONARY 03/19/2016 JOSETTE ALEXIS SELF PAY COLLECTOR Ot J44.9 CHRONIC OBSTRUCTIVE PULMONARY DISEASE, U 03/19/2016 JOSETTE ALEXIS S SELF PAY COLLECTOR Ot Z79.82 CUSTODIAL (CURRENT) USE OF ASPIRIN 03/19/2016 JOSETTE ALEXIS S SELF PAY COLLECTOR Ot Z79.899 OTHER ART COORDINATOR (CURRENT) DRUG THERAPY 03/21/2016 KASSANDRA COSTA MD Ot E11.9 TYPE 2 DIABETES MELLITUS WITHOUT COMPLIC 03/21/2016 KASSANDRA COSTA MD Ot E78.4 OTHER HYPERLIPIDEMIA 03/21/2016 KASSANDRA COSTA MD Ot I10 ESSENTIAL (PRIMARY) HYPERTENSION 03/21/2016 KASSANDRA COSTA MD, Ot I25.10 ATHSCL HEART DISEASE OF [place] CORONARY 03/22/2016 ALEXISJOSETTE Corona S SELF PAY COLLECTOR Ot M79.604 PAIN IN RIGHT LEG 03/22/2016 ALEXISJOSETTE S SELF PAY COLLECTOR Ot R60.0 LOCALIZED EDEMA 03/22/2016 ALEXISJSOETTE S SELF PAY COLLECTOR Ot M79.604 PAIN IN RIGHT LEG 03/22/2016 ALEXIS, CHINAAH S SELF PAY COLLECTOR Ot R60.0 LOCALIZED EDEMA 03/22/2016 ALEXIS, CHINAAH S SELF PAY COLLECTOR Ot M79.604 PAIN IN RIGHT LEG 03/22/2016 ALEXIS, CHINAAH S SELF PAY COLLECTOR Ot R60.0 LOCALIZED EDEMA 03/22/2016 ALEXIS, CHINAAH S SELF PAY COLLECTOR Ot M79.604 PAIN IN RIGHT LEG 03/22/2016 ALEXISJOSETTE S SELF PAY COLLECTOR Ot R60.0 LOCALIZED EDEMA 03/22/2016 ALEXISJSOETTE S SELF PAY COLLECTOR Ot M79.604 PAIN IN RIGHT LEG 03/22/2016 ALEXISJOSETTE S SELF PAY COLLECTOR Ot R60.0 LOCALIZED EDEMA 03/23/2016 KASSANDRA COSTA [...] MD Ot I25.10 ATHSCL HEART DISEASE OF [place] CORONARY 04/04/2016 KASSANDRA COSTA MD, Ot C34.90 MALIGNANT NEOPLASM OF UNSP PART OF UNSP 04/04/2016 KASSANDRA COSTA MD Ot E11.9 TYPE 2 DIABETES MELLITUS WITHOUT COMPLIC 04/04/2016 KASSANDRA COSTA MD Ot E78.4 OTHER HYPERLIPIDEMIA 04/04/2016 KASSANDRA COSTA MD Ot I10 ESSENTIAL (PRIMARY) HYPERTENSION 04/04/2016 KASSANDRA COSTA MD Ot I25.10 ATHSCL HEART DISEASE OF [place] CORONARY 04/04/2016 KASSANDRA COSTA MD, Ot C34.90 MALIGNANT NEOPLASM OF UNSP [facility] 04/04/2016 KASSANDRA COSTA MD Ot E11.9 TYPE 2 DIABETES MELLITUS WITHOUT COMPLIC 04/04/2016 KASSANDRA COSTA MD, Ot E78.4 OTHER HYPERLIPIDEMIA 04/04/2016 KASSANDRA COSTA MD Ot I10 ESSENTIAL (PRIMARY) HYPERTENSION 04/04/2016 KASSANDRA COSTA MD Ot I25.10 ATHSCL HEART DISEASE OF [place] CORONARY 04/04/2016 KASSANDRA COSTA MD, Ot C34.90 MALIGNANT NEOPLASM OF UNSP PART OF UNSP 04/04/2016 KASSANDRA COSTA MD, Ot E11.9 TYPE 2 DIABETES MELLITUS WITHOUT COMPLIC 04/04/2016 KASSANDRA COSTA MD, Ot E78.4 OTHER HYPERLIPIDEMIA 04/04/2016 KASSANDRA COSTA MD, Ot I10 ESSENTIAL (PRIMARY) HYPERTENSION 04/04/2016 KASSANDRA COSTA MD, Ot I25.10 ATHSCL HEART DISEASE OF [place] CORONARY 04/04/2016 KASSANDRA COSTA MD, Ot C34.90 MALIGNANT NEOPLASM OF UNSP [facility] 04/04/2016 KASSANDRA COSTA MD, Ot E11.9 TYPE 2 DIABETES MELLITUS WITHOUT COMPLIC 04/04/2016 KASSANDRA COSTA MD, Ot E78.4 OTHER HYPERLIPIDEMIA 04/04/2016 KASSANDRA COSTA MD Ot I10 ESSENTIAL (PRIMARY) HYPERTENSION 04/04/2016 KASSANDRA COSTA MD Ot I25.10 ATHSCL HEART DISEASE OF [place] CORONARY 04/04/2016 KASSANDRA COSTA MD, Ot C34.90 MALIGNANT NEOPLASM OF UNSP [facility] 04/04/2016 AKSSANDRA COSTA MD, Ot E11.9 TYPE 2 DIABETES MELLITUS WITHOUT COMPLIC 04/04/2016 KASSANDRA COSTA MD, Ot E78.4 OTHER HYPERLIPIDEMIA 04/04/2016 KASSANDRA COSTA MD Ot I10 ESSENTIAL (PRIMARY) HYPERTENSION 04/04/2016 KASSANDRA COSTA MD Ot I25.10 ATHSCL HEART DISEASE OF [place] CORONARY 04/04/2016 KASSANDRA COSTA MD, Ot C34.90 MALIGNANT NEOPLASM OF UNSP PART OF [place] 04/04/2016 KASSANDRA COSTA MD, Ot E11.9 TYPE 2 DIABETES MELLITUS WITHOUT COMPLIC 04/04/2016 KASSANDRA COSTA MD Ot E78.4 OTHER HYPERLIPIDEMIA 04/04/2016 KASSANDRA COSTA MD Ot I10 ESSENTIAL (PRIMARY) HYPERTENSION 04/04/2016 KASSANDRA COSTA MD Ot I25.10 ATHSCL HEART DISEASE OF [place] CORONARY 04/09/2016 CHRISTELNANCY LINARES N Ot 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 LOWER LOBE, RIGHT 04/09/2016 CHRISTELBERTO LINARESAN N Ot E11.9 TYPE 2 DIABETES MELLITUS WITHOUT COMPLIC 04/09/2016 CHRISTELBERTOAN N Ot E78.5 HYPERLIPIDEMIA, UNSPECIFIED 04/09/2016 CHRISTEL BOBAN N Ot I10 ESSENTIAL (PRIMARY) HYPERTENSION 04/09/2016 CHRISTEL BOBAN N Ot I25.10 ATHSCL HEART DISEASE OF [place] CORONARY 04/09/2016 CHRISTEL BOBAN N Ot J44.9 CHRONIC OBSTRUCTIVE PULMONARY DISEASE, U 04/09/2016 CHRISTEL BOBAN N Ot R19.5 OTHER FECAL ABNORMALITIES 04/09/2016 CHRISTEL BOBAN N Ot Z51.11 ENCOUNTER FOR ANTINEOPLASTIC CHEMOTHERAP 04/09/2016 CHRISTELBERTO LINARESAN N Ot Z79.82 CUSTODIAL (CURRENT) USE OF ASPIRIN 04/09/2016 CHRISTEL, BOBAN N Ot Z79.899 OTHER CUSTODIAL (CURRENT) DRUG THERAPY 04/11/2016 CHRISTEL BOBCASSY N Ot 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 LOWER LOBE, RIGHT 04/11/2016 CHRISTEL BOBAN N Ot E11.9 TYPE 2 DIABETES MELLITUS WITHOUT COMPLIC 04/11/2016 CHRISTEL BOBAN N Ot E78.5 HYPERLIPIDEMIA, UNSPECIFIED 04/11/2016 CHRISTEL BOBAN N Ot I10 ESSENTIAL (PRIMARY) HYPERTENSION 04/11/2016 CHRISTEL BOBAN N Ot I25.10 ATHSCL HEART DISEASE OF [place] CORONARY 04/11/2016 CHRISTEL BOBCASSY N Ot J44.9 CHRONIC OBSTRUCTIVE PULMONARY DISEASE, U 04/11/2016 CHRISTEL BOBAN N Ot R19.5 OTHER FECAL ABNORMALITIES 04/11/2016 CHRISTEL BOBAN N Ot Z51.11 ENCOUNTER FOR ANTINEOPLASTIC CHEMOTHERAP 04/11/2016 CHRISTEL BOBAN N Ot Z79.82 CUSTODIAL (CURRENT) USE OF ASPIRIN 04/11/2016 CHRISTEL BOBAN N Ot Z79.899 OTHER CUSTODIAL (CURRENT) DRUG THERAPY 04/13/2016 JOSETTE ALEXIS SELF PAY COLLECTOR Ot M79.604 PAIN IN RIGHT LEG 04/13/2016 JOSETTE ALEXIS SELF PAY COLLECTOR Ot R60.0 LOCALIZED EDEMA 04/18/2016 JULISSA KASSANDRA FRENCH Ot C34.90 MALIGNANT NEOPLASM OF UNSP PART OF [facility] 04/18/2016 KASSANDRA COSTA MD Ot E11.9 TYPE 2 DIABETES MELLITUS WITHOUT COMPLIC 04/18/2016 KASSANDRA COSTA MD Ot E78.4 OTHER HYPERLIPIDEMIA 04/18/2016 KASSANDRA COSTA MD Ot I10 ESSENTIAL (PRIMARY) HYPERTENSION 04/18/2016 KASSANDRA COSTA MD Ot I25.10 ATHSCL HEART DISEASE OF [place] CORONARY 04/23/2016 JOSETTE ALEXIS SELF PAY COLLECTOR Ot M79.604 PAIN IN RIGHT LEG 04/23/2016 JOSETTE ALEXIS SELF PAY COLLECTOR Ot R60.0 LOCALIZED EDEMA 04/29/2016 KRISS WORTHY MD Ot C34.90 MALIGNANT NEOPLASM OF [place]SP PART OF [facility] 04/29/2016 KRISS WORTHY MD Ot I82.442 ACUTE EMBOLISM AND THROMBOSIS OF LEFT TI 04/29/2016 KRISS WORTHY MD Ot M17.12 UNILATERAL PRIMARY OSTEOARTHRITIS, LEFT 04/29/2016 KRISS WORTHY MD Ot M25.562 PAIN IN LEFT KNEE 04/29/2016 KRISS WORTHY MD Ot M71.22 SYNOVIAL CYST OF POPLITEAL SPACE [ENCINAS] 04/29/2016 KRISS WORTHY MD Ot Z79.82 CUSTODIAL (CURRENT) USE OF ASPIRIN 04/29/2016 KRISS WORTHY MD Ot Z79.899 OTHER ART COORDINATOR (CURRENT) DRUG THERAPY 04/29/2016 KRISS WORTHY MD [...] MENT OF HEMORR 04/30/2016 JULISSA FRENCH, KASSANDRA Marie Ot 729.92 NONTRAUMATIC HEMATOMA OF SOFT TISSUE 04/30/2016 JULISSA FRENCH, KASSANDRA Marie Ot 786.6 CHEST SWELLING/MASS/LUMP 04/30/2016 KASSANDRA COSTA MD Ot 162.9 MAL DULCE [...] YOUNG MD Ot 272.4 HYPERLIPIDEMIA NEC/NOS 04/30/2016 DMAION YOUNG MD Ot 401.9 HYPERTENSION NOS 04/30/2016 DAMION YOUNG MD Ot 414.00 CORON ATHEROSCLER NOS TYPE VESSEL, NATIV 04/30/2016 CONNIE FRENCH, JOSHUA K Ot 162.9 MAL DULCE MARIA BRONCH/LUNG NOS 04/30/2016 JOSETTE ALEXIS SELF PAY COLLECTOR Ot 162.5 MAL DULCE MARIA LOWER LOBE LUNG 04/30/2016 JOSETTE ALEXIS SELF PAY COLLECTOR Ot 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 04/30/2016 JOSETTE ALEXIS SELF PAY COLLECTOR Ot 250.00 DIAB DARCI WO COMPL, TYPE II OR UNSPEC TY 04/30/2016 JOSETTE ALEXIS SELF PAY COLLECTOR Ot 272.4 HYPERLIPIDEMIA NEC/NOS 04/30/2016 JOSETTE ALEXIS SELF PAY COLLECTOR Ot 401.9 HYPERTENSION NOS 04/30/2016 JOSETTE ALEXIS SELF PAY COLLECTOR Ot 414.00 CORON ATHEROSCLER NOS TYPE VESSEL, NATIV 04/30/2016 JOSETTE ALEXIS SELF PAY COLLECTOR Ot 493.20 CHRONIC OBSTRUCTIVE ASTHMA, NOS 04/30/2016 JOSETTE ALEXIS SELF PAY COLLECTOR Ot V58.66 LONG-TERM (CURRENT) USE OF ASPIRIN 04/30/2016 JOSETTE ALEXIS SELF PAY COLLECTOR Ot V58.69 OTH MED,LT,CURRENT USE 04/30/2016 SULAIMAN FRENCH, ISACC S Ot 162.9 MAL DULCE MARIA BRONCH/LUNG NOS 04/30/2016 ISACC HILARIO MD S Ot V72.84 EXAM PRE-OPERATIVE NOS 04/30/2016 NANCY KEARNEY Ot 162.9 MAL DULCE MARIA BRONCH/LUNG NOS 04/30/2016 NANCY KEARNEY Ot 562.10 DIVERTICULOSIS COLON (W/O MENT OF HEMORR 04/30/2016 NANCY KEARNEY Ot 573.8 LIVER DISORDERS NEC 04/30/2016 JOSETTE ALEXIS SELF PAY COLLECTOR Ot 162.9 MAL DULCE MARIA BRONCH/LUNG NOS 04/30/2016 JOSETTE ALEXIS SELF PAY COLLECTOR Ot 162.5 MAL DULCE MARIA LOWER LOBE LUNG 04/30/2016 JOSETTE ALEXIS SELF PAY COLLECTOR Ot 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 04/30/2016 JOSETTE ALEXIS SELF PAY COLLECTOR Ot 250.00 DIAB DARCI WO COMPL, TYPE II OR UNSPEC TY 04/30/2016 JOSETTE ALEXIS SELF PAY COLLECTOR Ot 272.4 HYPERLIPIDEMIA NEC/NOS 04/30/2016 JOSETTE ALEXIS SELF PAY COLLECTOR Ot 356.9 IDIO PERIPH NEURPTHY NOS 04/30/2016 JOSETTE ALEXIS SELF PAY COLLECTOR Ot 401.9 HYPERTENSION NOS 04/30/2016 JOSETTE ALEXIS SELF PAY COLLECTOR Ot 414.00 CORON ATHEROSCLER NOS TYPE VESSEL, NATIV 04/30/2016 JOSETTE ALEXIS SELF PAY COLLECTOR Ot 493.20 CHRONIC OBSTRUCTIVE ASTHMA, NOS 04/30/2016 JOSETTE ALEXIS SELF PAY COLLECTOR Ot 528.9 ORAL SOFT TISSUE DIS NEC 04/30/2016 JOSETTE ALEXIS SELF PAY COLLECTOR Ot V58.66 LONG-TERM (CURRENT) USE OF ASPIRIN 04/30/2016 JOSETTE ALEXIS SELF PAY COLLECTOR Ot V58.69 OTH MED,LT,CURRENT USE 04/30/2016 JOSETTE ALEXIS S SELF PAY COLLECTOR Ot 162.9 MAL DULCE MARIA BRONCH/LUNG NOS 04/30/2016 JOSETTE ALEXIS S SELF PAY COLLECTOR Ot 162.5 MAL DULCE MARIA LOWER LOBE LUNG 04/30/2016 JOSETTE ALEXIS S SELF PAY COLLECTOR Ot 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 04/30/2016 JOSETTE ALEXIS S SELF PAY COLLECTOR Ot 250.00 DIAB DARCI WO COMPL, TYPE II OR UNSPEC TY 04/30/2016 JOSETTE ALEXIS S SELF PAY COLLECTOR Ot 272.4 HYPERLIPIDEMIA NEC/NOS 04/30/2016 JOSETTE ALEXIS S SELF PAY COLLECTOR Ot 401.9 HYPERTENSION NOS 04/30/2016 JOSETTE ALEXIS S SELF PAY COLLECTOR Ot 414.00 CORON ATHEROSCLER NOS TYPE VESSEL, NATIV 04/30/2016 JOSETTE ALEXIS S SELF PAY COLLECTOR Ot 493.20 CHRONIC OBSTRUCTIVE ASTHMA, NOS 04/30/2016 JOSETTE ALEXIS SELF PAY COLLECTOR Ot 782.1 NONSPECIF SKIN ERUPT NEC 04/30/2016 JOSETTE ALEXIS S SELF PAY COLLECTOR Ot V58.66 LONG-TERM (CURRENT) USE OF ASPIRIN 04/30/2016 CH[place] ALEXISAH S SELF PAY COLLECTOR Ot V58.69 OTH MED,LT,CURRENT USE 04/30/2016 JOSETTE ALEXIS SELF PAY COLLECTOR Ot 162.5 MAL DULCE MARIA LOWER LOBE LUNG 04/30/2016 JOSETTE ALEXIS S SELF PAY COLLECTOR Ot 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 04/30/2016 JOSETTE ALEXIS S SELF PAY COLLECTOR Ot 250.00 DIAB DARCI WO COMPL, TYPE II OR UNSPEC TY 04/30/2016 JOSETTE ALEXIS S SELF PAY COLLECTOR Ot 272.1 PURE HYPERGLYCERIDEMIA 04/30/2016 JOSETTE ALEXIS S SELF PAY COLLECTOR Ot 272.4 HYPERLIPIDEMIA NEC/NOS 04/30/2016 JOSETTE ALEXIS S SELF PAY COLLECTOR Ot 278.00 OBESITY, NOS 04/30/2016 JOSETTE ALEXIS S SELF PAY COLLECTOR Ot 401.9 HYPERTENSION NOS 04/30/2016 JOSETTE ALEXIS S SELF PAY COLLECTOR Ot 414.00 CORON ATHEROSCLER NOS TYPE VESSEL, NATIV 04/30/2016 JOSETTE ALEXIS S SELF PAY COLLECTOR Ot 493.20 CHRONIC OBSTRUCTIVE ASTHMA, NOS 04/30/2016 JOSETTE ALEXIS S SELF PAY COLLECTOR Ot 793.19 OTHER NONSPECIFIC ABNORMAL FINDING OF [place]BERTO 04/30/2016 JOSETTE ALEXIS S SELF PAY COLLECTOR Ot V58.69 OTH MED,LT,CURRENT USE 04/30/2016 ALEXISJOSETTE Corona SELF PAY COLLECTOR Ot V85.35 BODY MASS INDEX 35.0-35.9, ADULT 04/30/2016 ALEXISJOSETTE Corona SELF PAY COLLECTOR Ot C34.90 MALIGNANT NEOPLASM OF UNSP PART OF [place]SP 04/30/2016 VANESA JOSETTE Corona SELF PAY COLLECTOR Ot R51 HEADACHE 04/30/2016 VANESA JOSETTE Corona SELF PAY COLLECTOR Ot C34.90 MALIGNANT NEOPLASM OF UNSP PART OF [place] 04/30/2016 ALEXISJOSETTE Corona SELF PAY COLLECTOR Ot 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 LOWER LOBE, RIGHT 04/30/2016 VANESA JOSETTE Corona SELF PAY COLLECTOR Ot R05 COUGH 04/30/2016 VANESA JOSETTE Corona SELF PAY COLLECTOR Ot R06.00 DYSPNEA, UNSPECIFIED 04/30/2016 VANESA JOSETTE Corona SELF PAY COLLECTOR Ot 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 LOWER LOBE, RIGHT 04/30/2016 [place] ALEXISBRENDAN Corona SELF PAY COLLECTOR Ot E11.9 TYPE 2 DIABETES MELLITUS WITHOUT COMPLIC 04/30/2016 VANESA JOSETTE Corona SELF PAY COLLECTOR Ot E78.5 HYPERLIPIDEMIA, UNSPECIFIED 04/30/2016 VANESA JOSETTE Corona SELF PAY COLLECTOR Ot I10 ESSENTIAL (PRIMARY) HYPERTENSION 04/30/2016 VANESA JOSETTE Corona SELF PAY COLLECTOR Ot I25.10 ATHSCL HEART DISEASE OF [place] CORONARY 04/30/2016 VANESA JOSETTE Corona SELF PAY COLLECTOR Ot J44.9 CHRONIC OBSTRUCTIVE PULMONARY DISEASE, U 04/30/2016 VANESA JOSETTE Corona SELF PAY COLLECTOR Ot Z79.82 ART COORDINATOR (CURRENT) USE OF ASPIRIN 04/30/2016 [place] ALEXISBRENDAN Corona SELF PAY COLLECTOR Ot Z79.899 OTHER CUSTODIAL (CURRENT) DRUG THERAPY 04/30/2016 REYES MD, TRINA T Ot 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 LOWER LOBE, RIGHT 04/30/2016 REYES MD, TRINA T Ot E04.1 NONTOXIC SINGLE THYROID NODULE 04/30/2016 [place] ALEXISBRENDAN Corona SELF PAY COLLECTOR Ot 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 LOWER LOBE, RIGHT 04/30/2016 [place] ALEXISBRENDAN Corona SELF PAY COLLECTOR Ot E11.9 TYPE 2 DIABETES MELLITUS WITHOUT COMPLIC 04/30/2016 [place] ALEXISBRENDAN Corona SELF PAY COLLECTOR Ot E78.5 HYPERLIPIDEMIA, UNSPECIFIED 04/30/2016 JOSETTE ALEXIS SELF PAY COLLECTOR Ot I10 ESSENTIAL (PRIMARY) HYPERTENSION 04/30/2016 JOSETTE ALEXIS SELF PAY COLLECTOR Ot I25.10 ATHSCL HEART DISEASE OF [place] CORONARY 04/30/2016 JOSETTE ALEXIS SELF PAY COLLECTOR Ot J44.9 CHRONIC OBSTRUCTIVE PULMONARY DISEASE, U 04/30/2016 JOSETTE ALEXIS SELF PAY COLLECTOR Ot Z79.82 ART COORDINATOR (CURRENT) USE OF ASPIRIN 04/30/2016 JOSETTE ALEXIS SELF PAY COLLECTOR Ot Z79.899 OTHER ART COORDINATOR (CURRENT) DRUG THERAPY 04/30/2016 NANCY KEARNEY N Ot 162.5 MAL DULCE MARIA LOWER LOBE LUNG 04/30/2016 CHRISTELNANCY LINARES N Ot 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 04/30/2016 NANCY KEARNEY N Ot V58.69 OT MED,LT,CURRENT USE 04/30/2016 JOSETTE ALEXIS SELF PAY COLLECTOR Ot J44.9 CHRONIC OBSTRUCTIVE PULMONARY DISEASE, U 04/30/2016 JOSETTE ALEXISP Ot R05 COUGH 04/30/2016 JOSETTE ALEXIS SELF PAY COLLECTOR Ot 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 LOWER LOBE, RIGHT 04/30/2016 JOSETTE ALEXISP Ot E11.9 TYPE 2 DIABETES MELLITUS WITHOUT COMPLIC 04/30/2016 JOSETTE ALEXISP Ot E78.5 HYPERLIPIDEMIA, UNSPECIFIED 04/30/2016 JOSETTE ALEXIS SELF PAY COLLECTOR Ot I10 ESSENTIAL (PRIMARY) HYPERTENSION 04/30/2016 JOSETTE ALEXISP Ot I25.10 ATHSCL HEART DISEASE OF [place] CORONARY 04/30/2016 JOSETTE ALEXISP Ot J44.9 CHRONIC OBSTRUCTIVE PULMONARY DISEASE, U 04/30/2016 JOSETTE ALEXIS SELF PAY COLLECTOR Ot Z79.82 CUSTODIAL (CURRENT) USE OF ASPIRIN 04/30/2016 JOSETTE ALEXISP Ot Z79.899 OTHER ART COORDINATOR (CURRENT) DRUG THERAPY 04/30/2016 JOSETTE ALEXISP Ot 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 LOWER LOBE, RIGHT 04/30/2016 JOSETTE ALEXIS SELF PAY COLLECTOR Ot 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 LOWER LOBE, RIGHT 04/30/2016 JOSETTE ALEXIS SELF PAY COLLECTOR Ot E11.9 TYPE 2 DIABETES MELLITUS WITHOUT COMPLIC 04/30/2016 JOSETTE ALEXIS SELF PAY COLLECTOR Ot E78.5 HYPERLIPIDEMIA, UNSPECIFIED 04/30/2016 JOSETTE ALEXIS SELF PAY COLLECTOR Ot I10 ESSENTIAL (PRIMARY) HYPERTENSION 04/30/2016 JOSETTE ALEXIS SELF PAY COLLECTOR Ot I25.10 ATHSCL HEART DISEASE OF [place] CORONARY 04/30/2016 JOSETTE ALEXIS SELF PAY COLLECTOR Ot J44.9 CHRONIC OBSTRUCTIVE PULMONARY DISEASE, U 04/30/2016 JOSETTE ALEXIS SELF PAY COLLECTOR Ot Z79.82 ART COORDINATOR (CURRENT) USE OF ASPIRIN 04/30/2016 JOSETTE ALEXIS SELF PAY COLLECTOR Ot Z79.899 OTHER CUSTODIAL (CURRENT) DRUG THERAPY 04/30/2016 KASSANDRA COSTA MD Ot E11.9 TYPE 2 DIABETES MELLITUS WITHOUT COMPLIC 04/30/2016 JOSETTE ALEXISP Ot C34.90 MALIGNANT NEOPLASM OF UNSP PART OF UNSP 04/30/2016 JOSETTE ALEXIS SELF PAY COLLECTOR Ot R53.83 OTHER FATIGUE 04/30/2016 JOSETTE ALEXIS SELF PAY COLLECTOR Ot 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 LOWER LOBE, RIGHT 04/30/2016 JOSETTE ALEXIS SELF PAY COLLECTOR Ot E11.9 TYPE 2 DIABETES MELLITUS WITHOUT COMPLIC 04/30/2016 JOSETTE ALEXISP Ot E78.5 HYPERLIPIDEMIA, UNSPECIFIED 04/30/2016 JOSETTE ALEXIS SELF PAY COLLECTOR Ot I10 ESSENTIAL (PRIMARY) HYPERTENSION 04/30/2016 JOSETTE ALEXIS SELF PAY COLLECTOR Ot I25.10 ATHSCL HEART DISEASE OF [place] CORONARY 04/30/2016 JOSETTE ALEXIS SELF PAY COLLECTOR Ot J44.9 CHRONIC OBSTRUCTIVE PULMONARY DISEASE, U 04/30/2016 JOSETTE ALEXIS SELF PAY COLLECTOR Ot Z79.82 ART COORDINATOR (CURRENT) USE OF ASPIRIN 04/30/2016 JOSETTE ALEXIS SELF PAY COLLECTOR Ot Z79.899 OTHER CUSTODIAL (CURRENT) DRUG THERAPY 04/30/2016 JOSETTE ALEXIS SELF PAY COLLECTOR Ot 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 LOWER LOBE, RIGHT 04/30/2016 JOSETTE ALEXIS SELF PAY COLLECTOR Ot 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 LOWER LOBE, RIGHT 04/30/2016 JOSETTE ALEXIS SELF PAY COLLECTOR Ot E11.9 TYPE 2 DIABETES MELLITUS WITHOUT COMPLIC 04/30/2016 JOSETTE ALEXIS SELF PAY COLLECTOR Ot E78.5 HYPERLIPIDEMIA, UNSPECIFIED 04/30/2016 JOSETTE ALEXIS Cj SELF PAY COLLECTOR Ot I10 ESSENTIAL (PRIMARY) HYPERTENSION 04/30/2016 CHINA ALEXISBRENDAN Corona SELF PAY COLLECTOR Ot I25.10 ATHSCL HEART DISEASE OF [place] CORONARY 04/30/2016 JOSETTE ALEXIS Cj SELF PAY COLLECTOR Ot J44.9 CHRONIC OBSTRUCTIVE PULMONARY DISEASE, U 04/30/2016 JOSETTE ALEXIS Cj SELF PAY COLLECTOR Ot Z79.82 CUSTODIAL (CURRENT) USE OF ASPIRIN 04/30/2016 JOSETTE ALEXIS Cj SELF PAY COLLECTOR Ot Z79.899 OTHER CUSTODIAL (CURRENT) DRUG THERAPY 04/30/2016 CH[place] ALEXISBRENDAN Corona SELF PAY COLLECTOR Ot 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 LOWER LOBE, RIGHT 04/30/2016 JOSETTE ALEXISP Ot R26.81 UNSTEADINESS ON FEET 04/30/2016 JOSETTE ALEXIS SELF PAY COLLECTOR Ot R42 DIZZINESS AND GIDDINESS 04/30/2016 [place] ALEXISBRENDAN Corona SELF PAY COLLECTOR Ot 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 LOWER LOBE, RIGHT 04/30/2016 JOSETTE ALEXISP Ot E11.9 TYPE 2 DIABETES MELLITUS WITHOUT COMPLIC 04/30/2016 JOSETTE ALEXISP Ot E78.5 HYPERLIPIDEMIA, UNSPECIFIED 04/30/2016 JOSETTE ALEXISP Ot I10 ESSENTIAL (PRIMARY) HYPERTENSION 04/30/2016 JOSETTE ALEXISP Ot I25.10 ATHSCL HEART DISEASE OF [place] CORONARY 04/30/2016 JOSETTE ALEXIS SELF PAY COLLECTOR Ot J44.9 CHRONIC OBSTRUCTIVE PULMONARY DISEASE, U 04/30/2016 JOSETTE ALEXIS SELF PAY COLLECTOR Ot Z79.82 ART COORDINATOR (CURRENT) USE OF ASPIRIN 04/30/2016 JOSETTE ALEXIS Cj SELF PAY COLLECTOR Ot Z79.899 OTHER CUSTODIAL (CURRENT) DRUG THERAPY 04/30/2016 KASSANDRA COSTA MD Ot Z12.31 ENCNTR SCREEN MAMMOGRAM FOR MALIGNANT NE 04/30/2016 KASSANDRA COSTA MD Ot E11.9 TYPE 2 DIABETES MELLITUS WITHOUT COMPLIC 04/30/2016 KASSANDRA COSTA MD Ot E78.4 OTHER HYPERLIPIDEMIA 04/30/2016 KASSANDRA COSTA MD Ot I10 ESSENTIAL (PRIMARY) HYPERTENSION 04/30/2016 KASSANDRA COSTA MD Ot I25.10 ATHSCL HEART DISEASE OF [place] CORONARY 04/30/2016 JOSETTE ALEXIS SELF PAY COLLECTOR Ot M79.604 PAIN IN RIGHT LEG 04/30/2016 [place] ALEXISBRENDAN Corona SELF PAY COLLECTOR Ot R60.0 LOCALIZED EDEMA 04/30/2016 KASSANDRA COSTA MD Ot C34.90 MALIGNANT NEOPLASM OF UNSP PART OF [facility] 04/30/2016 KASSANDRA COSTA MD Ot E11.9 TYPE 2 DIABETES MELLITUS WITHOUT COMPLIC 04/30/2016 KASSANDRA COSTA MD Ot E78.4 OTHER HYPERLIPIDEMIA 04/30/2016 KASSANDRA COSTA MD Ot I10 ESSENTIAL (PRIMARY) HYPERTENSION 04/30/2016 KASSANDRA COSTA MD Ot I25.10 ATHSCL HEART DISEASE OF [place] CORONARY 04/30/2016 CHRISTEL, NANCY N Ot 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 LOWER LOBE, RIGHT 04/30/2016 CHRISTEL, NANCY N Ot E11.9 TYPE 2 DIABETES MELLITUS WITHOUT COMPLIC 04/30/2016 CHRISTEL, NANCY N Ot E78.5 HYPERLIPIDEMIA, UNSPECIFIED 04/30/2016 CHRISTELNANCY N Ot I10 ESSENTIAL (PRIMARY) HYPERTENSION 04/30/2016 CHRISTELNANCY N Ot I25.10 ATHSCL HEART DISEASE OF [place] CORONARY 04/30/2016 CHRISTEL NANCY N Ot J44.9 CHRONIC OBSTRUCTIVE PULMONARY DISEASE, U 04/30/2016 CHRISTEL NANCY N Ot R19.5 OTHER FECAL ABNORMALITIES 04/30/2016 CHRISTEL NANCY N Ot Z51.11 ENCOUNTER FOR ANTINEOPLASTIC CHEMOTHERAP 04/30/2016 NANCY KEARNEY N Ot Z79.82 ART COORDINATOR (CURRENT) USE OF ASPIRIN 04/30/2016 NANCY KEARNEY N Ot Z79.899 OTHER CUSTODIAL (CURRENT) DRUG THERAPY 05/01/2016 CHRISTEL NANCY N Ot 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 LOWER LOBE, RIGHT 05/01/2016 CHIRSTEL, NANCY N Ot Z01.89 ENCOUNTER FOR OTHER SPECIFIED SPECIAL EX 05/01/2016 CHRISTEL NANCY N Ot 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 LOWER LOBE, RIGHT 05/01/2016 CHRISTELNANCY N Ot Z01.89 ENCOUNTER FOR OTHER SPECIFIED SPECIAL EX 05/02/2016 ZAYNAB FRENCH, KRISS Mayes Ot C34.90 MALIGNANT NEOPLASM OF UNSP PART OF [facility] 05/02/2016 ZAYNAB FRENCH, KRISS Mayes Ot I82.442 ACUTE EMBOLISM AND THROMBOSIS OF LEFT TI 05/02/2016 KRISS WORTHY MD, Ot M17.12 UNILATERAL PRIMARY OSTEOARTHRITIS, LEFT 05/02/2016 KRISS WORTHY MD, Ot M25.562 PAIN IN LEFT KNEE 05/02/2016 KRISS WORTHY MD, Ot M71.22 SYNOVIAL CYST OF [place]LITE[place] SPACE [ENCINAS] 05/02/2016 KRISS WORTHY MD Ot Z79.82 CUSTODIAL (CURRENT) USE OF ASPIRIN 05/02/2016 KRISS WORTHY MD Ot Z79.899 OTHER CUSTODIAL (CURRENT) DRUG THERAPY 05/02/2016 KRISS WORTHY MD, Ot Z87.891 PERSONAL HISTORY OF NICOTINE DEPENDENCE 05/02/2016 NANCY KEARNEY Ot 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 LOWER LOBE, RIGHT 05/02/2016 NANCY KEARNEY Ot E11.9 TYPE 2 DIABETES MELLITUS WITHOUT COMPLIC 05/02/2016 NANCY KEARNEY Ot E78.5 HYPERLIPIDEMIA, UNSPECIFIED 05/02/2016 NANCY KEARNEY Ot I10 ESSENTIAL (PRIMARY) HYPERTENSION 05/02/2016 NANCY KEARNEY Ot I25.10 ATHSCL HEART DISEASE OF [place] CORONARY 05/02/2016 NANCY KEARNEY Ot J44.9 CHRONIC OBSTRUCTIVE PULMONARY DISEASE, U 05/02/2016 NANCY KEARNEY Ot R19.5 OTHER FECAL ABNORMALITIES 05/02/2016 NANCY KEARNEY Ot Z51.11 ENCOUNTER FOR ANTINEOPLASTIC CHEMOTHERAP 05/02/2016 NANCY KEARNEY Ot Z79.82 ART COORDINATOR (CURRENT) USE OF ASPIRIN 05/02/2016 NANCY KEARNEY Ot Z79.899 OTHER CUSTODIAL (CURRENT) DRUG THERAPY 05/03/2016 DAMION YOUNG MD Ot E78.2 MIXED HYPERLIPIDEMIA 05/03/2016 DAMION YOUNG MD Ot I10 ESSENTIAL (PRIMARY) HYPERTENSION 05/03/2016 DAMION YOUNG MD Ot I25.10 ATHSCL HEART DISEASE OF [place] CORONARY 05/03/2016 DAMION YOUNG MD Ot J44.9 [...] [ENCINAS] 05/05/2016 KRISS WORTHY MD, Ot Z79.82 ART COORDINATOR (CURRENT) USE OF ASPIRIN 05/05/2016 KRISS WORTHY MD Ot Z79.899 OTHER ART COORDINATOR (CURRENT) DRUG THERAPY 05/05/2016 KRISS WORTHY MD, Ot Z87.891 PERSONAL HISTORY OF NICOTINE DEPENDENCE 05/07/2016 DAMION YOUNG MD Ot E78.2 MIXED HYPERLIPIDEMIA 05/07/2016 DAMION YOUNG MD Ot I10 ESSENTIAL (PRIMARY) HYPERTENSION 05/07/2016 DAMION YOUNG MD Ot I25.10 ATHSCL HEART DISEASE OF [place] CORONARY 05/07/2016 DAMION YOUNG MD Ot J44.9 CHRONIC OBSTRUCTIVE PULMONARY DISEASE, U 05/07/2016 DAMION YOUNG MD Ot R07.89 OTHER CHEST PAIN 05/07/2016 DAMION YOUNG MD Ot E78.2 MIXED HYPERLIPIDEMIA 05/07/2016 DAMION YOUNG MD Ot I10 ESSENTIAL (PRIMARY) HYPERTENSION 05/07/2016 DAMION YOUNG MD Ot I25.10 ATHSCL HEART DISEASE OF [place] CORONARY 05/07/2016 DAMION YOUNG MD Ot J44.9 CHRONIC OBSTRUCTIVE PULMONARY DISEASE, U 05/07/2016 DAMION YOUNG MD Ot R07.89 OTHER CHEST PAIN 05/08/2016 DAMION YOUNG MD Ot E78.2 MIXED HYPERLIPIDEMIA 05/08/2016 DAMION YOUNG MD Ot I10 ESSENTIAL (PRIMARY) HYPERTENSION 05/08/2016 DAMION YOUNG MD Ot I25.10 ATHSCL HEART DISEASE OF [place] CORONARY 05/08/2016 DAMION YOUNG MD Ot J44.9 CHRONIC OBSTRUCTIVE PULMONARY DISEASE, U 05/08/2016 DAMION YOUNG MD Ot R07.89 OTHER CHEST PAIN 05/08/2016 DAMION YOUNG MD Ot E78.2 MIXED HYPERLIPIDEMIA 05/08/2016 DAMION YOUNG MD Ot I10 ESSENTIAL (PRIMARY) HYPERTENSION 05/08/2016 DAMION YOUNG MD Ot I25.10 ATHSCL HEART DISEASE OF [place] CORONARY 05/08/2016 DMAION YOUNG MD Ot J44.9 CHRONIC OBSTRUCTIVE PULMONARY DISEASE, U 05/08/2016 DAMION YOUNG MD Ot R07.89 OTHER CHEST PAIN 05/08/2016 DAMION YOUNG MD Ot E78.2 MIXED HYPERLIPIDEMIA 05/08/2016 DAMION YOUNG MD Ot I10 ESSENTIAL (PRIMARY) HYPERTENSION 05/08/2016 DAMION YOUNG MD Ot I25.10 ATHSCL HEART DISEASE OF [place] CORONARY 05/08/2016 DAMION YOUNG MD Ot J44.9 [...] KEARNEY Ot I25.10 ATHSCL HEART DISEASE OF [place] CORONARY 05/14/2016 NANCY KEARNEY Ot J44.9 CHRONIC OBSTRUCTIVE PULMONARY DISEASE, U 05/14/2016 NANCY KEARNEY Ot R19.5 OTHER FECAL ABNORMALITIES 05/14/2016 NANCY KEARNEY Ot Z51.11 ENCOUNTER FOR ANTINEOPLASTIC CHEMOTHERAP 05/14/2016 NANCY KEARNEY Ot Z79.82 CUSTODIAL (CURRENT) USE OF ASPIRIN 05/14/2016 NANCY KEARNEY Ot Z79.899 OTHER ART COORDINATOR (CURRENT) DRUG THERAPY 05/18/2016 ZAYNAB FRENCH, KRISS Mayes Ot C34.90 MALIGNANT NEOPLASM OF UNSP PART OF UNSP 05/18/2016 KRISS WORTHY MD Ot J01.90 ACUTE SINUSITIS, UNSPECIFIED 05/18/2016 KRISS WORTHY MD Ot M79.1 MYALGIA 05/18/2016 KRISS WORTHY MD Ot R50.9 FEVER, UNSPECIFIED 05/18/2016 KRISS WORTHY MD Ot Z79.84 CUSTODIAL (CURRENT) USE OF ORAL HYPOGLYC 05/18/2016 KRISS WORTHY MD Ot Z79.899 OTHER CUSTODIAL (CURRENT) DRUG THERAPY 05/18/2016 KRISS WORTHY MD Ot Z95.5 PRESENCE OF CORONARY ANGIOPLASTY IMPLANT 05/18/2016 KRISS WORTHY MD Ot C34.90 MALIGNANT NEOPLASM OF [facility] PART OF [facility] 05/18/2016 KRISS WORTHY MD Ot J01.90 ACUTE SINUSITIS, UNSPECIFIED 05/18/2016 KRISS WORTHY MD Ot M79.1 MYALGIA 05/18/2016 KRISS WORTHY MD Ot R50.9 FEVER, UNSPECIFIED 05/18/2016 KRISS WORTHY MD Ot Z79.84 CUSTODIAL (CURRENT) USE OF ORAL HYPOGLYC 05/18/2016 KRISS WORTHY MD Ot Z79.899 OTHER CUSTODIAL (CURRENT) DRUG THERAPY 05/18/2016 KRISS WORTHY MD Ot Z95.5 PRESENCE OF CORONARY ANGIOPLASTY IMPLANT 05/22/2016 NANCY KEARNEY Ot 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 LOWER LOBE, RIGHT 05/22/2016 NANCY KEARNEY Ot Z01.89 ENCOUNTER FOR OTHER SPECIFIED SPECIAL EX 05/22/2016 DAMION YOUNG MD Ot E78.2 MIXED HYPERLIPIDEMIA 05/22/2016 DAMION YOUNG MD Ot I10 ESSENTIAL (PRIMARY) HYPERTENSION 05/22/2016 DAMION YOUNG MD Ot I25.10 ATHSCL HEART DISEASE OF [place] CORONARY 05/22/2016 DAMION YOUNG MD Ot J44.9 [...] KASSANDRA COSTA MD Ot 162.9 MAL DULCE MARAI BRONCH/LUNG NOS 05/30/2016 LEWIS POST DO Ot [...] MARIA BRONCH/LUNG NOS 05/30/2016 JOSETTE ALEXIS S SELF PAY COLLECTOR Ot 162.5 MAL DULCE MARIA LOWER LOBE LUNG 05/30/2016 JOSETTE ALEXIS S SELF PAY COLLECTOR Ot 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 05/30/2016 ALEXISJOSETTE Corona S SELF PAY COLLECTOR Ot 250.00 DIAB DARCI WO COMPL, TYPE II OR UNSPEC TY 05/30/2016 ALEXIS, HILAH S SELF PAY COLLECTOR Ot 272.4 HYPERLIPIDEMIA NEC/NOS 05/30/2016 VANESA HILAH S SELF PAY COLLECTOR Ot 401.9 HYPERTENSION NOS 05/30/2016 JOSETTE ALEXIS S SELF PAY COLLECTOR Ot 414.00 CORON ATHEROSCLER NOS TYPE VESSEL, NATIV 05/30/2016 JOSETTE ALEXIS S SELF PAY COLLECTOR Ot 493.20 CHRONIC OBSTRUCTIVE ASTHMA, NOS 05/30/2016 JOSETTE ALEXIS S SELF PAY COLLECTOR Ot V58.66 LONG-TERM (CURRENT) USE OF ASPIRIN 05/30/2016 JOSETTE ALEXIS S SELF PAY COLLECTOR Ot V58.69 OT MED,LT,CURRENT USE 05/30/2016 SULAIMAN FRENCH, ISACC Corona Ot 162.9 MAL DULCE MARIA BRONCH/LUNG NOS 05/30/2016 SULAIMAN FRENCH, ISACC S Ot V72.84 EXAM PRE-OPERATIVE NOS 05/30/2016 NANCY KEARNEY Ot 162.9 MAL DULCE MARIA BRONCH/LUNG NOS 05/30/2016 NANCY KEARNEY Ot 562.10 DIVERTICULOSIS COLON (W/O MENT OF HEMORR 05/30/2016 NANCY KEARNEY Ot 573.8 LIVER DISORDERS NEC 05/30/2016 JOSETTE ALEXIS S SELF PAY COLLECTOR Ot 162.9 MAL DULCE MARIA BRONCH/LUNG NOS 05/30/2016 JOSETTE ALEXIS S SELF PAY COLLECTOR Ot 162.5 MAL DULCE MARIA LOWER LOBE LUNG 05/30/2016 JOSETTE ALEXIS S SELF PAY COLLECTOR Ot 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 05/30/2016 JOSETTE ALEXIS S SELF PAY COLLECTOR Ot 250.00 DIAB DARCI WO COMPL, TYPE II OR UNSPEC TY 05/30/2016 JOSETTE ALEXIS S SELF PAY COLLECTOR Ot 272.4 HYPERLIPIDEMIA NEC/NOS 05/30/2016 CHINA ALEXISAH S SELF PAY COLLECTOR Ot 356.9 IDIO PERIPH NEURPTHY NOS 05/30/2016 JOSETTE ALEXIS SELF PAY COLLECTOR Ot 401.9 HYPERTENSION NOS 05/30/2016 JOSETTE ALEXIS SELF PAY COLLECTOR Ot 414.00 CORON ATHEROSCLER NOS TYPE VESSEL, NATIV 05/30/2016 JOSETTE ALEXIS S SELF PAY COLLECTOR Ot 493.20 CHRONIC OBSTRUCTIVE ASTHMA, NOS 05/30/2016 JOSETTE ALEXIS SELF PAY COLLECTOR Ot 528.9 ORAL SOFT TISSUE DIS NEC 05/30/2016 JOSETTE ALEXIS S SELF PAY COLLECTOR Ot V58.66 LONG-TERM (CURRENT) USE OF ASPIRIN 05/30/2016 JOSETTE ALEXIS S SELF PAY COLLECTOR Ot V58.69 OTH MED,LT,CURRENT USE 05/30/2016 JOSETTE ALEXIS SELF PAY COLLECTOR Ot 162.9 MAL DULCE MARIA BRONCH/LUNG NOS 05/30/2016 JOSETTE ALEXIS S SELF PAY COLLECTOR Ot 162.5 MAL DULCE MARIA LOWER LOBE LUNG 05/30/2016 JOSETTE ALEXIS S SELF PAY COLLECTOR Ot 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 05/30/2016 JOSETTE ALEXIS S SELF PAY COLLECTOR Ot 250.00 DIAB DARCI WO COMPL, TYPE II OR UNSPEC TY 05/30/2016 JOSETTE ALEXIS SELF PAY COLLECTOR Ot 272.4 HYPERLIPIDEMIA NEC/NOS 05/30/2016 JOSETTE ALEXIS SELF PAY COLLECTOR Ot 401.9 HYPERTENSION NOS 05/30/2016 JOSETTE ALEXIS SELF PAY COLLECTOR Ot 414.00 CORON ATHEROSCLER NOS TYPE VESSEL, NATIV 05/30/2016 JOSETTE ALEXIS SELF PAY COLLECTOR Ot 493.20 CHRONIC OBSTRUCTIVE ASTHMA, NOS 05/30/2016 JOSETTE ALEXIS SELF PAY COLLECTOR Ot 782.1 NONSPECIF SKIN ERUPT NEC 05/30/2016 JOSETTE ALEXIS S SELF PAY COLLECTOR Ot V58.66 LONG-TERM (CURRENT) USE OF ASPIRIN 05/30/2016 JOSETTE ALEXIS S SELF PAY COLLECTOR Ot V58.69 OTH MED,LT,CURRENT USE 05/30/2016 JOSETTE ALEXIS S SELF PAY COLLECTOR Ot 162.5 MAL DULCE MARIA LOWER LOBE LUNG 05/30/2016 JOSETTE ALEXIS S SELF PAY COLLECTOR Ot 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 05/30/2016 JOSETTE ALEXIS S SELF PAY COLLECTOR Ot 250.00 DIAB DARCI WO COMPL, TYPE II OR UNSPEC TY 05/30/2016 JOSETTE ALEXIS S SELF PAY COLLECTOR Ot 272.1 PURE HYPERGLYCERIDEMIA 05/30/2016 JOSETTE ALEXIS SELF PAY COLLECTOR Ot 272.4 HYPERLIPIDEMIA NEC/NOS 05/30/2016 JOSETTE ALEXIS SELF PAY COLLECTOR Ot 278.00 OBESITY, NOS 05/30/2016 JOSETTE ALEXIS SELF PAY COLLECTOR Ot 401.9 HYPERTENSION NOS 05/30/2016 JOSETTE ALEXIS SELF PAY COLLECTOR Ot 414.00 CORON ATHEROSCLER NOS TYPE VESSEL, NATIV 05/30/2016 JOESTTE ALEXISP Ot 493.20 CHRONIC OBSTRUCTIVE ASTHMA, NOS 05/30/2016 JOSETTE ALEXIS SELF PAY COLLECTOR Ot 793.19 OTHER NONSPECIFIC ABNORMAL FINDING OF [place] 05/30/2016 JOSETTE ALEXISP Ot V58.69 OTH MED,LT,CURRENT USE 05/30/2016 JOSETTE ALEXISP Ot V85.35 BODY MASS INDEX 35.0-35.9, ADULT 05/30/2016 JOSETTE ALEXIS SELF PAY COLLECTOR Ot C34.90 MALIGNANT NEOPLASM OF [facility] [facility] 05/30/2016 JOSETTE ALEXIS SELF PAY COLLECTOR Ot R51 HEADACHE 05/30/2016 JOSETTE ALEXIS SELF PAY COLLECTOR Ot C34.90 MALIGNANT NEOPLASM OF UNSP PART OF UNSP 05/30/2016 JOSETTE ALEXIS SELF PAY COLLECTOR Ot 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 LOWER LOBE, RIGHT 05/30/2016 JOSETTE ALEXISP Ot R05 COUGH 05/30/2016 JOSETTE ALEXISP Ot R06.00 DYSPNEA, UNSPECIFIED 05/30/2016 JOSETTE ALEXIS SELF PAY COLLECTOR Ot 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 LOWER LOBE, RIGHT 05/30/2016 JOSETTE ALEXISP Ot E11.9 TYPE 2 DIABETES MELLITUS WITHOUT COMPLIC 05/30/2016 JOSETTE ALEXIS SELF PAY COLLECTOR Ot E78.5 HYPERLIPIDEMIA, UNSPECIFIED 05/30/2016 JOSETTE ALEXISP Ot I10 ESSENTIAL (PRIMARY) HYPERTENSION 05/30/2016 JOSETTE ALEXISP Ot I25.10 ATHSCL HEART DISEASE OF [place] CORONARY 05/30/2016 JOSETTE ALEXISP Ot J44.9 CHRONIC OBSTRUCTIVE PULMONARY DISEASE, U 05/30/2016 JOSETTE ALEXIS SELF PAY COLLECTOR Ot Z79.82 CUSTODIAL (CURRENT) USE OF ASPIRIN 05/30/2016 JOSETTE ALEXISP Ot Z79.899 OTHER ART COORDINATOR (CURRENT) DRUG THERAPY 05/30/2016 TRINA REYES MD Ot 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 LOWER LOBE, RIGHT 05/30/2016 REYES MD, TRINA Mayes Ot E04.1 NONTOXIC SINGLE THYROID NODULE 05/30/2016 JOSETTE ALEXISP Ot 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 LOWER LOBE, RIGHT 05/30/2016 JOSETTE ALEXISP Ot E11.9 TYPE 2 DIABETES MELLITUS WITHOUT COMPLIC 05/30/2016 JOSETTE ALEXISP Ot E78.5 HYPERLIPIDEMIA, UNSPECIFIED 05/30/2016 JOSTETE ALEXISP Ot I10 ESSENTIAL (PRIMARY) HYPERTENSION 05/30/2016 JOSETTE ALEXISP Ot I25.10 ATHSCL HEART DISEASE OF [place] CORONARY 05/30/2016 JOSETTE ALEXISP Ot J44.9 CHRONIC OBSTRUCTIVE PULMONARY DISEASE, U 05/30/2016 JOSETTE ALEXISP Ot Z79.82 CUSTODIAL (CURRENT) USE OF ASPIRIN 05/30/2016 JOSETTE ALEXIS SELF PAY COLLECTOR Ot Z79.899 OTHER CUSTODIAL (CURRENT) DRUG THERAPY 05/30/2016 NANCY KEARNEY Ot [...] Ot E78.5 HYPERLIPIDEMIA, UNSPECIFIED 05/30/2016 JOSETTE ALEXIS SELF PAY COLLECTOR Ot I10 ESSENTIAL (PRIMARY) HYPERTENSION 05/30/2016 JOSETTE ALEXISP Ot I25.10 ATHSCL HEART DISEASE OF [place] CORONARY 05/30/2016 ALEXIS, HILAH S SELF PAY COLLECTOR Ot J44.9 CHRONIC OBSTRUCTIVE PULMONARY DISEASE, U 05/30/2016 JOSETTE ALEXIS SELF PAY COLLECTOR Ot Z79.82 ART COORDINATOR (CURRENT) USE OF ASPIRIN 05/30/2016 JOSETTE ALEXIS SELF PAY COLLECTOR Ot Z79.899 OTHER CUSTODIAL (CURRENT) DRUG THERAPY 05/30/2016 JOSETTE ALEXIS SELF PAY COLLECTOR Ot 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 LOWER LOBE, RIGHT 05/30/2016 JOSETTE ALEXIS SELF PAY COLLECTOR Ot 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 LOWER LOBE, RIGHT 05/30/2016 JOSETTE ALEXIS S SELF PAY COLLECTOR Ot E11.9 TYPE 2 DIABETES MELLITUS WITHOUT COMPLIC 05/30/2016 JOSETTE ALEXIS S SELF PAY COLLECTOR Ot E78.5 HYPERLIPIDEMIA, UNSPECIFIED 05/30/2016 JOESTTE ALEXIS S SELF PAY COLLECTOR Ot I10 ESSENTIAL (PRIMARY) HYPERTENSION 05/30/2016 JOSETTE ALEXIS SELF PAY COLLECTOR Ot I25.10 ATHSCL HEART DISEASE OF [place] CORONARY 05/30/2016 JOSETTE ALEXIS SELF PAY COLLECTOR Ot J44.9 CHRONIC OBSTRUCTIVE PULMONARY DISEASE, U 05/30/2016 JOSETTE ALEXIS SELF PAY COLLECTOR Ot Z79.82 ART COORDINATOR (CURRENT) USE OF ASPIRIN 05/30/2016 JOSETTE ALEXIS SELF PAY COLLECTOR Ot Z79.899 OTHER CUSTODIAL (CURRENT) DRUG THERAPY 05/30/2016 JULISSA FRENCH, KASSANDRA Marie Ot E11.9 TYPE 2 DIABETES MELLITUS WITHOUT COMPLIC 05/30/2016 JOSETTE ALEXIS SELF PAY COLLECTOR Ot C34.90 MALIGNANT NEOPLASM OF UNSP PART OF [place] 05/30/2016 JOSETTE ALEXIS SELF PAY COLLECTOR Ot R53.83 OTHER FATIGUE 05/30/2016 JOSETTE ALEXIS SELF PAY COLLECTOR Ot 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 LOWER LOBE, RIGHT 05/30/2016 JOSETTE ALEXIS SELF PAY COLLECTOR Ot E11.9 TYPE 2 DIABETES MELLITUS WITHOUT COMPLIC 05/30/2016 JOSETTE ALEXIS SELF PAY COLLECTOR Ot E78.5 HYPERLIPIDEMIA, UNSPECIFIED 05/30/2016 JOSETTE ALEXIS SELF PAY COLLECTOR Ot I10 ESSENTIAL (PRIMARY) HYPERTENSION 05/30/2016 JOSETTE ALEXIS SELF PAY COLLECTOR Ot I25.10 ATHSCL HEART DISEASE OF [place] CORONARY 05/30/2016 JOSETTE ALEXIS SELF PAY COLLECTOR Ot J44.9 CHRONIC OBSTRUCTIVE PULMONARY DISEASE, U 05/30/2016 JOSETTE ALEXIS SELF PAY COLLECTOR Ot Z79.82 ART COORDINATOR (CURRENT) USE OF ASPIRIN 05/30/2016 JOSETTE ALEXIS SELF PAY COLLECTOR Ot Z79.899 OTHER CUSTODIAL (CURRENT) DRUG THERAPY 05/30/2016 JOSETTE ALEXIS SELF PAY COLLECTOR Ot 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 LOWER LOBE, RIGHT 05/30/2016 JOSETTE ALEXIS SELF PAY COLLECTOR Ot 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 LOWER LOBE, RIGHT 05/30/2016 JOSETTE ALEXIS SELF PAY COLLECTOR Ot E11.9 TYPE 2 DIABETES MELLITUS WITHOUT COMPLIC 05/30/2016 JOSETTE ALEXIS SELF PAY COLLECTOR Ot E78.5 HYPERLIPIDEMIA, UNSPECIFIED 05/30/2016 JOSETTE ALEXIS SELF PAY COLLECTOR Ot I10 ESSENTIAL (PRIMARY) HYPERTENSION 05/30/2016 JOSETTE ALEXIS SELF PAY COLLECTOR Ot I25.10 ATHSCL HEART DISEASE OF [place] CORONARY 05/30/2016 JOSETTE ALEXIS SELF PAY COLLECTOR Ot J44.9 CHRONIC OBSTRUCTIVE PULMONARY DISEASE, U 05/30/2016 JOSETTE ALEXIS SELF PAY COLLECTOR Ot Z79.82 ART COORDINATOR (CURRENT) USE OF ASPIRIN 05/30/2016 JOSETTE ALEXIS SELF PAY COLLECTOR Ot Z79.899 OTHER ART COORDINATOR (CURRENT) DRUG THERAPY 05/30/2016 JOSETTE ALEXIS SELF PAY COLLECTOR Ot 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 LOWER LOBE, RIGHT 05/30/2016 JOSETTE ALEXIS SELF PAY COLLECTOR Ot R26.81 UNSTEADINESS ON FEET 05/30/2016 JOSETTE ALEXIS SELF PAY COLLECTOR Ot R42 DIZZINESS AND GIDDINESS 05/30/2016 JOSETTE ALEXIS SELF PAY COLLECTOR Ot 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 LOWER LOBE, RIGHT 05/30/2016 JOSETTE ALEXIS SELF PAY COLLECTOR Ot E11.9 TYPE 2 DIABETES MELLITUS WITHOUT COMPLIC 05/30/2016 JOSETTE ALEXIS SELF PAY COLLECTOR Ot E78.5 HYPERLIPIDEMIA, UNSPECIFIED 05/30/2016 JOSETTE ALEXIS S SELF PAY COLLECTOR Ot I10 ESSENTIAL (PRIMARY) HYPERTENSION 05/30/2016 JOSETTE ALEXIS SELF PAY COLLECTOR Ot I25.10 ATHSCL HEART DISEASE OF [place] CORONARY 05/30/2016 JOSETTE ALEXIS SELF PAY COLLECTOR Ot J44.9 CHRONIC OBSTRUCTIVE PULMONARY DISEASE, U 05/30/2016 JOSETTE ALEXIS SELF PAY COLLECTOR Ot Z79.82 CUSTODIAL (CURRENT) USE OF ASPIRIN 05/30/2016 JOSETTE ALEXIS SELF PAY COLLECTOR Ot Z79.899 OTHER CUSTODIAL (CURRENT) DRUG THERAPY 05/30/2016 KASSANDRA COSTA MD, Ot Z12.31 ENCNTR SCREEN MAMMOGRAM FOR MALIGNANT NE 05/30/2016 KASSANDRA COSTA MD, Ot E11.9 TYPE 2 DIABETES MELLITUS WITHOUT COMPLIC 05/30/2016 KASSANDRA COSTA MD, Ot E78.4 OTHER HYPERLIPIDEMIA 05/30/2016 KASSANDRA COSTA MD Ot I10 ESSENTIAL (PRIMARY) HYPERTENSION 05/30/2016 KASSANDRA COSTA MD, Ot I25.10 ATHSCL HEART DISEASE OF [place] CORONARY 05/30/2016 JOSETTE ALEXIS SELF PAY COLLECTOR Ot M79.604 PAIN IN RIGHT LEG 05/30/2016 JOSETTE ALEXIS SELF PAY COLLECTOR Ot R60.0 LOCALIZED EDEMA 05/30/2016 KASSANDRA COSTA MD, Ot C34.90 MALIGNANT NEOPLASM OF [place]SP PART OF [place]SP 05/30/2016 KASSANDRA COSTA MD, Ot E11.9 TYPE 2 DIABETES MELLITUS WITHOUT COMPLIC 05/30/2016 KASSANDRA COSTA MD, Ot E78.4 OTHER HYPERLIPIDEMIA 05/30/2016 KASSANDRA COSTA MD, Ot I10 ESSENTIAL (PRIMARY) HYPERTENSION 05/30/2016 KASSANDRA COSTA MD, Ot I25.10 ATHSCL HEART DISEASE OF [place] CORONARY 05/30/2016 NANCY KEARNEY Ot 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 LOWER LOBE, RIGHT 05/30/2016 NANCY KEARNEY Ot E11.9 TYPE 2 DIABETES MELLITUS WITHOUT COMPLIC 05/30/2016 NANCY KEARNEY Ot E78.5 HYPERLIPIDEMIA, UNSPECIFIED 05/30/2016 NANCY KEARNEY Ot I10 ESSENTIAL (PRIMARY) HYPERTENSION 05/30/2016 NANCY KEARNEY Ot I25.10 ATHSCL HEART DISEASE OF [place] CORONARY 05/30/2016 NANCY KEARNEY Ot J44.9 CHRONIC OBSTRUCTIVE PULMONARY DISEASE, U 05/30/2016 NANCY KEARNEY Ot R19.5 OTHER FECAL ABNORMALITIES 05/30/2016 NANCY KEARNEY Ot Z51.11 ENCOUNTER FOR ANTINEOPLASTIC CHEMOTHERAP 05/30/2016 NANCY KEARNEY Ot Z79.82 CUSTODIAL (CURRENT) USE OF ASPIRIN 05/30/2016 NANCY KEARNEY Ot Z79.899 OTHER CUSTODIAL (CURRENT) DRUG THERAPY 05/30/2016 NANCY KEARNEY Leonel Ot 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 LOWER LOBE, RIGHT 05/30/2016 CHRISTELNANCY LINARES Leonel Ot Z01.89 ENCOUNTER FOR OTHER SPECIFIED SPECIAL EX 05/30/2016 DAMION YOUNG MD Ot E78.2 MIXED HYPERLIPIDEMIA 05/30/2016 DAMION YOUNG MD Ot I10 ESSENTIAL (PRIMARY) HYPERTENSION 05/30/2016 DAMION YOUNG MD Ot I25.10 ATHSCL HEART DISEASE OF [place] CORONARY 05/30/2016 DAMION YOUNG MD Ot J44.9 [...] Leonel Ot I25.10 ATHSCL HEART DISEASE OF [place] CORONARY 06/05/2016 CHRISTEL BERTOCASSY Leonel Ot J44.9 CHRONIC OBSTRUCTIVE PULMONARY DISEASE, U 06/05/2016 CHRISTEL BERTOCASSY Leonel Ot R19.5 OTHER FECAL ABNORMALITIES 06/05/2016 NANCY KEARNEY Leonel Ot Z51.11 ENCOUNTER FOR ANTINEOPLASTIC CHEMOTHERAP 06/05/2016 CHRISTEL, NANCY Castaneda Ot Z79.82 CUSTODIAL (CURRENT) USE OF ASPIRIN 06/05/2016 CHRISTEL, NANCY Castaneda Ot Z79.899 OTHER CUSTODIAL (CURRENT) DRUG THERAPY 06/20/2016 JOSETTE ALEXISP Ot M71.22 SYNOVIAL CYST OF POPLITEAL SPACE [ENCINAS] 06/20/2016 JOSETTE ALEXISP Ot M79.662 PAIN IN LEFT LOWER LEG 06/20/2016 JOSETTE ALEXIS SELF PAY COLLECTOR Ot R26.81 UNSTEADINESS ON FEET 06/28/2016 ALEXISJOSETTE Corona SELF PAY COLLECTOR Ot M71.22 SYNOVIAL CYST OF POPLITEAL SPACE [ENCINAS] 06/28/2016 JOSETTE ALEXIS SELF PAY COLLECTOR Ot M79.662 PAIN IN LEFT LOWER LEG 06/28/2016 ALEXISJOSETTE Corona SELF PAY COLLECTOR Ot R26.81 UNSTEADINESS ON FEET 07/10/2016 NANCY KEARNEY N Ot 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 LOWER LOBE, RIGHT 07/10/2016 CHRISTEL BERTOCASSY N Ot E11.9 TYPE 2 DIABETES MELLITUS WITHOUT COMPLIC 07/10/2016 CHRISTEL, NANCY N Ot E78.5 HYPERLIPIDEMIA, UNSPECIFIED 07/10/2016 CHRISTEL NANCY N Ot I10 ESSENTIAL (PRIMARY) HYPERTENSION 07/10/2016 CHRISTEL NANCY N Ot I25.10 ATHSCL HEART DISEASE OF [place] CORONARY 07/10/2016 CHRISTELNANCY N Ot J44.9 CHRONIC OBSTRUCTIVE PULMONARY DISEASE, U 07/10/2016 CHRISTEL NANCY N Ot R19.5 OTHER FECAL ABNORMALITIES 07/10/2016 CHRISTEL NANCY N Ot Z51.11 ENCOUNTER FOR ANTINEOPLASTIC CHEMOTHERAP 07/10/2016 CHRISTEL NANCY N Ot Z79.82 CUSTODIAL (CURRENT) USE OF ASPIRIN 07/10/2016 CHRISTEL NANCY N Ot Z79.899 OTHER ART COORDINATOR (CURRENT) DRUG THERAPY 07/16/2016 CHRISTEL NANCY N Ot 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 LOWER LOBE, RIGHT 07/16/2016 CHRISTEL NANCY N Ot E11.9 TYPE 2 DIABETES MELLITUS WITHOUT COMPLIC 07/16/2016 CHRISTEL NANCY N Ot E78.5 HYPERLIPIDEMIA, UNSPECIFIED 07/16/2016 CHRISTEL BOBAN N Ot I10 ESSENTIAL (PRIMARY) HYPERTENSION 07/16/2016 CHRISTELNANCY N Ot I25.10 ATHSCL HEART DISEASE OF [place] CORONARY 07/16/2016 CHRISTEL NANCY N Ot J44.9 CHRONIC OBSTRUCTIVE PULMONARY DISEASE, U 07/16/2016 CHRISTEL NANCY N Ot R19.5 OTHER FECAL ABNORMALITIES 07/16/2016 CHRISTELNANCY N Ot Z51.11 ENCOUNTER FOR ANTINEOPLASTIC CHEMOTHERAP 07/16/2016 CHRISTEL, BOBAN N Ot Z79.82 ART COORDINATOR (CURRENT) USE OF ASPIRIN 07/16/2016 CHRISTEL, BOBAN N Ot Z79.899 OTHER CUSTODIAL (CURRENT) DRUG THERAPY 08/15/2016 CHRISTEL BOBAN N Ot 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 LOWER LOBE, RIGHT 08/15/2016 CHRISTEL BOBAN N Ot E11.9 TYPE 2 DIABETES MELLITUS WITHOUT COMPLIC 08/15/2016 CHRISTEL BOBAN N Ot E78.5 HYPERLIPIDEMIA, UNSPECIFIED 08/15/2016 CHRISTEL, BOBAN N Ot I10 ESSENTIAL (PRIMARY) HYPERTENSION 08/15/2016 CHRISTEL, BOBAN N Ot I25.10 ATHSCL HEART DISEASE OF [place] CORONARY 08/15/2016 CHRISTEL BOBAN N Ot J44.9 CHRONIC OBSTRUCTIVE PULMONARY DISEASE, U 08/15/2016 CHRISTEL, BOBAN N Ot R19.5 OTHER FECAL ABNORMALITIES 08/15/2016 CHRISTEL, BOBAN N Ot Z51.11 ENCOUNTER FOR ANTINEOPLASTIC CHEMOTHERAP 08/15/2016 CHRISTEL BOBAN N Ot Z79.82 CUSTODIAL (CURRENT) USE OF ASPIRIN 08/15/2016 CHRISTEL, BOBAN N Ot Z79.899 OTHER CUSTODIAL (CURRENT) DRUG THERAPY 08/15/2016 CHRISTEL BOBAN N Ot 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 LOWER LOBE, RIGHT 08/15/2016 CHRISTEL BOBAN N Ot E11.9 TYPE 2 DIABETES MELLITUS WITHOUT COMPLIC 08/15/2016 CHRISTEL BOBAN N Ot E78.5 HYPERLIPIDEMIA, UNSPECIFIED 08/15/2016 CHRISTEL, BOBAN N Ot I10 ESSENTIAL (PRIMARY) HYPERTENSION 08/15/2016 CHRISTEL BOBAN N Ot I25.10 ATHSCL HEART DISEASE OF [place] CORONARY 08/15/2016 CHRISTEL BOBAN N Ot J44.9 CHRONIC OBSTRUCTIVE PULMONARY DISEASE, U 08/15/2016 CHRISTEL, BOBAN N Ot R19.5 OTHER FECAL ABNORMALITIES 08/15/2016 CHRISTEL, BOBAN N Ot Z51.11 ENCOUNTER FOR ANTINEOPLASTIC CHEMOTHERAP 08/15/2016 CHRISTEL BOBAN N Ot Z79.82 ART COORDINATOR (CURRENT) USE OF ASPIRIN 08/15/2016 CHRISTEL, BOBAN N Ot Z79.899 OTHER CUSTODIAL (CURRENT) DRUG THERAPY 09/04/2016 CHRISTEL BOBAN N Ot 162.9 MAL DULCE MARIA BRONCH/LUNG NOS 09/04/2016 NANCY KEARNEY N Ot 562.10 DIVERTICULOSIS COLON (W/O MENT OF HEMORR 09/04/2016 NANCY KEARNEY N Ot 573.8 LIVER DISORDERS NEC 09/04/2016 JOSETTE ALEXIS S SELF PAY COLLECTOR Ot 162.9 MAL DULCE MARIA BRONCH/LUNG NOS 09/04/2016 JOSETTE ALEXIS S SELF PAY COLLECTOR Ot 162.5 MAL DULCE MARIA LOWER LOBE LUNG 09/04/2016 JOSETTE ALEXIS S SELF PAY COLLECTOR Ot 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 09/04/2016 JOSETTE ALEXIS S SELF PAY COLLECTOR Ot 250.00 DIAB DARCI WO COMPL, TYPE II OR UNSPEC TY 09/04/2016 JOSETTE ALEXIS S SELF PAY COLLECTOR Ot 272.4 HYPERLIPIDEMIA NEC/NOS 09/04/2016 JOSETTE ALEXIS S SELF PAY COLLECTOR Ot 356.9 IDIO PERIPH NEURPTHY NOS 09/04/2016 JOSETTE ALEXIS S SELF PAY COLLECTOR Ot 401.9 HYPERTENSION NOS 09/04/2016 JOSETTE ALEXIS S SELF PAY COLLECTOR Ot 414.00 CORON ATHEROSCLER NOS TYPE VESSEL, NATIV 09/04/2016 JOSETTE ALEIXS S SELF PAY COLLECTOR Ot 493.20 CHRONIC OBSTRUCTIVE ASTHMA, NOS 09/04/2016 JOSETTE ALEXIS S SELF PAY COLLECTOR Ot 528.9 ORAL SOFT TISSUE DIS NEC 09/04/2016 JOSETTE ALEXIS SELF PAY COLLECTOR Ot V58.66 LONG-TERM (CURRENT) USE OF ASPIRIN 09/04/2016 JOSETTE ALEXIS SELF PAY COLLECTOR Ot V58.69 OTH MED,LT,CURRENT USE 09/04/2016 JOSETTE ALEXIS S SELF PAY COLLECTOR Ot 162.9 MAL DULCE MARIA BRONCH/LUNG NOS 09/04/2016 JOSETTE ALEXIS S SELF PAY COLLECTOR Ot 162.5 MAL DULCE MARIA LOWER LOBE LUNG 09/04/2016 JOSETTE ALEXIS S SELF PAY COLLECTOR Ot 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 09/04/2016 JOSETTE ALEXIS S SELF PAY COLLECTOR Ot 250.00 DIAB DARCI WO COMPL, TYPE II OR UNSPEC TY 09/04/2016 JOSETTE ALEXIS S SELF PAY COLLECTOR Ot 272.4 HYPERLIPIDEMIA NEC/NOS 09/04/2016 JOSETTE ALEXIS S SELF PAY COLLECTOR Ot 401.9 HYPERTENSION NOS 09/04/2016 JOSETTE ALEXIS S SELF PAY COLLECTOR Ot 414.00 CORON ATHEROSCLER NOS TYPE VESSEL, NATIV 09/04/2016 JOSETTE ALEXIS SELF PAY COLLECTOR Ot 493.20 CHRONIC OBSTRUCTIVE ASTHMA, NOS 09/04/2016 JOSETTE ALEXIS SELF PAY COLLECTOR Ot 782.1 NONSPECIF SKIN ERUPT NEC 09/04/2016 JOSETTE ALEXIS SELF PAY COLLECTOR Ot V58.66 LONG-TERM (CURRENT) USE OF ASPIRIN 09/04/2016 JOSETTE ALEXIS SELF PAY COLLECTOR Ot V58.69 OTH MED,LT,CURRENT USE 09/04/2016 JOSETTE ALEXIS SELF PAY COLLECTOR Ot 162.5 MAL DULCE MARIA LOWER LOBE LUNG 09/04/2016 JOSETTE ALEXIS SELF PAY COLLECTOR Ot 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 09/04/2016 JOSETTE ALEXIS SELF PAY COLLECTOR Ot 250.00 DIAB DARCI WO COMPL, TYPE II OR UNSPEC TY 09/04/2016 JOSETTE ALEXIS SELF PAY COLLECTOR Ot 272.1 PURE HYPERGLYCERIDEMIA 09/04/2016 JOSETTE ALEXIS SELF PAY COLLECTOR Ot 272.4 HYPERLIPIDEMIA NEC/NOS 09/04/2016 JOSETTE ALEXIS SELF PAY COLLECTOR Ot 278.00 OBESITY, NOS 09/04/2016 JOSETTE ALEXIS SELF PAY COLLECTOR Ot 401.9 HYPERTENSION NOS 09/04/2016 JOSETTE ALEXIS SELF PAY COLLECTOR Ot 414.00 CORON ATHEROSCLER NOS TYPE VESSEL, NATIV 09/04/2016 JOSETTE ALEXIS SELF PAY COLLECTOR Ot 493.20 CHRONIC OBSTRUCTIVE ASTHMA, NOS 09/04/2016 JOSETTE ALEXIS SELF PAY COLLECTOR Ot 793.19 OTHER NONSPECIFIC ABNORMAL FINDING OF [place] 09/04/2016 JOSETTE ALEXIS SELF PAY COLLECTOR Ot V58.69 OTH MED,LT,CURRENT USE 09/04/2016 JOSETTE ALEXIS SELF PAY COLLECTOR Ot V85.35 BODY MASS INDEX 35.0-35.9, ADULT 09/04/2016 JOSETTE ALEXIS SELF PAY COLLECTOR Ot C34.90 MALIGNANT NEOPLASM OF UNSP PART OF UNSP 09/04/2016 JOSETTE ALEXISP Ot R51 HEADACHE 09/04/2016 JOSETTE ALEXIS SELF PAY COLLECTOR Ot C34.90 MALIGNANT NEOPLASM OF UNSP PART OF UNSP 09/04/2016 JOSETTE ALEXIS SELF PAY COLLECTOR Ot 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 LOWER LOBE, RIGHT 09/04/2016 JOSETTE ALEXIS SELF PAY COLLECTOR Ot R05 COUGH 09/04/2016 JOSETTE ALEXIS SELF PAY COLLECTOR Ot R06.00 DYSPNEA, UNSPECIFIED 09/04/2016 JOSETTE ALEXIS SELF PAY COLLECTOR Ot 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 LOWER LOBE, RIGHT 09/04/2016 JOSETTE ALEXIS SELF PAY COLLECTOR Ot E11.9 TYPE 2 DIABETES MELLITUS WITHOUT COMPLIC 09/04/2016 JOSETTE ALEXIS SELF PAY COLLECTOR Ot E78.5 HYPERLIPIDEMIA, UNSPECIFIED 09/04/2016 ALEXIS JOSETTE Corona SELF PAY COLLECTOR Ot I10 ESSENTIAL (PRIMARY) HYPERTENSION 09/04/2016 ALEXIS JOSETTE Corona SELF PAY COLLECTOR Ot I25.10 ATHSCL HEART DISEASE OF [place] CORONARY 09/04/2016 VANESA JOSETTE Corona SELF PAY COLLECTOR Ot J44.9 CHRONIC OBSTRUCTIVE PULMONARY DISEASE, U 09/04/2016 VANESA JOSETTE Corona SELF PAY COLLECTOR Ot Z79.82 CUSTODIAL (CURRENT) USE OF ASPIRIN 09/04/2016 VANESA JOSETTE Corona SELF PAY COLLECTOR Ot Z79.899 OTHER ART COORDINATOR (CURRENT) DRUG THERAPY 09/04/2016 REYES MD, TRINA T Ot 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 LOWER LOBE, RIGHT 09/04/2016 REYES MD, TRINA T Ot E04.1 NONTOXIC SINGLE THYROID NODULE 09/04/2016 JOSETTE ALEXIS SELF PAY COLLECTOR Ot 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 LOWER LOBE, RIGHT 09/04/2016 JOSETTE ALEXIS SELF PAY COLLECTOR Ot E11.9 TYPE 2 DIABETES MELLITUS WITHOUT COMPLIC 09/04/2016 ALEXIS JOSETTE Corona SELF PAY COLLECTOR Ot E78.5 HYPERLIPIDEMIA, UNSPECIFIED 09/04/2016 VANESA JOSETTE Corona SELF PAY COLLECTOR Ot I10 ESSENTIAL (PRIMARY) HYPERTENSION 09/04/2016 [place] ALEXISBRENDAN Corona SELF PAY COLLECTOR Ot I25.10 ATHSCL HEART DISEASE OF [place] CORONARY 09/04/2016 VANESA JOSETTE Corona SELF PAY COLLECTOR Ot J44.9 CHRONIC OBSTRUCTIVE PULMONARY DISEASE, U 09/04/2016 VANESA JOSETTE Corona SELF PAY COLLECTOR Ot Z79.82 ART COORDINATOR (CURRENT) USE OF ASPIRIN 09/04/2016 VANESA JOSETTE Corona SELF PAY COLLECTOR Ot Z79.899 OTHER CUSTODIAL (CURRENT) DRUG THERAPY 09/04/2016 NANCY KEARNEY Ot 162.5 MAL DULCE MARIA LOWER LOBE LUNG 09/04/2016 NANCY KEARNEY Ot 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 09/04/2016 NANCY KEARNEY Ot V58.69 OT MED,LT,CURRENT USE 09/04/2016 JOSETTE ALEXIS SELF PAY COLLECTOR Ot J44.9 CHRONIC OBSTRUCTIVE PULMONARY DISEASE, U 09/04/2016 JOSETTE ALEXIS SELF PAY COLLECTOR Ot R05 COUGH 09/04/2016 JOSETTE ALEXIS SELF PAY COLLECTOR Ot 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 LOWER LOBE, RIGHT 09/04/2016 JOSETTE ALEXIS SELF PAY COLLECTOR Ot E11.9 TYPE 2 DIABETES MELLITUS WITHOUT COMPLIC 09/04/2016 JOSETTE ALEXIS SELF PAY COLLECTOR Ot E78.5 HYPERLIPIDEMIA, UNSPECIFIED 09/04/2016 JOSETTE ALEXIS SELF PAY COLLECTOR Ot I10 ESSENTIAL (PRIMARY) HYPERTENSION 09/04/2016 JOSETTE ALEXIS SELF PAY COLLECTOR Ot I25.10 ATHSCL HEART DISEASE OF [place] CORONARY 09/04/2016 JOSETTE ALEXIS SELF PAY COLLECTOR Ot J44.9 CHRONIC OBSTRUCTIVE PULMONARY DISEASE, U 09/04/2016 JOSETTE ALEXIS SELF PAY COLLECTOR Ot Z79.82 CUSTODIAL (CURRENT) USE OF ASPIRIN 09/04/2016 JOSETTE ALEXIS SELF PAY COLLECTOR Ot Z79.899 OTHER ART COORDINATOR (CURRENT) DRUG THERAPY 09/04/2016 JOSETTE ALEXIS SELF PAY COLLECTOR Ot 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 LOWER LOBE, RIGHT 09/04/2016 JOSETTE ALEXIS SELF PAY COLLECTOR Ot 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 LOWER LOBE, RIGHT 09/04/2016 JOSETTE ALEXISP Ot E11.9 TYPE 2 DIABETES MELLITUS WITHOUT COMPLIC 09/04/2016 JOSETTE ALEXISP Ot E78.5 HYPERLIPIDEMIA, UNSPECIFIED 09/04/2016 JOSETTE ALEXIS SELF PAY COLLECTOR Ot I10 ESSENTIAL (PRIMARY) HYPERTENSION 09/04/2016 JOSETTE ALEXIS SELF PAY COLLECTOR Ot I25.10 ATHSCL HEART DISEASE OF [place] CORONARY 09/04/2016 JOSETTE ALEXIS SELF PAY COLLECTOR Ot J44.9 CHRONIC OBSTRUCTIVE PULMONARY DISEASE, U 09/04/2016 JOSETTE ALEXIS SELF PAY COLLECTOR Ot Z79.82 CUSTODIAL (CURRENT) USE OF ASPIRIN 09/04/2016 JOSETTE ALEXIS SELF PAY COLLECTOR Ot Z79.899 OTHER ART COORDINATOR (CURRENT) DRUG THERAPY 09/04/2016 JULISSA FRENCH, KASSANDRA Marie Ot E11.9 TYPE 2 DIABETES MELLITUS WITHOUT COMPLIC 09/04/2016 ALEXIS, HILAH S SELF PAY COLLECTOR Ot C34.90 MALIGNANT NEOPLASM OF UNSP PART OF UNSP 09/04/2016 CH[place] ALEXISBRENDAN Cj SELF PAY COLLECTOR Ot R53.83 OTHER FATIGUE 09/04/2016 JOSETTE ALEXIS Cj SELF PAY COLLECTOR Ot 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 LOWER LOBE, RIGHT 09/04/2016 JOSETTE ALEXIS SELF PAY COLLECTOR Ot E11.9 TYPE 2 DIABETES MELLITUS WITHOUT COMPLIC 09/04/2016 JOSETTE ALEXIS SELF PAY COLLECTOR Ot E78.5 HYPERLIPIDEMIA, UNSPECIFIED 09/04/2016 JOSETTE ALEXIS SELF PAY COLLECTOR Ot I10 ESSENTIAL (PRIMARY) HYPERTENSION 09/04/2016 JOSETTE ALEXIS SELF PAY COLLECTOR Ot I25.10 ATHSCL HEART DISEASE OF [place] CORONARY 09/04/2016 JOSETTE ALEXIS SELF PAY COLLECTOR Ot J44.9 CHRONIC OBSTRUCTIVE PULMONARY DISEASE, U 09/04/2016 JOSETTE ALEXIS SELF PAY COLLECTOR Ot Z79.82 CUSTODIAL (CURRENT) USE OF ASPIRIN 09/04/2016 JOSETTE ALEXIS SELF PAY COLLECTOR Ot Z79.899 OTHER ART COORDINATOR (CURRENT) DRUG THERAPY 09/04/2016 JOSETTE ALEXIS SELF PAY COLLECTOR Ot C34.31 MALIGNANT NEOPLASM OF LOWER LOBE, RIGHT 09/04/2016 JOSETTE ALEXIS SELF PAY COLLECTOR Ot C34.31 MALIGNANT NEOPLASM OF LOWER LOBE, RIGHT 09/04/2016 JOSETTE ALEXISP Ot E11.9 TYPE 2 DIABETES MELLITUS WITHOUT COMPLIC 09/04/2016 JOSETTE ALEXIS SELF PAY COLLECTOR Ot E78.5 HYPERLIPIDEMIA, UNSPECIFIED 09/04/2016 JOSETTE ALEXIS SELF PAY COLLECTOR Ot I10 ESSENTIAL (PRIMARY) HYPERTENSION 09/04/2016 JOSETTE ALEXIS SELF PAY COLLECTOR Ot I25.10 ATHSCL HEART DISEASE OF [place] CORONARY 09/04/2016 JOSETTE ALEXIS SELF PAY COLLECTOR Ot J44.9 CHRONIC OBSTRUCTIVE PULMONARY DISEASE, U 09/04/2016 JOSETTE ALEXIS SELF PAY COLLECTOR Ot Z79.82 CUSTODIAL (CURRENT) USE OF ASPIRIN 09/04/2016 JOSETTE ALEXIS SELF PAY COLLECTOR Ot Z79.899 OTHER CUSTODIAL (CURRENT) DRUG THERAPY 09/04/2016 JOSETTE ALEXIS SELF PAY COLLECTOR Ot C34.31 MALIGNANT NEOPLASM OF LOWER LOBE, RIGHT 09/04/2016 JOSETTE ALEXIS SELF PAY COLLECTOR Ot R26.81 UNSTEADINESS ON FEET 09/04/2016 VANESA JOSETTE Corona SELF PAY COLLECTOR Ot R42 DIZZINESS AND GIDDINESS 09/04/2016 VANESAJOSETTE SELF PAY COLLECTOR Ot C34.31 MALIGNANT NEOPLASM OF LOWER LOBE, RIGHT 09/04/2016 JOSETTE ALEXIS SELF PAY COLLECTOR Ot E11.9 TYPE 2 DIABETES MELLITUS WITHOUT COMPLIC 09/04/2016 ALEXISJOSETTE Corona SELF PAY COLLECTOR Ot E78.5 HYPERLIPIDEMIA, UNSPECIFIED 09/04/2016 [place] ALEXISBRENDAN Corona SELF PAY COLLECTOR Ot I10 ESSENTIAL (PRIMARY) HYPERTENSION 09/04/2016 ALEXISJOSETTE SELF PAY COLLECTOR Ot I25.10 ATHSCL HEART DISEASE OF [place] CORONARY 09/04/2016 [place] ALEXISBRENDAN Corona SELF PAY COLLECTOR Ot J44.9 CHRONIC OBSTRUCTIVE PULMONARY DISEASE, U 09/04/2016 [place] ALEXISBRENDAN Corona SELF PAY COLLECTOR Ot Z79.82 CUSTODIAL (CURRENT) USE OF ASPIRIN 09/04/2016 [place] ALEXISBRENDAN Corona SELF PAY COLLECTOR Ot Z79.899 OTHER ART COORDINATOR (CURRENT) DRUG THERAPY 09/04/2016 KASSANDRA COSTA MD, Ot Z12.31 ENCNTR SCREEN MAMMOGRAM FOR MALIGNANT NE 09/04/2016 KASSANDRA COSTA MD, Ot E11.9 TYPE 2 DIABETES MELLITUS WITHOUT COMPLIC 09/04/2016 KASSANDRA COSTA MD, Ot E78.4 OTHER HYPERLIPIDEMIA 09/04/2016 KASSANDRA COSTA MD, Ot I10 ESSENTIAL (PRIMARY) HYPERTENSION 09/04/2016 KASSANDRA COSTA MD Ot I25.10 ATHSCL HEART DISEASE OF [place] CORONARY 09/04/2016 [place] ALEXISBRENDAN Corona SELF PAY COLLECTOR Ot M79.604 PAIN IN RIGHT LEG 09/04/2016 JOSETTE ALEXIS SELF PAY COLLECTOR Ot R60.0 LOCALIZED EDEMA 09/04/2016 KASSANDRA COSTA MD Ot C34.90 MALIGNANT NEOPLASM OF UNSP PART OF UNSP 09/04/2016 KASSANDRA COSTA MD Ot E11.9 TYPE 2 DIABETES MELLITUS WITHOUT COMPLIC 09/04/2016 KASSANDRA COSTA MD, Ot E78.4 OTHER HYPERLIPIDEMIA 09/04/2016 KASSANDRA COSTA MD Ot I10 ESSENTIAL (PRIMARY) HYPERTENSION 09/04/2016 KASSANDRA COSTA MD Ot I25.10 ATHSCL HEART DISEASE OF [place] CORONARY 09/04/2016 NANCY KEARNEY Ot C34.31 MALIGNANT NEOPLASM OF LOWER LOBE, RIGHT 09/04/2016 NANCY KEARNEY Ot Z01.89 ENCOUNTER FOR OTHER SPECIFIED SPECIAL EX 09/04/2016 DAMION YOUNG MD Ot E78.2 MIXED HYPERLIPIDEMIA 09/04/2016 DAMION YOUNG MD Ot I10 ESSENTIAL (PRIMARY) HYPERTENSION 09/04/2016 DAMION YOUNG MD Ot I25.10 ATHSCL HEART DISEASE OF [place] CORONARY 09/04/2016 DAMION YOUNG MD Ot J44.9 CHRONIC OBSTRUCTIVE PULMONARY DISEASE, U 09/04/2016 DAMION YOUNG MD Ot R07.89 OTHER CHEST PAIN 09/04/2016 JOSETTE ALEXISP Ot M71.22 SYNOVIAL CYST OF POPLITEAL SPACE [ENCINAS] 09/04/2016 JOSETTE ALEXIS SELF PAY COLLECTOR Ot M79.662 PAIN IN LEFT LOWER LEG 09/04/2016 JOSETTE ALEXIS SELF PAY COLLECTOR Ot R26.81 UNSTEADINESS ON FEET 09/04/2016 NANCY KEARNEY Ot C34.31 MALIGNANT NEOPLASM OF LOWER LOBE, RIGHT 09/04/2016 NANCY KEARNEY Ot E11.9 TYPE 2 DIABETES MELLITUS WITHOUT COMPLIC 09/04/2016 NANCY KEARNEY Ot E78.5 HYPERLIPIDEMIA, UNSPECIFIED 09/04/2016 NANCY KEARNEY Ot I10 ESSENTIAL (PRIMARY) HYPERTENSION 09/04/2016 NANCY KEARNEY Ot I25.10 ATHSCL HEART DISEASE OF [place] CORONARY 09/04/2016 NANCY KEARNEY Ot J44.9 CHRONIC OBSTRUCTIVE PULMONARY DISEASE, U 09/04/2016 NNACY KEARNEY Ot R19.5 OTHER FECAL ABNORMALITIES 09/04/2016 NANCY KEARNEY Ot Z51.11 ENCOUNTER FOR ANTINEOPLASTIC CHEMOTHERAP 09/04/2016 NANCY KEARNEY Ot Z79.82 ART COORDINATOR (CURRENT) USE OF ASPIRIN 09/04/2016 NANCY KEARNEY Ot Z79.899 OTHER ART COORDINATOR (CURRENT) DRUG THERAPY 09/04/2016 NANCY KEARNEY Ot C34.31 MALIGNANT NEOPLASM OF LOWER LOBE, RIGHT 09/04/2016 NANCY KEARNEY Ot Z01.89 ENCOUNTER FOR OTHER SPECIFIED SPECIAL EX 09/10/2016 NANCY KEARNEY Ot C34.31 MALIGNANT NEOPLASM OF LOWER LOBE, RIGHT 09/10/2016 CHRISTEL, BOBAN N Ot E11.9 TYPE 2 DIABETES MELLITUS WITHOUT COMPLIC 09/10/2016 NANCY KEARNEY N Ot E78.5 HYPERLIPIDEMIA, UNSPECIFIED 09/10/2016 NANCY KEARNEY N Ot I10 ESSENTIAL (PRIMARY) HYPERTENSION 09/10/2016 NANCY KEARNEY N Ot I25.10 ATHSCL HEART DISEASE OF [place] CORONARY 09/10/2016 NANCY KEARNEY N Ot J44.9 CHRONIC OBSTRUCTIVE PULMONARY DISEASE, U 09/10/2016 NANCY KEARNEY N Ot R19.5 OTHER FECAL ABNORMALITIES 09/10/2016 NANCY KEARNEY N Ot Z51.11 ENCOUNTER FOR ANTINEOPLASTIC CHEMOTHERAP 09/10/2016 NANCY KEARNEY N Ot Z79.82 ART COORDINATOR (CURRENT) USE OF ASPIRIN 09/10/2016 CHRISTEL NANCY N Ot Z79.899 OTHER ART COORDINATOR (CURRENT) DRUG THERAPY 09/25/2016 NANCY KEARNEY N [...] N Ot I25.10 ATHSCL HEART DISEASE OF [place] CORONARY 10/03/2016 NANCY KEARNEY N Ot J44.9 CHRONIC OBSTRUCTIVE PULMONARY DISEASE, U 10/03/2016 NANCY KEARNEY N Ot R19.5 OTHER FECAL ABNORMALITIES 10/03/2016 NANCY KEARNEY N Ot Z51.11 ENCOUNTER FOR ANTINEOPLASTIC CHEMOTHERAP 10/03/2016 CHRISTEL BERTOCASSY N Ot Z79.82 ART COORDINATOR (CURRENT) USE OF ASPIRIN 10/03/2016 CHRISTEL NANCY N Ot Z79.899 OTHER CUSTODIAL (CURRENT) DRUG THERAPY 10/04/2016 NANCY KEARNEY N [...] N Ot I25.10 ATHSCL HEART DISEASE OF [place] CORONARY 11/13/2016 CHRISTEL BERTOCASSY N Ot J44.9 CHRONIC OBSTRUCTIVE PULMONARY DISEASE, U 11/13/2016 NANCY KEARNEY N Ot R19.5 OTHER FECAL ABNORMALITIES 11/13/2016 NANCY KEARNEY N Ot Z51.0 ENCOUNTER FOR ANTINEOPLASTIC RADIATION T 11/13/2016 CHRISTEL NANCY N Ot Z51.11 ENCOUNTER FOR ANTINEOPLASTIC CHEMOTHERAP 11/13/2016 CHRISTELNANCY N Ot Z79.82 ART COORDINATOR (CURRENT) USE OF ASPIRIN 11/13/2016 CHRISTELNANCY N Ot Z79.899 OTHER CUSTODIAL (CURRENT) DRUG THERAPY 11/14/2016 NANCY KEARNEY N Ot C34.31 MALIGNANT NEOPLASM OF LOWER LOBE, RIGHT 11/14/2016 NANCY KEARNEY N Ot E11.9 TYPE 2 DIABETES MELLITUS WITHOUT COMPLIC 11/14/2016 NANCY KEARNEY N Ot E78.5 HYPERLIPIDEMIA, UNSPECIFIED 11/14/2016 NANCY KEARNEY N Ot I10 ESSENTIAL (PRIMARY) HYPERTENSION 11/14/2016 NANCY KEARNEY N Ot I25.10 ATHSCL HEART DISEASE OF [place] CORONARY 11/14/2016 CHRISTEL NANCY N Ot J44.9 CHRONIC OBSTRUCTIVE PULMONARY DISEASE, U 11/14/2016 NANCY KEARNEY N Ot R19.5 OTHER FECAL ABNORMALITIES 11/14/2016 CHRISTELNANCY N Ot Z51.0 ENCOUNTER FOR ANTINEOPLASTIC RADIATION T 11/14/2016 NANCY KEARNEY N Ot Z51.11 ENCOUNTER FOR ANTINEOPLASTIC CHEMOTHERAP 11/14/2016 NANCY KEARNEY N Ot Z79.82 CUSTODIAL (CURRENT) USE OF ASPIRIN 11/14/2016 CHRISTELNANCY LINARES N Ot Z79.899 OTHER CUSTODIAL (CURRENT) DRUG THERAPY 12/11/2016 JOSETTE ALEXIS SELF PAY COLLECTOR Ot 162.9 MAL DULCE MARIA BRONCH/LUNG NOS Procedures Code Description Performed By Performed On 59.79 URIN INCONTIN REPAIR NEC 06/22/2009 65.61 OTH REMOVE BOTH OVARIES/ TUBES 06/22/2009 68.51 ASSIST VAG HYSTER(LAVH) 06/22/2009 70.50 CYSTOCEL/RECTOCEL REPAIR 06/22/2009 70.92 CUL-DE-SAC OPERATION [facility] 06/22/2009 39.79 OTHER ENDOVASCULAR PROCEDURES ON OTHER V 05/28/2014 88.42 CONTRAST AORTOGRAM 05/28/2014 88.47 CONTR ABD ARTERIOGRM [facility] 05/28/2014 Results Test Result Range Hemoglobin A1c [...] urine sediment by light microscopy MODERATE NRG Methicillin resistant Staphylococcus aureus (MRSA) screening culture - 06:55 Methicillin resistant Staphylococcus aureus (MRSA) screening culture NEG NRG Capillary blood glucose measurement by glucometer (mass/volume) - 08/07/17 07: 23 Capillary blood glucose measurement by glucometer (mass/volume) 181 mg/dL 70-110 Encounters ACCT No. Visit Date/Time Discharge Status Pt. Type Provider Facility Loc./Unit Complaint [id number] 11/14/2016 00:14:00 11/14/2016 23:59:59 CLS Preadmit NANCY KEARNEY [facility] ONC [id number] 09/26/2016 11:10:00 11/13/2016 00:01:00 DIS Outpatient NANCY KEARNEY [facility] ONC [id number] 09/03/2016 10:51:00 09/03/2016 23:59:59 CLS Outpatient NANCY KEARNEY [facility] CARD LUNG CANCER,RESTAGE NEOPLASM [id number] 05/29/2016 10:30:00 07/10/2016 00:01:00 DIS Outpatient NANCY KEARNEY [facility] ONC [id number] 05/30/2016 13:55:00 05/30/2016 23:59:59 CLS Outpatient JOSETTE ALEXIS [facility] RAD PAIN,UNSTEADY GAIT [id number] 05/17/2016 23:19:00 05/18/2016 01:13:00 DIS Emergency KRISS WORTHY MD [facility] ER FEVER, STAGE 4 LUNG CANCER [id number] 05/02/2016 11:01:00 05/02/2016 23:59:59 CLS Outpatient DAMION YOUNG MD [facility] LAB [id number] 04/30/2016 10:38:00 04/30/2016 23:59:59 CLS Outpatient NANCY KEARNEY [facility] CARD LUNG CA [id number] 04/29/2016 00:35:00 04/29/2016 03:58:00 DIS Emergency KRISS WORTHY MD [facility] ER KNEE PAIN [id number] 03/28/2016 11:09:00 04/09/2016 10:11:00 DIS Outpatient NANCY KEARNEY [facility] ONC [id number] 03/28/2016 12:07:00 03/28/2016 23:59:59 CLS Outpatient KASSANDRA COSTA MD [facility] LAB [id number] 03/21/2016 15:31:00 03/21/2016 23:59:59 CLS Outpatient JOSETTE ALEXIS SELF PAY COLLECTOR [facility] RAD CHAO LEG EDEMA, CHAO LOWER EXTREMITY PAIN [id number] 02/29/2016 10:43:00 02/29/2016 23:59:59 CLS Outpatient KASSANDRA COSTA MD [facility] LAB [id number] 02/28/2016 11:07:00 02/28/2016 23:59:59 CLS Outpatient KASSANDRA COSTA MD [facility] RAD SCREENING [id number] 02/08/2016 14:25:00 02/08/2016 23:59:59 CLS Outpatient JOSETTE ALEXIS S SELF PAY COLLECTOR [facility] ONC [id number] 01/17/2016 12:03:00 01/17/2016 23:59:59 CLS Outpatient JOSETTE ALEXIS S SELF PAY COLLECTOR [facility] RAD DIZZINESS,UNSTEADY GAIT,LUNG CANCER [id number] 01/17/2016 09:44:00 01/17/2016 23:59:59 CLS Outpatient JOSETTE ALEXIS S SELF PAY COLLECTOR [facility] ONC [id number] 01/17/2016 09:45:00 01/17/2016 00:01:00 DIS Outpatient NANCY KEARNEY [facility] ONC [id number] 12/20/2015 11:03:00 12/20/2015 23:59:59 CLS Outpatient CHINA ALEXISAH S SELF PAY COLLECTOR [facility] CARD LUNG CANCER [id number] 11/30/2015 14:01:00 11/30/2015 23:59:59 CLS Outpatient ALEXIS, HILAH S SELF PAY COLLECTOR [facility] ONC [id number] 11/16/2015 12:53:00 11/16/2015 23:59:59 CLS Outpatient JOSETTE ALEXIS SELF PAY COLLECTOR [facility] ONC [id number] 10/26/2015 10:38:00 10/26/2015 23:59:59 CLS Outpatient KASSANDRA COSTA MD [facility] LAB [id number] 10/12/2015 08:50:00 10/16/2015 00:01:00 DIS Outpatient NANCY KEARNEY [facility] ONC [id number] 09/27/2015 13:59:00 09/27/2015 23:59:59 CLS Outpatient JOSETTE ALEXIS S SELF PAY COLLECTOR [facility] ONC [id number] 09/22/2015 11:47:00 09/22/2015 23:59:59 CLS Outpatient JOSETTE ALEXIS S SELF PAY COLLECTOR [facility] CARD LUNG CANCER [id number] 09/05/2015 15:08:00 09/05/2015 23:59:59 CLS Outpatient ALEXISJOSETTE Corona S SELF PAY COLLECTOR [facility] ONC [id number] 07/18/2015 15:42:00 07/18/2015 23:59:59 CLS Outpatient ALEXISJOSETTE Corona S SELF PAY COLLECTOR [facility] RAD [id number] 07/18/2015 14:13:00 07/18/2015 23:59:59 CLS Outpatient ALEXIS, HILAH S SELF PAY COLLECTOR [facility] ONC [id number] 07/14/2015 07:55:00 07/14/2015 23:59:59 CLS Outpatient TRINA REYES MD [facility] RAD NSCLC, NONTOXIC SINGLE NODULE [id number] 07/11/2015 14:22:00 07/11/2015 00:01:00 DIS Outpatient NANCY KEARNEY [facility] ONC [id number] 06/27/2015 10:42:00 06/27/2015 23:59:59 CLS Outpatient ALEXIS, HILAH S SELF PAY COLLECTOR [facility] ONC [id number] 05/09/2015 14:19:00 05/09/2015 23:59:59 CLS Outpatient ALEXISJOSETTE S SELF PAY COLLECTOR [facility] RAD [id number] 05/09/2015 13:02:00 05/09/2015 23:59:59 CLS Outpatient ALEXISJOSETTE S SELF PAY COLLECTOR [facility] ONC [id number] 04/12/2015 10:35:00 04/12/2015 23:59:59 CLS Outpatient ALEXIS, HILAH S SELF PAY COLLECTOR [facility] CARD LUNG CA [id number] 03/29/2015 13:14:00 04/06/2015 00:01:00 DIS Outpatient NANCY KEARNEY N [facility] ONC [id number] 03/22/2015 09:50:00 03/22/2015 23:59:59 CLS Outpatient ALEXIS, HILAH S SELF PAY COLLECTOR [facility] ONC [id number] 03/03/2015 13:33:00 03/03/2015 23:59:59 CLS Outpatient ALEXIS HILAH S SELF PAY COLLECTOR [facility] ONC [id number] 02/15/2015 08:19:00 02/15/2015 23:59:59 CLS Outpatient ALEXISCHINAAH S SELF PAY COLLECTOR [facility] RAD LUNG CANCER [id number] 01/25/2015 12:58:00 01/25/2015 23:59:59 CLS Outpatient ALEXIS, HILAH S SELF PAY COLLECTOR [facility] ONC [id number] 01/17/2015 15:00:00 01/17/2015 23:59:59 CLS Outpatient NANCY KEARNEY N [facility] ONC [id number] 01/10/2015 10:01:00 01/12/2015 00:01:00 DIS Outpatient NANCY KEARNEY N [facility] ONC [id number] 11/24/2014 13:00:00 11/24/2014 23:59:59 CLS Outpatient ALEXIS HILAH S SELF PAY COLLECTOR [facility] ONC [id number] 10/12/2014 10:48:00 10/12/2014 23:59:59 CLS Outpatient NANCY KEARNEY N [facility] CARD LUNG CANCER [id number] 09/29/2014 06:06:00 09/29/2014 10:40:00 DIS Outpatient ISACC HILARIO MD [facility] SDC LUNG CANCER [id number] 09/27/2014 07:36:00 09/27/2014 23:59:59 CLS Outpatient ISACC HILARIO MD [facility] PREOP LUNG CANCER [id number] 08/27/2014 11:21:00 08/27/2014 23:59:59 CLS Outpatient JOSETTE ALEXIS [facility] ONC [id number] 08/16/2014 09:55:00 08/16/2014 23:59:59 CLS Outpatient NANCY KEARNEY [facility] ONC [id number] 07/22/2014 16:13:00 07/22/2014 23:59:59 CLS Outpatient JOSHUA ROSALES MD [facility] RAD LUNG CANCER [id number] 07/19/2014 07:30:00 07/19/2014 23:59:59 CLS Outpatient OTHER, UNLISTED [facility] RAD LUNG CANCER [id number] 07/19/2014 07:27:00 07/19/2014 23:59:59 CLS Outpatient DAMION YOUNG MD [facility] CARD CAD HLE HTN DIABETES [id number] 07/16/2014 11:03:00 07/16/2014 23:59:59 CLS Outpatient JAMILA DE LA CRUZ [facility] CARD CAD HLE HTN DIABETES [id number] 06/23/2014 16:01:00 06/23/2014 23:59:59 CLS Outpatient LEWIS POST DO [facility] RT COPD ASTHMA [id number] 06/17/2014 14:04:00 06/17/2014 23:59:59 CLS Outpatient KASSANDRA COSTA MD [facility] RAD LEFT GROIN PAIN, POST PROCEDURE [id number] 06/15/2014 07:29:00 06/15/2014 23:59:59 CLS Outpatient KASSANDRA COSTA MD [facility] RAD LUNG CANCER [id number] 06/07/2014 08:20:00 06/07/2014 17:15:00 DIS Outpatient KASSANDRA COSTA MD [facility] RAD PULMONARY LESIONS [id number] 06/02/2014 01:32:00 06/02/2014 02:30:00 DIS Emergency KRISS WORTHY MD [facility] ER POST OP PAIN [id number] 05/28/2014 13:17:00 06/01/2014 14:05:00 DIS Inpatient KASSANDRA COSTA MD [facility] CSD GASTRIC BLEED [id number] 05/28/2014 08:59:00 05/28/2014 23:59:59 CLS Outpatient KASSANDRA COSTA MD [facility] RAD ABN CT ABD [id number] 11/16/2013 08:50:00 11/16/2013 23:59:59 CLS Outpatient KASSANDRA COSTA MD [facility] RAD SCREENING [id number] 08/07/2017 07:30:00 Document Registration [id number] 10/05/2015 16:55:00 ACT Inpatient KASSANDRA COSTA MD [facility] 4TH INFLUENZA A, N/V/D, SOA, H/O LUNG CA, UTI, VOLUME [id number] 06/23/2014 16:01:00 Document Registration [id number] 06/23/2014 16:01:00 Document Registration [id number] 08/13/2012 10:13:00 Document Registration [id number] 01/15/2012 12:09:00 Document Registration [id number] 10/23/2011 09:03:00 Document Registration [id number] 08/14/2011 13:36:00 Document Registration [id number] 07/30/2011 08:35:00 Document Registration [id number] 05/15/2011 09:03:00 Document Registration [id number] 06/16/2010 07:41:00 Document Registration [id number] 01/19/2010 14:06:00 Document Registration [id number] 11/30/2009 08:41:00 Document Registration [id number] 11/23/2009 09:46:00 Document Registration [id number] 06/17/2009 13:36:00 Document Registration [id number] 04/28/2009 10:30:00 Document Registration [id number] 04/06/2009 08:05:00 Document Registration
== END ==
LOC: SDC 10:00 → EDSTATUS 10:42
PROVIDERS: ATTEND Surgery
DX: Z43.8 Encounter for attention to other artificial openings (principal)
CPT/HCPCS: 99212

== ENCOUNTER → 2017-08-21 | Outpatient (CLI) | payer MEDICARE ==
--- NOTE | 2017-08-21 15:32 | Diagnostic Imaging Report ---
INDICATION: Indwelling Pleurx catheter. Possible inadvertent partial removal. COMPARISON: 08/07/2017. FINDINGS: Frontal and lateral radiographic views of the chest were obtained. Indwelling right-sided pleural drainage catheter is again identified and may be slightly retracted. However, the tip remains within the right apex, approximately 1 cm inferior to the superior pleural margin. Mild right-sided pleural effusion remains. There are also persistent diffuse coarse lung markings in the right lung. There is some mild improved aeration inferiorly. Left lung remains relatively clear. There is no large effusion on the left. No pneumothorax is seen on either side. Cardiac silhouette and pulmonary vasculature are within normal limits. Left-sided subclavian Port-A-Cath is in stable position. Bony structures show no acute adverse interval change. IMPRESSION: 1. Right-sided chest tube as described above. 2. Small residual right-sided pleural effusion. 3. Persistent diffuse airspace disease in the right lung, but with some interval improved aeration inferiorly. Dictated by: Dictated on workstation # [id number]
== END ==
LOC: RAD 14:48
PROVIDERS: ATTEND Surgery
DX: C34.90 Malignant neoplasm of unspecified part of unspecified bronchus or lung (principal); J90 Pleural effusion, not elsewhere classified; R91.8 Other nonspecific abnormal finding of lung field; Z97.8 Presence of other specified devices
CPT/HCPCS: 71046